=== PATIENT | male | born 1935 | race Caucasian/White ===

== ENCOUNTER 2017-10-25 17:46 | Inpatient (IN) | payer OTHER, MEDICARE ==
[~2017-10-25] VITALS: Ht 170.2 cm; Wt 74.5 kg
[~2017-10-25 17:46] MED LIST: ASPIRIN EC81 M1 PO; BREO ELLIPTA 21 EACH INH; CALCIUM500 M1 PO; FOLIC ACID0.8 M1 PO; GABAPENTIN100 M2 PO; ISONIAZID100 MG PO; LEVOTHYROXINE75 MCG PO; OMEPRAZOLE20 M2 PO; PREDNISONE20 M1 PO; PROPRANOLOL HCL80 M2 PO; SPIRIVA18 MCG INH; VITAMIN B-650 M2 PO; VITAMIN D2000 UNIT PO
--- NOTE | 2017-10-25 18:02 | ED DYSPNEA/ASTHMA COMPLAINT ---
See Addendum History of Present Illness General Chief Complaint: Dyspnea (COPD, CHF, Other) Stated Complaint: RES FAILURE LOW SATS Source: patient, family, old records Exam Limitations: clinical condition Vital Signs & Intake/Output Vital Signs & Intake/Output Vital Signs Date Time Temp Pulse Resp B/P B/P Pulse O2 O2 Flow FiO2 Mean Ox Delivery Rate 10/25 2036 98.8 74 26 129/83 95 BIPAP 10/25 1945 80 95 10/25 1839 38 100 Non ReBreather 10/25 1834 Non ReBreather 10/256 99 Non 100% ReBreather 10/25 175 98.0 67 42 110/72 70 Nasal 4.0L Cannula Allergies Coded Allergies: NO KNOWN ALLERGIES (12/07/11) Reconcile Medications Aspirin (Ecotrin*) 81 MG TABLET.DR 1 TAB PO DAILY HEART/BLOOD (Reported) Calcium Carbonate (Calcium) (Unknown Strength) TABLET (Unknown Dose) PO DAILY SUPPLEMENT (Reported) Cholecalciferol (Vitamin D3) (Vitamin D) (Unknown Strength) CAPSULE (Unknown Dose) PO DAILY SUPPLEMENT (Reported) Fluticasone/Vilanterol (Breo Ellipta 200-25 Mcg INH) 200 MCG-25 MCG/DOSE BLST.W.DEV 1 PUFF INH DAILY LUNG FIBROSIS (Reported) Folic Acid (Unknown Strength) CAPSULE (Unknown Dose) PO DAILY SUPPLEMENT ( Reported) Gabapentin 100 MG CAPSULE 1 CAP PO TID LUNG FIBROSIS (Reported) Isoniazid 100 MG TABLET 1 TAB PO TID LUNG FIBROSIS (Reported) Levothyroxine Sodium 75 MCG TABLET 1 TAB PO DAILY THYROID (Reported) Omeprazole 20 MG CAPSULE.DR 1 CAP PO DAILY GI (Reported) Prednisone 20 MG TABLET 1 TAB PO DAILY COPD Propranolol HCl (Propranolol HCl ER) 80 MG CAP.SA.24H 1 CAP PO DAILY MIGRAINES (Reported) Pyridoxine HCl (Vitamin B-6) (Unknown Strength) TABLET (Unknown Dose) PO DAILY SUPPLEMENT (Reported) Tiotropium [place] (Spiriva) 18 MCG CAP.W.DEV 1 CAP INH DAILY LUNG FIBROSIS ( Reported) Triage Note: SENT BY DR. MELO FOR ADMISSION, C/O R SIDED BACK PAIN AND SOB, COUGH X A FEW DAYS, 02 SAT 70% AT 5L NASAL CANULA. Triage Nurses Notes Reviewed? yes Onset: Abrupt Duration: day(s): (2), constant, continues in ED Timing: recent history Severity: moderate, severe HPI: 82-year-old male comes into the emergency room with complaints of shortness of breath has been going on for the past 2 days getting progressively worse. Denies any chest pain. Cough. No mucus production. Denies any fever or vomiting. History of pulmonary fibrosis. Patient was sent in by his primary care for admission. (Db Love) Past History Travel History Traveled to [place] past 21 day No Medical History Any Pertinent Medical History? 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 No (Db Love) Review of Systems Review of Systems Constitutional: Reports: no symptoms. EENTM: Reports: no symptoms. Respiratory: Reports: see HPI. Cardiovascular: Reports: no symptoms. GI: Reports: no symptoms. Genitourinary: Reports: no symptoms. Musculoskeletal: Reports: no symptoms. Skin: Reports: no symptoms. Neurological/Psychological: Reports: no symptoms. Hematologic/Endocrine: Reports: no symptoms. Immunologic/Allergic: Reports: no symptoms. All Other Systems: Reviewed and Negative (Db Love) Physical Exam Physical Exam General Appearance: moderate distress, thin Head: atraumatic Eyes: Bilateral: normal appearance. Ears, Nose, Throat: normal ENT inspection, hearing grossly normal Neck: normal inspection Respiratory: decreased breath sounds, plerual rub, respiratory distress ( MODERATE) Cardiovascular: regular rate/rhythm Extremities: normal inspection Neurologic/Psych: awake, alert, oriented x 3 Skin: intact, normal color Core Measures ACS in differential dx? Yes CVA/TIA Diagnosis No Sepsis Present: No Sepsis Focused Exam Completed? No (Db Love) Progress Differential Diagnosis: asthma, AMI, bronchitis, costochondritis, CHF, COPD, pericarditis, pulmonary embolism, pneumonia, pneumothorax, unstable angina Plan of Care: Orders Procedure Date/time Status PARTIAL THROMBOPLASTIN TIME 10/26 0250 Active Patient Data 10/25 2050 Active Admit to inpatient 10/25 2046 Active Add-on Test (ER Only) 10/25 1946 Active Add-on Test (ER Only) 10/25 1937 Active RAPID VIRAL INFLUENZA A 10/25 1935 Complete BLOOD CULTURE 10/25 1935 Active PARTIAL THROMBOPLASTIN TIME 10/25 1810 Complete PROTHROMBIN TIME 10/25 1810 Complete LACTIC ACID 10/25 1810 Complete ARTERIAL BLOOD GAS (GEN) 10/25 175 Complete Telemetry/Social Security Assessor 10/25 175 Active TROPONIN LEVEL 10/25 175 Complete COMPREHENSIVE METABOLIC PANEL 10/25 175 Complete CBC WITHOUT DIFFERENTIAL 10/25 1753 Complete B-TYPE NATRIURETIC PEP (BNP) 10/25 1753 Complete EKG 10/25 1753 Active Current Medications Sig/Marah Start time Last Medication Dose Stop Time Status Admin Heparin Sodium 25,000 UNIT Q24H 10/25 1944 UNVr 10/25 (Porcine) 2052 (Heparin) Sodium Chloride 500 ML Laboratory Tests 10/25/171953: Anion Gap 11, Estimated GFR > 60, BUN/Creatinine Ratio 34.4 H, Glucose 105 H, Lactic Acid 1.0, Calcium 9.6, Total Bilirubin 0.5, AST 21, ALT 34, Alkaline Phosphatase 69, Troponin I < 0.01, Vuz-U-Lsfcvsuikox Pept 1760 H, Total Protein 7.1, Albumin 3.7, Globulin 3.4, Albumin/Globulin Ratio 1.1 10/25/171914: pH 7.35, pCO2 61 *H, pO2 86, HCO3 33 H, ABG O2 Sat (Measured) 96.0, Carboxyhemoglobin 1.1 L, O2 Concentration % 100%, O2 Delivery Method NRB, Phlebotomy Draw Site RIGHT RADIAL 10/25/171810: PT 13.3 H, INR 1.27 H, APTT 27, CBC w Diff MAN DIFF ORDERED, RBC 4.60 L, MCV 92.4, MCH 29.8, MCHC 32.3 L, RDW 15.9 H, MPV 8.4, Gran % 84.5 H, Lymphocytes % 6.7 L, Monocytes % 2.9, Eosinophils % 5.6 H, Basophils % 0.3, Absolute Granulocytes 14.4 H, Segmented Neutrophils 72, Band Neutrophils 10 H, Absolute Lymphocytes 1.1 L, Lymphocytes 4 L, Monocytes 6, Absolute Monocytes 0.5, Eosinophils 5, Absolute Eosinophils 1.0, Basophils 3 H, Absolute Basophils 0, Platelet Estimate VERIFIED BY SMEAR, Anisocytosis 1+ Microbiology 10/25 1953 NASOPHARYN: Influenza Virus A & B Rapid Smear - COMP 10/25 1953 BLOOD: Blood Culture - RECD 10/25 1943 BLOOD: Blood Culture - RECD Diagnostic Imaging: Viewed by Me: Radiology Read. Discussed w/RAD: Radiology Read. Radiology Impression: PATIENT: KELY POWELL PRESENT AGE: 82 PATIENT ACCOUNT NO: [id number] : 33 LOCATION: [facility] ORDERING PHYSICIAN: Db MILLER SERVICE DATE: 10/25/17 EXAM TYPE : RAD - XRY-PORTABLE CHEST XRAY EXAMINATION: XR PORTABLE CHEST CLINICAL INFORMATION: Shortness of breath COMPARISON: Chest x-ray 08/26/2017. CT of chest 07/16/2017, 08/26/2017 TECHNIQUE: Portable frontal view of the chest was obtained. 6:45 PM FINDINGS: Better demonstrated on the CAT scan is underlying interstitial fibrosis with bulla formation. There is dense consolidation at the right lung base with pleural density extending along the right lateral chest wall. This density the right lung base has worsened since the exam of 2016. Left diaphragm is also silhouetted could be some left basilar opacification as well but this appears similar to the chest x-ray 08/26/2017. The central hilar pulmonary vessels remain prominent. Vascular wall calcification of aorta. IMPRESSION: Increasing dense consolidation at right lung base due to infiltrate/atelectasis and effusion. Persistent central hilar pulmonary vascular congestion. DICTATED BY: Sudarshan Harley MD DATE/TIME DICTATED: 10/25/171909 SUPERVISORY AIR INTERCEPT CONTROLLER:CARI DATE/TIME TRANSCRIBED:10/25/171909 CONFIDENTIAL, DO NOT COPY WITHOUT APPROPRIATE AUTHORIZATION. <Electronically signed in Other Vendor System> SIGNED BY: Sudarshan Harley MD 10/25/171919 Initial ED EKG: rate (71), AFIB (Bryan MILLER,Db) Departure Departure Disposition: STILL A PATIENT Condition: Stable Clinical Impression Primary Impression: Respiratory failure Secondary Impressions: New onset a-fib, Pneumonia Referrals: Candido FAGAN,Tino Beck (PCP/Family) Departure Forms: Customer Survey General Discharge Information (Db Love) Admission Note Spoke With: Jimenez Aparicio MD Documentation of Exam: Documentation of any treatments & extenuating circumstances including Concerns Regarding Discharge (functional status, medication knowledge or non-compliance, living conditions, etc.) that warrant an admission rather than observation: [ BiPAP, respiratory therapy, nebulizers, pulmonary consult, IV antibiotics, radiology consultation, IV heparin, ICU admission] PA/[employer]GRAM[employer] Co-Sign Statement Statement: ED Attending supervision documentation- [X] I saw and evaluated the patient. I have also reviewed all the pertinent lab results and diagnostic results. I agree with the findings and the plan of care as documented in the PA's/PROGRAMM[employer] INTERNSH[employer]'s documentation. [X] I have reviewed the ED Record and agree with the PA's/PROGRAM[employer]'s documentation. [] Additions or exceptions (if any) to the PAs/PROGRAMMING INTERNSH[employer]'s note and plan are summarized below: [Patient presents with increased shortness of breath. Patient is on prednisone. Patient has a white count of 17,000 with 10 bands. Chest x-ray consistent with right lower lobe pneumonia. Patient is currently requiring BiPAP. Patient feels slightly better with the BiPAP. Patient is ever been on BiPAP before. Patient also found be a new onset A. fib. Patient has stress test with Dr. Prsica Ashley last year and was told everything was okay. Patient does not see Dr. Prisca Ashley on regular basis. Patient given broad-spectrum antibiotics as well as steroids. We'll continue the BiPAP continue to closely follow.] (Ghazala FAGAN,Fabricio Jeffries) Critical Care Note Critical Care Note Critical Care Time: 30-74 min (60) (Db Love)
[2017-10-25 18:42] LABS: ABSOLUTE BASOPHIL COUNT 0 /CUMM (0.0-0.2); ABSOLUTE GRANULOCYTE CT 14.4 /CUMM (1.4-6.5); ABSOLUTE LYMPH COUNT 1.1 /CUMM (1.2-3.4); ABSOLUTE MONOCYTE COUNT 0.5 /CUMM (0.10-0.60); BASOPHIL % 0.3 % (0.0-2.0); EOSINOPHIL % 5.6 % (0-5); GRANULOCYTE % 84.5 % (42.2-75.2); HEMATOCRIT 42.5 % (42-52); MEAN CORPUSCULAR HGB 29.8 PG (27.0-31.0); MEAN CORPUSCULAR HGB CONC 32.3 G/DL (33.0-37.0); MEAN CORPUSCULAR VOLUME 92.4 FL (80.0-94.0); MEAN PLATELET VOLUME 8.4 FL (7.4-10.4); PLATELET COUNT 272 /CUMM (130-400); RBC DISTRIBUTION WIDTH 15.9 % (11.5-14.5); WHITE BLOOD CELL COUNT 17.1 /CUMM (4.8-10.8)
--- NOTE | 2017-10-25 19:20 | RADIOLOGY REPORT ---
EXAMINATION: XR PORTABLE CHEST CLINICAL INFORMATION: Shortness of breath COMPARISON: Chest x-ray 08/26/2017. CT of chest 07/16/2017, 08/26/2017 TECHNIQUE: Portable frontal view of the chest was obtained. 6:45 PM FINDINGS: Better demonstrated on the CAT scan is underlying interstitial fibrosis with bulla formation. There is dense consolidation at the right lung base with pleural density extending along the right lateral chest wall. This density the right lung base has worsened since the exam of 08/26/2017. Left diaphragm is also silhouetted could be some left basilar opacification as well but this appears similar to the chest x-ray 08/26/2017. The central hilar pulmonary vessels remain prominent. Vascular wall calcification of aorta. IMPRESSION: Increasing dense consolidation at right lung base due to infiltrate/atelectasis and effusion. Persistent central hilar pulmonary vascular congestion.
[2017-10-25 20:05] LABS: PT 13.3 SEC (9.4-12.5); PTT 27 SEC (25-37)
--- NOTE | 2017-10-25 21:03 | History & Physical ---
Edilia Carver 10/25/172101: General Information and HPI MD Statement: I have seen and personally examined KELY POWELL and documented this H&P. The patient is a 82 year old M who presented with a patient stated chief complaint of hypoxemia Source of Information: family, old records Exam Limitations: unable to give history, physical impairment History of Present Illness: Mr Powell is a 81 year old gentleman with a PMHx of restrictive (severe interstitial pulmonary fibrosis), and obstructive ( severe emphysema ), end stage lung disease w/ reduced DLCO, multiple lung nodules concerning for malignancy, latent TB on INH+vit B6, progressive respiratory failure w/ increasing supplemental oxygen requirement from 2L>4L in the last few months was brought in when he was found to be hypoxemia at his doctors office. He also has PMHx of ascending and descending aneurysm of aorta, bladder cancer s/p TURBT and mitomycin, hypthyroidism. Reported recent or ongoing Tx w/ prednisone 10mg daily tx. He was on BiPAP machine when he was examined, and most of the history was obtained from the pts daughter who is a primary caregiver for the pt. As per the daughter, Mr Powell was found to be more lethargic and had decreased po intake in the last few days. He did not have any fever, but reported cough that became more productive. He is always dyspneic at baseline, and did not have any worsening shortness of breath either on exertion or at rest. Reported orthopnea which is chronic. He did not have any changes in his mentation, seizures, dysuria or abdmonial pain. He did not have any palpitations, chest pain or pedal edema. No sick contacts. No sallie or diarrhea. Allergies/Medications Allergies: Coded Allergies: NO KNOWN ALLERGIES (12/07/11) Home Med list Aspirin (Ecotrin*) 81 MG TABLET.DR 1 TAB PO DAILY HEART/BLOOD (Reported) Benzonatate (Tessalon Perle) 100 MG CAPSULE 1 CAP PO TID COUGH (Reported) Calcium Carbonate (Calcium) 500 MG CALCIUM (1,250 MG) TABLET 750 MG PO DAILY SUPPLEMENT (Reported) Cholecalciferol (Vitamin D3) (Vitamin D) 2,000 UNIT CAPSULE 1 TAB PO DAILY SUPPLEMENT (Reported) Escitalopram Oxalate 10 MG TABLET 1 TAB PO DAILY MENTAL HEALTH (Reported) Fluticasone/Vilanterol (Breo Ellipta 200-25 Mcg INH) 200 MCG-25 MCG/DOSE BLST.W.DEV 1 PUFF INH DAILY LUNG FIBROSIS (Reported) Folic Acid 0.8 MG CAPSULE 1 TAB PO DAILY SUPPLEMENT (Reported) Gabapentin 100 MG CAPSULE 1 CAP PO TID LUNG FIBROSIS (Reported) Isoniazid 100 MG TABLET 1 TAB PO TID LUNG FIBROSIS (Reported) Levothyroxine Sodium 75 MCG TABLET 1 TAB PO DAILY THYROID (Reported) Lubiprostone (Amitiza) 24 MCG CAPSULE 1 CAP PO BID CONSTIPATION (Reported) Omeprazole 20 MG CAPSULE.DR 1 CAP PO DAILY GI (Reported) Prednisone 20 MG TABLET 1 TAB PO DAILY COPD Propranolol HCl (Propranolol HCl ER) 80 MG CAP.SA.24H 1 CAP PO DAILY MIGRAINES (Reported) Pyridoxine HCl (Vitamin B-6) 50 MG TABLET 1 TAB PO DAILY SUPPLEMENT (Reported ) Tiotropium [place] (Spiriva) 18 MCG CAP.W.DEV 1 CAP INH DAILY LUNG FIBROSIS ( Reported) Tramadol HCl (Ultram) 50 MG TABLET 1 TAB PO TIDPRN PAIN (Reported) Compliance With Home Meds: GOOD Past History Travel History Traveled to [place] past 21 day No Medical History Neurological: migraine EENT: NONE Cardiovascular: NONE Respiratory: COPD, LUNG FIBROSIS Gastrointestinal: STOMACH ULCERS Hepatic: NONE Renal: nephrolithiasis Musculoskeletal: NONE Psychiatric: NONE Endocrine: hypothyroidism Blood Disorders: BLOOD CLOT IN LLE Cancer(s): bladder cancer 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 Unknown: dressing, bathing. Ambulation: walker IADLs Unknown: shopping, housework, finances, food prep, telephone, transportation, medication admin. Review of Systems Review of Systems Constitutional: Reports: see HPI. Denies: fever. EENTM: Denies: blurred vision. Cardiovascular: Denies: chest pain, edema, orthopena, palpitations, peripheral edema, syncope. Respiratory: Reports: cough, orthopnea, short of breath, sputum production. GI: Reports: constipation. Denies: abdominal pain, melena. Genitourinary: Denies: dysuria, hematuria. Musculoskeletal: Denies: joint pain. Skin: Denies: change in skin color. Neurological/Psychological: Denies: anxiety, headache. Hematologic/Endocrine: Denies: bruising, polyuria. Exam & Diagnostic Data Last 24 Hrs of Vital Signs/I&O Vital Signs Date Time Temp Pulse Resp B/P B/P Pulse O2 O2 Flow FiO2 Mean Ox Delivery Rate 10/26 0121 62 95 10/26 0048 97.3 58 22 104/70 97 BIPAP 10/26 0013 56 97 10/26 0009 53 99 10/25 2329 97.2 60 24 108/66 98 BIPAP 10/25 2300 63 103/75 10/25 2244 60 92/56 10/25 2210 90/62 10/25 2210 97.0 56 23 / 96 BIPAP 10/25 2037 98.8 74 26 129/83 95 BIPAP 10/25 1945 80 95 10/25 1839 38 100 Non ReBreather 10/25 1835 Non ReBreather 10/25 1816 99 Non 100% ReBreather 10/25 1752 98.0 67 42 110/72 70 Nasal 4.0L Cannula Intake & Output 10/26 0800 10/26 0000 10/25 1600 Intake Total 550 2000 Output Total 400 Balance 150 2000 Intake, IV 550 2000 Output, Urine 400 Patient 171 lb Weight Weight Reported by Patient Measurement Method Physical Exam General Appearance Alert, Oriented X3, Cooperative, Mild Distress, on BiPAP, arousable to verbal stimuli and answers to questions appropriately, but hard to understand since he is on BiPAP Skin No Rashes, No Breakdown, No Significant Lesion Skin Temp/Moisture Exam: Warm/Dry Sepsis Skin Exam (color): Normal for Ethnicity HEENT Atraumatic, PERRLA, EOMI, Mucous Membr. moist/pink Neck Supple, No JVD, No thryomegaly, +2 Carotid Pulse wo Bruit Lymphatic Cervical nl Cardiovascular Regular Rate, Normal S1, Normal S2, No Murmurs Lungs crackles and wheezes bilaterally. Abdomen Normal Bowel Sounds, Soft, No Tenderness, No Hepatospenomegaly Neurological Normal Speech, Strength at 5/5 X4 Ext, Normal Tone, Cranial Nerves 3-12 NL, Reflexes 2+, sensation couldnt be tested Extremities No Clubbing, No Cyanosis, No Edema, Normal Pulses, No Tenderness/ Swelling Vascular Pulses Symmetrical Body Front and Back (Adult) 1) Kneee replacement scars bilateral Diagnostic Data EKG Results Afib w/ good rate control No STTWI LAFB CXR Results increasing dense consolidation at right lung base due toinfiltrate/atelectasis and effusion.Persistent central hilar pulmonary vascular congestion. Assessment/Plan Assessment: Mr Powell is a 81 year old gentleman with a PMHx of restrictive (severe interstitial pulmonary fibrosis), and obstructive ( severe emphysema ), end stage lung disease w/ reduced DLCO, multiple lung nodules concerning for malignancy, latent TB on INH+vit B6, progressive respiratory failure w/ increasing supplemental oxygen requirement from 2L>4L in the last few months was brought in when he was found to be hypoxemia at his doctors office likely secondary to pneumonia as evident on radiography. Vitals remained stable when he came in w/ temp 98.6, [place] 67, RR 42>26, BP 110/72 Other pertinent lab findings: white cell count: 17.1 w/ 86% PMNs + 10 bands, eosinophils 5.6%, Hb 13.7, platelets 272k K 4.9, HCO3 39 ( metabolic compensation of chronic hypercapnia) BUN 31, Cr 0.7 LA 1.0. Trop 0.01, proBNP 1760 AST 21, ALT 34. Chest x ray showed increasing dense consolidation at right lung base due toinfiltrate/atelectasis and effusion.Persistent central hilar pulmonary vascular congestion. PET scan 05/04/17: 1. Diffuse subpleural FDG uptake is seen in the lungs, corresponding to the fibrotic areas demonstrated on CT scan. Superimposed intense FDG uptake isseen in the right lower lobe pleural-based mass as discussed above. Given theinternal air bronchograms and the dependent location of this finding,etiologies such as a pneumonia +/- atelectasis would be favored. CT chest w/o contrast 08/26/17: 1. Significant chronic lung disease with peripheral honeycombing, extensivecystic and bullous changes and peripheral interstitial thickening/fibrosis.2. Superimposed on the chronic lung changes is interval development ofenlarging areas of airspace opacification most notably in the posterioraspect of the right lower lobe and the inferior and lateral aspects of theright middle lobe. These densities contain air bronchograms and areconcerning for consolidation. The findings likely represent intervaldevelopment of an infectious process superimposed on the chronic lungdisease. Clinical correlation is requested, with follow-up to resolutionrecommended. Etiology in his case is due to possible infectious cause which is respiratory in nature, pneumonia is most likely. He did have leucocytosis w/ clear left shift signifying an acute infection and not due to the effect of prednisone use. Looking at the radiological findings historically in the last few months, it does appear that he might have developed pneumonia secondary to obstruction from malignancy, which is consistent with the area of consolidation. He also has severe restrictive and obstructive lung disease which could have contributed to hypoxic hypercarbic respiratory failure for which he needs to be tx w/ BiPAP and steroids. In regards to his afib w/ rate controlled rhythm, etiology could be due to his sepsis or his severe pulmonary hypertension secondary to copd which could be txed for high [id number] score of 3. Plan: Respiratory: Considering pneumonia that may have caused his acute worsening of already worsening respiratory failure, should be treated aggressively w/ emperic abx pending culture results that could be used to guide therapy in the next few days. Sepsis w/ normal lactate- resuscitated w/ fluids and abx administered. Continue ceftriaxone and azithromycin pending [facility] culture results. In regards to his worsening emphysematous disease, and interstitial lung disease the tx w/ steroids is not very beneficial, but can be continued. Continue BiPAP as needed. Recheck ABG post BiPAP. Titrate oxygen as tolerated. Infectious: Likely pneumonia. Check CBC in the am, and tx w/ abx for now. Other sources such as urine is considered, but unlikely. Metabolic: Stable at this time. Alimentary: NPO for now, pending improvement on BiPAP. Circulatory: BP seems to be stable at this time. If it drops for any reason, he should be tx'ed aggressive fluids. For new onset afib w/ controlled rate, he has been started on iv heparin, which should be continued. No beta blokcers, until evaluated by the design technology teacher in the am. Echocardiogram. Serial Ekgs and troponins. Hematology: stable. Housekeepin. DVT Ppx- heparin iv 2. GI PPx- Protonix 3. IV lines- peripheral only. 4. Respiratory- BiPAP. 5. NPO for now. 6. DNI only. Pt daughter to be contacted, if code status needs revision. As Ranked By This Provider Problem List: 1. New onset a-fib 2. Pneumonia 3. Respiratory failure 4. COPD (chronic obstructive pulmonary disease) 5. ILD (interstitial lung disease) 6. Acute respiratory failure 7. Bronchiectasis Core Measures/Misc (06/13) Acute Coronary Syndrome ACS Diagnosis: No Congestive Heart Failure Congestive Heart Failure Diagnosis No Cerebrovascular Accident CVA/TIA Diagnosis: No VTE (View Protocol) VTE Risk Factors Acute Medical Illness No Mechanical VTE Prophylaxis d/t N/A MechProphylax Ordered No VTE Pharm Prophylaxis d/t NA PharmProphylax ordered Sepsis (View protocol) Sepsis Present: Yes Markus FAGAN, [facility] 10/25/17 3285: Attending MD Review Statement Attending Statement Attending MD Statement: examined this patient, discuss w/resident/PA/VENEER MEASURER, agreed w/resident/PA/VENEER MEASURER, discussed with family, reviewed images, amended to note Attending Assessment/Plan: 82 yo Taiwanese speaking M, with h/o mixed restrictive obstructive lung disease with very severe emphysematous lung disease with severe interstitial pulmonary fibrosis on 4L O2 and prednisone, lung nodules (not a candidate for biopsy), HTN , hypothyroidism, DVT, latent TB, AAA, bladder cancer in remission, is here for progressively worsening dyspnea on minimal exertion and chronic nonproductive cough. History obtained from daughter who reports that patient's resporatory status has gradually deteriorated. No fever/ chills. Daughter states that patient has been recently unsteady on his feet and uses a cane to ambulate. Patient follows with Dr. Jain who saw him 1 week back. Of note, patient is on daily prednisone for the past [address] Jain. Patient has no underlying cardiac problems but has had a stress test [address] Prisca Shah and everything was reported ok. Today patient went in for a regular follow up with PCP, who noted patient's sats were in 70's on 4L O2 and hence was referred to the ER. On ER arrival patient was placed on NRB and then eventually transitioned to Bipap. On our evaluation, patient seems comfortable on Bipap, reports his breathing is better. He denies chest pain, palpitations or lightheadedness. C/o constipation, last BM 4 days ago. Vitals: afebrile, HR 50-70's, BP 110/72 --> 90/62 --> 103/75 after fluid resuscitation, sats 70% on 4L, 96% on Bipap FiO2 30%. Exam: lethargic but arousable, attempts to respond to questions, PERRL, Neck supple, Chest bibasilar coarse crackles with reduced air entry. Heart S1S2 irregular, Abd soft, NT, LE no edema. Labs: WBC 17.1 (on steroids), bands 10, eosinophils 5.6%, INR 1.27, bicarb 39, BUN 31, creat 0.9, lactic acid 1.0, trop neg, proBNP 1760. UA neg. AB.35/61/86/33. CXR: Increasing dense consolidation at right lung base due to infiltrate/ atelectasis and effusion. Persistent central hilar pulmonary vascular congestion. PFT (Apr 2017): restrictive ventilatory defect with resting and exercise desaturation. EKG: Atrial fibrillation, HR 71, Qtc 435 (new onset). CT chest (Jul 2017): chronic lung disease, interval development of airspace opacification in right lower lobe and right muddle lobe concerning for consolidation. Assessment and plan: 1. Acute on chronic hypoxic and hypercarbic respiratory failure 2. Sepsis, Right lower lobe pneumonia, community acquired 3. Exacerbation of COPD 4. Severe COPD with ILD with mixed obstructive and restrictive lung disease 5. New onset atrial fibrillation, rate controlled 6. Hypotension transient, resolved with fluids 7. Latent TB on INH and B6 8. Elevated proBNP with CXR s/o pulmonary congestion, clinically patient does not appear to be in heart failure - Admit to ICU - Vitals Q1 hour - NPO for now - Continue Bipap and recheck ABG in 2 hours - Monitor for arrhythmias - [facility] nebs - Panculture, urine legionella and strep Ag - IV ceftriaxone and azithro - IV solumedrol 40 Q8 - CRCU consult (Dr. Jain) - Consider repeat CT chest in AM - Gentle hydration x1 bag - Serial EKG and troponin - Obtain Echo and Cardio consult (Dr. Flowers) - IV heparin initiated per PTT protocol - Guaiac all stools - Rate controlled, no need for cardizem drip - Check TSH, free T4 - Treat constipation - Resume all home meds from AM once patient is off Bipap - GI ppx IV PPI DVT ppx IV heparin. DNI. [Code status was discussed with patient in the presence of daughter and . Patient clearly did not want ventilator machines or tubes, but he was ok with CPR. We explained that both go hand in hand, he was not able to make a final decision. So daughter wanted to keep it as DNI and she will discuss this in further depth with patient. Please re-discuss code status in AM.] TTS > 55 mins
--- NOTE | 2017-10-25 22:18 | Admission Certification ---
Admission Certification Certification Statement - As attending physician, I certify that at the time of - admission, based on clinical presentation, severity of - symptoms, need for further diagnostic testing and - therapeutic interventions, and risk of adverse outcomes - without in-hospital treatment, in my clinical assessment, - this patient requires an acute hospital stay for a minimum - of two nights or longer. I have also considered psychsocial - factors such as support system, advanced age, financial - issues, cognitive issues, and failed out-patient treatments, - past re-admission history, safety of patient, and lack of - compliance as applicable. Specific rationale supporting this admission is: Acute on chronic hypoxemic respiratory failure, community acquired pneumonia. New onset atrial fibrillation. Needs ICU level of care.
[2017-10-25] MEDS ORDERED: PREDNISONE20 M1 PO (23:14)
[2017-10-25] MEDS ORDERED: ESCITALOPRAM OX10 MG PO (23:16)
[2017-10-25] MEDS ORDERED: TESSALON PERLE100 M1 PO (23:16)
[2017-10-25] MEDS ORDERED: ULTRAM50 M1 PO (23:16)
[2017-10-25] MEDS ORDERED: AMITIZA24 MC1 PO (23:17)
[2017-10-26 04:44] LABS: ABSOLUTE BASOPHIL COUNT 0 /CUMM (0.0-0.2); ABSOLUTE EOSINOPHIL COUNT 0 /CUMM (0.0-0.7); ABSOLUTE GRANULOCYTE CT 11.6 /CUMM (1.4-6.5); ABSOLUTE LYMPH COUNT 0.7 /CUMM (1.2-3.4); ABSOLUTE MONOCYTE COUNT 0 /CUMM (0.10-0.60); BASOPHIL % 0.1 % (0.0-2.0); EOSINOPHIL % 0.2 % (0-5); GRANULOCYTE % 93.5 % (42.2-75.2); MEAN CORPUSCULAR HGB 29.6 PG (27.0-31.0); MEAN CORPUSCULAR HGB CONC 32.3 G/DL (33.0-37.0); MEAN CORPUSCULAR VOLUME 91.7 FL (80.0-94.0); MEAN PLATELET VOLUME 7.9 FL (7.4-10.4); PLATELET COUNT 210 /CUMM (130-400); RBC DISTRIBUTION WIDTH 15.5 % (11.5-14.5); WHITE BLOOD CELL COUNT 12.4 /CUMM (4.8-10.8)
[2017-10-26 04:49] LABS: PTT 107 SEC (25-37)
[2017-10-26 04:53] LABS: HEMATOCRIT 35.8 % (42-52)
--- NOTE | 2017-10-26 07:35 | Cons- CRCU ---
General Information and HPI Allergies/Medications Allergies: Coded Allergies: NO KNOWN ALLERGIES (12/07/11) Home Med List: Aspirin (Ecotrin*) 81 MG TABLET.DR 1 TAB PO DAILY HEART/BLOOD (Reported) Benzonatate (Tessalon Perle) 100 MG CAPSULE 1 CAP PO TID COUGH (Reported) Calcium Carbonate (Calcium) 500 MG CALCIUM (1,250 MG) TABLET 750 MG PO DAILY SUPPLEMENT (Reported) Cholecalciferol (Vitamin D3) (Vitamin D) 2,000 UNIT CAPSULE 1 TAB PO DAILY SUPPLEMENT (Reported) Escitalopram Oxalate 10 MG TABLET 1 TAB PO DAILY MENTAL HEALTH (Reported) Fluticasone/Vilanterol (Breo Ellipta 200-25 Mcg INH) 200 MCG-25 MCG/DOSE BLST.W.DEV 1 PUFF INH DAILY LUNG FIBROSIS (Reported) Folic Acid 0.8 MG CAPSULE 1 TAB PO DAILY SUPPLEMENT (Reported) Gabapentin 100 MG CAPSULE 1 CAP PO TID LUNG FIBROSIS (Reported) Isoniazid 100 MG TABLET 1 TAB PO TID LUNG FIBROSIS (Reported) Levothyroxine Sodium 75 MCG TABLET 1 TAB PO DAILY THYROID (Reported) Lubiprostone (Amitiza) 24 MCG CAPSULE 1 CAP PO BID CONSTIPATION (Reported) Omeprazole 20 MG CAPSULE.DR 1 CAP PO DAILY GI (Reported) Prednisone 20 MG TABLET 1 TAB PO DAILY COPD Propranolol HCl (Propranolol HCl ER) 80 MG CAP.SA.24H 1 CAP PO DAILY MIGRAINES (Reported) Pyridoxine HCl (Vitamin B-6) 50 MG TABLET 1 TAB PO DAILY SUPPLEMENT (Reported ) Tiotropium [place] (Spiriva) 18 MCG CAP.W.DEV 1 CAP INH DAILY LUNG FIBROSIS ( Reported) Tramadol HCl (Ultram) 50 MG TABLET 1 TAB PO TIDPRN PAIN (Reported) Past History Travel History Traveled to [place] past 21 day No Medical History Neurological: migraine EENT: NONE Cardiovascular: NONE Respiratory: COPD, LUNG FIBROSIS Gastrointestinal: STOMACH ULCERS Hepatic: NONE Renal: nephrolithiasis Musculoskeletal: NONE Psychiatric: NONE Endocrine: hypothyroidism Blood Disorders: BLOOD CLOT IN LLE Cancer(s): bladder cancer 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 Unknown: dressing, bathing. Ambulation: walker IADLs Unknown: shopping, housework, finances, food prep, telephone, transportation, medication admin. Assessment/Plan Consult Acknowledgment - Thank you for your consult request.
[2017-10-26 08:00] VITALS: BP 92/7
--- NOTE | 2017-10-26 09:43 | PN- Resident CRCU ---
Subjective HPI/CRCU Issues: Acute on chronic hypoxic and hypercarbic resp failure likely due to worsening ILD and COPD Mixed restrictive and obstructive lung disease Atrial fibrilliation Leukocytosis 24 Hour Events: No acute events overnight. patient is currently on BiPAP with 30% FiO2. Subjectively feels better than last night. He still has leukocytosis but his white count has significantly decreased since last night. Objective Vital Signs & I&O Last 8 Hrs of Vitals and I&O: . Exam General Appearance: alert, awake, mild distress Head: atraumatic, normal appearance Respiratory: chest non-tender, crackles, wheezing Cardiovascular: bradycardia, irregularly irregular Gastrointestinal: soft, non-tender Extremities: no edema Cranial Nerves: normal hearing, normal speech Skin: intact Skin Temp/Moisture Exam: Warm/Dry Sepsis Skin Exam (color): Normal for Ethnicity Current Medications: Current Medications Sig/Marah Start time Last Medication Dose Route Stop Time Status Admin Acetaminophen 650 MG Q8P PRN 10/25 2330 AC PO Acetaminophen 1,000 MG BID PRN 10/25 2330 AC IV Albuterol Sulfate 3 ML ONCE ONE 10/25 1800 DC 10/25 INH 10/25 1801 1808 Aspirin Buffered 81 MG DAILY 10/26 1000 AC 10/26 PO 1037 Azithromycin 500 MG 2100 10/26 2100 DC Sodium Chloride 250 ML IV Azithromycin 500 MG 2100 10/26 2100 AC Sodium Chloride 250 ML IV Azithromycin 500 MG ONCE ONE 10/25 1930 DC 10/25 Dextrose/Water 250 ML IV 10/25 Ceftazidime 1,000 MG IQ8 10/26 1600 AC IV Ceftriaxone Sodium 1,000 MG 2100 10/26 2100 CAN IV Ceftriaxone Sodium 0 .STK-MED ONE 10/25 2010 DC .ROUTE Ceftriaxone Sodium 1,000 MG ONCE ONE 10/25 1930 DC 10/25 IV 10/25 1930 2019 Escitalopram Oxalate 10 MG DAILY 10/26 1000 AC 10/26 PO 1037 Furosemide 40 MG ONCE ONE 10/26 1015 DC 10/26 IV 10/26 1016 1037 Gabapentin 100 MG TID 10/26 1000 AC 10/26 PO 1037 Heparin Sodium 0 .STK-MED ONE 10/25 2011 DC (Porcine) .ROUTE Heparin Sodium 4,000 UNIT ONCE ONE 10/25 1945 DC 10/25 (Porcine) IV 10/25 Heparin Sodium 25,000 UNIT Q24H 10/25 1944 AC 10/25 (Porcine) IV 2052 Sodium Chloride 500 ML Ipratropium [place] 2.5 ML ONCE ONE 10/25 1800 DC 10/25 INH 10/25 1801 1808 Isoniazid 300 MG DAILY 10/26 1000 AC 10/26 PO 1037 Levothyroxine Sodium 0.075 MG DAILY AC 10/26 0700 AC 10/26 PO 0613 Methylprednisolone 60 MG DAILY 10/27 1000 AC IV Methylprednisolone 20 MG ONCE ONE 10/26 1045 DC 10/26 IV 10/26 1046 1038 Methylprednisolone 40 MG Q8 10/26 0600 DC 10/26 IV 0613 Methylprednisolone 0 .STK-MED ONE 10/25 1815 DC .ROUTE Methylprednisolone 125 MG ONCE ONE 10/25 1800 DC 10/25 IV 10/25 1801 1816 Morphine Sulfate 2 MG Q6P PRN 10/26 1015 AC IV Omeprazole 20 MG DAILY AC 10/26 0700 AC 10/26 PO 0613 Pyridoxine HCl 50 MG DAILY 10/26 1000 AC 10/26 PO 1037 Senna/Docusate Sodium 2 TAB AT BEDTIME 10/26 2200 AC PO Sodium Chloride 1,000 ML BOLUS ONE 10/25 2300 CAN IV 10/26 0059 Sodium Chloride 1,000 ML ONCE ONE 10/25 2230 DC 10/25 IV 10/25 2329 2230 Sodium Chloride 1,000 ML BOLUS ONE 10/25 2230 DC 10/25 IV 10/26 0029 2340 Tiotropium [place] 1 PUF DAILY 10/26 1000 AC 10/26 INH 1038 Tramadol HCl 50 MG TIDPRN PRN 10/25 2330 AC PO Vancomycin HCl 1,000 MG Q12 10/26 1005 AC 10/26 Dextrose/Water 250 ML IV 1145 Impression/Plan Impression/Problem List Impression: Mr Beverly is a 81 year old gentleman with a PMHx of restrictive (severe interstitial pulmonary fibrosis), and obstructive ( severe emphysema ), end stage lung disease w/ reduced DLCO, multiple lung nodules concerning for malignancy, latent TB on INH+vit B6, progressive respiratory failure w/ increasing supplemental oxygen requirement from 2L>4L in the last few months was brought in after he was found to be hypoxemic at his doctors office. Problem List: 1. Acute Hypoxic and Hypercarbic Respiratory Failure likely secondary to worsening COPD and ILD 2. ? Pneumonia 3. Atrial Fibrilliation with Bradycardia 4. Latent Tb on INH and B6 Plan: * Close monitoring in the ICU * Continue O2 supplementation to maintain oxygen saturations >92% * Continue BiPAP as needed * Continue Azithromycin daily. Will add Vanc and Ceftazidime for broader coverage for suspected pneumonia * Her CXR from yesterday shows some vascular congestion. Will administer one time IV lasix. * Reduce Solu-Medrol to IV 60mg daily * TFTs within normal limits. * Will keep her on IV heparin for AC. watermaster AC will need to be discussed with family. * No rate control agents needed for A.fib. If needed, can use diltiazem per cardiology. * Cardiology recs appreciated. * DVT Prophylaxis with IV heparin * DNR/DNI Problem List: 1. Acute respiratory failure Pain Ratin Tomorrow's Labs & Rationales: CBC, ICU bundle Plan DVT/Prophylaxis: mechanical
--- NOTE | 2017-10-26 09:55 | Cons- CRCU ---
General Information and HPI Consulting Request Date of Consult: 10/26/17 Requested By: MED History of Present Illness: Mr Beverly is a 81 year old gentleman with a PMHx of restrictive (severe interstitial pulmonary fibrosis), and obstructive ( severe emphysema ), end stage lung disease w/ reduced DLCO, multiple lung nodules concerning for malignancy, latent TB on INH+vit B6, progressive respiratory failure w/ increasing supplemental oxygen requirement from 2L>4L in the last few months was brought in when he was found to be hypoxemia at his doctors office. He also has PMHx of ascending and descending aneurysm of aorta, bladder cancer s/p TURBT and mitomycin, hypthyroidism. Reported recent or ongoing Tx w/ prednisone 10mg daily tx. Reported orthopnea which is chronic. He did not have any changes in his mentation, seizures, dysuria or abdmonial pain. He did not have any palpitations , chest pain or pedal edema. No sick contacts. No sallie or diarrhea. This am he is sleeping and on bipap Appears comfortable Stable Allergies/Medications Allergies: Coded Allergies: NO KNOWN ALLERGIES (12/07/11) Home Med List: Aspirin (Ecotrin*) 81 MG TABLET.DR 1 TAB PO DAILY HEART/BLOOD (Reported) Benzonatate (Tessalon Perle) 100 MG CAPSULE 1 CAP PO TID COUGH (Reported) Calcium Carbonate (Calcium) 500 MG CALCIUM (1,250 MG) TABLET 750 MG PO DAILY SUPPLEMENT (Reported) Cholecalciferol (Vitamin D3) (Vitamin D) 2,000 UNIT CAPSULE 1 TAB PO DAILY SUPPLEMENT (Reported) Escitalopram Oxalate 10 MG TABLET 1 TAB PO DAILY MENTAL HEALTH (Reported) Fluticasone/Vilanterol (Breo Ellipta 200-25 Mcg INH) 200 MCG-25 MCG/DOSE BLST.W.DEV 1 PUFF INH DAILY LUNG FIBROSIS (Reported) Folic Acid 0.8 MG CAPSULE 1 TAB PO DAILY SUPPLEMENT (Reported) Gabapentin 100 MG CAPSULE 1 CAP PO TID LUNG FIBROSIS (Reported) Isoniazid 100 MG TABLET 1 TAB PO TID LUNG FIBROSIS (Reported) Levothyroxine Sodium 75 MCG TABLET 1 TAB PO DAILY THYROID (Reported) Lubiprostone (Amitiza) 24 MCG CAPSULE 1 CAP PO BID CONSTIPATION (Reported) Omeprazole 20 MG CAPSULE.DR 1 CAP PO DAILY GI (Reported) Prednisone 20 MG TABLET 1 TAB PO DAILY COPD Propranolol HCl (Propranolol HCl ER) 80 MG CAP.SA.24H 1 CAP PO DAILY MIGRAINES (Reported) Pyridoxine HCl (Vitamin B-6) 50 MG TABLET 1 TAB PO DAILY SUPPLEMENT (Reported ) Tiotropium [place] (Spiriva) 18 MCG CAP.W.DEV 1 CAP INH DAILY LUNG FIBROSIS ( Reported) Tramadol HCl (Ultram) 50 MG TABLET 1 TAB PO TIDPRN PAIN (Reported) Review of Systems Review of Systems Constitutional: Reports: see HPI. Comments Review of Systems Constitutional: Reports: see HPI. Denies: fever. EENTM: Denies: blurred vision. Cardiovascular: Denies: chest pain, edema, orthopena, palpitations, peripheral edema, syncope. Respiratory: Reports: cough, orthopnea, short of breath, sputum production. GI: Reports: constipation. Denies: abdominal pain, melena. Genitourinary: Denies: dysuria, hematuria. Musculoskeletal: Denies: joint pain. Skin: Denies: change in skin color. Neurological/Psychological: Denies: anxiety, headache. Hematologic/Endocrine: Denies: bruising, polyuria. Past History Travel History Traveled to [place] past 21 day No Medical History Neurological: migraine EENT: NONE Cardiovascular: NONE Respiratory: COPD, LUNG FIBROSIS Gastrointestinal: STOMACH ULCERS Hepatic: NONE Renal: nephrolithiasis Musculoskeletal: NONE Psychiatric: NONE Endocrine: hypothyroidism Blood Disorders: BLOOD CLOT IN LLE Cancer(s): bladder cancer BUSINESS ECONOMIST/Reproductive: 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 Unknown: dressing, bathing. Ambulation: walker IADLs Unknown: shopping, housework, finances, food prep, telephone, transportation, medication admin. Exam & Diagnostic Data Last 24 Hrs of Vital Signs/I&O Vital Signs Date Time Temp Pulse Resp B/P B/P Pulse O2 O2 Flow FiO2 Mean Ox Delivery Rate 10/26 799 96.8 62 24 92/7 95 BIPAP 30% 10/26 0800 94 BIPAP 30% 10/26 0655 56 96 10/26 0414 57 97 10/26 0400 95 BIPAP 30% 10/26 0155 95 BIPAP 30% 10/26 0121 62 95 10/26 0048 97.3 58 22 104/70 97 BIPAP 10/26 0013 56 97 10/26 0009 53 99 10/25 2329 97.2 60 24 108/66 98 BIPAP 10/25 2300 63 103/75 10/25 2244 60 92/56 10/25 2210 90/62 10/25 2210 97.0 56 23 90/62 96 BIPAP 10/25 2037 98.8 74 26 129/83 95 BIPAP 10/25 1945 80 95 10/25 1839 38 100 Non ReBreather 10/25 1835 Non ReBreather 10/25 1816 99 Non 100% ReBreather 10/25 1752 98.0 67 42 110/72 70 Nasal 4.0L Cannula Intake & Output 10/26 1600 10/26 0800 10/26 0000 Intake Total 864 2000 Output Total 700 Balance 164 2000 Intake, IV 764 2000 Intake, Oral 100 Output, Urine 700 Patient 177 lb 171 lb Weight Weight Bed scale Reported by Patient Measurement Method Last 48 Hrs of Labs/Aakash: Laboratory Tests 10/26/17 0600: CBC w Diff Cancelled, WBC Cancelled, RBC Cancelled, Hgb Cancelled, Hct Cancelled , MCV Cancelled, MCH Cancelled, MCHC Cancelled, RDW Cancelled, Plt Count Cancelled, MPV Cancelled 10/26/17 0500: Sodium Cancelled, Potassium Cancelled, Chloride Cancelled, Carbon Dioxide Cancelled, Anion Gap Cancelled, BUN Cancelled, Creatinine Cancelled, Glucose Cancelled, Calcium Cancelled, Phosphorus Cancelled, Magnesium Cancelled, Total Bilirubin Cancelled, AST Cancelled, ALT Cancelled, Albumin Cancelled 10/26/17 0350: Anion Gap 12, Estimated GFR > 60, Glucose 127 H, Calcium 8.5, Phosphorus 3.1, Magnesium 1.9, Total Bilirubin 0.3, AST 18, ALT 31, Troponin I < 0.01, Albumin 2.9 L, APTT 107 *H, CBC w Diff MAN DIFF ORDERED, RBC 3.90 L, MCV 91.7, MCH 29.6, MCHC 32.3 L, RDW 15.5 H, MPV 7.9, Gran % 93.5 H, Lymphocytes % 5.9 L, Monocytes % 0.3 L, Eosinophils % 0.2, Basophils % 0.1, Absolute Granulocytes 11.6 H, Segmented Neutrophils 84 H, Band Neutrophils 9 H, Absolute Lymphocytes 0.7 L, Lymphocytes 7 L, Absolute Monocytes 0 L, Absolute Eosinophils 0, Absolute Basophils 0, Platelet Estimate ADEQUATE, Polychromasia 1 +, Hypochromic-Microcytic 1+, Poikilocytosis 2+, Ovalocytes 1+, Stomatocytes 1+, Fld Total RBCs Counted 100 10/26/17 0250: APTT Cancelled 10/26/17 0200: Troponin I Cancelled 10/26/17 0026: APTT Cancelled 10/25/17 2357: Urinalysis LIGHT H, Urine Color YEL, Urine Clarity CLEAR, Urine pH 6.0, Ur Specific [place] >= 1.030, Urine Protein TRACE H, Urine Ketones NEG, Urine Nitrite NEG, Urine Bilirubin NEG, Urine Urobilinogen 1.0, Ur Leukocyte Esterase NEG, Ur Microscopic SEDIMENT EXAMINED, Urine RBC 3-5, Urine WBC 3-5 H, Ur Epithelial Cells FEW, Urine Bacteria RARE H, Urine Mucus MOD H, Urine Hemoglobin TRACE-INTACT H, Urine Glucose NEG 10/25/17 2150: pH 7.44, pCO2 47 H, pO2 78 L, HCO3 32 H, ABG O2 Sat (Measured) 95.0 L, Carboxyhemoglobin 1.3 L, O2 Concentration % 30%, Respiration Rate 24, O2 Delivery Method BIPAP, Vent Mode S/T, Expiratory Pressure 6, Inspiratory Pressure 22, Phlebotomy Draw Site RIGHT RADIAL 10/25/174: Anion Gap 11, Estimated GFR > 60, BUN/Creatinine Ratio 34.4 H, Glucose 105 H, Lactic Acid 1.0, Calcium 9.6, Total Bilirubin 0.5, AST 21, ALT 34, Alkaline Phosphatase 69, Troponin I < 0.01, Coj-W-Lsejuzfoafy Pept 1760 H, Total Protein 7.1, Albumin 3.7, Globulin 3.4, Albumin/Globulin Ratio 1.1 10/25/17 191: pH 7.35, pCO2 61 *H, pO2 86, HCO3 33 H, ABG O2 Sat (Measured) 96.0, Carboxyhemoglobin 1.1 L, O2 Concentration % 100%, O2 Delivery Method NRB, Phlebotomy Draw Site RIGHT RADIAL 10/25/17 1811: PT 13.3 H, INR 1.27 H, APTT 27, CBC w Diff MAN DIFF ORDERED, RBC 4.60 L, MCV 92.4, MCH 29.8, MCHC 32.3 L, RDW 15.9 H, MPV 8.4, Gran % 84.5 H, Lymphocytes % 6.7 L, Monocytes % 2.9, Eosinophils % 5.6 H, Basophils % 0.3, Absolute Granulocytes 14.4 H, Segmented Neutrophils 72, Band Neutrophils 10 H, Absolute Lymphocytes 1.1 L, Lymphocytes 4 L, Monocytes 6, Absolute Monocytes 0.5, Eosinophils 5, Absolute Eosinophils 1.0, Basophils 3 H, Absolute Basophils 0, Platelet Estimate VERIFIED BY SMEAR, Anisocytosis 1+ Microbiology 10/25 2356 URINE ROUT: Legionella Antigen - COMP 10/25 2356 URINE ROUT: Streptococcus pneumoniae Antigen (M - COMP 10/25 1953 NASOPHARYN: Influenza Virus A & B Rapid Smear - COMP Assessment/Plan Impression/Plan: General Appearance Alert, Oriented X3, Cooperative, Mild Distress, on BiPAP, arousable to verbal stimuli and answers to questions appropriately, but hard to understand since he is on BiPAP Skin No Rashes, No Breakdown, No Significant Lesion Skin Temp/Moisture Exam: Warm/Dry Sepsis Skin Exam (color): Normal for Ethnicity HEENT Atraumatic, PERRLA, EOMI, Mucous Membr. moist/pink Neck Supple, No JVD, No thryomegaly, +2 Carotid Pulse wo Bruit Lymphatic Cervical nl Cardiovascular Regular Rate, Normal S1, Normal S2, No Murmurs Lungs crackles and wheezes bilaterally. Abdomen Normal Bowel Sounds, Soft, No Tenderness, No Hepatospenomegaly Neurological Normal Speech, Strength at 5/5 X4 Ext, Normal Tone, Cranial Nerves 3-12 NL, Reflexes 2+, sensation couldnt be tested Extremities No Clubbing, No Cyanosis, No Edema, Normal Pulses, No Tenderness/ Swelling Vascular Pulses Symmetrical CXR IMPRESSION: Increasing dense consolidation at right lung base due to infiltrate/atelectasis and effusion. Persistent central hilar pulmonary vascular congestion. DICTATED BY: Sudarshan Harley MD DATE/TIME DICTATED:10/25/171909 This is a gentleman with mixed restrictive obstructive lung disease with very severe emphysematous lung disease with severe interstitial pulmonary fibrosis with traction bronchiectasis with worsening progressive respiratory failure. He has had bullous COPD for many years from previous history of [id number] smoking quit in 1989. His overall lung function has been progressively getting worse. In the recent past he was also noted to have bilateral lung masses concerning for malignancy by PET scan and he is not a great candidate for invasive workup due to end-stage lung disease and we will be doing a CAT scan in July for evaluation of this. 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 Patient has been on INH since April 28. He also does have ascending aortic aneurysm, abdominal aortic aneurysm before, and very severe end-stage lung disease with reduced DLCO. issues * Acute on chronic hypoxic and hypercarbic resp failure due to worsening ild, codp and prob malignancy in the rt lower lobe area compounded by mild fluid overload * Prob acute AIP aswell with prob superimposed pneumonia with bandemia * Slowly progressive rt lower lobe lesion since 2013 pt not a candidate for biopsy and he had wished conservative care (prob malignancy including lung vs mesothelioma vs boop * Severe copd with ild with mixed obstructive and restrictive lung disease with poor group home prognosis * 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 * Pafib with rapid ventricular response with normal LVEF * Previous bladder ca with no recurrence so far PLAN Cont BIPAP on and off during the day and at hs Keep sat at 92 Cont steroids and reduce to 60 daily IV lasix one dose cont out pt inh and b6, Check tsh and free t4 Cont azithro and change abx to vanco and ceftaz for now and will rapidly deescalate Swab the nares for mrsa cont other meds Will follow prog poor DNR and DNI Discussed with daughter Consult Acknowledgment - Thank you for your consult request.
--- NOTE | 2017-10-26 10:30 | Cons- Cardiology ---
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 Patient is presently on BiPAP and unable to provide any information therefore the history is obtained from the daughter who is the bedside. She states that he normally has shortness of breath but this is progressive over the past 3 days. He has a chronic cough but she did not note any change. There was no evidence of fever or chills. Due to his worsening symptoms she brought him to the emergency room for evaluation where he was admitted to ICU and placed on BiPAP. He was noted to be in atrial fibrillation which is new onset. He reportedly had a negative cardiac workup over a year ago as an outpatient. Allergies/Medications Allergies: Coded Allergies: NO KNOWN ALLERGIES (12/07/11) Home Med List: Aspirin (Ecotrin*) 81 MG TABLET.DR 1 TAB PO DAILY HEART/BLOOD (Reported) Benzonatate (Tessalon Perle) 100 MG CAPSULE 1 CAP PO TID COUGH (Reported) Calcium Carbonate (Calcium) 500 MG CALCIUM (1,250 MG) TABLET 750 MG PO DAILY SUPPLEMENT (Reported) Cholecalciferol (Vitamin D3) (Vitamin D) 2,000 UNIT CAPSULE 1 TAB PO DAILY SUPPLEMENT (Reported) Escitalopram Oxalate 10 MG TABLET 1 TAB PO DAILY MENTAL HEALTH (Reported) Fluticasone/Vilanterol (Breo Ellipta 200-25 Mcg INH) 200 MCG-25 MCG/DOSE BLST.W.DEV 1 PUFF INH DAILY LUNG FIBROSIS (Reported) Folic Acid 0.8 MG CAPSULE 1 TAB PO DAILY SUPPLEMENT (Reported) Gabapentin 100 MG CAPSULE 1 CAP PO TID LUNG FIBROSIS (Reported) Isoniazid 100 MG TABLET 1 TAB PO TID LUNG FIBROSIS (Reported) Levothyroxine Sodium 75 MCG TABLET 1 TAB PO DAILY THYROID (Reported) Lubiprostone (Amitiza) 24 MCG CAPSULE 1 CAP PO BID CONSTIPATION (Reported) Omeprazole 20 MG CAPSULE.DR 1 CAP PO DAILY GI (Reported) Prednisone 20 MG TABLET 1 TAB PO DAILY COPD Propranolol HCl (Propranolol HCl ER) 80 MG CAP.SA.24H 1 CAP PO DAILY MIGRAINES (Reported) Pyridoxine HCl (Vitamin B-6) 50 MG TABLET 1 TAB PO DAILY SUPPLEMENT (Reported ) Tiotropium [place] (Spiriva) 18 MCG CAP.W.DEV 1 CAP INH DAILY LUNG FIBROSIS ( Reported) Tramadol HCl (Ultram) 50 MG TABLET 1 TAB PO TIDPRN PAIN (Reported) Current Medications: Current Medications Sig/Marah Start time Last Medication Dose Route Stop Time Status Admin Acetaminophen 650 MG Q8P PRN 10/25 2330 AC PO Acetaminophen 1,000 MG BID PRN 10/25 2330 AC IV Albuterol Sulfate 3 ML ONCE ONE 10/25 1800 DC 10/25 INH 10/25 1801 1808 Aspirin Buffered 81 MG DAILY 10/26 1000 AC PO Azithromycin 500 MG 2100 10/26 2099 DC Sodium Chloride 250 ML IV Azithromycin 500 MG 2100 10/26 2100 UNVr Sodium Chloride 250 ML IV Azithromycin 500 MG ONCE ONE 10/25 1930 DC 10/25 Dextrose/Water 250 ML IV 10/25 Ceftazidime 1,000 MG IQ8 10/26 1600 UNVr IV Ceftriaxone Sodium 1,000 MG 2100 10/26 2100 CAN IV Ceftriaxone Sodium 0 .STK-MED ONE 10/25 2010 DC .ROUTE Ceftriaxone Sodium 1,000 MG ONCE ONE 10/25 1929 DC 10/25 IV 10/25 Escitalopram Oxalate 10 MG DAILY 10/26 1000 AC PO Furosemide 40 MG ONCE ONE 10/26 1015 UNVr IV 10/26 1016 Gabapentin 100 MG TID 10/26 1000 AC PO Heparin Sodium 0 .STK-MED ONE 10/25 2011 DC (Porcine) .ROUTE Heparin Sodium 4,000 UNIT ONCE ONE 10/25 1944 DC 10/25 (Porcine) IV 10/25 Heparin Sodium 25,000 UNIT Q24H 10/25 1944 AC 10/25 (Porcine) IV 2052 Sodium Chloride 500 ML Ipratropium [place] 2.5 ML ONCE ONE 10/25 1800 DC 10/25 INH 10/25 1801 1808 Isoniazid 300 MG DAILY 10/26 1000 AC PO Levothyroxine Sodium 0.075 MG DAILY AC 10/26 0700 AC 10/26 PO 0613 Methylprednisolone 60 MG DAILY 10/27 1000 UNVr IV Methylprednisolone 40 MG Q8 10/26 0600 DC 10/26 IV 0613 Methylprednisolone 0 .STK-MED ONE 10/25 1815 DC .ROUTE Methylprednisolone 125 MG ONCE ONE 10/25 1800 DC 10/25 IV 10/25 1801 1816 Morphine Sulfate 2 MG Q6P PRN 10/26 1015 UNVr IV Omeprazole 20 MG DAILY AC 10/26 0700 AC 10/26 PO 0613 Pyridoxine HCl 50 MG DAILY 10/26 1000 AC PO Senna/Docusate Sodium 2 TAB AT BEDTIME 10/26 2200 AC PO Sodium Chloride 1,000 ML BOLUS ONE 10/25 2300 CAN IV 10/26 0059 Sodium Chloride 1,000 ML ONCE ONE 10/25 2230 DC 10/25 IV 10/25 2329 2230 Sodium Chloride 1,000 ML BOLUS ONE 10/25 2230 DC 10/25 IV 10/26 0029 2340 Tiotropium [place] 1 PUF DAILY 10/26 1000 AC INH Tramadol HCl 50 MG TIDPRN PRN 10/25 2330 AC PO Vancomycin HCl 1,000 MG Q12 10/26 1005 UNir Dextrose/Water 250 ML IV Review of Systems Review of Systems: Unobtainable patient on BiPAP Past History Travel History Traveled to [place] past 21 day No Medical History Neurological: migraine EENT: NONE Cardiovascular: NONE Respiratory: COPD, LUNG FIBROSIS Gastrointestinal: STOMACH ULCERS Hepatic: NONE Renal: nephrolithiasis Musculoskeletal: NONE Psychiatric: NONE Endocrine: hypothyroidism Blood Disorders: BLOOD CLOT IN LLE Cancer(s): bladder cancer JOB SUPERINTENDENT/Reproductive: 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 Unknown: dressing, bathing. Ambulation: walker IADLs Unknown: shopping, housework, finances, food prep, telephone, transportation, medication admin. Exam & Diagnostic Data Vital Signs and I&O Vital Signs Date Time Temp Pulse Resp B/P B/P Pulse O2 O2 Flow FiO2 Mean Ox Delivery Rate 10/26 0951 62 95 10/26 0800 96.8 62 24 92/7 95 BIPAP 30% 10/26 0800 94 BIPAP 30% 10/26 0655 56 96 10/26 0414 57 97 10/26 0400 95 BIPAP 30% 10/26 0155 95 BIPAP 30% 10/26 0121 62 95 10/26 0048 97.3 58 22 104/70 97 BIPAP 10/26 0013 56 97 10/26 0009 53 99 10/25 2329 97.2 60 24 108/66 98 BIPAP 10/25 2300 63 103/75 10/25 2244 60 92/56 10/25 2210 90/62 10/25 2210 97.0 56 23 90/62 96 BIPAP 10/25 2037 98.8 74 26 129/83 95 BIPAP 10/25 1945 80 95 10/25 1839 38 100 Non ReBreather 10/25 1835 Non ReBreather 10/25 1816 99 Non 100% ReBreather 10/25 1752 98.0 67 42 110/72 70 Nasal 4.0L Cannula Intake & Output 10/26 1600 10/26 0800 10/26 0000 10/25 1600 10/25 0800 10/25 0000 Intake Total 864 2000 Output Total 700 Balance 164 2000 Intake, IV 764 2000 Intake, Oral 100 Output, Urine 700 Patient 177 lb 171 lb Weight Weight Bed scale Reported by Patient Measurement Method Physical Exam: Patient is a well-developed well-nourished male appearing in moderate respiratory distress on BiPAP HEENT is unremarkable Neck is supple there is no JVD Lungs decreased air entry with scattered rhonchi Heart irregular rhythm S1 and S2 are normal no murmurs gallops or rubs Abdomen bowel sounds positive Extremities without edema Labs/Aakash Results: Laboratory Tests 10/26 10/26 0600 0500 Chemistry Sodium Cancelled Potassium Cancelled Chloride Cancelled Carbon Dioxide Cancelled Anion Gap Cancelled BUN Cancelled Creatinine Cancelled Glucose Cancelled Calcium Cancelled Phosphorus Cancelled Magnesium Cancelled Total Bilirubin Cancelled AST Cancelled ALT Cancelled Albumin Cancelled Hematology CBC w Diff Cancelled WBC Cancelled RBC Cancelled Hgb Cancelled Hct Cancelled MCV Cancelled MCH Cancelled MCHC Cancelled RDW Cancelled Plt Count Cancelled MPV Cancelled 10/26 10/26 0350 0250 Chemistry Sodium (137 - 145 mmol/L) 144 Potassium (3.5 - 5.1 mmol/L) 4.7 Chloride (98 - 107 mmol/L) 100 Carbon Dioxide (22 - 30 mmol/L) 32 H Anion Gap (5 - 16) 12 BUN (9 - 20 mg/dL) 31 H Creatinine (0.7 - 1.2 mg/dL) 0.8 Estimated GFR (>60 ml/min) > 60 Glucose (65 - 99 mg/dL) 127 H Calcium (8.4 - 10.2 mg/dL) 8.5 Phosphorus (2.5 - 4.5 mg/dL) 3.1 Magnesium (1.6 - 2.3 mg/dL) 1.9 Total Bilirubin (0.2 - 1.3 mg/dL) 0.3 AST (17 - 59 U/L) 18 ALT (21 - 72 U/L) 31 Troponin I (<0.11 ng/ml) < 0.01 Albumin (3.5 - 5.0 g/dL) 2.9 L TSH (0.270 - 4.200 uIU/mL) Pending Free T4 (0.85 - 1.93 ng/dL) Pending Coagulation APTT (25 - 37 SEC) 107 *H Cancelled Hematology CBC w Diff MAN DIFF ORDERED WBC (4.8 - 10.8 /CUMM) 12.4 H RBC (4.70 - 6.10 /CUMM) 3.90 L Hgb (14.0 - 18.0 G/DL) 11.6 L Hct (42 - 52 %) 35.8 L MCV (80.0 - 94.0 FL) 91.7 MCH (27.0 - 31.0 PG) 29.6 MCHC (33.0 - 37.0 G/DL) 32.3 L RDW (11.5 - 14.5 %) 15.5 H Plt Count (130 - 400 /CUMM) 210 MPV (7.4 - 10.4 FL) 7.9 Gran % (42.2 - 75.2 %) 93.5 H Lymphocytes % (20.5 - 51.1 %) 5.9 L Monocytes % (1.7 - 9.3 %) 0.3 L Eosinophils % (0 - 5 %) 0.2 Basophils % (0.0 - 2.0 %) 0.1 Absolute Granulocytes (1.4 - 6.5 /CUMM) 11.6 H Segmented Neutrophils (42.2 - 75.2 %) 84 H Band Neutrophils (0.0 - 5.0 %) 9 H Absolute Lymphocytes (1.2 - 3.4 /CUMM) 0.7 L Lymphocytes (20.5 - 51.1 %) 7 L Absolute Monocytes (0.10 - 0.60 /CUMM) 0 L Absolute Eosinophils (0.0 - 0.7 /CUMM) 0 Absolute Basophils (0.0 - 0.2 /CUMM) 0 Platelet Estimate (ADEQUATE) ADEQUATE Polychromasia 1+ Hypochromic-Microcytic 1+ Poikilocytosis 2+ Ovalocytes 1+ Stomatocytes 1+ Other Body Source Fld Total RBCs Counted (%) 100 10/26 10/26 0200 0026 Chemistry Troponin I Cancelled Coagulation APTT Cancelled 10/25 10/25 2357 2150 Blood Gas pH (7.35 - 7.45 PH) 7.44 pCO2 (35 - 45 TORR) 47 H pO2 (80 - 100 TORR) 78 L HCO3 (21 - 28 MEQ/L) 32 H ABG O2 Sat (Measured) (>96.0 %) 95.0 L Carboxyhemoglobin (1.5 - 5.0 %) 1.3 L O2 Concentration % 30% Respiration Rate (BPM) 24 O2 Delivery Method BIPAP Vent Mode S/T Expiratory Pressure (CM H2O P) 6 Inspiratory Pressure (CM H2O P) 22 Miscellaneous Phlebotomy Draw Site RIGHT RADIAL Urines Urinalysis LIGHT H Urine Color (YEL,AMB,STR) YEL Urine Clarity (CLEAR) CLEAR Urine pH (5.0 - 8.0) 6.0 Ur Specific [place] (1.001 - 1.035) >= 1.030 Urine Protein (NEG,<30 MG/DL) TRACE H Urine Ketones (NEG) NEG Urine Nitrite (NEG) NEG Urine Bilirubin (NEG) NEG Urine Urobilinogen (0.1 - 1.0 EU/dl) 1.0 Ur Leukocyte Esterase (NEG) NEG Ur Microscopic SEDIMENT EXAMINED Urine RBC (0 - 5 /HPF) 3-5 Urine WBC (0 - 2 /HPF) 3-5 H Ur Epithelial Cells (NONE,FEW) FEW Urine Bacteria (NEG/NONE) RARE H Urine Mucus (FEW,NONE) MOD H Urine Hemoglobin (NEG) TRACE-INTACT H Urine Glucose (N MG/DL) NEG 10/25 Blood Gas pH (7.35 - 7.45 PH) 7.35 pCO2 (35 - 45 TORR) 61 *H pO2 (80 - 100 TORR) 86 HCO3 (21 - 28 MEQ/L) 33 H ABG O2 Sat (Measured) (>96.0 %) 96.0 Carboxyhemoglobin (1.5 - 5.0 %) 1.1 L O2 Concentration % 100% O2 Delivery Method NRB Chemistry Sodium (137 - 145 mmol/L) 144 Potassium (3.5 - 5.1 mmol/L) 4.9 Chloride (98 - 107 mmol/L) 94 L Carbon Dioxide (22 - 30 mmol/L) 39 H Anion Gap (5 - 16) 11 BUN (9 - 20 mg/dL) 31 H Creatinine (0.7 - 1.2 mg/dL) 0.9 Estimated GFR (>60 ml/min) > 60 BUN/Creatinine Ratio (7 - 25 %) 34.4 H Glucose (65 - 99 mg/dL) 105 H Lactic Acid (0.7 - 2.1 mmol/L) 1.0 Calcium (8.4 - 10.2 mg/dL) 9.6 Total Bilirubin (0.2 - 1.3 mg/dL) 0.5 AST (17 - 59 U/L) 21 ALT (21 - 72 U/L) 34 Alkaline Phosphatase (< 127 U/L) 69 Troponin I (<0.11 ng/ml) < 0.01 Tyl-V-Cubimanpuvy Pept (<125 pg/mL) 1760 H Total Protein (6.3 - 8.2 g/dL) 7.1 Albumin (3.5 - 5.0 g/dL) 3.7 Globulin (1.9 - 4.2 gm/dL) 3.4 Albumin/Globulin Ratio (1.1 - 2.2 %) 1.1 Miscellaneous Phlebotomy Draw Site RIGHT RADIAL 10/25 1811 Coagulation PT (9.4 - 12.5 SEC) 13.3 H INR (0.90 - 1.17) 1.27 H APTT (25 - 37 SEC) 27 Hematology CBC w Diff MAN DIFF ORDERED WBC (4.8 - 10.8 /CUMM) 17.1 H RBC (4.70 - 6.10 /CUMM) 4.60 L Hgb (14.0 - 18.0 G/DL) 13.7 L Hct (42 - 52 %) 42.5 MCV (80.0 - 94.0 FL) 92.4 MCH (27.0 - 31.0 PG) 29.8 MCHC (33.0 - 37.0 G/DL) 32.3 L RDW (11.5 - 14.5 %) 15.9 H Plt Count (130 - 400 /CUMM) 272 MPV (7.4 - 10.4 FL) 8.4 Gran % (42.2 - 75.2 %) 84.5 H Lymphocytes % (20.5 - 51.1 %) 6.7 L Monocytes % (1.7 - 9.3 %) 2.9 Eosinophils % (0 - 5 %) 5.6 H Basophils % (0.0 - 2.0 %) 0.3 Absolute Granulocytes (1.4 - 6.5 /CUMM) 14.4 H Segmented Neutrophils (42.2 - 75.2 %) 72 Band Neutrophils (0.0 - 5.0 %) 10 H Absolute Lymphocytes (1.2 - 3.4 /CUMM) 1.1 L Lymphocytes (20.5 - 51.1 %) 4 L Monocytes (1.7 - 9.3 %) 6 Absolute Monocytes (0.10 - 0.60 /CUMM) 0.5 Eosinophils (0 - 5.0 %) 5 Absolute Eosinophils (0.0 - 0.7 /CUMM) 1.0 Basophils (0.0 - 2.0 %) 3 H Absolute Basophils (0.0 - 0.2 /CUMM) 0 Platelet Estimate (ADEQUATE) VERIFIED BY SMEAR Anisocytosis 1+ Diagnostic Data EKG Results Atrial fibrillation nonspecific ST-T changes CXR Results IMPRESSION: Increasing dense consolidation at right lung base due to infiltrate/atelectasis and effusion. Persistent central hilar pulmonary vascular congestion. Assessment/Plan Assessment/Plan 1. New onset atrial fibrillation most likely secondary to respiratory insufficiency due to a combination of pulmonary fibrosis, COPD, and pneumonia. There is also evidence for mild fluid overload with an elevated BNP of 1760. 2. 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 Severe pulmonary fibrosis 4. COPD on home O2 5. Pulmonary nodules most likely secondary to carcinoma along 6. History of ascending and descending aortic aneurysms Echo mentation is 1. Continue to monitor on telemetry 2. Agree with Lasix for diuresis 3. Echocardiogram is pending 4. His overall rate is well-controlled with periods of bradycardia and therefore would not add any AV heavenly blocking agents. If he does develop tachycardia would avoid beta maryann given his COPD and consider diltiazem. 5. Continue heparin. Further discussion will be made regarding long-term anticoagulation dependent upon the patient's course. Thank you for allowing [facility] to participate in the care of your patient. Consult Acknowledgment - Thank you for your consult request.
[2017-10-26 12:15] LABS: PTT 78 SEC (25-37)
--- NOTE | 2017-10-26 15:06 | ECHOCARDIOGRAM REPORT ---
KELY POWELL Age: 82 : 1935 Gender: M Exam Date: 10/26/2017 08:54 Exam Location: [facility] Ht (in): 67 Wt (lb): 177 BSA: 1.97 BP: 104 / 70 Ordering Physician: Edilia Carver MD Referring Physician: Jung Flowers MD Technologist: Shanti Sexton Room Number: 108-01 Indications: AFIB/FLUTTER Rhythm: Atrial fibrillation Technical Quality: fair FINDINGS Left Ventricle Normal global left ventricular size, wall thickness, systolic function with no obvious regional wall motion abnormalities. Normal left ventricular ejection fraction estimated at 65-70%. Right Ventricle Normal right ventricular size and function. Right Atrium Normal right atrial size. Left Atrium Mild left atrial dilatation. Mitral Valve Moderate mitral annular calcification. Trace to mild mitral regurgitation. Aortic Valve Diffuse thickening (sclerosis) of the aortic valve cusps without reduced excursion. [id number] aortic regurgitation. Tricuspid Valve Tricuspid valve is normal in structure and function. Mild tricuspid regurgitation. Right ventricular systolic pressure estimated to be elevated at 44 mmHg. Pulmonic Valve Pulmonic valve not well visualized, grossly normal. Pericardium Minimal pericardial effusion (normal variant). Great Vessels Mild aortic dilatation at the level of the sinuses of valsalva (root). Mildly dilated proximal ascending aorta (tube). CONCLUSIONS Normal left and right ventricular systolic function. Dilated Aortic Root and ascending Aorta. Mild to moderate Aortic Regurgitation. Mild to moderate Pulmonary hypertension. Jung Flowers M.D. (Electronically Signed) Final Date: 26 October 2017 15:06 MEASUREMENTS (Male / Female) Normal Values 2D ECHO LV Diastolic Diameter PLAX 4.5 cm 4.2 - 5.9 / 3.9 - 5.3 cm LV Systolic Diameter PLAX 3.0 cm 2.1 - 4.0 cm LV Fractional Shortening PLAX 33.3 % 25 - 46 % LV Ejection Fraction 2D Teich 62.1 % IVS Diastolic Thickness 0.8 cm LVPW Diastolic Thickness 1.2 cm LV Relative Wall Thickness 0.4 RV Internal Dim ED PLAX 3.8 cm 1.9 - 3.8 cm LVOT Diameter 2.3 cm Aortic Root Diameter 4.5 cm LA Systolic Diameter LX 3.8 cm 3.0 - 4.0 / 2.7 - 3.8 cm LA Volume 67.0 cm 18 - 58 / 22 - 52 cm Ascending Aorta Diameter 4.2 cm DOPPLER AV Peak Velocity 165.0 cm/s AV Peak Gradient 10.9 mmHg AV Mean Velocity 101.0 cm/s AV Mean Gradient 5.0 mmHg AV Velocity Time Integral 32.4 cm AI Deceleration [place] 140.0 cm/s AI Peak Velocity 331.0 cm/s AI Pressure Half Time 690.0 ms AI Peak Gradient 43.8 mmHg LVOT Peak Velocity 100.0 cm/s LVOT Peak Gradient 4.0 mmHg LVOT Mean Velocity 61.6 cm/s LVOT Mean Gradient 2.0 mmHg LVOT Velocity Time Integral 19.5 cm LVOT Stroke Volume 81.0 cm AV Area Cont Eq vti 2.5 cm AV Area Cont Eq pk 2.5 cm TR Peak Velocity 292.0 cm/s TR Peak Gradient 34.1 mmHg Right Atrial Pressure 10.0 mmHg Pulmonary Artery Systolic Pressu 44.1 mmHg Right Ventricular Systolic Press 44.1 mmHg PV Peak Velocity 87.5 cm/s PV Peak Gradient 3.1 mmHg PV Mean Velocity 59.7 cm/s PV Mean Gradient 2.0 mmHg PV Velocity Time Integral 19.2 cm LV E' Lateral Velocity 10.1 cm/s LV E' Septal Velocity 10.5 cm/s
[2017-10-26 16:00] VITALS: BP 94/60
[2017-10-27] VITALS: BP 96/60
[2017-10-27 01:00] LABS: PTT 81 SEC (25-37)
[2017-10-27 05:20] LABS: ABSOLUTE BASOPHIL COUNT 0 /CUMM (0.0-0.2); ABSOLUTE EOSINOPHIL COUNT 0.5 /CUMM (0.0-0.7); ABSOLUTE GRANULOCYTE CT 13.9 /CUMM (1.4-6.5); ABSOLUTE LYMPH COUNT 1.4 /CUMM (1.2-3.4); ABSOLUTE MONOCYTE COUNT 0.7 /CUMM (0.10-0.60); BASOPHIL % 0.2 % (0.0-2.0); EOSINOPHIL % 2.8 % (0-5); GRANULOCYTE % 84.5 % (42.2-75.2); HEMATOCRIT 34.6 % (42-52); MEAN CORPUSCULAR HGB 29.6 PG (27.0-31.0); MEAN CORPUSCULAR HGB CONC 32.6 G/DL (33.0-37.0); MEAN CORPUSCULAR VOLUME 90.8 FL (80.0-94.0); MEAN PLATELET VOLUME 7.7 FL (7.4-10.4); PLATELET COUNT 213 /CUMM (130-400); RBC DISTRIBUTION WIDTH 15.5 % (11.5-14.5); RED BLOOD CELL CT 3.81 /CUMM (4.70-6.10); WHITE BLOOD CELL COUNT 16.5 /CUMM (4.8-10.8)
--- NOTE | 2017-10-27 07:01 | PN- Resident CRCU ---
Subjective HPI/CRCU Issues: Acute on chronic hypoxic and hypercarbic resp failure likely due to worsening ILD and COPD Mixed restrictive and obstructive lung disease Atrial fibrilliation Leukocytosis 24 Hour Events: No acute events overnight. He has had a stable course overnight. Continues to be on BiPAP. Objective Vital Signs & I&O Last 8 Hrs of Vitals and I&O: Intake & Output 10/27 1600 Intake Total Output Total Balance Patient 167 lb Weight Weight Bed scale Measurement Method Exam General Appearance: alert, awake, mild distress Head: atraumatic, normal appearance Respiratory: crackles, wheezing Cardiovascular: irregularly irregular Gastrointestinal: soft, non-tender Extremities: no edema Cranial Nerves: normal hearing, normal speech Skin: intact Skin Temp/Moisture Exam: Warm/Dry Sepsis Skin Exam (color): Normal for Ethnicity Current Medications: Current Medications Sig/Marah Start time Last Medication Dose Route Stop Time Status Admin Acetaminophen 650 MG Q8P PRN 10/25 2330 AC PO Acetaminophen 1,000 MG BID PRN 10/25 2330 AC IV Albuterol Sulfate 3 ML EVERY 4 HRS/AWAKE 10/26 1600 AC 10/27 INH 0901 Aspirin Buffered 81 MG DAILY 10/26 1000 AC 10/27 PO 0920 Azithromycin 500 MG 2100 10/26 2100 DC Sodium Chloride 250 ML IV Azithromycin 500 MG 2100 10/26 2100 AC 10/26 Sodium Chloride 250 ML IV 2200 Bisacodyl 5 MG DAILY PRN 10/27 0915 AC PO Ceftazidime 1,000 MG IQ8 10/26 1600 AC 10/27 IV 0739 Escitalopram Oxalate 20 MG DAILY 10/27 1000 AC PO Escitalopram Oxalate 10 MG DAILY 10/26 1000 DC 10/27 PO 0920 Furosemide 40 MG ONCE ONE 10/27 0945 DC IV 10/27 0946 Gabapentin 100 MG TID 10/26 1000 AC 10/27 PO 0920 Heparin Sodium 25,000 UNIT Q24H 10/25 1945 AC 10/26 (Porcine) IV 2215 Sodium Chloride 500 ML Hydromorphone HCl 2 MG Q6P PRN 10/27 0945 AC PO Ipratropium [place] 2.5 ML EVERY 4 HRS/AWAKE 10/26 1600 AC 10/27 INH 0901 Isoniazid 300 MG DAILY 10/26 1000 AC 10/27 PO 0920 Levothyroxine Sodium 0.05 MG DAILY AC 10/28 0700 AC PO Levothyroxine Sodium 0.075 MG DAILY AC 10/26 0700 DC 10/27 PO 0649 Lorazepam 2 MG ONE ONE 10/26 1245 DC 10/26 IV 10/26 1246 1241 Methylprednisolone 60 MG DAILY 10/27 1000 DC 10/27 IV 0920 Methylprednisolone 40 MG DAILY 10/27 1000 AC IV Methylprednisolone 20 MG ONCE ONE 10/26 1045 DC 10/26 IV 10/26 1046 1038 Morphine Sulfate 2 MG Q6P PRN 10/26 1015 AC 10/26 IV 1227 Omeprazole 20 MG DAILY AC 10/26 0700 AC 10/27 PO 0649 Polyethylene Glycol 17 GM DAILY 10/27 1000 AC PO Pyridoxine HCl 50 MG DAILY 10/26 1000 AC 10/27 PO 0920 Senna/Docusate Sodium 2 TAB AT BEDTIME 10/26 2200 AC 10/26 PO 2217 Tiotropium [place] 1 PUF DAILY 10/26 1000 AC 10/27 INH 0921 Tramadol HCl 50 MG TIDPRN PRN 10/25 2330 AC PO Vancomycin HCl 1,000 MG Q12 10/26 1005 AC 10/26 Dextrose/Water 250 ML IV 2219 Impression/Plan Impression/Problem List Impression: Mr Beverly is a 81 year old gentleman with a PMHx of restrictive (severe interstitial pulmonary fibrosis), and obstructive ( severe emphysema ), end stage lung disease w/ reduced DLCO, multiple lung nodules concerning for malignancy, latent TB on INH+vit B6, progressive respiratory failure w/ increasing supplemental oxygen requirement from 2L>4L in the last few months was brought in after he was found to be hypoxemic at his doctors office. Problem List: 1. Acute Hypoxic and Hypercarbic Respiratory Failure likely secondary to worsening COPD and ILD 2. ? Pneumonia 3. Atrial Fibrilliation with Bradycardia 4. Latent Tb on INH and B6 Plan: * Close monitoring in the ICU * Continue O2 supplementation to maintain oxygen saturations >92% * Continue BiPAP as needed * Continue Azithromycin, Vanc and Ceftazidime for broader coverage for suspected pneumonia * Will administer another one time IV lasix. * Echo 10/26: Normal left and right ventricular systolic function. Dilated Aortic Root and ascending Aorta. Mild to moderate Aortic Regurgitation. Mild to moderate Pulmonary hypertension. * Reduce Solu-Medrol to IV 40mg daily * TFTs within normal limits. * Currently on IV heparin. Will have to discuss about starting Elliquis with Cardiology. * No rate control agents needed for A.fib. If needed, can use diltiazem per cardiology. * Cardiology recs appreciated. * DVT Prophylaxis with IV heparin * DNR/DNI Problem List: 1. COPD (chronic obstructive pulmonary disease) Pain Ratin Tomorrow's Labs & Rationales: CBC, ICU bundle Plan DVT/Prophylaxis: mechanical
[2017-10-27 08:00] VITALS: BP 102/70
--- NOTE | 2017-10-27 09:36 | PN- CRCU ---
Subjective HPI/Critical Care Issues: DOing well, stable Anxiety, fatigue Objective Current Medications: Current Medications Sig/Marah Start time Last Medication Dose Route Stop Time Status Admin Acetaminophen 650 MG Q8P PRN 10/25 2330 AC PO Acetaminophen 1,000 MG BID PRN 10/25 2330 AC IV Albuterol Sulfate 3 ML EVERY 4 HRS/AWAKE 10/26 1600 AC 10/27 INH 0901 Aspirin Buffered 81 MG DAILY 10/26 1000 AC 10/27 PO 0920 Azithromycin 500 MG 2100 10/26 2100 DC Sodium Chloride 250 ML IV Azithromycin 500 MG 2100 10/26 2100 AC 10/26 Sodium Chloride 250 ML IV 2200 Bisacodyl 5 MG DAILY PRN 10/27 0915 AC PO Ceftazidime 1,000 MG IQ8 10/26 1600 AC 10/27 IV 0739 Ceftriaxone Sodium 1,000 MG 2100 10/26 2100 CAN IV Escitalopram Oxalate 10 MG DAILY 10/26 1000 AC 10/27 PO 0920 Furosemide 40 MG ONCE ONE 10/26 1015 DC 10/26 IV 10/26 1016 1037 Gabapentin 100 MG TID 10/26 1000 AC 10/27 PO 0920 Heparin Sodium 25,000 UNIT Q24H 10/25 1945 AC 10/26 (Porcine) IV 2215 Sodium Chloride 500 ML Ipratropium [place] 2.5 ML EVERY 4 HRS/AWAKE 10/26 1600 AC 10/27 INH 0901 Isoniazid 300 MG DAILY 10/26 1000 AC 10/27 PO 0920 Levothyroxine Sodium 0.075 MG DAILY AC 10/26 0700 AC 10/27 PO 0649 Lorazepam 2 MG ONE ONE 10/26 1245 DC 10/26 IV 10/26 1246 1241 Methylprednisolone 60 MG DAILY 10/27 1000 AC 10/27 IV 0920 Methylprednisolone 20 MG ONCE ONE 10/26 1045 DC 10/26 IV 10/26 1046 1038 Methylprednisolone 40 MG Q8 10/26 0600 DC 10/26 IV 0613 Morphine Sulfate 2 MG Q6P PRN 10/26 1015 AC 10/26 IV 1227 Omeprazole 20 MG DAILY AC 10/26 0700 AC 10/27 PO 0649 Polyethylene Glycol 17 GM DAILY 10/27 1000 AC PO Pyridoxine HCl 50 MG DAILY 10/26 1000 AC 10/27 PO 0920 Senna/Docusate Sodium 2 TAB AT BEDTIME 10/26 2200 AC 10/26 PO 2217 Tiotropium [place] 1 PUF DAILY 10/26 1000 AC 10/27 INH 0921 Tramadol HCl 50 MG TIDPRN PRN 10/25 2330 AC PO Vancomycin HCl 1,000 MG Q12 10/26 1005 AC 10/26 Dextrose/Water 250 ML IV 2219 Vital Signs & I&O Last 24 Hrs of Vitals and I&O: Vital Signs Date Time Temp Pulse Resp B/P B/P Pulse O2 O2 Flow FiO2 Mean Ox Delivery Rate 10/27 0921 97 Nasal 3.0L Cannula 10/27 0920 69 97 10/27 0800 97.8 58 22 102/70 97 BIPAP 30% 10/27 0800 97 BIPAP 30% 10/27 0628 61 97 10/27 0400 100 BIPAP 30% 10/27 0324 60 98 10/27 0130 63 96 10/27 0000 97 BIPAP 30% 10/27 0000 97.8 62 24 96/60 97 BIPAP 30% 10/26 2222 60 95 10/26 2000 96 BIPAP 30% 10/26 1926 69 95 10/26 1712 95 BIPAP 30% 10/26 1710 73 95 10/26 1600 97.9 84 26 94/60 94 BIPAP 30% 10/26 1600 95 BIPAP 30% 10/26 1506 90 95 10/26 1255 64 98 10/26 1239 BIPAP 30% 10/26 1200 95 BIPAP 30% 10/26 0951 62 95 Intake & Output 10/27 1600 10/27 0800 10/27 0000 Intake Total 490 552 Output Total 250 300 Balance 240 252 Intake, IV 440 432 Intake, Oral 50 120 Number 0 0 Bowel Movements Output, Urine 250 300 Patient 167 lb Weight Weight Bed scale Measurement Method Impression/Plan Impression/Plan Impression/Plan: General Appearance Alert, Oriented X3, Cooperative, Mild Distress, on BiPAP, arousable to verbal stimuli and answers to questions appropriately, but hard to understand since he is on BiPAP Skin No Rashes, No Breakdown, No Significant Lesion Skin Temp/Moisture Exam: Warm/Dry Sepsis Skin Exam (color): Normal for Ethnicity HEENT Atraumatic, PERRLA, EOMI, Mucous Membr. moist/pink Neck Supple, No JVD, No thryomegaly, +2 Carotid Pulse wo Bruit Lymphatic Cervical nl Cardiovascular Regular Rate, Normal S1, Normal S2, No Murmurs Lungs crackles and wheezes bilaterally. Abdomen Normal Bowel Sounds, Soft, No Tenderness, No Hepatospenomegaly Neurological Normal Speech, Strength at 5/5 X4 Ext, Normal Tone, Cranial Nerves 3-12 NL, Reflexes 2+, sensation couldnt be tested Extremities No Clubbing, No Cyanosis, No Edema, Normal Pulses, No Tenderness/ Swelling Vascular Pulses Symmetrical CXR IMPRESSION: Increasing dense consolidation at right lung base due to infiltrate/atelectasis and effusion. Persistent central hilar pulmonary vascular congestion. 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 He has had bullous COPD for many years from previous history of [id number] smoking quit in 1989. His overall lung function has been progressively getting worse. In the recent past he was also noted to have bilateral lung masses concerning for malignancy by PET scan and he is not a great candidate for invasive workup due to end-stage lung disease and we will be doing a CAT scan in July for evaluation of this. 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 Patient has been on INH since April 28. He also does have ascending aortic aneurysm, abdominal aortic aneurysm before, and very severe end-stage lung disease with reduced DLCO. issues * REsolving Acute on chronic hypoxic and hypercarbic resp failure due to worsening ild, codp and prob malignancy in the rt lower lobe area compounded by mild fluid overload. 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
--- NOTE | 2017-10-27 11:37 | PN- Cardiology ---
Subjective Subjective: Resting comfortably on BiPAP. Objective Vital Signs and I&Os Vital Signs Date Time Temp Pulse Resp B/P B/P Pulse O2 O2 Flow FiO2 Mean Ox Delivery Rate 10/27 1013 78 95 10/27 0921 97 Nasal 3.0L Cannula 10/27 0920 69 97 10/27 0800 97.8 58 22 102/70 97 BIPAP 30% 10/27 0800 97 BIPAP 30% 10/27 0628 61 97 10/27 0400 100 BIPAP 30% 10/27 0324 60 98 10/27 0130 63 96 10/27 0000 97 BIPAP 30% 10/27 0000 97.8 62 24 96/60 97 BIPAP 30% 10/26 2222 60 95 10/26 2000 96 BIPAP 30% 10/26 1926 69 95 10/26 1712 95 BIPAP 30% 10/26 1710 73 95 10/26 1600 97.9 84 26 94/60 94 BIPAP 30% 10/26 1600 95 BIPAP 30% 10/26 1506 90 95 10/26 1255 64 98 10/26 1239 BIPAP 30% 10/26 1200 95 BIPAP 30% Intake & Output 10/27 1600 10/27 0800 10/27 0000 10/26 1600 10/26 0800 10/26 0000 Intake Total 490 552 061 321 9674 Output Total 941 174 2285 700 Balance 240 252 -194 556 0788 Intake, IV 440 432 871 644 5154 Intake, Oral 50 120 60 100 Number 0 0 0 Bowel Movements Output, Urine 129 655 8198 700 Patient 167 lb 177 lb 171 lb Weight Weight Bed scale Bed scale Reported by Patient Measurement Method Physical Exam: General: no apparent distress. Alert. On BiPAP. Eyes: No obvious scleral icterus. HEENT: No jugular venous distention or abnormal jugular venous pulsations. Cardiovascular: Normal intensity S1/S2. Irregular Respiratory: Decreased air entry bilaterally Abdomen: Soft, nontender with no guarding or rebound tenderness. Musculoskeletal: No clubbing or cyanosis noted; no edema Skin: Warm Neurologic: No gross focal deficits noted. Current Medications: Current Medications Sig/Marah Start time Last Medication Dose Route Stop Time Status Admin Acetaminophen 650 MG Q8P PRN 10/250 AC PO Acetaminophen 1,000 MG BID PRN 10/25 2329 AC IV Albuterol Sulfate 3 ML EVERY 4 HRS/AWAKE 10/26 1600 AC 10/27 INH 0901 Apixaban 5 MG BID 10/27 1037 AC PO Aspirin Buffered 81 MG DAILY 10/26 1000 AC 10/27 PO 0920 Azithromycin 500 MG 2100 10/26 2100 DC Sodium Chloride 250 ML IV Azithromycin 500 MG 2100 10/26 2100 AC 10/26 Sodium Chloride 250 ML IV 2200 Bisacodyl 5 MG DAILY PRN 10/27 0915 AC 10/27 PO 1122 Ceftazidime 1,000 MG IQ8 10/26 1600 AC 10/27 IV 0739 Escitalopram Oxalate 20 MG DAILY 10/28 1000 AC PO Escitalopram Oxalate 10 MG ONCE ONE 10/27 1045 DC 10/27 PO 10/27 1046 1122 Escitalopram Oxalate 20 MG DAILY 10/27 1000 DC PO Escitalopram Oxalate 10 MG DAILY 10/26 1000 DC 10/27 PO 0920 Furosemide 40 MG ONCE ONE 10/27 0945 DC 10/27 IV 10/27 0946 1022 Gabapentin 100 MG TID 10/26 1000 AC 10/27 PO 0920 Heparin Sodium 25,000 UNIT Q24H 10/25 1945 DC 10/26 (Porcine) IV 2215 Sodium Chloride 500 ML Hydromorphone HCl 2 MG Q6P PRN 10/27 0945 AC PO Ipratropium [place] 2.5 ML EVERY 4 HRS/AWAKE 10/26 1600 AC 10/27 INH 0901 Isoniazid 300 MG DAILY 10/26 1000 AC 10/27 PO 0920 Levothyroxine Sodium 0.05 MG DAILY AC 10/28 0700 AC PO Levothyroxine Sodium 0.075 MG DAILY AC 10/26 0700 DC 10/27 PO 0649 Lorazepam 2 MG ONE ONE 10/26 1245 DC 10/26 IV 10/26 1246 1241 Methylprednisolone 60 MG DAILY 10/27 1000 DC 10/27 IV 0920 Methylprednisolone 40 MG DAILY 10/27 1000 AC IV Morphine Sulfate 2 MG Q6P PRN 10/26 1015 AC 10/27 IV 1022 Omeprazole 20 MG DAILY AC 10/26 0700 AC 10/27 PO 0649 Polyethylene Glycol 17 GM DAILY 10/27 1000 AC 10/27 PO 1122 Pyridoxine HCl 50 MG DAILY 10/26 1000 AC 10/27 PO 0920 Senna/Docusate Sodium 2 TAB AT BEDTIME 10/26 2200 AC 10/26 PO 2217 Tiotropium [place] 1 PUF DAILY 10/26 1000 AC 10/27 INH 0921 Tramadol HCl 50 MG TIDPRN PRN 10/25 2330 AC PO Vancomycin HCl 1,000 MG Q12 10/26 1005 AC 10/27 Dextrose/Water 250 ML IV 1022 Results Last 48 Hrs of Labs/Mics: Laboratory Tests 10/27/17 0455: pH 7.54 H, pCO2 35, pO2 106 H, HCO3 30 H, ABG O2 Sat (Measured) 98.0, P-50 ( Temp Corrected) Y, Carboxyhemoglobin 0.3 L, O2 Concentration % 30%, Temperature 97.7, Respiration Rate 24, O2 Delivery Method V-60/FFM, Vent Mode ST, Expiratory Pressure 6, Inspiratory Pressure 22, Phlebotomy Draw Site RIGHT RADIAL 10/27/17 0445: Anion Gap 10, Estimated GFR > 60, Glucose 95, Calcium 8.7, Phosphorus 3.8, Magnesium 2.1, Total Bilirubin 0.2, AST 15 L, ALT 31, Albumin 2.8 L, CBC w Diff MAN DIFF ORDERED, RBC 3.81 L, MCV 90.8, MCH 29.6, MCHC 32.6 L, RDW 15.5 H, MPV 7.7, Gran % 84.5 H, Lymphocytes % 8.5 L, Monocytes % 4.0, Eosinophils % 2.8, Basophils % 0.2, Absolute Granulocytes 13.9 H, Segmented Neutrophils 73, Band Neutrophils 9 H, Absolute Lymphocytes 1.4, Lymphocytes 9 L, Monocytes 2, Absolute Monocytes 0.7 H, Eosinophils 6 H, Absolute Eosinophils 0.5, Basophils 1, Absolute Basophils 0, Platelet Estimate ADEQUATE, Polychromasia 1+, Hypochromic-Microcytic 1+, Poikilocytosis 1+, Ovalocytes 1+, Fld Total RBCs Counted 100 10/27/17 0015: APTT 81 H 10/26/17 1143: APTT 78 H 10/26/17 1041: Troponin I < 0.01 10/26/17 0600: CBC w Diff Cancelled, WBC Cancelled, RBC Cancelled, Hgb Cancelled, Hct Cancelled , MCV Cancelled, MCH Cancelled, MCHC Cancelled, RDW Cancelled, Plt Count Cancelled, MPV Cancelled 10/26/17 0500: Sodium Cancelled, Potassium Cancelled, Chloride Cancelled, Carbon Dioxide Cancelled, Anion Gap Cancelled, BUN Cancelled, Creatinine Cancelled, Glucose Cancelled, Calcium Cancelled, Phosphorus Cancelled, Magnesium Cancelled, Total Bilirubin Cancelled, AST Cancelled, ALT Cancelled, Albumin Cancelled 10/26/17 0350: Anion Gap 12, Estimated GFR > 60, Glucose 127 H, Calcium 8.5, Phosphorus 3.1, Magnesium 1.9, Total Bilirubin 0.3, AST 18, ALT 31, Troponin I < 0.01, Albumin 2.9 L, TSH 0.618, Free T4 1.47, APTT 107 *H, CBC w Diff MAN DIFF ORDERED, RBC 3.90 L, MCV 91.7, MCH 29.6, MCHC 32.3 L, RDW 15.5 H, MPV 7.9, Gran % 93.5 H, Lymphocytes % 5.9 L, Monocytes % 0.3 L, Eosinophils % 0.2, Basophils % 0.1, Absolute Granulocytes 11.6 H, Segmented Neutrophils 84 H, Band Neutrophils 9 H, Absolute Lymphocytes 0.7 L, Lymphocytes 7 L, Absolute Monocytes 0 L, Absolute Eosinophils 0, Absolute Basophils 0, Platelet Estimate ADEQUATE, Polychromasia 1+, Hypochromic-Microcytic 1+, Poikilocytosis 2+, Ovalocytes 1+, Stomatocytes 1+, Fld Total RBCs Counted 100 10/26/17 0250: APTT Cancelled 10/26/17 0200: Troponin I Cancelled 10/26/17 0026: APTT Cancelled 10/25/17 2357: Urinalysis LIGHT H, Urine Color YEL, Urine Clarity CLEAR, Urine pH 6.0, Ur Specific [place] >= 1.030, Urine Protein TRACE H, Urine Ketones NEG, Urine Nitrite NEG, Urine Bilirubin NEG, Urine Urobilinogen 1.0, Ur Leukocyte Esterase NEG, Ur Microscopic SEDIMENT EXAMINED, Urine RBC 3-5, Urine WBC 3-5 H, Ur Epithelial Cells FEW, Urine Bacteria RARE H, Urine Mucus MOD H, Urine Hemoglobin TRACE-INTACT H, Urine Glucose NEG 10/25/17 2150: pH 7.44, pCO2 47 H, pO2 78 L, HCO3 32 H, ABG O2 Sat (Measured) 95.0 L, Carboxyhemoglobin 1.3 L, O2 Concentration % 30%, Respiration Rate 24, O2 Delivery Method BIPAP, Vent Mode S/T, Expiratory Pressure 6, Inspiratory Pressure 22, Phlebotomy Draw Site RIGHT RADIAL 10/25/171953: Anion Gap 11, Estimated GFR > 60, BUN/Creatinine Ratio 34.4 H, Glucose 105 H, Lactic Acid 1.0, Calcium 9.6, Total Bilirubin 0.5, AST 21, ALT 34, Alkaline Phosphatase 69, Troponin I < 0.01, Fet-L-Pfamonajykb Pept 1760 H, Total Protein 7.1, Albumin 3.7, Globulin 3.4, Albumin/Globulin Ratio 1.1 10/25/171914: pH 7.35, pCO2 61 *H, pO2 86, HCO3 33 H, ABG O2 Sat (Measured) 96.0, Carboxyhemoglobin 1.1 L, O2 Concentration % 100%, O2 Delivery Method NRB, Phlebotomy Draw Site RIGHT RADIAL 10/25/171810: PT 13.3 H, INR 1.27 H, APTT 27, CBC w Diff MAN DIFF ORDERED, RBC 4.60 L, MCV 92.4, MCH 29.8, MCHC 32.3 L, RDW 15.9 H, MPV 8.4, Gran % 84.5 H, Lymphocytes % 6.7 L, Monocytes % 2.9, Eosinophils % 5.6 H, Basophils % 0.3, Absolute Granulocytes 14.4 H, Segmented Neutrophils 72, Band Neutrophils 10 H, Absolute Lymphocytes 1.1 L, Lymphocytes 4 L, Monocytes 6, Absolute Monocytes 0.5, Eosinophils 5, Absolute Eosinophils 1.0, Basophils 3 H, Absolute Basophils 0, Platelet Estimate VERIFIED BY SMEAR, Anisocytosis 1+ Microbiology 10/26 114 UPPER RESP: Surveillance Culture - COMP 10/26 114 GI: Surveillance Culture - COMP 10/25 2356 URINE ROUT: Legionella Antigen - COMP 10/25 2356 URINE ROUT: Streptococcus pneumoniae Antigen (M - COMP 10/25 2356 URINE ROUT: Urine Culture - COMP 10/25 1953 NASOPHARYN: Influenza Virus A & B Rapid Smear - COMP Recent Imaging Studies: Telemetry tracings were personally reviewed and shows atrial fibrillation with low normal ventricular response rate and no prolonged pauses Echo: Normal left and right ventricular systolic function. Dilated Aortic Root and ascending Aorta. Mild to moderate Aortic Regurgitation. Mild to moderate Pulmonary hypertension. Jung Flowers M.D. (Electronically Signed) Final Date: 26 October 2017 15:06 Assessment/Plan Assessment/Plan 1. New onset atrial fibrillation most likely secondary to respiratory insufficiency due to a combination of pulmonary fibrosis, COPD, and pneumonia. There is also evidence for mild fluid overload with an elevated BNP of 1760. 2. 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 Severe pulmonary fibrosis 4. COPD on home O2 5. Pulmonary nodules most likely secondary to carcinoma along 6. History of ascending and descending aortic aneurysms 7. Likely some AV heavenly disease The patient is currently on BiPAP. No bleeding on heparin drip so he is being transitioned to Eliquis. Currently appears euvolemic and creatinine is trending up; would hold further diuretics for now. Heart rate is well-controlled without AV heavenly blockers which suggests some underlying conduction disease but no indication for permanent pacemaker at this time. Echocardiogram showed normal biventricular function. Ben Fuller MD [facility] Continue telemetry? Yes
[2017-10-27 16:00] VITALS: BP 90/60
[2017-10-27 23:00] VITALS: BP 100/65
[2017-10-28 05:13] LABS: ABSOLUTE BASOPHIL COUNT 0 /CUMM (0.0-0.2); ABSOLUTE EOSINOPHIL COUNT 0.5 /CUMM (0.0-0.7); ABSOLUTE GRANULOCYTE CT 13.2 /CUMM (1.4-6.5); ABSOLUTE LYMPH COUNT 1.3 /CUMM (1.2-3.4); ABSOLUTE MONOCYTE COUNT 0.6 /CUMM (0.10-0.60); BASOPHIL % 0.2 % (0.0-2.0); EOSINOPHIL % 2.9 % (0-5); GRANULOCYTE % 84.8 % (42.2-75.2); HEMATOCRIT 33.8 % (42-52); MEAN CORPUSCULAR HGB 29.6 PG (27.0-31.0); MEAN CORPUSCULAR HGB CONC 32.6 G/DL (33.0-37.0); MEAN CORPUSCULAR VOLUME 90.8 FL (80.0-94.0); MEAN PLATELET VOLUME 7.9 FL (7.4-10.4); PLATELET COUNT 199 /CUMM (130-400); RBC DISTRIBUTION WIDTH 15.7 % (11.5-14.5); RED BLOOD CELL CT 3.72 /CUMM (4.70-6.10); WHITE BLOOD CELL COUNT 15.5 /CUMM (4.8-10.8)
[2017-10-28 06:25] VITALS: BP 99/66
--- NOTE | 2017-10-28 07:11 | PN- Resident CRCU ---
Subjective HPI/CRCU Issues: Acute on chronic hypoxic and hypercarbic resp failure likely due to worsening ILD and COPD Mixed restrictive and obstructive lung disease Atrial fibrilliation Leukocytosis 24 Hour Events: No acute events overnight. patient was seen and examined this morning. Was on high flow oxygen. States feeling short of breath while on it. He prefers the BiPAP Objective Vital Signs & I&O Last 8 Hrs of Vitals and I&O: . Exam General Appearance: alert, awake, mild distress, on high flow oxygen Head: atraumatic, normal appearance Respiratory: chest non-tender, crackles, wheezing Cardiovascular: irregularly irregular Gastrointestinal: soft, non-tender Extremities: no edema Cranial Nerves: normal hearing, normal speech Skin: intact Skin Temp/Moisture Exam: Warm/Dry Sepsis Skin Exam (color): Normal for Ethnicity Current Medications: Current Medications Sig/Marah Start time Last Medication Dose Route Stop Time Status Admin Acetaminophen 650 MG Q8P PRN 10/25 2330 AC PO Acetaminophen 1,000 MG BID PRN 10/25 2330 AC IV Albuterol Sulfate 3 ML EVERY 4 HRS/AWAKE 10/26 1600 AC 10/28 INH 0843 Apixaban 5 MG BID 10/27 1037 AC 10/28 PO 0951 Aspirin Buffered 81 MG DAILY 10/26 1000 AC 10/28 PO 0951 Azithromycin 500 MG 2100 10/26 2100 AC 10/27 Sodium Chloride 250 ML IV 2041 Bisacodyl 5 MG DAILY PRN 10/27 0915 AC 10/27 PO 1122 Ceftazidime 1,000 MG IQ8 10/26 1600 AC 10/28 IV 0855 Escitalopram Oxalate 20 MG DAILY 10/28 1000 AC 10/28 PO 0951 Escitalopram Oxalate 10 MG ONCE ONE 10/27 1045 DC 10/27 PO 10/27 1046 1122 Escitalopram Oxalate 20 MG DAILY 10/27 1000 DC PO Furosemide 40 MG ONCE ONE 10/28 1030 DC IV 10/28 1031 Gabapentin 100 MG TID 10/26 1000 AC 10/28 PO 0952 Hydromorphone HCl 2 MG Q6P PRN 10/27 0945 AC PO Ipratropium [place] 2.5 ML EVERY 4 HRS/AWAKE 10/26 1600 AC 10/28 INH 0843 Isoniazid 300 MG DAILY 10/26 1000 AC 10/28 PO 0958 Levothyroxine Sodium 0.05 MG DAILY AC 10/28 0700 AC 10/28 PO 0607 Methylprednisolone 40 MG DAILY 10/27 1000 AC 10/28 IV 0956 Morphine Sulfate 2 MG Q6P PRN 10/26 1015 AC 10/27 IV 2231 Omeprazole 20 MG DAILY AC 10/26 0700 AC 10/28 PO 0607 Polyethylene Glycol 17 GM DAILY 10/27 1000 AC 10/28 PO 0954 Pyridoxine HCl 50 MG DAILY 10/26 1000 AC 10/28 PO 0952 Senna/Docusate Sodium 2 TAB AT BEDTIME 10/26 2200 AC 10/27 PO 2121 Tiotropium [place] 1 PUF DAILY 10/26 1000 AC 10/28 INH 0958 Tramadol HCl 50 MG TIDPRN PRN 10/25 2330 AC PO Vancomycin HCl 1,000 MG Q12 10/26 1005 AC 10/28 Dextrose/Water 250 ML IV 0958 Impression/Plan Impression/Problem List Impression: Mr Beverly is a 81 year old gentleman with a PMHx of restrictive (severe interstitial pulmonary fibrosis), and obstructive ( severe emphysema ), end stage lung disease w/ reduced DLCO, multiple lung nodules concerning for malignancy, latent TB on INH+vit B6, progressive respiratory failure w/ increasing supplemental oxygen requirement from 2L>4L in the last few months was brought in after he was found to be hypoxemic at his doctors office. Problem List: 1. Acute Hypoxic and Hypercarbic Respiratory Failure likely secondary to worsening COPD and ILD 2. ? Pneumonia 3. Atrial Fibrilliation with Bradycardia 4. 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 * Will administer another one time IV lasix. * Echo 10/26: Normal left and right ventricular systolic function. Dilated Aortic Root and ascending Aorta. Mild to moderate Aortic Regurgitation. Mild to moderate Pulmonary hypertension. * Solu-Medrol IV 40mg daily. Will start Prednisone 40mg daily. * TFTs within normal limits. * Apixaban 5mg BID for AC. * No rate control agents needed for A.fib. If needed, can use diltiazem per cardiology. * Cardiology recs appreciated. * DVT Prophylaxis with Eliquis. * DNR/DNI Problem List: 1. Acute respiratory failure Pain Ratin Tomorrow's Labs & Rationales: CBC, ICU bundle Plan DVT/Prophylaxis: mechanical DVT/Prophylaxis: mechanical
[2017-10-28 08:00] VITALS: BP 100/62
--- NOTE | 2017-10-28 10:31 | PN- Cardiology ---
Assessment/Plan Assessment/Plan In summary this 83-year-old gentleman has the following problems 1. New onset atrial fibrillation most likely secondary to respiratory insufficiency due to a combination of pulmonary fibrosis, COPD, and pneumonia. There is also evidence for mild fluid overload with an elevated BNP of 1760. 2. 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 Severe pulmonary fibrosis 4. COPD on home O2 5. Pulmonary nodules most likely secondary to carcinoma along 6. History of ascending and descending aortic aneurysms 7. Likely some AV heavenly disease
--- NOTE | 2017-10-28 10:49 | PN- Cardiology ---
Subjective Subjective: Telemetry reviewed. Atrial fibrillation with controlled ventricular response. Objective Vital Signs and I&Os Vital Signs Date Time Temp Pulse Resp B/P B/P Pulse O2 O2 Flow FiO2 Mean Ox Delivery Rate 10/28 0845 96 Nasal 35% Cannula 10/28 08 97.9 62 26 100/62 96 Nasal 35% Cannula 10/28 0800 96 Nasal 35% Cannula 10/28 0625 97.0 56 24 99/66 96 Nasal 35% Cannula 10/28 0607 57 96 10/28 0400 96 BIPAP 10/28 0113 47 96 10/28 0000 95 BIPAP 10/27 2300 55 22 100/65 95 BIPAP 10/27 2210 64 95 10/27 2056 95 Nasal 35% Cannula 10/27 1999 97.9 10/27 2000 95 Nasal 35% Cannula 10/27 1705 96 Nasal 35% Cannula 10/27 1600 98.1 80 26 90/60 96 Nasal 35% Cannula 10/27 1600 95 Nasal 35% Cannula 10/27 1449 96 Nasal 35% Cannula 10/27 1315 66 96 10/27 1200 99 BIPAP 30% Intake & Output 10/28 1600 10/28 0800 10/28 0000 10/27 1600 10/27 0800 10/27 0000 Intake Total 40 530 860 490 552 Output Total 604 402 9132 250 300 Balance -235 -145 -640 240 252 Intake, IV 10 500 380 440 432 Intake, Oral 30 30 480 50 120 Number 0 0 0 Bowel Movements Output, Urine 771 635 2743 250 300 Patient 174 lb 167 lb Weight Weight Bed scale Bed scale Measurement Method Physical Exam: Patient is out of bed in a chair. Head normocephalic atraumatic Eyes sclera anicteric conjunctiva showed no pallor extraocular muscles were normal Neck no jugular venous distention no thyroid masses no palpable nodes Chest lungs were clear bilaterally Heart irregular rhythm with a ventricle rate around 80 Abdomen soft no organomegaly bowel sounds normal Extremities no clubbing cyanosis or edema Neurological no gross motor or sensory deficits Current Medications: Current Medications Sig/Marah Start time Last Medication Dose Route Stop Time Status Admin Acetaminophen 650 MG Q8P PRN 10/25 2330 AC PO Acetaminophen 1,000 MG BID PRN 10/25 2330 AC IV Albuterol Sulfate 3 ML EVERY 4 HRS/AWAKE 10/26 1600 AC 10/28 INH 0843 Apixaban 5 MG BID 10/27 1037 AC 10/28 PO 0951 Aspirin Buffered 81 MG DAILY 10/26 1000 AC 10/28 PO 0951 Azithromycin 500 MG 2100 10/26 2100 AC 10/27 Sodium Chloride 250 ML IV 2041 Bisacodyl 5 MG DAILY PRN 10/27 0915 AC 10/27 PO 1122 Ceftazidime 1,000 MG IQ8 10/26 1600 AC 10/28 IV 0855 Escitalopram Oxalate 20 MG DAILY 10/28 1000 AC 10/28 PO 0951 Furosemide 40 MG ONCE ONE 10/28 1030 DC IV 10/28 1031 Gabapentin 100 MG TID 10/26 1000 AC 10/28 PO 0952 Hydromorphone HCl 2 MG Q6P PRN 10/27 0945 AC PO Ipratropium [place] 2.5 ML EVERY 4 HRS/AWAKE 10/26 1600 AC 10/28 INH 0843 Isoniazid 300 MG DAILY 10/26 1000 AC 10/28 PO 0958 Levothyroxine Sodium 0.05 MG DAILY AC 10/28 0700 AC 10/28 PO 0607 Methylprednisolone 40 MG DAILY 10/27 1000 AC 10/28 IV 0956 Morphine Sulfate 2 MG Q6P PRN 10/26 1015 AC 10/27 IV 2231 Omeprazole 20 MG DAILY AC 10/26 0700 AC 10/28 PO 0607 Polyethylene Glycol 17 GM DAILY 10/27 1000 AC 10/28 PO 0954 Pyridoxine HCl 50 MG DAILY 10/26 1000 AC 10/28 PO 0952 Senna/Docusate Sodium 2 TAB AT BEDTIME 10/26 2200 AC 10/27 PO 2121 Tiotropium [place] 1 PUF DAILY 10/26 1000 AC 10/28 INH 0958 Tramadol HCl 50 MG TIDPRN PRN 10/25 2330 AC PO Vancomycin HCl 1,000 MG Q12 10/26 1005 AC 10/28 Dextrose/Water 250 ML IV 0958 Results Last 48 Hrs of Labs/Mics: Laboratory Tests 10/28/17 0441: Anion Gap 9, Estimated GFR > 60, Glucose 83, Calcium 8.4, Phosphorus 3.7, Magnesium 2.1, Total Bilirubin 0.2, AST 17, ALT 30, Albumin 2.9 L, CBC w Diff MAN DIFF ORDERED, RBC 3.72 L, MCV 90.8, MCH 29.6, MCHC 32.6 L, RDW 15.7 H, MPV 7.9, Gran % 84.8 H, Lymphocytes % 8.4 L, Monocytes % 3.7, Eosinophils % 2.9, Basophils % 0.2, Absolute Granulocytes 13.2 H, Segmented Neutrophils 72, Band Neutrophils 8 H, Absolute Lymphocytes 1.3, Lymphocytes 10 L, Monocytes 3, Absolute Monocytes 0.6, Eosinophils 6 H, Absolute Eosinophils 0.5, Basophils 1, Absolute Basophils 0, Platelet Estimate ADEQUATE, Polychromasia 1+, Hypochromic- Microcytic 1+, Poikilocytosis 1+, Basophilic Stippling RARE, Ovalocytes FEW, Fld Total RBCs Counted 100 10/27/17 1300: APTT Cancelled 10/27/17 0455: pH 7.54 H, pCO2 35, pO2 106 H, HCO3 30 H, ABG O2 Sat (Measured) 98.0, P-50 ( Temp Corrected) Y, Carboxyhemoglobin 0.3 L, O2 Concentration % 30%, Temperature 97.7, Respiration Rate 24, O2 Delivery Method V-60/FFM, Vent Mode ST, Expiratory Pressure 6, Inspiratory Pressure 22, Phlebotomy Draw Site RIGHT RADIAL 10/27/17 2725: Anion Gap 10, Estimated GFR > 60, Glucose 95, Calcium 8.7, Phosphorus 3.8, Magnesium 2.1, Total Bilirubin 0.2, AST 15 L, ALT 31, Albumin 2.8 L, CBC w Diff MAN DIFF ORDERED, RBC 3.81 L, MCV 90.8, MCH 29.6, MCHC 32.6 L, RDW 15.5 H, MPV 7.7, Gran % 84.5 H, Lymphocytes % 8.5 L, Monocytes % 4.0, Eosinophils % 2.8, Basophils % 0.2, Absolute Granulocytes 13.9 H, Segmented Neutrophils 73, Band Neutrophils 9 H, Absolute Lymphocytes 1.4, Lymphocytes 9 L, Monocytes 2, Absolute Monocytes 0.7 H, Eosinophils 6 H, Absolute Eosinophils 0.5, Basophils 1, Absolute Basophils 0, Platelet Estimate ADEQUATE, Polychromasia 1+, Hypochromic-Microcytic 1+, Poikilocytosis 1+, Ovalocytes 1+, Fld Total RBCs Counted 100 10/27/17 0015: APTT 81 H 10/26/17 1143: APTT 78 H Assessment/Plan Assessment/Plan In summary this 83-year-old gentleman has the following problems 1. New onset atrial fibrillation most likely secondary to respiratory insufficiency due to a combination of pulmonary fibrosis, COPD, and pneumonia. There is also evidence for mild fluid overload with an elevated BNP of 1760. 2. 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 Severe pulmonary fibrosis 4. COPD on home O2 5. Pulmonary nodules most likely secondary to carcinoma along 6. History of ascending and descending aortic aneurysms 7. 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 He is out of bed in a chair. Primary status improving. He remains in atrial fibrillation with a controlled ventricular response due to AV heavenly disease. He is covered with anticoagulation. Continue present treatment Continue telemetry? Yes
--- NOTE | 2017-10-28 10:54 | Transfer of Care Summary ---
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 Interval Events: Mr Beverly was admitted for Acute Hypoxic and Hypercarbic respiratory failure. He has been on the BiPAP for most of his duration in the ICU on which his respiratory status has improved. He has been transitioned to high flow oxygen at 30%. He occasionally feels short of breath on high flow which is improved with nebulizer treatments. He feels better on the BiPAP. He was started on empiric antibiotics as his CXR was suspicious for findings of pneumonia. He is currently on a IV steroid taper with SoluMedrol for possible COPD exacerbation. He will be started on Prednisone 40mg from 10/29/17. He was diagnosed with new onset of atrial fibrilliation with a controlled ventricular response likely due to AV heavenly disease. He is currently not on any AV heavenly maryann agents. Though he has been started on Apixaban for anticoagulation. Mechanical ventilation: None NIPPV: Yes. Transitioned to high flow oxygen at 30% Antibiotics: Vancomycin, Ceftazidime, Azithromycin Catheters/Lines: None Nutrition: Full Liquid Diet DVT prophylaxis: Eliquis 5mg BID.. Code status: DNR/DNI Assessment/Plan: Assessment: 1. Acute Hypoxic and Hypercarbic Respiratory Failure likely secondary to worsening COPD and ILD 2. ? Pneumonia 3. Atrial Fibrilliation with Bradycardia 4. Latent Tb on INH and B6 Plan: * Continue O2 supplementation to maintain oxygen saturations >92% * Continue BiPAP as needed. He is currently on high flow, but subjectively feels better on the BiPAP. * Continue Azithromycin. * He's been given daily IV lasix 40mg. Confirm with Pulm if he needs further doses. * Solu-Medrol IV 40mg daily. Prednisone 40mg daily from 10/29/17 * TFTs within normal limits. * Apixaban 5mg BID for AC. * No rate control agents needed for A.fib. If needed, can use diltiazem per cardiology. * DVT Prophylaxis with Eliquis. * DNR/DNI
--- NOTE | 2017-10-28 13:45 | PN- CRCU ---
Subjective HPI/Critical Care Issues: DOing well on high flow In good spirits Afib with controlled rate Objective Current Medications: Current Medications Sig/Marah Start time Last Medication Dose Route Stop Time Status Admin Acetaminophen 650 MG Q8P PRN 10/25 2330 AC PO Acetaminophen 1,000 MG BID PRN 10/25 2330 AC IV Albuterol Sulfate 3 ML EVERY 4 HRS/AWAKE 10/26 1600 AC 10/28 INH 1216 Apixaban 5 MG BID 10/27 1037 AC 10/28 PO 0951 Aspirin Buffered 81 MG DAILY 10/26 1000 AC 10/28 PO 0951 Azithromycin 500 MG 2100 10/26 2100 AC 10/27 Sodium Chloride 250 ML IV 2041 Bisacodyl 5 MG DAILY PRN 10/27 0915 AC 10/27 PO 1122 Ceftazidime 1,000 MG IQ8 10/26 1600 AC 10/28 IV 0855 Escitalopram Oxalate 20 MG DAILY 10/28 1000 AC 10/28 PO 0951 Furosemide 40 MG ONCE ONE 10/28 1030 DC 10/28 IV 10/28 1031 1108 Gabapentin 100 MG TID 10/26 1000 AC 10/28 PO 0952 Hydromorphone HCl 2 MG Q6P PRN 10/27 0945 AC PO Ipratropium [place] 2.5 ML EVERY 4 HRS/AWAKE 10/26 1600 AC 10/28 INH 1216 Isoniazid 300 MG DAILY 10/26 1000 AC 10/28 PO 0958 Levothyroxine Sodium 0.05 MG DAILY AC 10/28 0700 AC 10/28 PO 0607 Methylprednisolone 40 MG DAILY 10/27 1000 AC 10/28 IV 0956 Morphine Sulfate 2 MG Q6P PRN 10/26 1015 AC 10/27 IV 2231 Omeprazole 20 MG DAILY AC 10/26 0700 AC 10/28 PO 0607 Polyethylene Glycol 17 GM DAILY 10/27 1000 AC 10/28 PO 0954 Pyridoxine HCl 50 MG DAILY 10/26 1000 AC 10/28 PO 0952 Senna/Docusate Sodium 2 TAB AT BEDTIME 10/26 2200 AC 10/27 PO 2121 Tiotropium [place] 1 PUF DAILY 10/26 1000 AC 10/28 INH 0958 Tramadol HCl 50 MG TIDPRN PRN 10/25 2330 AC PO Vancomycin HCl 1,000 MG Q12 10/26 1005 AC 10/28 Dextrose/Water 250 ML IV 0958 Vital Signs & I&O Last 24 Hrs of Vitals and I&O: Vital Signs Date Time Temp Pulse Resp B/P B/P Pulse O2 O2 Flow FiO2 Mean Ox Delivery Rate 10/28 0845 96 Nasal 35% Cannula 10/28 08 97.9 62 26 100/62 96 Nasal 35% Cannula 10/28 0800 96 Nasal 35% Cannula 10/28 0625 97.0 56 24 99/66 96 Nasal 35% Cannula 10/28 0607 57 96 10/28 0400 96 BIPAP 10/28 0113 47 96 10/28 0000 95 BIPAP 10/27 2300 55 22 100/65 95 BIPAP 10/27 2210 64 95 10/27 2056 95 Nasal 35% Cannula 10/27 2000 97.9 10/27 2000 95 Nasal 35% Cannula 10/27 1705 96 Nasal 35% Cannula 10/27 1600 98.1 80 26 90/60 96 Nasal 35% Cannula 10/27 1600 95 Nasal 35% Cannula 10/27 1449 96 Nasal 35% Cannula Intake & Output 10/28 1600 10/28 0810/28 0000 Intake Total 40 530 Output Total 275 675 Balance -235 -145 Intake, IV 10 500 Intake, Oral 30 30 Output, Urine 275 675 Patient 174 lb Weight Weight Bed scale Measurement Method Impression/Plan Impression/Plan Impression/Plan: General Appearance Alert, Oriented X3, Cooperative, Mild Distress, on BiPAP, arousable to verbal stimuli and answers to questions appropriately, but hard to understand since he is on BiPAP Skin No Rashes, No Breakdown, No Significant Lesion Skin Temp/Moisture Exam: Warm/Dry Sepsis Skin Exam (color): Normal for Ethnicity HEENT Atraumatic, PERRLA, EOMI, Mucous Membr. moist/pink Neck Supple, No JVD, No thryomegaly, +2 Carotid Pulse wo Bruit Lymphatic Cervical nl Cardiovascular Regular Rate, Normal S1, Normal S2, No Murmurs Lungs crackles and wheezes bilaterally. Abdomen Normal Bowel Sounds, Soft, No Tenderness, No Hepatospenomegaly Neurological Normal Speech, Strength at 5/5 X4 Ext, Normal Tone, Cranial Nerves 3-12 NL, Reflexes 2+, sensation couldnt be tested Extremities No Clubbing, No Cyanosis, No Edema, Normal Pulses, No Tenderness/ Swelling Vascular Pulses Symmetrical CXR IMPRESSION: Increasing dense consolidation at right lung base due to infiltrate/atelectasis and effusion. Persistent central hilar pulmonary vascular congestion. 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 He has had bullous COPD for many years from previous history of [id number] smoking quit in 1989. His overall lung function has been progressively getting worse. In the recent past he was also noted to have bilateral lung masses concerning for malignancy by PET scan and he is not a great candidate for invasive workup due to end-stage lung disease and we will be doing a CAT scan in July for evaluation of this. 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 Patient has been on INH since April 28. He also does have ascending aortic aneurysm, abdominal aortic aneurysm before, and very severe end-stage lung disease with reduced DLCO. issues * REsolving Acute on chronic hypoxic and hypercarbic resp failure due to worsening ild, codp and prob malignancy in the rt lower lobe area compounded by mild fluid overload. 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
[2017-10-28 16:00] VITALS: BP 94/56
[2017-10-28 22:00] VITALS: BP 122/78
[2017-10-29 06:53] VITALS: BP 138/96
[2017-10-29 07:38] LABS: ABSOLUTE BASOPHIL COUNT 0.1 /CUMM (0.0-0.2); ABSOLUTE EOSINOPHIL COUNT 1.2 /CUMM (0.0-0.7); ABSOLUTE GRANULOCYTE CT 15.4 /CUMM (1.4-6.5); ABSOLUTE LYMPH COUNT 1.5 /CUMM (1.2-3.4); ABSOLUTE MONOCYTE COUNT 0.9 /CUMM (0.10-0.60); BASOPHIL % 0.4 % (0.0-2.0); EOSINOPHIL % 6.4 % (0-5); GRANULOCYTE % 80.7 % (42.2-75.2); MEAN CORPUSCULAR HGB 29.6 PG (27.0-31.0); MEAN CORPUSCULAR HGB CONC 32.5 G/DL (33.0-37.0); MEAN CORPUSCULAR VOLUME 90.9 FL (80.0-94.0); MEAN PLATELET VOLUME 8.2 FL (7.4-10.4); PLATELET COUNT 231 /CUMM (130-400); RBC DISTRIBUTION WIDTH 15.4 % (11.5-14.5); RED BLOOD CELL CT 4.48 /CUMM (4.70-6.10)
--- NOTE | 2017-10-29 07:42 | PN- Housestaff ---
See Addendum Subjective Follow-up For: Acute Hypoxic and Hypercarbic respiratory failure New-onset atrial fibrillation AV heavenly disease Tele-Events Since Last Visit: Atrial fibrillation: Heart rate of 68-84 Subjective: Patient was seen and examined today. Patient states that he is feeling slightly better. He notes that his breathing has improved however feels that the BiPAP was helping his breathing than the high flow. Patient endorses a nonproductive cough and chronic back pain. Patient denies chest pain, palpitations, nausea/ vomiting, diarrhea/constipation, hematuria/dysuria. No acute events overnight. Review of Systems Constitutional: Reports: no symptoms. Cardiovascular: Reports: no symptoms. Respiratory: Reports: see HPI, cough, short of breath. Gastrointestinal: Reports: no symptoms. Genitourinary: Reports: no symptoms. Musculoskeletal: Reports: no symptoms. Neurological/Psychological: Reports: anxiety. Objective Last 24 Hrs of Vital Signs/I&O Vital Signs Date Time Temp Pulse Resp B/P B/P Pulse O2 O2 Flow FiO2 Mean Ox Delivery Rate 10/29 1550 95 Nasal 35% Cannula 10/29 1508 98.1 95 22 110/66 93 Nasal 30% Cannula 10/29 1244 Nasal 35% Cannula 10/29 0849 94 Nasal 35% Cannula 10/29 0800 93 Nasal 35% Cannula 10/29 0653 98.4 71 16 138/96 93 Nasal Cannula 10/29 0102 95 Nasal 35% Cannula 10/28 2211 93 Nasal 35% Cannula 10/28 2201 Nasal 30% Cannula 10/28 2200 97.8 86 16 122/78 95 Nasal 30% Cannula 10/28 1750 Nasal 35% Cannula 10/28 1703 96 Nasal 35% Cannula Intake & Output 10/29 1600 10/29 0800 10/29 0000 Intake Total 200 120 Output Total 600 1150 1000 Balance -600 -950 -880 Intake, IV 150 Intake, Oral 50 120 Output, Urine 600 1150 1000 Patient 166 lb Weight Weight Bed scale Measurement Method Physical Exam General Appearance: Alert, Cooperative, No Acute Distress HEENT: Atraumatic, Mucous Membr. moist/pink Cardiovascular: Normal S1, Normal S2, irregular rate Lungs: scattered crackles throughout lung candelario and mild wheezing Abdomen: Normal Bowel Sounds, Soft, No Tenderness Extremities: No Clubbing, No Cyanosis, No Edema, Normal Pulses, No Tenderness/ Swelling Current Medications: Current Medications Sig/Marah Start time Last Medication Dose Route Stop Time Status Admin Acetaminophen 650 MG Q8P PRN 10/25 2330 AC PO Acetaminophen 1,000 MG BID PRN 10/25 2330 DC IV Albuterol Sulfate 3 ML EVERY 4 HRS/AWAKE 10/26 1600 AC 10/29 INH 1550 Apixaban 5 MG BID 10/27 1037 AC 10/29 PO 1026 Aspirin Buffered 81 MG DAILY 10/26 1000 AC 10/29 PO 1026 Azithromycin 500 MG 2100 10/28 2100 AC 10/28 Dextrose/Water 250 ML IV 2328 Bisacodyl 5 MG DAILY PRN 10/27 0915 AC 10/27 PO 1122 Escitalopram Oxalate 20 MG DAILY 10/28 1000 AC 10/29 PO 1026 Gabapentin 100 MG TID 10/26 1000 AC 10/29 PO 1026 Hydromorphone HCl 2 MG Q6P PRN 10/27 0945 AC PO Ipratropium [place] 2.5 ML EVERY 4 HRS/AWAKE 10/26 1600 AC 10/29 INH 1550 Isoniazid 300 MG DAILY 10/26 1000 AC 10/29 PO 1026 Levothyroxine Sodium 0.05 MG DAILY AC 10/28 0700 AC 10/29 PO 0539 Melatonin 3 MG AT BEDTIME 10/29 2200 AC PO Morphine Sulfate 2 MG Q6P PRN 10/26 1015 AC 10/27 IV 2231 Omeprazole 20 MG DAILY AC 10/26 0700 AC 10/29 PO 0539 Polyethylene Glycol 17 GM DAILY 10/27 1000 AC 10/29 PO 1026 Prednisone 40 MG DAILY 10/29 1000 AC 10/29 PO 1027 Pyridoxine HCl 50 MG DAILY 10/26 1000 AC 10/29 PO 1027 Senna/Docusate Sodium 2 TAB AT BEDTIME 10/26 2200 AC 10/28 PO 2144 Tiotropium [place] 1 PUF DAILY 10/26 1000 AC 10/29 INH 1027 Tramadol HCl 50 MG TIDPRN PRN 10/25 2330 DC PO Last 24 Hrs of Lab/Aakash Results Last 24 Hrs of Labs/Mics: Laboratory Tests 10/29/17 0651: Anion Gap 12, Estimated GFR > 60, Glucose 79, Calcium 9.2, Phosphorus 3.2, Magnesium 2.3, Total Bilirubin 0.4, AST 21, ALT 42, Albumin 3.4 L, CBC w Diff NO MAN DIFF REQ, RBC 4.48 L, MCV 90.9, MCH 29.6, MCHC 32.5 L, RDW 15.4 H, MPV 8.2, Gran % 80.7 H, Lymphocytes % 8.0 L, Monocytes % 4.5, Eosinophils % 6.4 H , Basophils % 0.4, Absolute Granulocytes 15.4 H, Absolute Lymphocytes 1.5, Absolute Monocytes 0.9 H, Absolute Eosinophils 1.2, Absolute Basophils 0.1 Assessment/Plan Assessment: Patient is 81-year-old male with past medical history of restrictive severe interstitial pulmonary fibrosis and severe emphysema with end-stage lung disease and multiple lung nodules, history of latent TB currently on isoniazid and vitamin B6, progressive respiratory failure with increasing O2 requirements over the past few months sent in by his primary care physician after he was found to be hypoxemic. Patient was initially admitted to the ICU for acute hypoxemic and hypercarbic respiratory failure requiring BiPAP. Patient was weaned off BiPAP and is currently on high flow oxygen at 35% saturating at 95-96%. Patient's initial chest x-ray was suspicious for findings of a pneumonia and he was initially started on vancomycin, ceftazidime, azithromycin. Vancomycin and Ceptaz stain were discontinued. Patient initially received IV Solu-Medrol and was tapered to prednisone 40 mg on 10/29. Azithromycin was continued for COPD exacerbation. During this admission patient was diagnosed with new onset atrial fibrillation with AV heavenly disease. ACS was ruled out. Patient is currently euthyroid on levothyroxine 50 g daily. Patient was started on Eliquis for anticoagulation. Patient was evaluated by cardiology and does not require any beta maryann or calcium channel blockers at this time. 1. Acute hypoxemic and hypercarbic respiratory failure secondary to COPD exacerbation in the setting of severe interstitial lung disease and emphysema. * Pulmonology is on board * We'll continue high flow oxygen and adjust for O2 saturation above 90% * If patient requires BiPAP he will require a nasal pillow to prevent any further nasal breakdown * We'll continue prednisone 40 mg daily * TRJahaira Rodas treatments * Patient's BUN is currently trending up, Lasix held today. If patient's BUN tomorrow improves he should receive IV Lasix 40 mg 1 tomorrow a.m. * Continue isoniazid and B6 for latent TB * Continue azithromycin for COPD exacerbation * Will give morphine 2 mg IV when necessary for dyspnea 2. New onset atrial fibrillation with controlled ventricular rate * Cardiology is on board * Patient taken off telemetry today * We'll continue Eliquis for anticoagulation * Patient does not need AV heavenly blockers at this time per cardiology 3. Chronic conditions: * Continue omeprazole, aspirin, gabapentin, levothyroxine, Lexapro Code: DNR/DNI Diet: Heart healthy DVT prophylaxis: On Eliquis Problem List: 1. Acute respiratory failure 2. ILD (interstitial lung disease) 3. COPD (chronic obstructive pulmonary disease) 4. New onset a-fib Pain Ratin Pain Location: Back Pain Goal: Pain 4 or less Pain Plan: Tramadol Tylenol Tomorrow's Labs & Rationales: CBC BEP
[2017-10-29 08:35] LABS: HEMATOCRIT 40.7 % (42-52)
[2017-10-29 08:36] LABS: WHITE BLOOD CELL COUNT 19.1 /CUMM (4.8-10.8)
--- NOTE | 2017-10-29 10:08 | PN- Pulmonary ---
Subjective HPI/Critical Care Issues: Feels dyspneic fatigue Nose is breaking down Objective Current Medications: Current Medications Sig/Marah Start time Last Medication Dose Route Stop Time Status Admin Acetaminophen 650 MG Q8P PRN 10/25 2330 AC PO Acetaminophen 1,000 MG BID PRN 10/25 2330 DC IV Albuterol Sulfate 3 ML EVERY 4 HRS/AWAKE 10/26 1600 AC 10/29 INH 0849 Apixaban 5 MG BID 10/27 1037 AC 10/28 PO 2145 Aspirin Buffered 81 MG DAILY 10/26 1000 AC 10/28 PO 0951 Azithromycin 500 MG 2100 10/28 2100 AC 10/28 Dextrose/Water 250 ML IV 2328 Azithromycin 500 MG 2100 10/26 2100 DC 10/27 Sodium Chloride 250 ML IV 2041 Bisacodyl 5 MG DAILY PRN 10/27 0915 AC 10/27 PO 1122 Ceftazidime 1,000 MG IQ8 10/26 1600 DC 10/28 IV 0855 Escitalopram Oxalate 20 MG DAILY 10/28 1000 AC 10/28 PO 0951 Furosemide 40 MG ONCE ONE 10/28 1415 CAN IV 10/28 1416 Furosemide 40 MG ONCE ONE 10/28 1030 DC 10/28 IV 10/28 1031 1108 Gabapentin 100 MG TID 10/26 1000 AC 10/28 PO 2145 Hydromorphone HCl 2 MG Q6P PRN 10/27 0945 AC PO Ipratropium [place] 2.5 ML EVERY 4 HRS/AWAKE 10/26 1600 AC 10/29 INH 0849 Isoniazid 300 MG DAILY 10/26 1000 AC 10/28 PO 0958 Levothyroxine Sodium 0.05 MG DAILY AC 10/28 0700 AC 10/29 PO 0539 Methylprednisolone 40 MG DAILY 10/27 1000 DC 10/28 IV 0956 Morphine Sulfate 2 MG Q6P PRN 10/26 1015 AC 10/27 IV 2231 Omeprazole 20 MG DAILY AC 10/26 0700 AC 10/29 PO 0539 Polyethylene Glycol 17 GM DAILY 10/27 1000 AC 10/28 PO 0954 Prednisone 40 MG DAILY 10/29 1000 AC PO Pyridoxine HCl 50 MG DAILY 10/26 1000 AC 10/28 PO 0952 Senna/Docusate Sodium 2 TAB AT BEDTIME 10/26 2200 AC 10/28 PO 2144 Tiotropium [place] 1 PUF DAILY 10/26 1000 AC 10/28 INH 0958 Tramadol HCl 50 MG TIDPRN PRN 10/25 2330 DC PO Vancomycin HCl 1,000 MG Q12 10/26 1005 DC 10/28 Dextrose/Water 250 ML IV 0958 Vital Signs & I&O Last 24 Hrs of Vitals and I&O: Vital Signs Date Time Temp Pulse Resp B/P B/P Pulse O2 O2 Flow FiO2 Mean Ox Delivery Rate 10/29 0849 94 Nasal 35% Cannula 10/29 0653 98.4 71 16 138/96 93 Nasal Cannula 10/29 0102 95 Nasal 35% Cannula 10/28 2211 93 Nasal 35% Cannula 10/28 2201 Nasal 30% Cannula 10/28 2200 97.8 86 16 122/78 95 Nasal 30% Cannula 10/28 1750 Nasal 35% Cannula 10/28 1703 96 Nasal 35% Cannula 10/28 1600 96 Nasal 35% Cannula 10/28 1600 97.8 73 20 94/56 96 Nasal 35% Cannula Intake & Output 10/29 1600 10/29 0800 10/29 0000 Intake Total 200 120 Output Total 1150 1000 Balance -950 -880 Intake, IV 150 Intake, Oral 50 120 Output, Urine 1150 1000 Patient 166 lb Weight Weight Bed scale Measurement Method Impression/Plan Impression/Plan Impression/Plan: General Appearance Alert, Oriented X3, Cooperative, Mild Distress, on BiPAP, arousable to verbal stimuli and answers to questions appropriately, but hard to understand since he is on BiPAP Skin No Rashes, No Breakdown, No Significant Lesion Skin Temp/Moisture Exam: Warm/Dry Sepsis Skin Exam (color): Normal for Ethnicity HEENT Atraumatic, PERRLA, EOMI, Mucous Membr. moist/pink Neck Supple, No JVD, No thryomegaly, +2 Carotid Pulse wo Bruit Lymphatic Cervical nl Cardiovascular Regular Rate, Normal S1, Normal S2, No Murmurs Lungs crackles and wheezes bilaterally. Abdomen Normal Bowel Sounds, Soft, No Tenderness, No Hepatospenomegaly Neurological Normal Speech, Strength at 5/5 X4 Ext, Normal Tone, Cranial Nerves 3-12 NL, Reflexes 2+, sensation couldnt be tested Extremities No Clubbing, No Cyanosis, No Edema, Normal Pulses, No Tenderness/ Swelling Vascular Pulses Symmetrical CXR IMPRESSION: Increasing dense consolidation at right lung base due to infiltrate/atelectasis and effusion. Persistent central hilar pulmonary vascular congestion. 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 He has had bullous COPD for many years from previous history of [id number] smoking quit in 1989. His overall lung function has been progressively getting worse. In the recent past he was also noted to have bilateral lung masses concerning for malignancy by PET scan and he is not a great candidate for invasive workup due to end-stage lung disease and we will be doing a CAT scan in July for evaluation of this. 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 Patient has been on INH since April 28. He also does have ascending aortic aneurysm, abdominal aortic aneurysm before, and very severe end-stage lung disease with reduced DLCO. issues * REsolving Acute on chronic hypoxic and hypercarbic resp failure due to worsening ild, codp and prob malignancy in the rt lower lobe area compounded by mild fluid overload. 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
--- NOTE | 2017-10-29 11:39 | PN- Cardiology ---
Subjective Subjective: Currently on high flow oxygen. Still has shortness of breath and some reproducible pain with coughing. Objective Vital Signs and I&Os Vital Signs Date Time Temp Pulse Resp B/P B/P Pulse O2 O2 Flow FiO2 Mean Ox Delivery Rate 10/29 0849 94 Nasal 35% Cannula 10/29 0653 98.4 71 16 138/96 93 Nasal Cannula 10/29 0102 95 Nasal 35% Cannula 10/28 2211 93 Nasal 35% Cannula 10/28 220 Nasal 30% Cannula 10/28 220 97.8 86 16 122/78 95 Nasal 30% Cannula 10/28 1750 Nasal 35% Cannula 10/28 1703 96 Nasal 35% Cannula 10/28 1600 96 Nasal 35% Cannula 10/28 1600 97.8 73 20 94/56 96 Nasal 35% Cannula Intake & Output 10/29 1600 10/29 0800 10/29 0000 10/28 1600 10/28 0800 10/28 0000 Intake Total 200 120 850 40 530 Output Total 1150 1000 1825 275 675 Balance -950 -880 -975 -235 -145 Intake, IV 150 200 10 500 Intake, Oral 50 120 650 30 30 Output, Urine 1150 1000 1825 275 675 Patient 166 lb 174 lb Weight Weight Bed scale Bed scale Measurement Method Physical Exam: General: no apparent distress. Alert. On high flow oxygen Eyes: No obvious scleral icterus. HEENT: No jugular venous distention or abnormal jugular venous pulsations. Cardiovascular: Normal intensity S1/S2. Irregular Respiratory: Decreased air entry bilaterally Abdomen: Soft, nontender with no guarding or rebound tenderness. Musculoskeletal: No clubbing or cyanosis noted; no edema Skin: Warm Neurologic: No gross focal deficits noted. Current Medications: Current Medications Sig/Marah Start time Last Medication Dose Route Stop Time Status Admin Acetaminophen 650 MG Q8P PRN 10/25 2330 AC PO Acetaminophen 1,000 MG BID PRN 10/25 2330 DC IV Albuterol Sulfate 3 ML EVERY 4 HRS/AWAKE 10/26 1600 AC 10/29 INH 0849 Apixaban 5 MG BID 10/27 1037 AC 10/29 PO 1026 Aspirin Buffered 81 MG DAILY 10/26 1000 AC 10/29 PO 1026 Azithromycin 500 MG 2100 10/28 2100 AC 10/28 Dextrose/Water 250 ML IV 2328 Azithromycin 500 MG 10/26 2100 DC 10/27 Sodium Chloride 250 ML IV 2041 Bisacodyl 5 MG DAILY PRN 10/27 0915 AC 10/27 PO 1122 Ceftazidime 1,000 MG IQ8 10/26 1600 DC 10/28 IV 0855 Escitalopram Oxalate 20 MG DAILY 10/28 1000 AC 10/29 PO 1026 Furosemide 40 MG ONCE ONE 10/28 1415 CAN IV 10/28 1416 Gabapentin 100 MG TID 10/26 1000 AC 10/29 PO 1026 Hydromorphone HCl 2 MG Q6P PRN 10/27 0945 AC PO Ipratropium [place] 2.5 ML EVERY 4 HRS/AWAKE 10/26 1600 AC 10/29 INH 0849 Isoniazid 300 MG DAILY 10/26 1000 AC 10/29 PO 1026 Levothyroxine Sodium 0.05 MG DAILY AC 10/28 0700 AC 10/29 PO 0539 Methylprednisolone 40 MG DAILY 10/27 1000 DC 10/28 IV 0956 Morphine Sulfate 2 MG Q6P PRN 10/26 1015 AC 10/27 IV 2231 Omeprazole 20 MG DAILY AC 10/26 0700 AC 10/29 PO 0539 Polyethylene Glycol 17 GM DAILY 10/27 1000 AC 10/29 PO 1026 Prednisone 40 MG DAILY 10/29 1000 AC 10/29 PO 1027 Pyridoxine HCl 50 MG DAILY 10/26 1000 AC 10/29 PO 1027 Senna/Docusate Sodium 2 TAB AT BEDTIME 10/26 2200 AC 10/28 PO 2144 Tiotropium [place] 1 PUF DAILY 10/26 1000 AC 10/29 INH 1027 Tramadol HCl 50 MG TIDPRN PRN 10/25 2330 DC PO Vancomycin HCl 1,000 MG Q12 10/26 1005 DC 10/28 Dextrose/Water 250 ML IV 0958 Results Last 48 Hrs of Labs/Mics: Laboratory Tests 10/29/17 0651: Anion Gap 12, Estimated GFR > 60, Glucose 79, Calcium 9.2, Phosphorus 3.2, Magnesium 2.3, Total Bilirubin 0.4, AST 21, ALT 42, Albumin 3.4 L, CBC w Diff NO MAN DIFF REQ, RBC 4.48 L, MCV 90.9, MCH 29.6, MCHC 32.5 L, RDW 15.4 H, MPV 8.2, Gran % 80.7 H, Lymphocytes % 8.0 L, Monocytes % 4.5, Eosinophils % 6.4 H , Basophils % 0.4, Absolute Granulocytes 15.4 H, Absolute Lymphocytes 1.5, Absolute Monocytes 0.9 H, Absolute Eosinophils 1.2, Absolute Basophils 0.1 10/28/17 0441: Anion Gap 9, Estimated GFR > 60, Glucose 83, Calcium 8.4, Phosphorus 3.7, Magnesium 2.1, Total Bilirubin 0.2, AST 17, ALT 30, Albumin 2.9 L, CBC w Diff MAN DIFF ORDERED, RBC 3.72 L, MCV 90.8, MCH 29.6, MCHC 32.6 L, RDW 15.7 H, MPV 7.9, Gran % 84.8 H, Lymphocytes % 8.4 L, Monocytes % 3.7, Eosinophils % 2.9, Basophils % 0.2, Absolute Granulocytes 13.2 H, Segmented Neutrophils 72, Band Neutrophils 8 H, Absolute Lymphocytes 1.3, Lymphocytes 10 L, Monocytes 3, Absolute Monocytes 0.6, Eosinophils 6 H, Absolute Eosinophils 0.5, Basophils 1, Absolute Basophils 0, Platelet Estimate ADEQUATE, Polychromasia 1+, Hypochromic- Microcytic 1+, Poikilocytosis 1+, Basophilic Stippling RARE, Ovalocytes FEW, Fld Total RBCs Counted 100 10/27/17 1300: APTT Cancelled Recent Imaging Studies: Telemetry tracings were personally reviewed and show atrial fibrillation with controlled ventricular response rate Assessment/Plan Assessment/Plan 1. New onset atrial fibrillation most likely secondary to respiratory insufficiency due to a combination of pulmonary fibrosis, COPD, and pneumonia. There is also evidence for mild fluid overload with an elevated BNP of 1760. 2. 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 Severe pulmonary fibrosis 4. COPD on home O2 5. Pulmonary nodules most likely secondary to carcinoma along 6. History of ascending and descending aortic aneurysms 7. 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 Currently does not appear volume overloaded by physical exam. Heart rate is well-controlled without AV heavenly blockers. Hemoglobin is stable on Eliquis. He is DNR/DNI and prognosis is guarded. Ben Fuller MD [facility] Continue telemetry? No
[2017-10-29 15:08] VITALS: BP 110/66
[2017-10-29 22:49] VITALS: BP 130/80
[2017-10-30 07:26] VITALS: BP 148/84
[2017-10-30 08:44] LABS: ABSOLUTE BASOPHIL COUNT 0.1 /CUMM (0.0-0.2); ABSOLUTE EOSINOPHIL COUNT 1.8 /CUMM (0.0-0.7); ABSOLUTE GRANULOCYTE CT 15.8 /CUMM (1.4-6.5); ABSOLUTE LYMPH COUNT 1.6 /CUMM (1.2-3.4); ABSOLUTE MONOCYTE COUNT 0.8 /CUMM (0.10-0.60); BASOPHIL % 0.3 % (0.0-2.0); EOSINOPHIL % 8.9 % (0-5); GRANULOCYTE % 78.7 % (42.2-75.2); MEAN CORPUSCULAR HGB 29.6 PG (27.0-31.0); MEAN CORPUSCULAR HGB CONC 32.4 G/DL (33.0-37.0); MEAN CORPUSCULAR VOLUME 91.2 FL (80.0-94.0); MEAN PLATELET VOLUME 8.1 FL (7.4-10.4); PLATELET COUNT 238 /CUMM (130-400); RBC DISTRIBUTION WIDTH 15.8 % (11.5-14.5); RED BLOOD CELL CT 4.38 /CUMM (4.70-6.10)
--- NOTE | 2017-10-30 09:07 | PN- Housestaff ---
Rupa FAGAN,Yousif 10/30/17 0906: Subjective Follow-up For: Acute Hypoxic and Hypercarbic respiratory failure New-onset atrial fibrillation AV heavenly disease Complaints: no complaints Tele-Events Since Last Visit: AF, rate controlled, less than 100. Subjective: I followed up and examined the patient today. This morning he was complaining of respiratory distress, and the nursing staff noted increased work of breathing , called respiratory therapist, and put him back on BiPAP machine. We had to give him IV Solu-Medrol before he was due for any oral steroids today. Review of Systems Constitutional: Reports: see HPI. Respiratory: Reports: see HPI, short of breath. Objective Last 24 Hrs of Vital Signs/I&O Vital Signs Date Time Temp Pulse Resp B/P B/P Pulse O2 O2 Flow FiO2 Mean Ox Delivery Rate 10/30 2011 Nasal 30% Cannula 10/30 1759 30 96 BIPAP 10/30 1415 98.1 78 24 104/72 94 Nasal Cannula 10/30 1400 75 96 10/30 1152 93 93 10/30 0900 98 94 10/30 0800 BIPAP 10/30 0800 93 Nasal 35% Cannula 10/30 0726 98.3 80 30 148/84 93 Nasal Cannula 10/30 0121 94 Nasal 35% Cannula 10/29 2306 94 Nasal 35% Cannula 10/29 2249 94.0 87 34 130/80 94 Intake & Output 10/30 1600 10/30 0800 10/30 0000 Intake Total 460 500 Output Total 350 475 Balance 110 25 Intake, IV 100 Intake, Oral 360 500 Output, Urine 350 475 Patient 74.531 kg Weight Weight Bed scale Measurement Method Physical Exam General Appearance: Alert, Oriented X3, Cooperative, Moderate Distress Other Physical Findings: HEENT: Atraumatic, Mucous Membr. moist/pink Cardiovascular: Normal S1, Normal S2, irregular rate Lungs: Poor air entry bilaterally, minimal wheezing, scattered crackles b/l. Abdomen: Normal Bowel Sounds, Soft, No Tenderness Extremities: No Clubbing, No Cyanosis, No Edema, Normal Pulses, No Tenderness/ Swelling Current Medications: Current Medications Sig/Marah Start time Last Medication Dose Route Stop Time Status Admin Acetaminophen 1,000 MG Q8 10/30 1400 AC 10/30 IV 1330 Acetaminophen 650 MG Q8P PRN 10/25 2330 DC PO Albuterol Sulfate 3 ML EVERY 4 HRS/AWAKE 10/26 1600 AC 10/30 INH 2007 Apixaban 5 MG BID 10/27 1037 AC 10/30 PO 1205 Aspirin Buffered 81 MG DAILY 10/26 1000 AC 10/29 PO 1026 Azithromycin 500 MG 2100 10/28 2100 AC 10/29 Dextrose/Water 250 ML IV 2100 Bisacodyl 5 MG DAILY PRN 10/27 0915 AC 10/27 PO 1122 Escitalopram Oxalate 20 MG DAILY 10/28 1000 AC 10/30 PO 1205 Gabapentin 100 MG TID 10/26 1000 AC 10/30 PO 1521 Hydromorphone HCl 2 MG Q6P PRN 10/27 0945 AC PO Ipratropium [place] 2.5 ML EVERY 4 HRS/AWAKE 10/26 1600 AC 10/30 INH 2006 Isoniazid 300 MG DAILY 10/26 1000 AC 10/30 PO 1205 Levothyroxine Sodium 0.05 MG DAILY AC 10/28 0700 AC 10/30 PO 0730 Melatonin 3 MG AT BEDTIME 10/29 2200 AC 10/29 PO 2100 Methylprednisolone 40 MG Q8 10/30 1400 AC 10/30 IV 1008 Morphine Sulfate 2 MG Q6P PRN 10/26 1015 AC 10/30 IV 1740 Omeprazole 20 MG DAILY AC 10/26 0700 AC 10/30 PO 0730 Polyethylene Glycol 17 GM DAILY 10/27 1000 AC 10/30 PO 1206 Prednisone 40 MG DAILY 10/29 1000 DC 10/29 PO 1027 Pyridoxine HCl 50 MG DAILY 10/26 1000 AC 10/29 PO 1027 Senna/Docusate Sodium 2 TAB AT BEDTIME 10/26 2200 AC 10/29 PO 2059 Tiotropium [place] 1 PUF DAILY 10/26 1000 AC 10/29 INH 1027 Tramadol HCl 50 MG TIDPRN PRN 10/29 1730 AC 10/29 PO 1929 Last 24 Hrs of Lab/Aakash Results Last 24 Hrs of Labs/Mics: Laboratory Tests 10/30/17 0629: Anion Gap 10, Estimated GFR > 60, BUN/Creatinine Ratio 35.5 H, CBC w Diff NO MAN DIFF REQ, RBC 4.38 L, MCV 91.2, MCH 29.6, MCHC 32.4 L, RDW 15.8 H, MPV 8.1, Gran % 78.7 H, Lymphocytes % 8.1 L, Monocytes % 4.0, Eosinophils % 8.9 H , Basophils % 0.3, Absolute Granulocytes 15.8 H, Absolute Lymphocytes 1.6, Absolute Monocytes 0.8 H, Absolute Eosinophils 1.8, Absolute Basophils 0.1 Assessment/Plan Assessment: Patient is 81-year-old male with past medical history of restrictive severe interstitial pulmonary fibrosis and severe emphysema with end-stage lung disease and multiple lung nodules, history of latent TB currently on isoniazid and vitamin B6, progressive respiratory failure with increasing O2 requirements over the past few months sent in by his primary care physician after he was found to be hypoxemic. Patient was initially admitted to the ICU for acute hypoxemic and hypercarbic respiratory failure requiring BiPAP. Patient was weaned off BiPAP and is currently on high flow oxygen at 35% saturating at 95-96%. Patient's initial chest x-ray was suspicious for findings of a pneumonia and he was initially started on vancomycin, ceftazidime, azithromycin. Vancomycin and Ceptaz stain were discontinued. Patient initially received IV Solu-Medrol and was tapered to prednisone 40 mg on 10/29. Azithromycin was continued for COPD exacerbation. During this admission patient was diagnosed with new onset atrial fibrillation with AV heavenly disease. ACS was ruled out. Patient is currently euthyroid on levothyroxine 50 g daily. Patient was started on Eliquis for anticoagulation. Patient was evaluated by cardiology and does not require any beta maryann or calcium channel blockers at this time. 1. Acute hypoxemic and hypercarbic respiratory failure secondary to COPD exacerbation in the setting of severe interstitial lung disease and emphysema. * Patient had increased work of breathing/respiratory distress today, had to be placed back on BiPAP, and IV steroids were reinstituted, prednisone discontinued. * Pulmonology is on board, will follow recs. * We'll continue high flow oxygen and adjust for O2 saturation above 90% * Continue TRC, DuoNeb treatments * Patient's BUN was still high today, and he did not appear fluid overloaded, so Lasix held today. Will reassess tomorrow. * Continue isoniazid and Vit B6 for latent TB * Continue azithromycin for COPD exacerbation * Will give morphine 2 mg IV when necessary for dyspnea, was given once today 2. New onset atrial fibrillation with controlled ventricular rate * Cardiology is on board * Patient watched off telemetry * We'll continue Eliquis for anticoagulation * Patient does not need AV heavenly blockers at this time per cardiology 3. Chronic conditions: * Continue omeprazole, aspirin, gabapentin, levothyroxine, Lexapro Code: DNR/DNI Diet: Heart healthy DVT prophylaxis: On Eliquis Problem List: 1. Respiratory failure Pain Ratin Pain Location: - Pain Goal: Pain 4 or less Pain Plan: prn Tomorrow's Labs & Rationales: BEP, ELENI May MD,Debbie 10/30/17 1132: Attending MD Review Statement Attending Statement Attending MD Statement: examined this patient, discuss w/resident/PA/FOUNDRY TECHNICIAN, agreed w/resident/PA/FOUNDRY TECHNICIAN, reviewed EMR data (avail), discussed with nursing, discussed with case mgmt, amended to note Attending Assessment/Plan: Patient seen and examined. Apparently decompensated overnight and was placed on BiPAP therapy. Is currently on BiPAP. Does not appear to be in acute distress although he does admit to shortness of breath when questioned. Denies chest pain or palpitations. He is afebrile and hemodynamically stable. Examination he has very poor air entry bilaterally with no added sounds. He has no peripheral edema. Recommendations: -He is currently unable to tolerate oral intake due to his shortness of breath and being on BiPAP therapy. His oral medications have been transitioned to intravenous route including his steroid therapy. -His leukocytosis likely secondary to his steroid therapy. Continue azithromycin for anti-inflammatory purposes. -Follow-up recommendations of the pulmonology service.
--- NOTE | 2017-10-30 13:22 | PN- Pulmonary ---
Subjective HPI/Critical Care Issues: Patient seen and examined this morning. He had significant shortness of breath requiring putting the BiPAP back on. His steroids were switched to IV. Objective Current Medications: Current Medications Sig/Marah Start time Last Medication Dose Route Stop Time Status Admin Acetaminophen 650 MG Q8P PRN 10/25 2330 AC PO Albuterol Sulfate 3 ML EVERY 4 HRS/AWAKE 10/26 1600 AC 10/30 INH 1151 Apixaban 5 MG BID 10/27 1037 AC 10/30 PO 1205 Aspirin Buffered 81 MG DAILY 10/26 1000 AC 10/29 PO 1026 Azithromycin 500 MG 2100 10/28 2100 AC 10/29 Dextrose/Water 250 ML IV 2100 Bisacodyl 5 MG DAILY PRN 10/27 0915 AC 10/27 PO 1122 Escitalopram Oxalate 20 MG DAILY 10/28 1000 AC 10/30 PO 1205 Gabapentin 100 MG TID 10/26 1000 AC 10/29 PO 2059 Hydromorphone HCl 2 MG Q6P PRN 10/27 0945 AC PO Ipratropium [place] 2.5 ML EVERY 4 HRS/AWAKE 10/26 1600 AC 10/30 INH 0802 Isoniazid 300 MG DAILY 10/26 1000 AC 10/30 PO 1205 Levothyroxine Sodium 0.05 MG DAILY AC 10/28 0700 AC 10/30 PO 0730 Melatonin 3 MG AT BEDTIME 10/29 2200 AC 10/29 PO 2100 Methylprednisolone 40 MG Q8 10/30 1400 AC 10/30 IV 1008 Morphine Sulfate 2 MG Q6P PRN 10/26 1015 AC 10/30 IV 1025 Omeprazole 20 MG DAILY AC 10/26 0700 AC 10/30 PO 0730 Polyethylene Glycol 17 GM DAILY 10/27 1000 AC 10/30 PO 1206 Prednisone 40 MG DAILY 10/29 1000 DC 10/29 PO 1027 Pyridoxine HCl 50 MG DAILY 10/26 1000 AC 10/29 PO 1027 Senna/Docusate Sodium 2 TAB AT BEDTIME 10/26 2200 AC 10/29 PO 2059 Tiotropium [place] 1 PUF DAILY 10/26 1000 AC 10/29 INH 1027 Tramadol HCl 50 MG TIDPRN PRN 10/29 1730 AC 10/29 PO 1929 Vital Signs & I&O Last 24 Hrs of Vitals and I&O: Vital Signs Date Time Temp Pulse Resp B/P B/P Pulse O2 O2 Flow FiO2 Mean Ox Delivery Rate 10/30 1152 93 93 10/30 0900 98 94 10/30 0800 BIPAP 10/30 0800 93 Nasal 35% Cannula 10/30 0726 98.3 80 30 148/84 93 Nasal Cannula 10/30 0121 94 Nasal 35% Cannula 10/29 2306 94 Nasal 35% Cannula 10/29 2249 94.0 87 34 130/80 94 10/29 1912 94 Nasal 35% Cannula 10/29 1600 93 Nasal 35% Cannula 10/29 1550 95 Nasal 35% Cannula 10/29 1508 98.1 95 22 110/66 93 Nasal 30% Cannula Intake & Output 10/30 1600 10/30 0800 10/30 0000 Intake Total 500 Output Total 475 Balance 25 Intake, Oral 500 Output, Urine 475 Patient 164 lb Weight Weight Bed scale Measurement Method Exam Other Physical Findings: Generally - Awake, alertt distress Head and neck -BiPAP Cardiovascular - S1, S2 Lungs -rhonchi with transmitted bronchial sounds Abdomen - Bowel sounds positive, soft, non-tender Extremities - without edema Results Last 24 Hrs of Lab Results: Laboratory Tests 10/30/17 0629: Anion Gap 10, Estimated GFR > 60, BUN/Creatinine Ratio 35.5 H, CBC w Diff NO MAN DIFF REQ, RBC 4.38 L, MCV 91.2, MCH 29.6, MCHC 32.4 L, RDW 15.8 H, MPV 8.1, Gran % 78.7 H, Lymphocytes % 8.1 L, Monocytes % 4.0, Eosinophils % 8.9 H , Basophils % 0.3, Absolute Granulocytes 15.8 H, Absolute Lymphocytes 1.6, Absolute Monocytes 0.8 H, Absolute Eosinophils 1.8, Absolute Basophils 0.1 Impression/Plan Impression/Plan Impression/Plan: Impression 82-year-old man * Acute hypoxemic and hypercarbic respiratory failure secondary to COPD exacerbation and interstitial lung disease * Latent TB history * A. fib Plan -Continue Cymetra 40 mg IV every 8 hours -Continue BiPAP with possible breaks -Continue Zithromax -Continue INH/B6 -Morphine ordered when necessary -TRC/nebs continue inhalers DVT prophylaxis at all times - on Eliquis
[2017-10-30 14:15] VITALS: BP 104/72
[2017-10-30 23:13] VITALS: BP 98/60
[2017-10-31 06:34] VITALS: BP 112/66
[2017-10-31 07:54] LABS: ABSOLUTE BASOPHIL COUNT 0 /CUMM (0.0-0.2); ABSOLUTE EOSINOPHIL COUNT 0.1 /CUMM (0.0-0.7); ABSOLUTE GRANULOCYTE CT 17.1 /CUMM (1.4-6.5); ABSOLUTE MONOCYTE COUNT 0.2 /CUMM (0.10-0.60); BASOPHIL % 0 % (0.0-2.0); EOSINOPHIL % 0.5 % (0-5); HEMATOCRIT 37.7 % (42-52); MEAN CORPUSCULAR HGB 29.5 PG (27.0-31.0); MEAN CORPUSCULAR HGB CONC 32.3 G/DL (33.0-37.0); MEAN CORPUSCULAR VOLUME 91.3 FL (80.0-94.0); MEAN PLATELET VOLUME 8.3 FL (7.4-10.4); PLATELET COUNT 229 /CUMM (130-400); RBC DISTRIBUTION WIDTH 15.8 % (11.5-14.5); RED BLOOD CELL CT 4.13 /CUMM (4.70-6.10); WHITE BLOOD CELL COUNT 18.4 /CUMM (4.8-10.8)
--- NOTE | 2017-10-31 08:48 | PN- Housestaff ---
Tomas FAGAN,Markell 10/31/17 0847: Subjective Follow-up For: Acute Hypoxic and Hypercarbic respiratory failure New-onset atrial fibrillation AV heavenly disease Tele-Events Since Last Visit: Atrial fibrillation: Heart rate Subjective: Patient was seen and examined today. Patient's daughter was at bedside. Reports patient has been on BIPAP most of yesterday and overnight and has not had much to eat or drink. Patient reports his breathing has improved and feels okay but not great. Patient denies chest pain, cough, palpitations, fever, chills, n/v. Has not had a bowel movement recently and has some lower abdominal discomfort. Denies pain. Review of Systems Constitutional: Reports: weakness. Cardiovascular: Reports: no symptoms. Respiratory: Reports: see HPI, short of breath. Gastrointestinal: Reports: see HPI. Genitourinary: Reports: no symptoms. Musculoskeletal: Reports: no symptoms. Objective Last 24 Hrs of Vital Signs/I&O Vital Signs Date Time Temp Pulse Resp B/P B/P Pulse O2 O2 Flow FiO2 Mean Ox Delivery Rate 10/31 0856 70 98 10/31 0800 BIPAP 10/31 0634 97.2 59 22 112/66 96 BIPAP 10/31 0233 59 97 10/31 0000 BIPAP 10/30 2313 97.0 58 22 98/60 97 BIPAP 10/30 2011 Nasal 30% Cannula 10/30 1759 30 96 BIPAP 10/30 1415 98.1 78 24 104/72 94 Nasal Cannula 10/30 1400 75 96 10/30 1152 93 93 Intake & Output 10/31 1600 10/31 0800 10/31 0000 Intake Total 220 370 Output Total Balance 220 370 Intake, IV 100 250 Intake, Oral 120 120 Physical Exam General Appearance: Alert, Cooperative, No Acute Distress Skin Temp/Moisture Exam: Warm/Dry HEENT: wearing BIPAP mask Cardiovascular: Normal S1, Normal S2, irregular rate Abdomen: Normal Bowel Sounds, Soft, No Tenderness Extremities: No Clubbing, No Cyanosis, No Edema, Normal Pulses, No Tenderness/ Swelling Current Medications: Current Medications Sig/Marah Start time Last Medication Dose Route Stop Time Status Admin Acetaminophen 1,000 MG Q8 10/30 1400 AC 10/31 IV 0600 Acetaminophen 650 MG Q8P PRN 10/25 2330 DC PO Albuterol Sulfate 3 ML EVERY 4 HRS/AWAKE 10/26 1600 AC 10/31 INH 0854 Apixaban 5 MG BID 10/27 1037 AC 10/30 PO 2157 Aspirin Buffered 81 MG DAILY 10/26 1000 AC 10/29 PO 1026 Azithromycin 500 MG 2100 10/28 2100 AC 10/30 Dextrose/Water 250 ML IV 2158 Bisacodyl 5 MG DAILY PRN 10/27 0915 AC 10/27 PO 1122 Escitalopram Oxalate 20 MG DAILY 10/28 1000 AC 10/30 PO 1205 Gabapentin 100 MG TID 10/26 1000 AC 10/30 PO 2157 Hydromorphone HCl 2 MG Q6P PRN 10/27 0945 AC PO Ipratropium [place] 2.5 ML EVERY 4 HRS/AWAKE 10/26 1600 AC 10/31 INH 0854 Isoniazid 300 MG DAILY 10/26 1000 AC 10/30 PO 1205 Levothyroxine Sodium 0.05 MG DAILY AC 10/28 0700 AC 10/31 PO 0709 Melatonin 3 MG AT BEDTIME 10/29 2200 AC 10/30 PO 2157 Methylprednisolone 40 MG Q8 10/30 1400 AC 10/31 IV 0556 Morphine Sulfate 2 MG Q6P PRN 10/26 1015 AC 10/30 IV 1740 Omeprazole 20 MG DAILY AC 10/26 0700 AC 10/31 PO 0709 Polyethylene Glycol 17 GM DAILY 10/27 1000 AC 10/30 PO 1206 Prednisone 40 MG DAILY 10/29 1000 DC 10/29 PO 1027 Pyridoxine HCl 50 MG DAILY 10/26 1000 AC 10/29 PO 1027 Senna/Docusate Sodium 2 TAB AT BEDTIME 10/26 2200 AC 10/30 PO 2157 Tiotropium [place] 1 PUF DAILY 10/26 1000 AC 10/29 INH 1027 Tramadol HCl 50 MG TIDPRN PRN 10/29 1730 AC 10/29 PO 1929 Last 24 Hrs of Lab/Aakash Results Last 24 Hrs of Labs/Mics: Laboratory Tests 10/31/17 0620: Anion Gap 12, Estimated GFR > 60, BUN/Creatinine Ratio 47.8 H, CBC w Diff NO MAN DIFF REQ, RBC 4.13 L, MCV 91.3, MCH 29.5, MCHC 32.3 L, RDW 15.8 H, MPV 8.3, Gran % 93.0 H, Lymphocytes % 5.2 L, Monocytes % 1.3 L, Eosinophils % 0.5 , Basophils % 0, Absolute Granulocytes 17.1 H, Absolute Lymphocytes 1.0 L, Absolute Monocytes 0.2, Absolute Eosinophils 0.1, Absolute Basophils 0 Assessment/Plan Assessment: Patient is 81-year-old male with past medical history of restrictive severe interstitial pulmonary fibrosis and severe emphysema with end-stage lung disease and multiple lung nodules, history of latent TB currently on isoniazid and vitamin B6, progressive respiratory failure with increasing O2 requirements over the past few months sent in by his primary care physician after he was found to be hypoxemic. Patient was initially admitted to the ICU for acute hypoxemic and hypercarbic respiratory failure requiring BiPAP. Patient was weaned off BiPAP and is currently on high flow oxygen at 35% saturating at 95-96%. Patient's initial chest x-ray was suspicious for findings of a pneumonia and he was initially started on vancomycin, ceftazidime, azithromycin. Vancomycin and Ceftazidine were discontinued. Patient initially received IV Solu-Medrol and was tapered to prednisone 40 mg on 10/29. Patient's IV solu-medrol was restarted on 10/30. Azithromycin was continued for COPD exacerbation. During this admission patient was diagnosed with new onset atrial fibrillation with AV heavenly disease. ACS was ruled out. Patient is currently euthyroid on levothyroxine 50 g daily. Patient was started on Eliquis for anticoagulation. Patient was evaluated by cardiology and does not require any beta maryann or calcium channel blockers at this time. 1. Acute hypoxemic and hypercarbic respiratory failure secondary to COPD exacerbation in the setting of severe interstitial lung disease and emphysema. * Patient was trialed off BIPAP, on highflow and nasal cannula today. Patient desatted and was placed on BIPAP today. IV steroids were continued. * Pulmonology is on board, will follow recs. * We'll continue high flow oxygen and adjust for O2 saturation above 90% * Continue TRC, DuoNeb treatments * Patient's BUN was still high today, and he did not appear fluid overloaded, so Lasix held today. Will reassess tomorrow. * Continue isoniazid and Vit B6 for latent TB * Continue azithromycin for COPD exacerbation * Will give morphine 2 mg IV when necessary for dyspnea 2. New onset atrial fibrillation with controlled ventricular rate * Cardiology is on board * Patient watched off telemetry * We'll continue Eliquis for anticoagulation * Patient does not need AV heavenly blockers at this time per cardiology 3. Chronic conditions: * Continue omeprazole, aspirin, gabapentin, levothyroxine, Lexapro Code: DNR/DNI Diet: Heart healthy DVT prophylaxis: On Eliquis Problem List: 1. Acute respiratory failure 2. ILD (interstitial lung disease) 3. COPD (chronic obstructive pulmonary disease) Pain Ratin Pain Location: back Pain Goal: Pain 4 or less Pain Plan: tramadol PRN tylenol PRN Tomorrow's Labs & Rationales: BEP - lasix CBC Lalo FAGAN,Debbie 10/31/17 1522: Attending MD Review Statement Attending Statement Attending MD Statement: examined this patient, discuss w/resident/PA/FIELD MARKETING SPECIALIST, agreed w/resident/PA/FIELD MARKETING SPECIALIST, discussed with family, reviewed EMR data (avail), discussed with nursing, amended to note Attending Assessment/Plan: Patient seen and examined. He was on BiPAP therapy intermittently yesterday. This morning he was taken off BiPAP therapy to enable him to eat. Although he was maintaining saturation in the upper 90s on nasal cannula he was obviously struggling to breathe. Bladder was present at bedside. On examination he has adequate entry bilaterally with no significant added sounds. He does not appear clinically volume overloaded. Continue BiPAP therapy with breaks as needed. Continue bronchodilator therapy and systemic steroid therapy as recommended by the pulmonology service.
--- NOTE | 2017-10-31 13:18 | PN- Pulmonary ---
Subjective HPI/Critical Care Issues: Patient seen and examined. Trialing off BiPAP. Objective Current Medications: Current Medications Sig/Marah Start time Last Medication Dose Route Stop Time Status Admin Acetaminophen 1,000 MG Q8 10/30 1400 AC 10/31 IV 0600 Acetaminophen 650 MG Q8P PRN 10/25 2330 DC PO Albuterol Sulfate 3 ML EVERY 4 HRS/AWAKE 10/26 1600 AC 10/31 INH 1223 Apixaban 5 MG BID 10/27 1037 AC 10/31 PO 0917 Aspirin Buffered 81 MG DAILY 10/26 1000 AC 10/31 PO 1031 Azithromycin 500 MG 2100 10/28 2100 AC 10/30 Dextrose/Water 250 ML IV 2158 Bisacodyl 5 MG DAILY PRN 10/27 0915 AC 10/27 PO 1122 Escitalopram Oxalate 20 MG DAILY 10/28 1000 AC 10/31 PO 0917 Gabapentin 100 MG TID 10/26 1000 AC 10/31 PO 1031 Hydromorphone HCl 2 MG Q6P PRN 10/27 0945 AC PO Ipratropium [place] 2.5 ML EVERY 4 HRS/AWAKE 10/26 1600 AC 10/31 INH 1223 Isoniazid 300 MG DAILY 10/26 1000 AC 10/31 PO 0917 Levothyroxine Sodium 0.05 MG DAILY AC 10/28 0700 AC 10/31 PO 0709 Melatonin 3 MG AT BEDTIME 10/29 2200 AC 10/30 PO 2157 Methylprednisolone 40 MG Q8 10/30 1400 AC 10/31 IV 1306 Morphine Sulfate 2 MG Q6P PRN 10/26 1015 AC 10/31 IV 1306 Omeprazole 20 MG DAILY AC 10/26 0700 AC 10/31 PO 0709 Polyethylene Glycol 17 GM DAILY 10/27 1000 AC 10/31 PO 0913 Pyridoxine HCl 50 MG DAILY 10/26 1000 AC 10/29 PO 1027 Senna/Docusate Sodium 2 TAB AT BEDTIME 10/26 2200 AC 10/30 PO 2157 Tiotropium [place] 1 PUF DAILY 10/26 1000 AC 10/29 INH 1027 Tramadol HCl 50 MG TIDPRN PRN 10/29 1730 AC 10/31 PO 0922 Vital Signs & I&O Last 24 Hrs of Vitals and I&O: Vital Signs Date Time Temp Pulse Resp B/P B/P Pulse O2 O2 Flow FiO2 Mean Ox Delivery Rate 10/31 1254 86 95 10/31 1226 96 Nasal 35% Cannula 10/31 0856 70 98 10/31 08 BIPAP 10/31 0634 97.2 59 22 112/66 96 BIPAP 10/31 0233 59 97 10/31 0000 BIPAP 10/30 2313 97.0 58 22 98/60 97 BIPAP 10/30 2011 Nasal 30% Cannula 10/30 1759 30 96 BIPAP 10/30 1415 98.1 78 24 104/72 94 Nasal Cannula 10/30 1400 75 96 Intake & Output 10/31 1600 10/31 0800 10/31 0000 Intake Total 220 370 Output Total Balance 220 370 Intake, IV 100 250 Intake, Oral 120 120 Exam Other Physical Findings: Generally - Awake, alertt distress Head and neck - now off BiPAP, bruise on bridge of nose Cardiovascular - S1, S2 Lungs -rhonchi with transmitted bronchial sounds Abdomen - Bowel sounds positive, soft, non-tender Extremities - without edema Results Last 24 Hrs of Lab Results: Laboratory Tests 10/31/17 0620: Anion Gap 12, Estimated GFR > 60, BUN/Creatinine Ratio 47.8 H, CBC w Diff NO MAN DIFF REQ, RBC 4.13 L, MCV 91.3, MCH 29.5, MCHC 32.3 L, RDW 15.8 H, MPV 8.3, Gran % 93.0 H, Lymphocytes % 5.2 L, Monocytes % 1.3 L, Eosinophils % 0.5 , Basophils % 0, Absolute Granulocytes 17.1 H, Absolute Lymphocytes 1.0 L, Absolute Monocytes 0.2, Absolute Eosinophils 0.1, Absolute Basophils 0 Impression/Plan Impression/Plan Impression/Plan: Impression 82-year-old man * Acute hypoxemic and hypercarbic respiratory failure secondary to COPD exacerbation and interstitial lung disease * Latent TB history * A. fib Plan -Continue Solumedrol 40 mg IV every 8 hours -Continue BiPAP with possible breaks -Continue Zithromax -Continue INH/B6 -Morphine ordered when necessary -TRC/nebs continue inhalers DVT prophylaxis at all times - on Eliquis
[2017-10-31 14:50] VITALS: BP 108/72
--- NOTE | 2017-10-31 17:44 | Transfer of Care Summary ---
Hospital Course Course Hospital Course: Patient is 81-year-old male with past medical history of restrictive severe interstitial pulmonary fibrosis and severe emphysema with end-stage lung disease and multiple lung nodules, history of latent TB currently on isoniazid and vitamin B6, progressive respiratory failure with increasing O2 requirements over the past few months sent in by his primary care physician after he was found to be hypoxemic. Problems: 1. Acute hypoxemic and hypercarbic respiratory failure 2/2 to COPD Exacerbation in setting of severe interstitial lung disease and emphysema 2. New onset atrial fibrillation with controlled ventricular rate Patient was initially admitted to the ICU for acute hypoxemic and hypercarbic respiratory failure requiring BiPAP. Patient was initially weaned off BiPAP and tranistioned to high flow oxygen at 35% initially saturating at 95-96%. Patient however required escalation and was placed back on BIPAP due to increased work of breathing and desatting. Patient's initial chest x-ray was suspicious for findings of a pneumonia and he was initially started on vancomycin, ceftazidime, azithromycin. Vancomycin and Ceftazidine were discontinued. Patient initially received IV Solu-Medrol and was tapered to prednisone 40 mg on 10/29. Patient's IV solu-medrol was restarted on 10/30. Azithromycin was continued for COPD exacerbation. During this admission patient was diagnosed with new onset atrial fibrillation with AV heavenly disease. ACS was ruled out. Patient is currently euthyroid on levothyroxine 50 g daily. Patient was started on Eliquis for anticoagulation. Patient was evaluated by cardiology and does not require any beta maryann or calcium channel blockers at this time. Assessment/Plan: See above
[2017-10-31 17:50] VITALS: BP 110/80
[2017-10-31 22:23] VITALS: BP 98/76
[2017-11-01] VITALS (8 sets, daily range): BP systolic 90–124; BP diastolic 56–86
--- NOTE | 2017-11-01 07:58 | PN- Housestaff ---
Kanika Chi 11/01/17 0757: Subjective Follow-up For: Acute Hypoxic and Hypercarbic respiratory failure New-onset atrial fibrillation AV heavenly disease Subjective: Patient seen and examined today, still on high flow oxygen, reports shortness of breath even at rest. Denies any chest discomfort palpitations. He remained afebrile overnight. Patient didn't have a bowel movement for a week will add milk of magnesia in addition to MiraLAX and senna S. Review of Systems Constitutional: Denies: chills, diaphoresis, fever. EENTM: Denies: blurred vision, double vision, visual changes. Cardiovascular: Denies: chest pain, edema, palpitations. Respiratory: Reports: cough, short of breath. Gastrointestinal: Denies: abdominal pain, bloating, constipation, diarrhea. Genitourinary: Denies: discharge, dysuria, frequency. Musculoskeletal: Denies: back pain, gout, joint pain. Objective Last 24 Hrs of Vital Signs/I&O Vital Signs Date Time Temp Pulse Resp B/P B/P Pulse O2 O2 Flow FiO2 Mean Ox Delivery Rate 11/01 1348 97.8 92 20 118/60 93 Room Air 11/01 1312 Nasal 35% Cannula 11/01 1155 94 11/01 1049 94 11/01 1001 Nasal 35% Cannula 11/01 0845 94 Nasal 35% Cannula 11/01 0840 82 95 11/01 0800 94 BIPAP 30% 11/01 0555 96.6 69 20 124/78 97 BIPAP 30% 11/01 0109 77 97 02/05 0000 BIPAP 30% 10/31 2231 96 10/31 2223 98.0 78 20 98/76 95 Nasal Cannula 10/31 2045 96 Nasal 4.0L Cannula 10/31 1758 96 10/31 1750 97.9 78 35 110/80 96 BIPAP 30% 10/31 1640 Nasal 35% Cannula 10/31 1640 96 Nasal 4.0L Cannula Intake & Output 11/01 1600 11/01 0800 / 0000 Intake Total 720 240 990 Output Total 400 200 Balance 320 240 790 Intake, IV 120 390 Intake, Oral 600 240 600 Number 0 Bowel Movements Output, Urine 400 200 Physical Exam General Appearance: Alert, Oriented X3 Skin: No Rashes, No Breakdown Skin Temp/Moisture Exam: Warm/Dry Sepsis Skin Exam (color): Normal for Ethnicity HEENT: Atraumatic, PERRLA, EOMI Neck: Supple, No JVD Cardiovascular: Regular Rate, Normal S1, Normal S2 Lungs: bilateral basal crackles on exam Abdomen: Normal Bowel Sounds, Soft, No Tenderness Neurological: Normal Gait, Normal Speech Current Medications: Current Medications Sig/Marah Start time Last Medication Dose Route Stop Time Status Admin Acetaminophen 1,000 MG Q8 10/30 1400 AC 11/01 IV 1333 Albuterol Sulfate 3 ML EVERY 4 HRS/AWAKE 10/26 1600 AC 11/01 INH 1149 Apixaban 5 MG BID 10/27 1037 AC 11/01 PO 0928 Aspirin Buffered 81 MG DAILY 10/26 1000 AC 11/01 PO 0928 Azithromycin 500 MG 2100 10/28 2100 AC 10/31 Dextrose/Water 250 ML IV 2249 Bisacodyl 5 MG DAILY PRN 10/27 0915 AC 10/27 PO 1122 Escitalopram Oxalate 20 MG DAILY 10/28 1000 AC 11/01 PO 0928 Gabapentin 100 MG TID 10/26 1000 AC 11/01 PO 0928 Hydromorphone HCl 2 MG Q6P PRN 10/27 0945 AC PO Ipratropium [place] 2.5 ML EVERY 4 HRS/AWAKE 10/26 1600 AC 11/01 INH 1149 Isoniazid 300 MG DAILY 10/26 1000 AC 11/01 PO 0944 Levothyroxine Sodium 0.05 MG DAILY AC 10/28 0700 AC 11/01 PO 0541 Magnesium Hydroxide 30 ML ONE PRN 11/01 1000 AC 11/01 PO 11/01 1800 1334 Melatonin 3 MG AT BEDTIME 10/29 2200 AC 10/31 PO 2155 Methylprednisolone 40 MG Q8 10/30 1400 AC 11/01 IV 1333 Morphine Sulfate 2 MG Q6P PRN 10/26 1015 AC 10/31 IV 1306 Omeprazole 20 MG DAILY AC 10/26 0700 AC 11/01 PO 0541 Polyethylene Glycol 17 GM DAILY 10/27 1000 AC 11/01 PO 0928 Pyridoxine HCl 50 MG DAILY 10/26 1000 AC 11/01 PO 0928 Ramelteon 8 MG ONCE ONE 11/01 0015 DC 11/01 PO 11/01 0016 0022 Senna/Docusate Sodium 2 TAB AT BEDTIME 10/26 2200 AC 10/31 PO 2155 Tiotropium [place] 1 PUF DAILY 01/30 1000 AC 11/01 INH 0929 Tramadol HCl 50 MG TIDPRN PRN 10/29 1730 AC 11/01 PO 1008 Last 24 Hrs of Lab/Aakash Results Last 24 Hrs of Labs/Mics: Laboratory Tests 11/01/17 0755: Anion Gap 12, Estimated GFR > 60, BUN/Creatinine Ratio 45.0 H, CBC w Diff MAN DIFF ORDERED, RBC 4.06 L, MCV 91.7, MCH 29.6, MCHC 32.3 L, RDW 15.2 H, MPV 8.6, Gran % 95.1 H, Lymphocytes % 3.5 L, Monocytes % 1.0 L, Eosinophils % 0.2 , Basophils % 0.2, Absolute Granulocytes 18.2 H, Segmented Neutrophils 70, Band Neutrophils 25 H, Absolute Lymphocytes 0.7 L, Lymphocytes 4 L, Monocytes 1 L , Absolute Monocytes 0.2, Absolute Eosinophils 0, Absolute Basophils 0, Platelet Estimate ADEQUATE, Normocytic RBCs VERIFIED, Normochromic RBCs VERIFIED, Polychromasia , Basophilic Stippling SLIGHT 10/31/17 2241: Urine Color YEL, Urine Clarity CLEAR, Urine pH 6.0, Ur Specific [place] 1.025, Urine Protein NEG, Urine Ketones NEG, Urine Nitrite NEG, Urine Bilirubin NEG, Urine Urobilinogen 0.2, Ur Leukocyte Esterase NEG, Ur Microscopic SEDIMENT EXAMINED, Urine RBC 10-15 H, Urine WBC RARE, Ur Epithelial Cells RARE, Urine Mucus RARE, Urine Hemoglobin SMALL H, Urine Glucose NEG Microbiology 10/31 2240 URINE ROUT: Urine Culture - RES Assessment/Plan Assessment: Patient is 81-year-old male with past medical history of restrictive severe interstitial pulmonary fibrosis and severe emphysema with end-stage lung disease and multiple lung nodules, history of latent TB currently on isoniazid and vitamin B6, progressive respiratory failure with increasing O2 requirements over the past few months sent in by his primary care physician after he was found to be hypoxemic. Patient was initially admitted to the ICU for acute hypoxemic and hypercarbic respiratory failure requiring BiPAP. Patient was weaned off BiPAP and is currently on high flow oxygen at 35% saturating at 95-96%. Patient's initial chest x-ray was suspicious for findings of a pneumonia and he was initially started on vancomycin, ceftazidime, azithromycin. Vancomycin and Ceftazidine were discontinued. Patient initially received IV Solu-Medrol and was tapered to prednisone 40 mg on 10/29. Patient's IV solu-medrol was restarted on 10/30. Azithromycin was continued for COPD exacerbation. During this admission patient was diagnosed with new onset atrial fibrillation with AV heavenly disease. ACS was ruled out. Patient is currently euthyroid on levothyroxine 50 g daily. Patient was started on Eliquis for anticoagulation. Patient was evaluated by cardiology and does not require any beta maryann or calcium channel blockers at this time. 1. Acute hypoxemic and hypercarbic respiratory failure secondary to COPD exacerbation in the setting of severe interstitial lung disease and emphysema. * Continue with high flow oxygen for now we'll try to taper off the oxygen. * Continue with IV Solu-Medrol 40 mg every 8 today decreased to 40 mg twice a day tomorrow * Pulmonology is on board, will follow recs. * We'll continue high flow oxygen and adjust for O2 saturation above 90% * Continue TRC, DuoNeb treatments * Patient's BUN was still high today, and he did not appear fluid overloaded, so Lasix held today. Will reassess tomorrow. * Continue isoniazid and Vit B6 for latent TB * Continue azithromycin for COPD exacerbation. * The patient deteriorate spikes fever consider starting the patient on ceftaz, as per pulmonology. * Will give morphine 2 mg IV when necessary for dyspnea 2. New onset atrial fibrillation with controlled ventricular rate * Cardiology is on board * Patient watched off telemetry * We'll continue Eliquis for anticoagulation * Patient does not need AV heavenly blockers at this time per cardiology 3. Chronic conditions: * Continue omeprazole, aspirin, gabapentin, levothyroxine, Lexapro Code: DNR/DNI Diet: Heart healthy DVT prophylaxis: On Eliquis Problem List: 1. New onset a-fib 2. Pneumonia 3. COPD (chronic obstructive pulmonary disease) Pain Ratin Pain Location: No pain at this time Pain Goal: Remain pain free Pain Plan: When necessary Tylenol Tomorrow's Labs & Rationales: CBC for persistent leukocytosis Kae Young MD 11/01/17 1324: Attending MD Review Statement Attending Statement Attending Statement: examined this patient, discuss w/resident/PA/BARREL PAINTER, agreed w/resident/PA/BARREL PAINTER, reviewed EMR data (avail), discussed with nursing, discussed with case mgmt, reviewed images, amended to note Attending Assessment/Plan: Patient seen and examined, still requiring high flow oxygen and getting BiPAP. He claims that he's not feeling well. He still feeling short of breath. Patient's daughter is sitting at bedside. (Vital Signs Date Time Temp Pulse Resp B/P B/P Pulse O2 O2 Flow FiO2 Mean Ox Delivery Rate 11/01 1155 94 11/01 1049 94 11/01 1001 Nasal 35% Cannula 11/01 0845 94 Nasal 35% Cannula 11/01 0840 82 95 11/01 0800 94 BIPAP 30% 11/01 0555 96.6 69 20 124/78 97 BIPAP 30% 11/01 0109 77 97 11/01 0000 BIPAP 30% 10/31 2231 96 10/31 2223 98.0 78 20 98/76 95 Nasal Cannula 10/31 2045 96 Nasal 4.0L Cannula 10/31 1758 96 10/31 1750 97.9 78 35 110/80 96 BIPAP 30% 10/31 1640 Nasal 35% Cannula 10/31 1640 96 Nasal 4.0L Cannula 10/31 1450 97.8 84 24 108/72 96 BIPAP on exam; awake, nad. cv; s1,s2, rrr resp; + coarse crackles b/l abd; soft, nt, bs+ ext; no edema. Laboratory Tests 11/01 10/31 0755 2241 Chemistry Sodium (137 - 145 mmol/L) 137 Potassium (3.5 - 5.1 mmol/L) 5.0 Chloride (98 - 107 mmol/L) 96 L Carbon Dioxide (22 - 30 mmol/L) 29 Anion Gap (5 - 16) 12 BUN (9 - 20 mg/dL) 45 H Creatinine (0.7 - 1.2 mg/dL) 1.0 Estimated GFR (>60 ml/min) > 60 BUN/Creatinine Ratio (7 - 25 %) 45.0 H Hematology CBC w Diff MAN DIFF ORDERED WBC (4.8 - 10.8 /CUMM) 19.1 H RBC (4.70 - 6.10 /CUMM) 4.06 L Hgb (14.0 - 18.0 G/DL) 12.0 L Hct (42 - 52 %) 37.2 L MCV (80.0 - 94.0 FL) 91.7 MCH (27.0 - 31.0 PG) 29.6 MCHC (33.0 - 37.0 G/DL) 32.3 L RDW (11.5 - 14.5 %) 15.2 H Plt Count (130 - 400 /CUMM) 204 MPV (7.4 - 10.4 FL) 8.6 Gran % (42.2 - 75.2 %) 95.1 H Lymphocytes % (20.5 - 51.1 %) 3.5 L Monocytes % (1.7 - 9.3 %) 1.0 L Eosinophils % (0 - 5 %) 0.2 Basophils % (0.0 - 2.0 %) 0.2 Absolute Granulocytes (1.4 - 6.5 /CUMM) 18.2 H Segmented Neutrophils (42.2 - 75.2 %) 70 Band Neutrophils (0.0 - 5.0 %) 25 H Absolute Lymphocytes (1.2 - 3.4 /CUMM) 0.7 L Lymphocytes (20.5 - 51.1 %) 4 L Monocytes (1.7 - 9.3 %) 1 L Absolute Monocytes (0.10 - 0.60 /CUMM) 0.2 Absolute Eosinophils (0.0 - 0.7 /CUMM) 0 Absolute Basophils (0.0 - 0.2 /CUMM) 0 Platelet Estimate (ADEQUATE) ADEQUATE Normocytic RBCs VERIFIED Normochromic RBCs VERIFIED Polychromasia Basophilic Stippling SLIGHT Urines Urine Color (YEL,AMB,STR) YEL Urine Clarity (CLEAR) CLEAR Urine pH (5.0 - 8.0) 6.0 Ur Specific [place] (1.001 - 1.035) 1.025 Urine Protein (NEG,<30 MG/DL) NEG Urine Ketones (NEG) NEG Urine Nitrite (NEG) NEG Urine Bilirubin (NEG) NEG Urine Urobilinogen (0.1 - 1.0 EU/dl) 0.2 Ur Leukocyte Esterase (NEG) NEG Ur Microscopic SEDIMENT EXAMINED Urine RBC (0 - 5 /HPF) 10-15 H Urine WBC (0 - 2 /HPF) RARE Ur Epithelial Cells (NONE,FEW) RARE Urine Mucus (FEW,NONE) RARE Urine Hemoglobin (NEG) SMALL H Urine Glucose (N MG/DL) NEG A/P; 82 y/o M with pmh sig for restrictive severe interstitial pulmonary fibrosis and severe emphysema with end-stage lung disease and multiple lung nodules, history of latent TB currently on isoniazid and vitamin B6, progressive respiratory failure with increasing O2 requirements over the past few months Acute hypoxemic and hypercarbic respiratory failure 2/2 to COPD Exacerbation in setting of severe interstitial lung disease and emphysema, New onset atrial fibrillation with controlled ventricular rate. On IV steroids. He remains on IV azithromycin. Vanco and ceftaz were discontinued. Patient was anticoagulated with Eliquis. Continue TRC nebs. Continue the rest of the medications and treatment for tuberculosis. Continues to require high flow oxygen. We'll discuss with Dr. Jain. DVt px; Eliquis.
[2017-11-01 10:20] LABS: ABSOLUTE BASOPHIL COUNT 0 /CUMM (0.0-0.2); ABSOLUTE EOSINOPHIL COUNT 0 /CUMM (0.0-0.7); ABSOLUTE GRANULOCYTE CT 18.2 /CUMM (1.4-6.5); ABSOLUTE LYMPH COUNT 0.7 /CUMM (1.2-3.4); ABSOLUTE MONOCYTE COUNT 0.2 /CUMM (0.10-0.60); BASOPHIL % 0.2 % (0.0-2.0); EOSINOPHIL % 0.2 % (0-5); GRANULOCYTE % 95.1 % (42.2-75.2); HEMATOCRIT 37.2 % (42-52); MEAN CORPUSCULAR HGB 29.6 PG (27.0-31.0); MEAN CORPUSCULAR HGB CONC 32.3 G/DL (33.0-37.0); MEAN CORPUSCULAR VOLUME 91.7 FL (80.0-94.0); MEAN PLATELET VOLUME 8.6 FL (7.4-10.4); PLATELET COUNT 204 /CUMM (130-400); RBC DISTRIBUTION WIDTH 15.2 % (11.5-14.5); RED BLOOD CELL CT 4.06 /CUMM (4.70-6.10); WHITE BLOOD CELL COUNT 19.1 /CUMM (4.8-10.8)
--- NOTE | 2017-11-01 13:31 | PN- Pulmonary ---
Subjective HPI/Critical Care Issues: Progressing poorly still has sig dyspnea Objective Current Medications: Current Medications Sig/Marah Start time Last Medication Dose Route Stop Time Status Admin Acetaminophen 1,000 MG Q8 10/30 1400 AC 11/01 IV 0541 Albuterol Sulfate 3 ML EVERY 4 HRS/AWAKE 10/26 1600 AC 11/01 INH 1149 Apixaban 5 MG BID 10/27 1037 AC 11/01 PO 0928 Aspirin Buffered 81 MG DAILY 10/26 1000 AC 11/01 PO 0928 Azithromycin 500 MG 2100 10/28 2100 AC 10/31 Dextrose/Water 250 ML IV 2249 Bisacodyl 5 MG DAILY PRN 10/27 0915 AC 10/27 PO 1122 Escitalopram Oxalate 20 MG DAILY 10/28 1000 AC 11/01 PO 0928 Gabapentin 100 MG TID 10/26 1000 AC 11/01 PO 0928 Hydromorphone HCl 2 MG Q6P PRN 10/27 0945 AC PO Ipratropium [place] 2.5 ML EVERY 4 HRS/AWAKE 10/26 1600 AC 11/01 INH 1149 Isoniazid 300 MG DAILY 10/26 1000 AC 11/01 PO 0944 Levothyroxine Sodium 0.05 MG DAILY AC 10/28 0700 AC 11/01 PO 0541 Magnesium Hydroxide 30 ML ONE PRN 11/01 1000 AC PO 11/01 1800 Melatonin 3 MG AT BEDTIME 10/29 2200 AC 10/31 PO 2155 Methylprednisolone 40 MG Q8 10/30 1400 AC 11/01 IV 0541 Morphine Sulfate 2 MG Q6P PRN 10/26 1015 AC 10/31 IV 1306 Omeprazole 20 MG DAILY AC 10/26 0700 AC 11/01 PO 0541 Polyethylene Glycol 17 GM DAILY 10/27 1000 AC 11/01 PO 0928 Pyridoxine HCl 50 MG DAILY 10/26 1000 AC 11/01 PO 0928 Ramelteon 8 MG ONCE ONE 11/01 0015 DC 11/01 PO 11/01 0016 0022 Senna/Docusate Sodium 2 TAB AT BEDTIME 10/26 2200 AC 10/31 PO 2155 Tiotropium [place] 1 PUF DAILY 10/26 1000 AC 11/01 INH 0929 Tramadol HCl 50 MG TIDPRN PRN 10/29 1730 AC 11/01 PO 1008 Vital Signs & I&O Last 24 Hrs of Vitals and I&O: Vital Signs Date Time Temp Pulse Resp B/P B/P Pulse O2 O2 Flow FiO2 Mean Ox Delivery Rate 11/01 1155 94 11/01 1049 94 11/01 1001 Nasal 35% Cannula 11/01 0845 94 Nasal 35% Cannula 11/01 0840 82 95 11/01 0800 94 BIPAP 30% 11/01 0555 96.6 69 20 124/78 97 BIPAP 30% 11/01 0109 77 97 11/01 0000 BIPAP 30% 10/31 2231 96 10/31 2223 98.0 78 20 98/76 95 Nasal Cannula 10/31 2045 96 Nasal 4.0L Cannula 10/31 1758 96 10/31 1750 97.9 78 35 110/80 96 BIPAP 30% 10/31 1640 Nasal 35% Cannula 10/31 1640 96 Nasal 4.0L Cannula 10/31 1450 97.8 84 24 108/72 96 BIPAP Intake & Output 11/01 1600 11/01 0800 02 0000 Intake Total 240 990 Output Total 200 Balance 240 790 Intake, IV 390 Intake, Oral 240 600 Number 0 Bowel Movements Output, Urine 200 Impression/Plan Impression/Plan Impression/Plan: General Appearance Alert, Oriented X3, Cooperative, Mild Distress, on BiPAP, arousable to verbal stimuli and answers to questions appropriately, but hard to understand since he is on BiPAP Skin No Rashes, No Breakdown, No Significant Lesion Skin Temp/Moisture Exam: Warm/Dry Sepsis Skin Exam (color): Normal for Ethnicity HEENT Atraumatic, PERRLA, EOMI, Mucous Membr. moist/pink Neck Supple, No JVD, No thryomegaly, +2 Carotid Pulse wo Bruit Lymphatic Cervical nl Cardiovascular Regular Rate, Normal S1, Normal S2, No Murmurs Lungs crackles and wheezes bilaterally. Abdomen Normal Bowel Sounds, Soft, No Tenderness, No Hepatospenomegaly Neurological Normal Speech, Strength at 5/5 X4 Ext, Normal Tone, Cranial Nerves 3-12 NL, Reflexes 2+, sensation couldnt be tested Extremities No Clubbing, No Cyanosis, No Edema, Normal Pulses, No Tenderness/ Swelling Vascular Pulses Symmetrical CXR IMPRESSION: Increasing dense consolidation at right lung base due to infiltrate/atelectasis and effusion. Persistent central hilar pulmonary vascular congestion. 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 He has had bullous COPD for many years from previous history of 35-nawi-basc smoking quit in 1989. His overall lung function has been progressively getting worse. In the recent past he was also noted to have bilateral lung masses concerning for malignancy by PET scan and he is not a great candidate for invasive workup due to end-stage lung disease and we will be doing a CAT scan in July for evaluation of this. 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 Patient has been on INH since April 28. He also does have ascending aortic aneurysm, abdominal aortic aneurysm before, and very severe end-stage lung disease with reduced DLCO. issues * Acute on chronic hypoxic and hypercarbic resp failure due to worsening ild, codp and prob malignancy in the rt lower lobe area compounded by mild fluid overload. 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 * Pafib with rapid ventricular response with normal LVEF * Previous bladder ca with no recurrence so far PLAN Cont high flow, and if nasal pillow is available use bipap with nasal pillow or other masks which will not cause nasal bridge damage Pt needs to get out of bed (can use jin lift if needed) Try to reduce oxygen to nasal cannula if tristan and sat of 88 and above is tolerable Reduce Prednisone to 30mg daily cont out pt inh and b6, Levoxyl 50 mcg Cont azithro and Restart ceftaz if he gets worse Lexapro 20 mg Cont tramadol for pain PRN morphine 2 mg iv or po dilautid 2 mg prn for dyspnea Will follow prog poor DNR and DNI
--- NOTE | 2017-11-01 15:01 | Discharge Summary ---
Visit Information Visit Dates Admission Date: 10/25/17 Discharge Date: 11/05/17 Hospital Course Course Attending Physician: Kae Young MD Primary Care Physician: Tino Rey MD Hospital Course: Patient is 81-year-old male with past medical history of restrictive severe interstitial pulmonary fibrosis and severe emphysema with end-stage lung disease and multiple lung nodules, history of latent TB currently on isoniazid and vitamin B6, progressive respiratory failure with increasing O2 requirements over the past few months sent in by his primary care physician after he was found to be hypoxemic. Problems: 1. Acute hypoxemic and hypercarbic respiratory failure 2/2 to COPD Exacerbation in setting of severe interstitial lung disease and emphysema: Patient was initially admitted to the ICU for acute hypoxemic and hypercarbic respiratory failure requiring BiPAP. Patient was initially weaned off BiPAP and tranistioned to high flow oxygen at 35% saturating at 95-96%.Patient's initial chest x-ray was suspicious for findings of a pneumonia and he was initially started on vancomycin, ceftazidime, azithromycin. Vancomycin and Ceftazidine were discontinued, and azithromycin was continued. Patient remained on high flow oxygen , later on oxygen was tapered down to baseline(2-3 L of oxygen). Patient was evaluated by Dr. Jain , recommended no aggressive treatment/ escalation of care-as it's not going to change the management in the setting of severe interstitial lung disease with an questionable lung carcinoma. Due to his acute on chronic worsening respiratory and physical therapy recommendations , pt was discharged to rehabilitation with slow taper prednisone with Bactrim for PCP prophylaxis. Advised to follow-up with Dr. Jain as an outpatient. 2. New onset atrial fibrillation with controlled ventricular rate: During this admission patient was diagnosed with new onset atrial fibrillation with AV heavenly disease. ACS was ruled out.thyroid function was normal .Patient was started on Eliquis for anticoagulation. Patient was evaluated by cardiology and did not require any beta maryann or calcium channel blockers at that time. 3. Chronic medical conditions: Home medications omeprazole, aspirin, gabapentin, levothyroxine, Lexapro werec continued on discharge Code: DNR/DNI Diet: Heart healthy DVT prophylaxis: On Eliquis Allergies: Coded Allergies: NO KNOWN ALLERGIES (12/07/11) Significant Procedures: XAM TYPE: CAT - CTA CHEST-PULMONARY EMBOLISM EXAMINATION: CT ANGIOGRAM CHEST WITH AND WITHOUT CONTRAST (CT PULMONARY ANGIOGRAM FOR PE) CLINICAL INFORMATION: Rule out PE, new onset a-fib, started on Eliquis. COMPARISON: Multiple prior chest examinations including most recent chest x-ray performed same day and most recent CT chest 08/26/2017. TECHNIQUE: Prior to contrast administration, noncontrast localization images were obtained. Subsequently, multidetector volumetric imaging was performed from the thoracic inlet to below the diaphragms following the administration of 95 mL Optiray 320 intravenous contrast. No contrast reaction reported. Sagittal, coronal, and MIP oblique sagittal reformatted images were obtained on the CT workstation, uploaded to PACS, and reviewed. Total exam dose-length product 505.18 mGy-cm. FINDINGS: QUALITY OF STUDY/CONTRAST BOLUS: Satisfactory PULMONARY ARTERIES: No central or segmental pulmonary emboli. THORACIC AORTA: Moderate arterial calcification, unchanged. LUNG AND PLEURA: Severe emphysema with chronic interstitial lung changes redemonstrated with fibrosis and bullous disease most prominent in the right upper lobe anteriorly. The pleural-based consolidation in the right lung has increased compared to prior surrounding most of the right middle lobe and right lower lobe and extending along the major and minor fissure. MEDIASTINUM: Trace pericardial effusion or pericardial thickening, unchanged. No evidence of septal bowing or right heart strain. Scattered small mediastinal lymph nodes, unchanged. Possible increased size of the right hilar lymph nodes versus adjacent parenchymal consolidation extending along the fissure. CHEST WALL/AXILLA: No axillary or internal mammary lymphadenopathy. OSSEOUS STRUCTURES: Spondylosis of the dorsal spine, unchanged. UPPER ABDOMEN: Calcification of the liver likely reflects prior granulomatous disease. This is unchanged. No reflux of contrast into the hepatic veins to suggest elevated right heart pressures. IMPRESSION: 1. No evidence of pulmonary embolism. 2. Prominent emphysema and chronic interstitial lung disease, unchanged. 3. Progressing pleural-based consolidation surrounding much of the right lower lobe and right middle lobe as well as extending up into the right upper lobe most consistent with progressing infectious inflammatory process. Neoplasm cannot be excluded. DICTATED BY: Aram Sullivan MD DATE/TIME DICTATED:11/01/172249 RESEARCH PSYCHOLOGIST:CARI DATE/TIME TRANSCRIBED:11/01/172249 CONFIDENTIAL, DO NOT COPY WITHOUT APPROPRIATE AUTHORIZATION. <Electronically signed in Other Vendor System> SIGNED BY: Aram Sullivan MD 11/01 9131 Pertinent Lab Results: KELY POWELL Age: 82 : 1935 Gender: M Exam Date: 10/26/2017 08:54 Exam Location: [facility] Ht (in): 67 Wt (lb): 177 BSA: 1.97 BP: 104 / 70 Ordering Physician: Edilia Carver MD Referring Physician: Jung Sawyer MD Technologist: Shanti Sexton Room Number: 108-01 Indications: AFIB/FLUTTER Rhythm: Atrial fibrillation Technical Quality: fair FINDINGS Left Ventricle Normal global left ventricular size, wall thickness, systolic function with no obvious regional wall motion abnormalities. Normal left ventricular ejection fraction estimated at 65-70%. Right Ventricle Normal right ventricular size and function. Right Atrium Normal right atrial size. Left Atrium Mild left atrial dilatation. Mitral Valve Moderate mitral annular calcification. Trace to mild mitral regurgitation. Aortic Valve Diffuse thickening (sclerosis) of the aortic valve cusps without reduced excursion. Vfeb-ep-xvyqitlz aortic regurgitation. Tricuspid Valve Tricuspid valve is normal in structure and function. Mild tricuspid regurgitation. Right ventricular systolic pressure estimated to be elevated at 44 mmHg. Pulmonic Valve Pulmonic valve not well visualized, grossly normal. Pericardium Minimal pericardial effusion (normal variant). Great Vessels Mild aortic dilatation at the level of the sinuses of valsalva (root). Mildly dilated proximal ascending aorta (tube). CONCLUSIONS Normal left and right ventricular systolic function. Dilated Aortic Root and ascending Aorta. Mild to moderate Aortic Regurgitation. Mild to moderate Pulmonary hypertension. Jung Sawyer M.D. (Electronically Signed) Final Date: 26 October 2017 15:06 MEASUREMENTS (Male / Female) Normal Values 2D ECHO LV Diastolic Diameter PLAX 4.5 cm 4.2 - 5.9 / 3.9 - 5.3 cm LV Systolic Diameter PLAX 3.0 cm 2.1 - 4.0 cm LV Fractional Shortening PLAX 33.3 % 25 - 46 % LV Ejection Fraction 2D Teich 62.1 % IVS Diastolic Thickness 0.8 cm LVPW Diastolic Thickness 1.2 cm LV Relative Wall Thickness 0.4 RV Internal Dim ED PLAX 3.8 cm 1.9 - 3.8 cm LVOT Diameter 2.3 cm Aortic Root Diameter 4.5 cm LA Systolic Diameter LX 3.8 cm 3.0 - 4.0 / 2.7 - 3.8 cm LA Volume 67.0 cm 18 - 58 / 22 - 52 cm Ascending Aorta Diameter 4.2 cm DOPPLER AV Peak Velocity 165.0 cm/s AV Peak Gradient 10.9 mmHg AV Mean Velocity 101.0 cm/s AV Mean Gradient 5.0 mmHg AV Velocity Time Integral 32.4 cm AI Deceleration [place] 140.0 cm/s AI Peak Velocity 331.0 cm/s AI Pressure Half Time 690.0 ms AI Peak Gradient 43.8 mmHg LVOT Peak Velocity 100.0 cm/s LVOT Peak Gradient 4.0 mmHg LVOT Mean Velocity 61.6 cm/s LVOT Mean Gradient 2.0 mmHg LVOT Velocity Time Integral 19.5 cm LVOT Stroke Volume 81.0 cm AV Area Cont Eq vti 2.5 cm AV Area Cont Eq pk 2.5 cm TR Peak Velocity 292.0 cm/s TR Peak Gradient 34.1 mmHg Right Atrial Pressure 10.0 mmHg Pulmonary Artery Systolic Pressu 44.1 mmHg Right Ventricular Systolic Press 44.1 mmHg PV Peak Velocity 87.5 cm/s PV Peak Gradient 3.1 mmHg PV Mean Velocity 59.7 cm/s PV Mean Gradient 2.0 mmHg PV Velocity Time Integral 19.2 cm LV E' Lateral Velocity 10.1 cm/s LV E' Septal Velocity 10.5 cm/s DICTATED BY: Jung Sawyer MD DATE/TIME DICTATED:10/26/171505 RESEARCH PSYCHOLOGIST:CARI DATE/TIME TRANSCRIBED:10/26/171505 CONFIDENTIAL, DO NOT COPY WITHOUT APPROPRIATE AUTHORIZATION. <Electronically signed in Other Vendor System> SIGNED BY: Jung Sawyer MD 10/26/171505 Disposition Summary Disposition Principal Diagnosis: Acute hypoxemic and hypercarbic respiratory failure 2/2 to COPD Exacerbation in setting of severe interstitial lung disease and emphysema Additional Diagnosis: New onset atrial fibrillation with controlled ventricular rate Discharge Disposition: home health services Discharge Instructions General Discharge Information Code Status: Do Not Resucitate/Intubat Patient's Diet: \Heart healthy Patient's Activity: As tolerated Follow-Up Instructions/Appts: 1. Please follow-up with your primary care physician within 1-2 weeks after discharge. 2. Please follow-up with Dr. Jain within 1-2 weeks after discharge. 3. Please take the antibiotics as directed. 4. Return to the ER if the symptoms get worse after discharge Medications at Discharge Discharge Medications: Stop taking the following medications: Levothyroxine Sodium (Levothyroxine Sodium) 75 MCG TABLET ORAL DAILY Qty = 90 Continue taking these medications: Fluticasone/Vilanterol (Breo Ellipta 200-25 Mcg INH) 200 MCG-25 MCG/DOSE BLST.W.DEV 1 PUFF Inhale through mouth DAILY Qty = 60 Comments: NOT GIVEN IN HOSPITAL Propranolol HCl (Propranolol HCl ER) 80 MG CAP.SA.24H 1 Capsule ORAL DAILY Qty = 90 Comments: NOT GIVEN IN HOSPITAL Gabapentin (Gabapentin) 100 MG CAPSULE 1 Capsule ORAL THREE TIMES DAILY Qty = 270 Comments: Last Taken: 11/05/17 Time: 0945 AM Omeprazole (Omeprazole) 20 MG CAPSULE.DR 1 Capsule ORAL DAILY Qty = 90 Comments: Last Taken:11/05/17 Time:0500 AM Isoniazid (Isoniazid) 100 MG TABLET 1 Tablet ORAL THREE TIMES DAILY Qty = 90 Comments: Last Taken: 11/05/17 Time: 0945 AM 300 MG GIVEN DAILY IN HOSPITAL (HOME DOSE 100MG 3 TIMES DAILY) Tiotropium [place] (Spiriva) 18 MCG CAP.W.DEV 1 Capsule Inhale through mouth DAILY Qty = 30 Comments: Last Taken: 11/05/17 Time: 0945 AM Aspirin (Ecotrin*) 81 MG TABLET.DR 1 Tablet ORAL DAILY Comments: Last Taken: 11/05/17 Time: 0945 AM Folic Acid (Folic Acid) 0.8 MG CAPSULE 1 Tablet ORAL DAILY Comments: NOT GIVEN IN HOSPITAL Calcium Carbonate (Calcium) 500 MG CALCIUM (1,250 MG) TABLET 750 Milligram ORAL DAILY Comments: NOT GIVEN IN HOSPITAL Cholecalciferol (Vitamin D3) (Vitamin D) 2,000 UNIT CAPSULE 1 Tablet ORAL DAILY Comments: NOT GIVEN IN HOSPITAL Pyridoxine HCl (Vitamin B-6) 50 MG TABLET 1 Tablet ORAL DAILY Comments: Last Taken:11/05/17 Time:0945 AM Benzonatate (Tessalon [place]) 100 MG CAPSULE 1 Capsule ORAL THREE TIMES DAILY Comments: NOT GIVEN IN HOSPITAL Tramadol HCl (Ultram) 50 MG TABLET 1 Tablet ORAL THREE TIMES A DAY NEEDED Comments: Last Taken:11/04/17 Time:9:00 PM Escitalopram Oxalate (Escitalopram Oxalate) 10 MG TABLET 1 Tablet ORAL DAILY Qty = 30 Comments: Last Taken:11/05/17 Time:0945 AM Lubiprostone (Amitiza) 24 MCG CAPSULE 1 Capsule ORAL TWICE DAILY Comments: NOT GIVEN IN HOSPITAL Start taking the following new medications: Levothyroxine Sodium (Synthroid) 50 MCG TABLET 1 Tablet ORAL DAILY BEFORE BREAKFAST Qty = 60 No Refills Comments: Last Taken:11/05/17 Time:0500 AM 50 MCG-NEW DOSE Prednisone (Prednisone) 10 MG TABLET 1 Tablet ORAL SEE INSTRUCTIONS Qty = 60 No Refills Instructions: please take 3 tabs (30 mg ) of prednisone for 2 weeks then 2 tabs( 20 mg) for 2 weeks then continue to take 1 tab(10 mg )..... Comments: Last Taken:11/05/17 Time:0945 AM 30 MG GIVEN (3-10 MG TABS) Sulfamethoxazole/Trimethoprim (Bactrim Ds Tablet) 800 MG-160 MG TABLET 1 Tablet ORAL TWICE DAILY Qty = 60 No Refills Instructions: take the medication on /WED/FRIDAYS Comments: Last Taken:11/04/17 Time:1100 AM Apixaban (Eliquis) 5 MG TABLET 1 Tablet ORAL TWICE DAILY Qty = 60 No Refills Comments: Last Taken:11/05/17 Time:0945 AM Polyethylene Glycol 3350 (Miralax) 17 GRAM POWD.PACK 1 Packet ORAL DAILY Qty = 30 No Refills Instructions: dissolve in water Comments: Last Taken:11/05/17 Time:0945 AM Sennosides/Docusate Sodium (Senokot-S Tablet) 8.6 MG-50 MG TABLET 1 Tablet ORAL TWICE DAILY as needed for CONSTIPATION Qty = 30 No Refills Comments: Last Taken:11/04/17 Time:9:00 PM Lidocaine (Lidoderm) 5 % ADH..PATCH 1 Patch On the skin DAILY Qty = 14 No Refills Instructions: may wear up to 12 hours Comments: Last Taken:11/05/17 Time:0945 AM Copies To: Candido FAGAN,Tino Beck
--- NOTE | 2017-11-01 18:00 | RADIOLOGY REPORT ---
XR PORTABLE CHEST CLINICAL INFORMATION: Lung mass/fluid. COMPARISON: Chest x-ray 10/25/2017. TECHNIQUE: Portable frontal view of the chest was obtained. FINDINGS: Improving aeration within the upper to mid right lung. Persistent right pleural effusion with adjacent right midlung and right basilar predominant airspace opacity. Left pleural effusion with adjacent airspace opacity is similar to the prior exam. Central vascular congestion persists. There are low lung volumes. Cardiac silhouette and osseous structures are stable. Gas distended bowel loops within the upper abdomen. IMPRESSION: Improved aeration within the right upper to midlung with persistent bilateral pleural effusions with adjacent nonspecific airspace opacities. Central vascular congestion persists.
--- NOTE | 2017-11-01 18:29 | Event Note ---
Event Note Event Note: Situation Pleuritic chest pain Background Patient is a 82 YO M with mixed restrictive obstructive lung disease with very severe emphysematous lung disease with severe interstitial pulmonary fibrosis with traction bronchiectasis with worsening progressive respiratory failure. Patient was admitted with acute hypoxic hypercarbic respiratory failure - on and OFF on BIPAP. Hospital course significant for new onset A.fib started on apixaban. Today patient was on high flow since morning, he started developing new onset left sided chest pain worse with breathing. It dosent get better with SL nitroglycerine. Assessment This is a patient with significant comorbid conditions notable for worse ILD, COPD, probable malignancy, latent TB now experiencing worsening pleuritic pain. He was recently started on apixaban for new onset A.fib. I am thinking of either worsening of his underlying pulmonary condition or apixaban failure. Plan EKG and trop - negative for acute changes Stat CXR - improved aeration on right side with opacities evident on lungs Place on BiPAP and resume ceftaz (as per pulm recommendations) ABG - respiratory alkalosis -- ? PE CT angio to rule out PE while on apixaban.
--- NOTE | 2017-11-01 23:25 | CT SCAN REPORT ---
EXAMINATION: CT ANGIOGRAM CHEST WITH AND WITHOUT CONTRAST (CT PULMONARY ANGIOGRAM FOR PE) CLINICAL INFORMATION: Rule out PE, new onset a-fib, started on Eliquis. COMPARISON: Multiple prior chest examinations including most recent chest x-ray performed same day and most recent CT chest 08/26/2017. TECHNIQUE: Prior to contrast administration, noncontrast localization images were obtained. Subsequently, multidetector volumetric imaging was performed from the thoracic inlet to below the diaphragms following the administration of 95 mL Optiray 320 intravenous contrast. No contrast reaction reported. Sagittal, coronal, and MIP oblique sagittal reformatted images were obtained on the CT workstation, uploaded to PACS, and reviewed. Total exam dose-length product 505.18 mGy-cm. FINDINGS: QUALITY OF STUDY/CONTRAST BOLUS: Satisfactory PULMONARY ARTERIES: No central or segmental pulmonary emboli. THORACIC AORTA: Moderate arterial calcification, unchanged. LUNG AND PLEURA: Severe emphysema with chronic interstitial lung changes redemonstrated with fibrosis and bullous disease most prominent in the right upper lobe anteriorly. The pleural-based consolidation in the right lung has increased compared to prior surrounding most of the right middle lobe and right lower lobe and extending along the major and minor fissure. MEDIASTINUM: Trace pericardial effusion or pericardial thickening, unchanged. No evidence of septal bowing or right heart strain. Scattered small mediastinal lymph nodes, unchanged. Possible increased size of the right hilar lymph nodes versus adjacent parenchymal consolidation extending along the fissure. CHEST WALL/AXILLA: No axillary or internal mammary lymphadenopathy. OSSEOUS STRUCTURES: Spondylosis of the dorsal spine, unchanged. UPPER ABDOMEN: Calcification of the liver likely reflects prior granulomatous disease. This is unchanged. No reflux of contrast into the hepatic veins to suggest elevated right heart pressures. IMPRESSION: 1. No evidence of pulmonary embolism. 2. Prominent emphysema and chronic interstitial lung disease, unchanged. 3. Progressing pleural-based consolidation surrounding much of the right lower lobe and right middle lobe as well as extending up into the right upper lobe most consistent with progressing infectious inflammatory process. Neoplasm cannot be excluded.
[2017-11-02 06:43] VITALS: BP 124/56
--- NOTE | 2017-11-02 08:09 | PN- Housestaff ---
Kanika Chi 11/02/17 0809: Subjective Follow-up For: Acute Hypoxic and Hypercarbic respiratory failure New-onset atrial fibrillation AV heavenly disease Subjective: Patient seen and examined today, still on high flow oxygen, reports shortness of breath on ambulation and on rest. Denies any chest discomfort palpitations. He remained afebrile overnight. Patient didn't have a bowel movement for a week , will add Dulcolax suppository to the current bowel regimen and senna S. Patient was in acute respiratory distress yesterday EKG and troponin were insignificant CT of the chest to rule out any underlying pulmonary embolism however showed Progressing pleural-based consolidation surrounding much of the rightlower lobe and right middle lobe as well as extending up into the right upper lobe most consistent with progressing infectious inflammatory process. Neoplasm cannot be excluded. Review of Systems Constitutional: Denies: diaphoresis, fever, malaise. Cardiovascular: Denies: edema, orthopena. Respiratory: Reports: short of breath. Denies: hemoptysis, orthopnea, sputum production, stridor. Gastrointestinal: Denies: constipation, diarrhea, distention. Genitourinary: Denies: frequency, hematuria, hesitation. Musculoskeletal: Denies: joint pain, joint swelling. Skin: Denies: change in skin color, change in hair/nails. Objective Last 24 Hrs of Vital Signs/I&O Vital Signs Date Time Temp Pulse Resp B/P B/P Pulse O2 O2 Flow FiO2 Mean Ox Delivery Rate 11/02 1206 98 Nasal 4.0L Cannula 11/02 1016 95 Nasal 4.0L Cannula 11/02 0823 94 Nasal 35% Cannula 11/02 0816 80 94 11/02 0643 97.3 70 24 124/56 98 BIPAP 11/02 0030 79 96 11/02 0000 BIPAP 11/01 2249 83 95 / 2155 98.1 90 22 124/86 97 BIPAP / 2122 98.1 90 22 124/86 97 Nasal Cannula 11/01 1936 95 Nasal 35% Cannula 11/01 1816 70 20 108/64 02/05 1641 85 92 / 1640 90 20 90/56 BIPAP 30% 02/05 1630 95 20 118/58 BIPAP 30% 11/01 1610 89 20 122/62 94 Nasal 35% Cannula 11/01 1610 96 Nasal 35% Cannula 11/01 1348 97.8 92 20 118/60 93 Room Air 11/01 1312 Nasal 35% Cannula Intake & Output 11/02 1600 11/02 0800 02 0000 Intake Total 820 Output Total 350 500 Balance 470 -500 Intake, IV 340 Intake, Oral 480 Number 0 Bowel Movements Output, Urine 350 500 Physical Exam General Appearance: Alert, Oriented X3, No Acute Distress Skin: No Rashes Skin Temp/Moisture Exam: Warm/Dry HEENT: Atraumatic, PERRLA Neck: Supple, No JVD Cardiovascular: Regular Rate, Normal S1, Normal S2 Lungs: bilateral fine crakles on exam Abdomen: Normal Bowel Sounds, Soft, No Tenderness Assessment/Plan Assessment: Patient is 81-year-old male with past medical history of restrictive severe interstitial pulmonary fibrosis and severe emphysema with end-stage lung disease and multiple lung nodules, history of latent TB currently on isoniazid and vitamin B6, progressive respiratory failure with increasing O2 requirements over the past few months sent in by his primary care physician after he was found to be hypoxemic. Patient was initially admitted to the ICU for acute hypoxemic and hypercarbic respiratory failure requiring BiPAP. Patient was weaned off BiPAP and is currently on high flow oxygen at 35% saturating at 95-96%. Patient's initial chest x-ray was suspicious for findings of a pneumonia and he was initially started on vancomycin, ceftazidime, azithromycin. Vancomycin and Ceftazidine were discontinued. Patient initially received IV Solu-Medrol and was tapered to prednisone 40 mg on 10/29. Patient's IV solu-medrol was restarted on 10/30. Azithromycin was continued for COPD exacerbation. During this admission patient was diagnosed with new onset atrial fibrillation with AV heavenly disease. ACS was ruled out. Patient is currently euthyroid on levothyroxine 50 g daily. Patient was started on Eliquis for anticoagulation. Patient was evaluated by cardiology and does not require any beta maryann or calcium channel blockers at this time. 1. Acute hypoxemic and hypercarbic respiratory failure secondary to COPD exacerbation in the setting of severe interstitial lung disease and emphysema. * Continue with high flow oxygen for now we'll try to taper off the oxygen. * Patient was in acute respiratory distress yesterday EKG and troponin were insignificant CT of the chest to rule out any underlying pulmonary embolism however showed Progressing pleural-based consolidation surrounding much of the rightlower lobe and right middle lobe as well as extending up into the right upper lobe most consistent with progressing infectious inflammatory process. * Patient has been evaluated by Dr. Jain , recommended no aggressive treatment/ escalation of care-as it's not going to change the management in the setting of severe interstitial lung disease with an questionable lung carcinoma. * Will decrease IV Solu-Medrol to 40 mg twice a day today and start prednisone 30 mg tomorrow. * Will discuss with case reviewer in a patient admitted discharged to [facility] once stable * Pulmonology is on board, will follow recs. * We'll continue high flow oxygen and adjust for O2 saturation above 90% * Continue TRC, DuoNeb treatments * Patient's BUN was still high today, and he did not appear fluid overloaded, so Lasix held today. Will reassess tomorrow. * Continue isoniazid and Vit B6 for latent TB * Continue azithromycin for COPD exacerbation. * The patient deteriorate spikes fever consider starting the patient on ceftaz, as per pulmonology. * Will give morphine 2 mg IV when necessary for dyspnea 2. New onset atrial fibrillation with controlled ventricular rate * Cardiology is on board * Patient watched off telemetry * We'll continue Eliquis for anticoagulation * Patient does not need AV heavenly blockers at this time per cardiology 3. Chronic conditions: * Continue omeprazole, aspirin, gabapentin, levothyroxine, Lexapro Code: DNR/DNI Diet: Heart healthy DVT prophylaxis: On Eliquis Problem List: 1. Pneumonia 2. Respiratory failure 3. New onset a-fib Pain Ratin Pain Location: No pain at this time Pain Goal: Remain pain free Pain Plan: PRN DILAUDID Tomorrow's Labs & Rationales: ELENI Young MD,Kae 11/02/17 1215: Attending MD Review Statement Attending Statement Attending MD Statement: examined this patient, discuss w/resident/PA/GARNETTER, agreed w/resident/PA/GARNETTER, discussed with family, reviewed EMR data (avail), discussed with nursing, discussed with case mgmt, reviewed images, amended to note Attending Assessment/Plan: Patient seen and examined, doing slightly better today. This morning he was switched to 4 L of oxygen and said a BiPAP. Events noted from last evening. Vital Signs Date Time Temp Pulse Resp B/P B/P Pulse O2 O2 Flow FiO2 Mean Ox Delivery Rate 11/02 1206 98 Nasal 4.0L Cannula 11/02 1016 95 Nasal 4.0L Cannula 11/02 0823 94 Nasal 35% Cannula 11/02 0816 80 94 11/02 0643 97.3 70 24 124/56 98 BIPAP 11/02 0030 79 96 11/02 0000 BIPAP 11/01 2249 83 95 11/01 2155 98.1 90 22 124/86 97 BIPAP 11/01 2122 98.1 90 22 124/86 97 Nasal Cannula 11/01 1936 95 Nasal 35% Cannula 11/01 1816 70 20 108/64 11/01 1641 85 92 / 1640 90 20 90/56 BIPAP 30% 11/01 1630 95 20 118/58 BIPAP 30% 11/01 1610 89 20 122/62 94 Nasal 35% Cannula 11/01 1610 96 Nasal 35% Cannula 11/01 1348 97.8 92 20 118/60 93 Room Air 11/01 1312 Nasal 35% Cannula on exam; aox3, mild distress 2/2 to sob. cv; s1,s2, rrr resp; + coarse crackles abd; soft, nt, bs+ ext; no edema Laboratory Tests 11/02 11/01 0759 2115 Hematology CBC w Diff MAN DIFF ORDERED WBC (4.8 - 10.8 /CUMM) 20.5 H RBC (4.70 - 6.10 /CUMM) 4.11 L Hgb (14.0 - 18.0 G/DL) 12.2 L Hct (42 - 52 %) 37.6 L MCV (80.0 - 94.0 FL) 91.4 MCH (27.0 - 31.0 PG) 29.7 MCHC (33.0 - 37.0 G/DL) 32.5 L RDW (11.5 - 14.5 %) 15.8 H Plt Count (130 - 400 /CUMM) 211 MPV (7.4 - 10.4 FL) 8.5 Gran % (42.2 - 75.2 %) 92.9 H Lymphocytes % (20.5 - 51.1 %) 3.7 L Monocytes % (1.7 - 9.3 %) 2.7 Eosinophils % (0 - 5 %) 0.5 Basophils % (0.0 - 2.0 %) 0.2 Absolute Granulocytes (1.4 - 6.5 /CUMM) 19.1 H Segmented Neutrophils (42.2 - 75.2 %) 78 H Band Neutrophils (0.0 - 5.0 %) 12 H Absolute Lymphocytes (1.2 - 3.4 /CUMM) 0.8 L Lymphocytes (20.5 - 51.1 %) 5 L Monocytes (1.7 - 9.3 %) 5 Absolute Monocytes (0.10 - 0.60 /CUMM) 0.6 Absolute Eosinophils (0.0 - 0.7 /CUMM) 0.1 Absolute Basophils (0.0 - 0.2 /CUMM) 0 Platelet Estimate (ADEQUATE) ADEQUATE Hypochromic-Microcytic 1+ Anisocytosis 1+ Urines Urine Color (YEL,AMB,STR) YEL Urine Clarity (CLEAR) CLEAR Urine pH (5.0 - 8.0) 6.0 Ur Specific [place] (1.001 - 1.035) 1.020 Urine Protein (NEG,<30 MG/DL) NEG Urine Ketones (NEG) NEG Urine Nitrite (NEG) NEG Urine Bilirubin (NEG) NEG Urine Urobilinogen (0.1 - 1.0 EU/dl) 0.2 Ur Leukocyte Esterase (NEG) NEG Ur Microscopic SEDIMENT EXAMINED Urine RBC (0 - 5 /HPF) 10-15 H Urine WBC (0 - 2 /HPF) 1-3 H Ur Epithelial Cells (NONE,FEW) RARE Urine Bacteria (NEG/NONE) RARE H Urine Mucus (FEW,NONE) RARE Urine Hemoglobin (NEG) SMALL H Urine Glucose (N MG/DL) NEG 11/01 02 1800 1630 Blood Gas pH (7.35 - 7.45 PH) 7.54 H pCO2 (35 - 45 TORR) 34 L pO2 (80 - 100 TORR) 91 HCO3 (21 - 28 MEQ/L) 28 ABG O2 Sat (Measured) (>96.0 %) 97.0 Carboxyhemoglobin (1.5 - 5.0 %) 1.1 L O2 Concentration % 30% Respiration Rate (BPM) 18 O2 Delivery Method BIPAP Vent Mode S/T Expiratory Pressure (CM H2O P) 6 Inspiratory Pressure (CM H2O P) 22 Chemistry Troponin I (<0.11 ng/ml) 0.01 [id number] Pept (<125 pg/mL) 966 H Miscellaneous Phlebotomy Draw Site LEFT RADIAL A/P; 82 y/o M with pmh sig for restrictive severe interstitial pulmonary fibrosis and severe emphysema with end-stage lung disease and multiple lung nodules, history of latent TB currently on isoniazid and vitamin B6, progressive respiratory failure with increasing O2 requirements over the past few months Acute hypoxemic and hypercarbic respiratory failure 2/2 to COPD Exacerbation in setting of severe interstitial lung disease and emphysema, New onset atrial fibrillation with controlled ventricular rate and on Eliquis. As discussed with Dr. Jain, patient now will be on 4 L of oxygen. His steroids can be given. Please decrease Solu-Medrol to every 12 hours and starting tomorrow will start him on by mouth prednisone. We will discontinue the ceftaz and keep him on azithromycin. Continue TRC nebs. I discussed possibility of pulmonary rehabilitation with Dr. Jain, patient and family. Broderick would evaluate the patient. DVT px; ELiquis.
[2017-11-02 09:50] LABS: ABSOLUTE BASOPHIL COUNT 0 /CUMM (0.0-0.2); ABSOLUTE EOSINOPHIL COUNT 0.1 /CUMM (0.0-0.7); ABSOLUTE GRANULOCYTE CT 19.1 /CUMM (1.4-6.5); ABSOLUTE LYMPH COUNT 0.8 /CUMM (1.2-3.4); ABSOLUTE MONOCYTE COUNT 0.6 /CUMM (0.10-0.60); BASOPHIL % 0.2 % (0.0-2.0); EOSINOPHIL % 0.5 % (0-5); GRANULOCYTE % 92.9 % (42.2-75.2); HEMATOCRIT 37.6 % (42-52); MEAN CORPUSCULAR HGB 29.7 PG (27.0-31.0); MEAN CORPUSCULAR HGB CONC 32.5 G/DL (33.0-37.0); MEAN CORPUSCULAR VOLUME 91.4 FL (80.0-94.0); MEAN PLATELET VOLUME 8.5 FL (7.4-10.4); PLATELET COUNT 211 /CUMM (130-400); RBC DISTRIBUTION WIDTH 15.8 % (11.5-14.5); RED BLOOD CELL CT 4.11 /CUMM (4.70-6.10); WHITE BLOOD CELL COUNT 20.5 /CUMM (4.8-10.8)
--- NOTE | 2017-11-02 10:35 | PN- Pulmonary ---
Subjective HPI/Critical Care Issues: Doing a little better Chest pain last night which is chronic on and off pleuritic pain due to bilateral pleural based masses Objective Current Medications: Current Medications Sig/Marah Start time Last Medication Dose Route Stop Time Status Admin Acetaminophen 1,000 MG Q8 10/30 1400 AC 11/02 IV 0612 Albuterol Sulfate 3 ML EVERY 4 HRS/AWAKE 10/26 1600 AC 11/02 INH 0807 Apixaban 5 MG BID 10/27 1037 AC 11/01 PO 2050 Aspirin Buffered 81 MG DAILY 10/26 1000 AC 11/01 PO 0928 Azithromycin 500 MG 2100 10/28 2100 DC 11/01 Dextrose/Water 250 ML IV 2049 Bisacodyl 5 MG DAILY PRN 10/27 0915 AC 10/27 PO 1122 Ceftazidime 1,000 MG Q8H 11/01 1800 AC 11/02 IV 0236 Escitalopram Oxalate 20 MG DAILY 10/28 1000 AC 11/01 PO 0928 Gabapentin 100 MG TID 10/26 1000 AC 11/01 PO 2049 Hydromorphone HCl 2 MG Q6P PRN 10/27 0945 AC PO Ipratropium [place] 2.5 ML EVERY 4 HRS/AWAKE 10/26 1600 AC 11/02 INH 0807 Isoniazid 300 MG DAILY 10/26 1000 AC 11/01 PO 0944 Levothyroxine Sodium 0.05 MG DAILY AC 10/28 0700 AC 11/02 PO 0612 Magnesium Hydroxide 30 ML ONE PRN 11/01 1000 DC 11/01 PO 11/01 1800 1334 Melatonin 3 MG AT BEDTIME 10/290 AC 11/01 PO 2049 Methylprednisolone 40 MG Q8 10/30 1400 AC 11/02 IV 0612 Morphine Sulfate 2 MG Q6P PRN 10/26 1015 DC 10/31 IV 1306 Nitroglycerin 0.4 MG Q 5 MINUTES X 3 DO.. 11/01 1630 AC 11/01 SL 1634 Omeprazole 20 MG DAILY AC 10/26 0700 AC 11/02 PO 0612 Polyethylene Glycol 17 GM DAILY 10/27 1000 AC 11/01 PO 0928 Pyridoxine HCl 50 MG DAILY 10/26 1000 AC 11/01 PO 0928 Senna/Docusate Sodium 2 TAB AT BEDTIME 10/26 2200 AC 11/01 PO 204 Tiotropium [place] 1 PUF DAILY 10/26 1000 AC 11/01 INH 0929 Tramadol HCl 50 MG TIDPRN PRN 10/29 1730 AC 11/01 PO 1008 Vital Signs & I&O Last 24 Hrs of Vitals and I&O: Vital Signs Date Time Temp Pulse Resp B/P B/P Pulse O2 O2 Flow FiO2 Mean Ox Delivery Rate 11/02 1016 95 Nasal 4.0L Cannula 11/02 0823 94 Nasal 35% Cannula 11/02 0816 80 94 11/02 0643 97.3 70 24 124/56 98 BIPAP 11/02 0030 79 96 11/02 0000 BIPAP 11/01 2249 83 95 11/01 2155 98.1 90 22 124/86 97 BIPAP 11/01 2122 98.1 90 22 124/86 97 Nasal Cannula 11/01 1936 95 Nasal 35% Cannula 11/01 1816 70 20 108/64 11/01 1641 85 92 /05 1640 90 20 90/56 BIPAP 30% 11/01 1630 95 20 118/58 BIPAP 30% 11/01 1610 89 20 122/62 94 Nasal 35% Cannula 11/01 1610 96 Nasal 35% Cannula 11/01 1348 97.8 92 20 118/60 93 Room Air 11/01 1312 Nasal 35% Cannula 11/01 1155 94 11/01 1049 94 Intake & Output 11/02 1600 11/02 0800 11/02 0000 Intake Total 820 Output Total 350 500 Balance 470 -500 Intake, IV 340 Intake, Oral 480 Number 0 Bowel Movements Output, Urine 350 500 Impression/Plan Impression/Plan Impression/Plan: General Appearance Alert, Oriented X3, Cooperative, Mild Distress, on BiPAP, arousable to verbal stimuli and answers to questions appropriately, but hard to understand since he is on BiPAP Skin No Rashes, No Breakdown, No Significant Lesion Skin Temp/Moisture Exam: Warm/Dry Sepsis Skin Exam (color): Normal for Ethnicity HEENT Atraumatic, PERRLA, EOMI, Mucous Membr. moist/pink Neck Supple, No JVD, No thryomegaly, +2 Carotid Pulse wo Bruit Lymphatic Cervical nl Cardiovascular Regular Rate, Normal S1, Normal S2, No Murmurs Lungs crackles and wheezes bilaterally. Abdomen Normal Bowel Sounds, Soft, No Tenderness, No Hepatospenomegaly Neurological Normal Speech, Strength at 5/5 X4 Ext, Normal Tone, Cranial Nerves 3-12 NL, Reflexes 2+, sensation couldnt be tested Extremities No Clubbing, No Cyanosis, No Edema, Normal Pulses, No Tenderness/ Swelling Vascular Pulses Symmetrical CXR IMPRESSION: Increasing dense consolidation at right lung base due to infiltrate/atelectasis and effusion. Persistent central hilar pulmonary vascular congestion. 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 He has had bullous COPD for many years from previous history of [id number] smoking quit in 1989. His overall lung function has been progressively getting worse. In the recent past he was also noted to have bilateral lung masses concerning for malignancy by PET scan and he is not a great candidate for invasive workup due to end-stage lung disease and we will be doing a CAT scan in July for evaluation of this. 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 Patient has been on INH since April 28. He also does have ascending aortic aneurysm, abdominal aortic aneurysm before, and very severe end-stage lung disease with reduced DLCO. issues * Slowly Acute on chronic hypoxic and hypercarbic resp failure due to worsening ild, codp and prob malignancy in the rt lower lobe area compounded by mild fluid overload. * Bilateral pleural based masses with pleuritic pain * Prob acute AIP aswell with prob superimposed pneumonia with bandemia * Slowly progressive rt lower lobe lesion since 2013 pt not a candidate for biopsy and he had wished conservative care (prob malignancy including lung vs mesothelioma vs boop * Severe copd with ild with mixed obstructive and restrictive lung disease with poor snf prognosis * 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 * Pafib with rapid ventricular response with normal LVEF * Previous bladder ca with no recurrence so far PLAN DC bipap No icu transfer Pt needs to get out of bed ON nasal cannula Dc cefaz Prednisone to 30mg daily cont out pt inh and b6, Levoxyl 50 mcg Cont azithro and Restart ceftaz if he gets worse Lexapro 20 mg Cont tramadol for pain PRN morphine 2 mg iv or po dilautid 2 mg prn for dyspnea Will follow prog poor DNR and DNI Discussed with the daughter
[2017-11-02 14:51] VITALS: BP 102/60
[2017-11-02 14:55] VITALS: BP 102/60
[2017-11-02 22:21] VITALS: BP 110/68
[2017-11-03 05:58] VITALS: BP 112/62
--- NOTE | 2017-11-03 08:21 | PN- Housestaff ---
Kanika Chi 11/03/17 0821: Subjective Follow-up For: Acute Hypoxic and Hypercarbic respiratory failure New-onset atrial fibrillation AV heavenly disease Subjective: Patient seen and examined today, her breathing is better today , at his baseline oxygen(O2 liters oxygen per nasal cannula). Denies any chest discomfort. Patient didn't have a bowel movement for more than 7 days now, Dulcolax suppository has been added to the bowel regimen. Currently patient and the family is refusing discharge to [facility]. Review of Systems Constitutional: Denies: chills, diaphoresis, fever. EENTM: Denies: blurred vision, double vision, visual changes. Cardiovascular: Denies: chest pain. Respiratory: Denies: cough, hemoptysis, orthopnea. Gastrointestinal: Denies: abdominal pain, bloating, constipation, diarrhea. Genitourinary: Denies: discharge, dysuria, frequency. Musculoskeletal: Denies: gout. Skin: Denies: cysts, change in skin color, change in hair/nails. Objective Last 24 Hrs of Vital Signs/I&O Vital Signs Date Time Temp Pulse Resp B/P B/P Pulse O2 O2 Flow FiO2 Mean Ox Delivery Rate 11/03 1207 97 Nasal 4.0L Cannula 11/03 0835 97 Nasal 4.0L Cannula 11/03 0558 97.6 64 20 112/62 97 11/03 0532 97 Nasal 4.0L Cannula 11/03 0000 96 Nasal 4.0L Cannula 11/02 2221 97.9 94 20 110/68 98 Nasal 2.0L Cannula 11/02 2000 97 Nasal 4.0L Cannula 11/02 1600 96 Nasal 4.0L Cannula 11/02 1455 97.7 82 20 102/60 97 Nasal Cannula 11/02 1451 97.7 82 20 102/60 97 Nasal Cannula Intake & Output 11/03 1600 11/03 0800 11/03 0000 Intake Total 240 340 Output Total 550 Balance 240 -210 Intake, IV 100 Intake, Oral 240 240 Number 0 Bowel Movements Output, Urine 550 Physical Exam General Appearance: Alert, Oriented X3 Skin: No Rashes, No Breakdown Skin Temp/Moisture Exam: Warm/Dry HEENT: Atraumatic, PERRLA, EOMI Neck: Supple, No JVD Lymphatic: Axillary nl, Cervical nl Cardiovascular: Regular Rate, Normal S1, Normal S2 Lungs: Clear to Auscultation, Normal Air Movement Current Medications: Current Medications Sig/Marah Start time Last Medication Dose Route Stop Time Status Admin Acetaminophen 1,000 MG Q8 10/30 1400 AC 11/03 IV 0518 Albuterol Sulfate 3 ML EVERY 4 HRS/AWAKE 10/26 1600 AC 11/03 INH 1203 Apixaban 5 MG BID 10/27 1037 AC 11/03 PO 1017 Aspirin Buffered 81 MG DAILY 10/26 1000 AC 11/03 PO 1023 Bisacodyl 10 MG ONCE PRN 11/02 1300 DC NM 11/02 1800 Bisacodyl 5 MG DAILY PRN 10/27 0915 AC 10/27 PO 1122 Calcium/Vitamin D 1,000 MG DAILY 11/03 1442 UNVr PO Escitalopram Oxalate 20 MG DAILY 10/28 1000 AC 11/03 PO 1017 Gabapentin 100 MG TID 10/26 1000 AC 11/03 PO 1017 Hydromorphone HCl 2 MG Q6P PRN 10/27 0945 DC PO Ipratropium [place] 2.5 ML EVERY 4 HRS/AWAKE 10/26 1600 AC 11/03 INH 1203 Isoniazid 300 MG DAILY 10/26 1000 AC 11/03 PO 1023 Levothyroxine Sodium 0.05 MG DAILY AC 10/28 0700 AC 11/03 PO 0519 Melatonin 3 MG AT BEDTIME 10/29 2200 AC 11/02 PO 2145 Methylprednisolone 40 MG BID 11/02 2200 DC 11/02 IV 11/02 2300 2146 Nitroglycerin 0.4 MG Q 5 MINUTES X 3 DO.. 11/01 1630 AC 11/01 SL 1634 Omeprazole 20 MG DAILY AC 10/26 0700 AC 11/03 PO 0519 Polyethylene Glycol 17 GM DAILY 10/27 1000 AC 11/03 PO 1023 Prednisone 30 MG DAILY 11/03 1000 AC 11/03 PO 1016 Pyridoxine HCl 50 MG DAILY 10/26 1000 AC 11/03 PO 1017 Senna/Docusate Sodium 2 TAB AT BEDTIME 10/26 2200 AC 11/02 PO 2146 Tiotropium [place] 1 PUF DAILY 10/26 1000 AC 11/03 INH 1017 Tramadol HCl 50 MG TIDPRN PRN 10/29 1730 AC 11/03 PO 1022 Trimethoprim/ 1 TAB DAILY 11/03 1440 UNVr Sulfamethoxazole PO 11/04 1439 Last 24 Hrs of Lab/Aakash Results Last 24 Hrs of Labs/Mics: Laboratory Tests 11/03/17 0710: CBC w Diff MAN DIFF ORDERED, RBC 4.28 L, MCV 91.6, MCH 29.4, MCHC 32.1 L, RDW 15.1 H, MPV 8.3, Gran % 94.3 H, Lymphocytes % 3.0 L, Monocytes % 1.6 L, Eosinophils % 1.0, Basophils % 0.1, Absolute Granulocytes 19.0 H, Segmented Neutrophils 83 H, Band Neutrophils 8 H, Absolute Lymphocytes 0.6 L, Lymphocytes 4 L, Monocytes 3, Absolute Monocytes 0.3, Eosinophils 2, Absolute Eosinophils 0.2, Absolute Basophils 0, Platelet Estimate ADEQUATE, Hypochromic- Microcytic 1+, Anisocytosis 1+ Assessment/Plan Assessment: Patient is 81-year-old male with past medical history of restrictive severe interstitial pulmonary fibrosis and severe emphysema with end-stage lung disease and multiple lung nodules, history of latent TB currently on isoniazid and vitamin B6, progressive respiratory failure with increasing O2 requirements over the past few months sent in by his primary care physician after he was found to be hypoxemic. Patient was initially admitted to the ICU for acute hypoxemic and hypercarbic respiratory failure requiring BiPAP. Patient was weaned off BiPAP and is currently on high flow oxygen at 35% saturating at 95-96%. Patient's initial chest x-ray was suspicious for findings of a pneumonia and he was initially started on vancomycin, ceftazidime, azithromycin. Vancomycin and Ceftazidine were discontinued. Patient initially received IV Solu-Medrol and was tapered to prednisone 40 mg on 10/29. Patient's IV solu-medrol was restarted on 10/30. Azithromycin was continued for COPD exacerbation. During this admission patient was diagnosed with new onset atrial fibrillation with AV heavenly disease. ACS was ruled out. Patient is currently euthyroid on levothyroxine 50 g daily. Patient was started on Eliquis for anticoagulation. Patient was evaluated by cardiology and does not require any beta maryann or calcium channel blockers at this time. 1. Acute hypoxemic and hypercarbic respiratory failure secondary to COPD exacerbation in the setting of severe interstitial lung disease and emphysema. * Continue with high flow oxygen for now we'll try to taper off the oxygen. * Patient has been evaluated by Dr. Jain , recommended no aggressive treatment/ escalation of care-as it's not going to change the management in the setting of severe interstitial lung disease with an questionable lung carcinoma. * Patient has been started on tapered prednisone.Will add Bactrim as per pulmonology recommendations for PCP prophylaxis. * Currently patient and the family is refusing discharge to [place]. * We'll continue high flow oxygen and adjust for O2 saturation above 90% * Continue TRC, DuoNeb treatments * Patient's BUN was still high today, and he did not appear fluid overloaded, so Lasix held today. Will reassess tomorrow. * Continue isoniazid and Vit B6 for latent TB * Continue azithromycin for COPD exacerbation. * The patient deteriorate spikes fever consider starting the patient on ceftaz, as per pulmonology. * when necessary for dyspnea 2. New onset atrial fibrillation with controlled ventricular rate * Cardiology is on board * Patient watched off telemetry * We'll continue Eliquis for anticoagulation * Patient does not need AV heavenly blockers at this time per cardiology 3. Chronic conditions: * Continue omeprazole, aspirin, gabapentin, levothyroxine, Lexapro Code: DNR/DNI Diet: Heart healthy DVT prophylaxis: On Eliquis Problem List: 1. New onset a-fib 2. Pneumonia Pain Ratin Pain Location: LLQ pain Pain Goal: Remain pain free Pain Plan: prn tylenol Tomorrow's Labs & Rationales: cbc and bep Hector FAGAN,Kae 11/03/17 1159: Attending MD Review Statement Attending Statement Attending MD Statement: examined this patient, discuss w/resident/PA/SMUTTER, agreed w/resident/PA/SMUTTER, reviewed EMR data (avail), discussed with nursing, discussed with case mgmt, reviewed images, amended to note Attending Assessment/Plan: Patient seen and examined, came back from the bathroom with physical therapy. Requiring 5-6 L of oxygen with ambulation. Seen by Dr. Jain. Discussed with Dr. Jain at length. Patient and family would like to go home. Dr. Jain had made recommendations in terms of his medications that he should be going home on. He will require anywhere between 4-5 L of oxygen. With his extensive lung disease, patient and family would like to go home and not to rehabilitation. Continue oral steroids. Continue the rest of his medications. He will be a possible discharge home with services tomorrow.
[2017-11-03 09:06] LABS: ABSOLUTE BASOPHIL COUNT 0 /CUMM (0.0-0.2); ABSOLUTE EOSINOPHIL COUNT 0.2 /CUMM (0.0-0.7); ABSOLUTE LYMPH COUNT 0.6 /CUMM (1.2-3.4); ABSOLUTE MONOCYTE COUNT 0.3 /CUMM (0.10-0.60); BASOPHIL % 0.1 % (0.0-2.0); GRANULOCYTE % 94.3 % (42.2-75.2); HEMATOCRIT 39.2 % (42-52); MEAN CORPUSCULAR HGB 29.4 PG (27.0-31.0); MEAN CORPUSCULAR HGB CONC 32.1 G/DL (33.0-37.0); MEAN CORPUSCULAR VOLUME 91.6 FL (80.0-94.0); MEAN PLATELET VOLUME 8.3 FL (7.4-10.4); PLATELET COUNT 222 /CUMM (130-400); RBC DISTRIBUTION WIDTH 15.1 % (11.5-14.5); RED BLOOD CELL CT 4.28 /CUMM (4.70-6.10); WHITE BLOOD CELL COUNT 20.2 /CUMM (4.8-10.8)
--- NOTE | 2017-11-03 10:29 | PN- Pulmonary ---
Subjective HPI/Critical Care Issues: Doing about the same and a little better NOw on 3 litres at rest Objective Current Medications: Current Medications Sig/Marah Start time Last Medication Dose Route Stop Time Status Admin Acetaminophen 1,000 MG Q8 10/30 1400 AC 11/03 IV 0518 Albuterol Sulfate 3 ML EVERY 4 HRS/AWAKE 10/26 1600 AC 11/03 INH 0825 Apixaban 5 MG BID 10/27 1037 AC 11/02 PO 2145 Aspirin Buffered 81 MG DAILY 10/26 1000 AC 11/02 PO 1123 Bisacodyl 10 MG ONCE PRN 11/02 1300 DC MI 11/02 1800 Bisacodyl 5 MG DAILY PRN 10/27 0915 AC 10/27 PO 1122 Ceftazidime 1,000 MG Q8H 11/01 1800 DC 11/02 IV 1135 Escitalopram Oxalate 20 MG DAILY 10/28 1000 AC 11/02 PO 1123 Gabapentin 100 MG TID 10/26 1000 AC 11/02 PO 2146 Hydromorphone HCl 2 MG Q6P PRN 10/27 0945 DC PO Ipratropium [place] 2.5 ML EVERY 4 HRS/AWAKE 10/26 1600 AC 11/03 INH 0825 Isoniazid 300 MG DAILY 10/26 1000 AC 11/02 PO 1123 Levothyroxine Sodium 0.05 MG DAILY AC 10/28 0700 AC 11/03 PO 0519 Melatonin 3 MG AT BEDTIME 10/29 2200 AC 11/02 PO 2145 Methylprednisolone 40 MG BID 11/02 2200 DC 11/02 IV 11/02 2300 2146 Methylprednisolone 40 MG Q8 10/30 1400 DC 11/02 IV 0612 Nitroglycerin 0.4 MG Q 5 MINUTES X 3 DO.. 11/01 1630 AC 11/01 SL 1634 Omeprazole 20 MG DAILY AC 10/26 0700 AC 11/03 PO 0519 Patient Medication 1 ED ONE ONE 11/02 1245 DC 11/02 Teaching ED 11/02 1246 2147 Polyethylene Glycol 17 GM DAILY 10/27 1000 AC 11/02 PO 1122 Prednisone 30 MG DAILY 11/03 1000 AC PO Pyridoxine HCl 50 MG DAILY 10/26 1000 AC 11/02 PO 1123 Senna/Docusate Sodium 2 TAB AT BEDTIME 10/26 2200 AC 11/02 PO 2146 Tiotropium [place] 1 PUF DAILY 10/26 1000 AC 11/02 INH 1135 Tramadol HCl 50 MG TIDPRN PRN 10/29 1730 AC 11/01 PO 1008 Vital Signs & I&O Last 24 Hrs of Vitals and I&O: Vital Signs Date Time Temp Pulse Resp B/P B/P Pulse O2 O2 Flow FiO2 Mean Ox Delivery Rate 11/03 0835 97 Nasal 4.0L Cannula 11/03 0558 97.6 64 20 112/62 97 11/03 0532 97 Nasal 4.0L Cannula 11/03 0000 96 Nasal 4.0L Cannula 11/02 2221 97.9 94 20 110/68 98 Nasal 2.0L Cannula 11/02 2000 97 Nasal 4.0L Cannula 11/02 1600 96 Nasal 4.0L Cannula 11/02 1455 97.7 82 20 102/60 97 Nasal Cannula 11/02 1451 97.7 82 20 102/60 97 Nasal Cannula 11/02 1206 98 Nasal 4.0L Cannula Intake & Output 11/03 1600 11/03 0800 11/03 0000 Intake Total 240 340 Output Total 550 Balance 240 -210 Intake, IV 100 Intake, Oral 240 240 Number 0 Bowel Movements Output, Urine 550 Impression/Plan Impression/Plan Impression/Plan: General Appearance Alert, Oriented X3, Cooperative, Mild Distress, on BiPAP, arousable to verbal stimuli and answers to questions appropriately, but hard to understand since he is on BiPAP Skin No Rashes, No Breakdown, No Significant Lesion Skin Temp/Moisture Exam: Warm/Dry Sepsis Skin Exam (color): Normal for Ethnicity HEENT Atraumatic, PERRLA, EOMI, Mucous Membr. moist/pink Neck Supple, No JVD, No thryomegaly, +2 Carotid Pulse wo Bruit Lymphatic Cervical nl Cardiovascular Regular Rate, Normal S1, Normal S2, No Murmurs Lungs crackles and wheezes bilaterally. Abdomen Normal Bowel Sounds, Soft, No Tenderness, No Hepatospenomegaly Neurological Normal Speech, Strength at 5/5 X4 Ext, Normal Tone, Cranial Nerves 3-12 NL, Reflexes 2+, sensation couldnt be tested Extremities No Clubbing, No Cyanosis, No Edema, Normal Pulses, No Tenderness/ Swelling Vascular Pulses Symmetrical CXR IMPRESSION: Increasing dense consolidation at right lung base due to infiltrate/atelectasis and effusion. Persistent central hilar pulmonary vascular congestion. 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 He has had bullous COPD for many years from previous history of [id number] smoking quit in 1989. His overall lung function has been progressively getting worse. In the recent past he was also noted to have bilateral lung masses concerning for malignancy by PET scan and he is not a great candidate for invasive workup due to end-stage lung disease and we will be doing a CAT scan in July for evaluation of this. 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 Patient has been on INH since April 28. He also does have ascending aortic aneurysm, abdominal aortic aneurysm before, and very severe end-stage lung disease with reduced DLCO. issues * Slowly improving Acute on chronic hypoxic and hypercarbic resp failure due to worsening ild, codp and prob malignancy in the rt lower lobe area compounded by mild fluid overload. * Bilateral pleural based masses with pleuritic pain * Prob acute AIP aswell with prob superimposed pneumonia with bandemia * Slowly progressive rt lower lobe lesion since 2013 pt not a candidate for biopsy and he had wished conservative care (prob malignancy including lung vs mesothelioma vs boop * Severe copd with ild with mixed obstructive and restrictive lung disease with poor assisted prognosis * 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 * Pafib with rapid ventricular response with normal LVEF * Previous bladder ca with no recurrence so far PLAN Ambulate and increase activity CONt prednisone 30 mg for two weeks and reduce to 20 mg for two weeks and then 10 mg Start bactrim ds one tab wed/wed/wednesday for pcp prophylaxis VIt d 1000 and calcium one pill daily cont out pt inh and b6, Levoxyl 50 mcg Cont azithro and Restart ceftaz if he gets worse Lexapro 20 mg Cont tramadol for pain Stool softners daily with amadeo and colace DISPO: pt wishes to return to his home if he can ambulate (use 4 -5 litres of oxygen on excertion), if not will consider ion cont spiriva and use prn albuterol inhaler and nebs prn Will follow prog poor DNR and DNI Discussed with the daughter
[2017-11-03 15:42] VITALS: BP 118/70
--- NOTE | 2017-11-03 16:03 | Patient Discharge Instructions ---
Discharge Instructions General Discharge Information You were seen/treated for: Acute hypoxemic and hypercarbic respiratory failure 2/2 to COPD Exacerbation in setting of severe interstitial lung disease and emphysema. New onset atrial fibrillation with controlled ventricular rate Special Instructions: 1. Please follow-up with your primary care physician within 1-2 weeks after discharge. 2. Please follow-up with Dr. Jain within 1-2 weeks after discharge. 3. Please take the antibiotics as directed. 4. Return to the ER if the symptoms get worse after discharge Diet Recommended Diet: Heart Healthy Activity Activity Self Limited: Yes Acute Coronary Syndrome Inclusion Criteria At DC or during hospital stay patient has or had the following: ACS DIAGNOSIS No Discharge Core Measures Meds if any: Prescribed or Continued at Discharge Meds if any: NOT Prescribed or Continued at Discharge Congestive Heart Failure Inclusion Criteria At DC or during hospital stay patient has or had the following: CHF DIAGNOSIS No Discharge Core Measures Meds if any: Prescribed or Continued at Discharge Meds if any: NOT Prescribed or Continued at Discharge Cerebrovascular accident Inclusion Criteria At DC or during hospital stay patient has or had the following: CVA/TIA Diagnosis No Discharge Core Measures Meds if any: Prescribed or Continued at Discharge Meds if any: NOT Prescribed or Continued at Discharge Venous thromboembolism Inclusion Criteria VTE Diagnosis No VTE Type NONE VTE Confirmed by (Test) NONE Discharge Core Measures - Per Current guidelines, there needs to be overlap - treatment for the first 5 days of Warfarin therapy. - If discharged on Warfarin prior to 5 days of - overlap therapy, the patient will need to be - assessed for post discharge needs including - *Post discharge parental anticoagulation - *Warfarin and/or parental anticoagulation education - *Follow up date to check INR post discharge At least 5 days overlap therapy as Inpatient No Meds if any: Prescribed or Continued at Discharge Note: Overlap Therapy is Warfarin and Anticoagulant Meds if any: NOT Prescribed or Continued at Discharge
[2017-11-03] MEDS ORDERED: PREDNISONE10 M2 PO (16:06)
[2017-11-03] MEDS ORDERED: BACTRIM DS TAB1 EACH PO (16:09)
[2017-11-03] MEDS ORDERED: MIRALAX17 G1 PO (16:09)
[2017-11-03] MEDS ORDERED: SYNTHROID50 MCG PO (16:09)
[2017-11-03] MEDS ORDERED: SENOKOT-S TABL1 EACH PO (16:09)
[2017-11-03] MEDS ORDERED: ELIQUIS5 M1 PO (16:11)
[2017-11-03 22:33] VITALS: BP 108/64
[2017-11-04 06:59] VITALS: BP 116/73
[2017-11-04 08:22] LABS: ABSOLUTE BASOPHIL COUNT 0 /CUMM (0.0-0.2); ABSOLUTE EOSINOPHIL COUNT 2.2 /CUMM (0.0-0.7); ABSOLUTE GRANULOCYTE CT 18.7 /CUMM (1.4-6.5); ABSOLUTE LYMPH COUNT 1.6 /CUMM (1.2-3.4); ABSOLUTE MONOCYTE COUNT 0.4 /CUMM (0.10-0.60); BASOPHIL % 0.2 % (0.0-2.0); EOSINOPHIL % 9.5 % (0-5); GRANULOCYTE % 81.4 % (42.2-75.2); HEMATOCRIT 40.5 % (42-52); MEAN CORPUSCULAR HGB 29.8 PG (27.0-31.0); MEAN CORPUSCULAR HGB CONC 32.5 G/DL (33.0-37.0); MEAN CORPUSCULAR VOLUME 91.6 FL (80.0-94.0); MEAN PLATELET VOLUME 8.2 FL (7.4-10.4); PLATELET COUNT 217 /CUMM (130-400); RED BLOOD CELL CT 4.42 /CUMM (4.70-6.10)
[2017-11-04] MEDS ORDERED: LIDODERM1 EACH TOP (09:56)
[2017-11-04] MEDS ORDERED: ELIQUIS5 M1 PO (10:00)
[2017-11-04] MEDS ORDERED: MIRALAX17 G1 PO (10:00)
[2017-11-04] MEDS ORDERED: BACTRIM DS TAB1 EACH PO (10:00)
[2017-11-04] MEDS ORDERED: PREDNISONE10 M2 PO (10:00)
[2017-11-04] MEDS ORDERED: SYNTHROID50 MCG PO (10:00)
[2017-11-04] MEDS ORDERED: SENOKOT-S TABL1 EACH PO (10:00)
--- NOTE | 2017-11-04 10:41 | PN- Housestaff ---
Kanika Chi 11/04/17 1041: Subjective Follow-up For: Acute Hypoxic and Hypercarbic respiratory failure New-onset atrial fibrillation AV heavenly disease Subjective: Patient seen and examined today, her breathing is better today , at his baseline oxygen(O2 liters oxygen per nasal cannula). Denies any chest discomfort/ palpitations no nausea vomiting abdominal discomfort Patient had bowel movement after the getting the suppository. If patient remains stable will be discharged home tomorrow. Review of Systems Constitutional: Denies: chills, diaphoresis, fever. EENTM: Denies: double vision, visual changes, eye pain. Cardiovascular: Denies: chest pain, edema, orthopena. Respiratory: Denies: cough, orthopnea, short of breath. Gastrointestinal: Denies: abdominal pain, constipation, diarrhea. Genitourinary: Denies: discharge, dysuria, frequency. Musculoskeletal: Denies: back pain, gout. Skin: Denies: change in skin color, change in hair/nails, erythema. Objective Last 24 Hrs of Vital Signs/I&O Vital Signs Date Time Temp Pulse Resp B/P B/P Pulse O2 O2 Flow FiO2 Mean Ox Delivery Rate 11/04 0849 93 Nasal 3.0L Cannula 11/04 0659 98.2 88 20 116/73 95 Nasal 4.0L Cannula 11/04 0000 Nasal 4.0L Cannula 11/03 2233 97.4 68 20 108/64 97 Nasal 4.0L Cannula 11/03 1616 97 Nasal 3.0L Cannula 11/03 1542 98.3 102 21 118/70 94 Nasal Cannula 11/03 1207 97 Nasal 4.0L Cannula Intake & Output 11/04 1600 11/04 0800 11/04 0000 Intake Total 240 240 Output Total 450 300 Balance -210 -60 Intake, Oral 240 240 Output, Urine 450 300 Physical Exam General Appearance: Alert, Oriented X3 Skin: No Rashes, No Breakdown HEENT: Atraumatic, PERRLA, EOMI Cardiovascular: Regular Rate, Normal S1, Normal S2 Lungs: BILARTERAL CRACKLES ON BASES OF LUNGS Abdomen: Normal Bowel Sounds, Soft, No Tenderness Neurological: Normal Gait, Normal Speech Extremities: No Clubbing, No Cyanosis, No Edema Current Medications: Current Medications Sig/Marah Start time Last Medication Dose Route Stop Time Status Admin Acetaminophen 1,000 MG Q8 PRN 02/07 2023 AC IV Acetaminophen 1,000 MG Q8 10/30 1400 DC 11/03 IV 1543 Albuterol Sulfate 3 ML EVERY 4 HRS/AWAKE 10/26 1600 AC 11/04 INH 1202 Apixaban 5 MG BID 10/27 1037 AC 11/04 PO 1101 Aspirin Buffered 81 MG DAILY 10/26 1000 AC 11/04 PO 1102 Bisacodyl 5 MG DAILY PRN 10/27 0915 AC 10/27 PO 1122 Calcium/Vitamin D 1,000 MG DAILY 11/03 1442 AC 11/04 PO 1101 Escitalopram Oxalate 20 MG DAILY 10/28 1000 AC 11/04 PO 1101 Gabapentin 100 MG TID 10/26 1000 AC 11/04 PO 1100 Hydromorphone HCl 2 MG Q6P PRN 11/03 1500 AC 11/04 PO 1102 Ipratropium [place] 2.5 ML EVERY 4 HRS/AWAKE 10/26 1600 AC 11/04 INH 0849 Isoniazid 300 MG DAILY 10/26 1000 AC 11/04 PO 1102 Levothyroxine Sodium 0.05 MG DAILY AC 10/28 0700 AC 11/04 PO 0513 Lidocaine 1 PAT DAILY 11/04 0830 AC 11/04 EXT 1100 Melatonin 3 MG AT BEDTIME 10/29 2200 AC 11/03 PO 2130 Nitroglycerin 0.4 MG Q 5 MINUTES X 3 DO.. 11/01 1630 AC 11/01 SL 1634 Omeprazole 20 MG DAILY AC 10/26 0700 AC 11/04 PO 0513 Polyethylene Glycol 17 GM DAILY 10/27 1000 AC 11/04 PO 1100 Prednisone 30 MG DAILY 11/03 1000 AC 11/04 PO 1100 Pyridoxine HCl 50 MG DAILY 10/26 1000 AC 11/04 PO 1102 Senna/Docusate Sodium 2 TAB AT BEDTIME 10/26 2200 AC 11/03 PO 2131 Tiotropium [place] 1 PUF DAILY 10/26 1000 AC 11/04 INH 1104 Tramadol HCl 50 MG TIDPRN PRN 10/29 1730 AC 11/03 PO 2131 Trimethoprim/ 1 TAB DAILY 11/03 1440 AC 11/04 Sulfamethoxazole PO 11/04 1439 1101 Last 24 Hrs of Lab/Aakash Results Last 24 Hrs of Labs/Mics: Laboratory Tests 11/04/17 0715: Anion Gap 11, Estimated GFR > 60, BUN/Creatinine Ratio 42.0 H, CBC w Diff NO MAN DIFF REQ, RBC 4.42 L, MCV 91.6, MCH 29.8, MCHC 32.5 L, RDW 16.0 H, MPV 8.2, Gran % 81.4 H, Lymphocytes % 7.0 L, Monocytes % 1.9, Eosinophils % 9.5 H , Basophils % 0.2, Absolute Granulocytes 18.7 H, Absolute Lymphocytes 1.6, Absolute Monocytes 0.4, Absolute Eosinophils 2.2, Absolute Basophils 0 Assessment/Plan Assessment: Patient is 81-year-old male with past medical history of restrictive severe interstitial pulmonary fibrosis and severe emphysema with end-stage lung disease and multiple lung nodules, history of latent TB currently on isoniazid and vitamin B6, progressive respiratory failure with increasing O2 requirements over the past few months sent in by his primary care physician after he was found to be hypoxemic. Patient was initially admitted to the ICU for acute hypoxemic and hypercarbic respiratory failure requiring BiPAP. Patient was weaned off BiPAP and is currently on high flow oxygen at 35% saturating at 95-96%. Patient's initial chest x-ray was suspicious for findings of a pneumonia and he was initially started on vancomycin, ceftazidime, azithromycin. Vancomycin and Ceftazidine were discontinued. Patient initially received IV Solu-Medrol and was tapered to prednisone 40 mg on 10/29. Patient's IV solu-medrol was restarted on 10/30. Azithromycin was continued for COPD exacerbation. During this admission patient was diagnosed with new onset atrial fibrillation with AV heavenly disease. ACS was ruled out. Patient is currently euthyroid on levothyroxine 50 g daily. Patient was started on Eliquis for anticoagulation. Patient was evaluated by cardiology and does not require any beta maryann or calcium channel blockers at this time. 1. Acute hypoxemic and hypercarbic respiratory failure secondary to COPD exacerbation in the setting of severe interstitial lung disease and emphysema. * Continue with high flow oxygen for now we'll try to taper off the oxygen. * Patient has been evaluated by Dr. Jain , recommended no aggressive treatment/ escalation of care-as it's not going to change the management in the setting of severe interstitial lung disease with an questionable lung carcinoma. * Patient has been started on tapered prednisone.Will add Bactrim as per pulmonology recommendations for PCP prophylaxis. * Currently patient and the family is refusing discharge to [facility]. * We'll continue high flow oxygen and adjust for O2 saturation above 90% * Continue TRC, DuoNeb treatments. * Continue isoniazid and Vit B6 for latent TB. * Continue azithromycin for COPD exacerbation. If patient remains stable will be discharged home tomorrow. * The patient deteriorate spikes fever consider starting the patient on ceftaz, as per pulmonology. * when necessary for dyspnea 2. New onset atrial fibrillation with controlled ventricular rate * Cardiology is on board * Patient watched off telemetry * We'll continue Eliquis for anticoagulation * Patient does not need AV heavenly blockers at this time per cardiology 3. Chronic conditions: * Continue omeprazole, aspirin, gabapentin, levothyroxine, Lexapro Code: DNR/DNI Diet: Heart healthy DVT prophylaxis: On Eliquis Problem List: 1. Pneumonia 2. Respiratory failure 3. New onset a-fib Pain Ratin Pain Location: LLQ PAIN Pain Goal: Remain pain free Pain Plan: PRN Ultram and tramadol Tomorrow's Labs & Rationales: CBC tomorrow Kae Young MD 11/04/17 1206: Attending MD Review Statement Attending Statement Attending MD Statement: examined this patient, discuss w/resident/PA/ONLINE JOURNALIST, agreed w/resident/PA/ONLINE JOURNALIST, discussed with family, reviewed EMR data (avail), discussed with nursing, discussed with case mgmt, reviewed images, amended to note Attending Assessment/Plan: Patient seen and examined, he continues to feel short of breath. Unfortunately for this extensive chronic lung disease, he will continue to require significant amount of oxygen. Family and patient had discussed with Dr. Jain about going home versus rehabilitation. As per the discussion, decision was made that patient go to go home. He apparently was not interested in going to rehabilitation. Patient's family also would like to go home per his wishes. At this point we have switched to oral prednisone per Dr. Jain's recommendations. The rest of his medications also be according to Dr. Jain's recommendations. Patient remained on TRC nebs. His antibiotics have been finished. No further antibiotic course would be started at this time. This is most likely his chronic lung issues. We'll continue him on treatment for his latent tuberculosis. Patient is here with acute on chronic respiratory failure. Daughter claims that today there is no one home except for patient's already has dementia. Unfortunately we do not have a safe discharge plan for today but daughter will take a day off tomorrow for patient be safely discharged home with home services. Continue current medications. There is slight increase in white blood cell count today but this could be related to steroids.
--- NOTE | 2017-11-04 13:50 | PN- Pulmonary ---
Subjective HPI/Critical Care Issues: Sleeping comfortably fatigue Objective Current Medications: Current Medications Sig/Marah Start time Last Medication Dose Route Stop Time Status Admin Acetaminophen 1,000 MG Q8 PRN 11/03 2022 AC IV Acetaminophen 1,000 MG Q8 10/30 1400 DC 11/03 IV 1543 Albuterol Sulfate 3 ML EVERY 4 HRS/AWAKE 10/26 1600 AC 11/04 INH 1202 Apixaban 5 MG BID 10/27 1037 AC 11/04 PO 1101 Aspirin Buffered 81 MG DAILY 10/26 1000 AC 11/04 PO 1102 Bisacodyl 5 MG DAILY PRN 10/27 0915 AC 10/27 PO 1122 Calcium/Vitamin D 1,000 MG DAILY 11/03 1442 AC 11/04 PO 1101 Escitalopram Oxalate 20 MG DAILY 10/28 1000 AC 11/04 PO 1101 Gabapentin 100 MG TID 10/26 1000 AC 11/04 PO 1100 Hydromorphone HCl 2 MG Q6P PRN 11/03 1500 AC 11/04 PO 1102 Ipratropium [place] 2.5 ML EVERY 4 HRS/AWAKE 10/26 1600 AC 11/04 INH 0849 Isoniazid 300 MG DAILY 10/26 1000 AC 11/04 PO 1102 Levothyroxine Sodium 0.05 MG DAILY AC 10/28 0700 AC 11/04 PO 0513 Lidocaine 1 PAT DAILY 11/04 0830 AC 11/04 EXT 1100 Melatonin 3 MG AT BEDTIME 10/29 2200 AC 11/03 PO 2130 Nitroglycerin 0.4 MG Q 5 MINUTES X 3 DO.. 11/01 1630 AC 11/01 SL 1634 Omeprazole 20 MG DAILY AC 10/26 0700 AC 11/04 PO 0513 Polyethylene Glycol 17 GM DAILY 10/27 1000 AC 11/04 PO 1100 Prednisone 30 MG DAILY 11/03 1000 AC 11/04 PO 1100 Pyridoxine HCl 50 MG DAILY 10/26 1000 AC 11/04 PO 1102 Senna/Docusate Sodium 2 TAB AT BEDTIME 10/26 2200 AC 11/03 PO 2131 Tiotropium [place] 1 PUF DAILY 10/26 1000 AC 11/04 INH 1104 Tramadol HCl 50 MG TIDPRN PRN 10/29 1730 AC 11/03 PO 2131 Trimethoprim/ 1 TAB DAILY 11/03 1440 AC 11/04 Sulfamethoxazole PO 11/04 1439 1101 Vital Signs & I&O Last 24 Hrs of Vitals and I&O: Vital Signs Date Time Temp Pulse Resp B/P B/P Pulse O2 O2 Flow FiO2 Mean Ox Delivery Rate 11/04 0849 93 Nasal 3.0L Cannula 11/04 0659 98.2 88 20 116/73 95 Nasal 4.0L Cannula 11/04 0000 Nasal 4.0L Cannula 11/03 2233 97.4 68 20 108/64 97 Nasal 4.0L Cannula 11/03 1616 97 Nasal 3.0L Cannula 11/03 1542 98.3 102 21 118/70 94 Nasal Cannula Intake & Output 11/04 1600 11/04 0800 11/04 0000 Intake Total 240 240 Output Total 450 300 Balance -210 -60 Intake, Oral 240 240 Output, Urine 450 300 Impression/Plan Impression/Plan Impression/Plan: General Appearance Alert, Oriented X3, Cooperative, Mild Distress, on BiPAP, arousable to verbal stimuli and answers to questions appropriately, but hard to understand since he is on BiPAP Skin No Rashes, No Breakdown, No Significant Lesion Skin Temp/Moisture Exam: Warm/Dry Sepsis Skin Exam (color): Normal for Ethnicity HEENT Atraumatic, PERRLA, EOMI, Mucous Membr. moist/pink Neck Supple, No JVD, No thryomegaly, +2 Carotid Pulse wo Bruit Lymphatic Cervical nl Cardiovascular Regular Rate, Normal S1, Normal S2, No Murmurs Lungs crackles and wheezes bilaterally. Abdomen Normal Bowel Sounds, Soft, No Tenderness, No Hepatospenomegaly Neurological Normal Speech, Strength at 5/5 X4 Ext, Normal Tone, Cranial Nerves 3-12 NL, Reflexes 2+, sensation couldnt be tested Extremities No Clubbing, No Cyanosis, No Edema, Normal Pulses, No Tenderness/ Swelling Vascular Pulses Symmetrical CXR IMPRESSION: Increasing dense consolidation at right lung base due to infiltrate/atelectasis and effusion. Persistent central hilar pulmonary vascular congestion. 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 He has had bullous COPD for many years from previous history of [id number] smoking quit in 1989. His overall lung function has been progressively getting worse. In the recent past he was also noted to have bilateral lung masses concerning for malignancy by PET scan and he is not a great candidate for invasive workup due to end-stage lung disease and we will be doing a CAT scan in July for evaluation of this. 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 Patient has been on INH since April 28. He also does have ascending aortic aneurysm, abdominal aortic aneurysm before, and very severe end-stage lung disease with reduced DLCO. issues * Slowly improving Acute on chronic hypoxic and hypercarbic resp failure due to worsening ild, codp and prob malignancy in the rt lower lobe area compounded by mild fluid overload. * Bilateral pleural based masses with pleuritic pain * Prob acute AIP aswell with prob superimposed pneumonia with bandemia * Slowly progressive rt lower lobe lesion since 2013 pt not a candidate for biopsy and he had wished conservative care (prob malignancy including lung vs mesothelioma vs boop * Severe copd with ild with mixed obstructive and restrictive lung disease with poor terminal operations manager prognosis * 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 * Pafib with rapid ventricular response with normal LVEF * Previous bladder ca with no recurrence so far PLAN Ambulate and increase activity CONt prednisone 30 mg for two weeks and reduce to 20 mg for two weeks and then 10 mg Start bactrim ds one tab wed/wed/wednesday for pcp prophylaxis VIt d 1000 and calcium one pill daily cont out pt inh and b6, Levoxyl 50 mcg Cont azithro and Restart ceftaz if he gets worse Lexapro 20 mg Cont tramadol for pain Stool softners daily with amadeo and colace DISPO: pt wishes to return to his home if he can ambulate (use 4 -5 litres of oxygen on excertion), if not will consider ion cont spiriva and use prn albuterol inhaler and nebs prn Will follow prog poor DNR and DNI Discussed with the daughter before
[2017-11-04 14:35] VITALS: BP 120/78
[2017-11-04 22:06] VITALS: BP 114/80
[2017-11-05 06:30] VITALS: BP 142/73
--- NOTE | 2017-11-05 07:31 | PN- Housestaff ---
Kanika Chi 11/05/17 0731: Subjective Follow-up For: Acute Hypoxic and Hypercarbic respiratory failure New-onset atrial fibrillation AV heavenly disease Subjective: Patient seen and examined today, her breathing is better today , at his baseline oxygen(O2 liters oxygen per nasal cannula). Denies any chest discomfort/ palpitations no nausea vomiting abdominal discomfort. Patient had bowel movement after the getting the suppository. Patient was anxious in the morning regarding discharge to home didn't do well with the physical therapy, If patient remains stable will be discharged to rehabilitation today. Review of Systems Constitutional: Denies: diaphoresis, fever, malaise. EENTM: Denies: blurred vision, double vision, visual changes, eye pain. Cardiovascular: Denies: chest pain, edema, orthopena. Respiratory: Denies: cough, hemoptysis, short of breath. Gastrointestinal: Denies: bloating, constipation. Genitourinary: Denies: dysuria, frequency, hematuria. Musculoskeletal: Denies: gout, joint pain, joint swelling. Skin: Denies: change in skin color, change in hair/nails, dryness. Neurological/Psychological: Denies: anxiety, confusion. Objective Last 24 Hrs of Vital Signs/I&O Vital Signs Date Time Temp Pulse Resp B/P B/P Pulse O2 O2 Flow FiO2 Mean Ox Delivery Rate 11/05 1016 Nasal 4.0L Cannula 11/05 0815 95 Nasal 4.0L Cannula 11/05 0530 98.1 95 20 142/73 95 Room Air 11/05 0000 Nasal 4.0L Cannula 11/04 2206 98.0 71 20 114/80 95 Nasal 2.0L Cannula 11/04 2039 91 Nasal 3.0L Cannula 11/04 1606 92 Nasal 3.0L Cannula 11/04 1435 98.4 97 21 120/78 93 Nasal Cannula Intake & Output 11/05 1600 11/05 0800 11/05 0000 Intake Total 240 480 Output Total 850 400 Balance -610 80 Intake, Oral 240 480 Output, Urine 850 400 Physical Exam General Appearance: Alert, Oriented X3 Cardiovascular: Regular Rate, Normal S1 Lungs: Clear to Auscultation, Normal Air Movement Abdomen: Normal Bowel Sounds, Soft Neurological: Normal Gait, Normal Speech Last 24 Hrs of Lab/Aakash Results Last 24 Hrs of Labs/Mics: Laboratory Tests 11/05/17 0930: CBC w Diff NO MAN DIFF REQ, RBC 4.54 L, MCV 91.8, MCH 29.7, MCHC 32.3 L, RDW 16.1 H, MPV 8.0, Gran % 65.1, Lymphocytes % 6.7 L, Monocytes % 18.2 H, Eosinophils % 9.7 H, Basophils % 0.3, Absolute Granulocytes 14.7 H, Absolute Lymphocytes 1.5, Absolute Monocytes 4.1 H, Absolute Eosinophils 2.2, Absolute Basophils 0.1 Assessment/Plan Assessment: Patient is 81-year-old male with past medical history of restrictive severe interstitial pulmonary fibrosis and severe emphysema with end-stage lung disease and multiple lung nodules, history of latent TB currently on isoniazid and vitamin B6, progressive respiratory failure with increasing O2 requirements over the past few months sent in by his primary care physician after he was found to be hypoxemic. Patient was initially admitted to the ICU for acute hypoxemic and hypercarbic respiratory failure requiring BiPAP. Patient was weaned off BiPAP and is currently on high flow oxygen at 35% saturating at 95-96%. Patient's initial chest x-ray was suspicious for findings of a pneumonia and he was initially started on vancomycin, ceftazidime, azithromycin. Vancomycin and Ceftazidine were discontinued. Patient initially received IV Solu-Medrol and was tapered to prednisone 40 mg on 10/29. Patient's IV solu-medrol was restarted on 10/30. Azithromycin was continued for COPD exacerbation. During this admission patient was diagnosed with new onset atrial fibrillation with AV heavenly disease. ACS was ruled out. Patient is currently euthyroid on levothyroxine 50 g daily. Patient was started on Eliquis for anticoagulation. Patient was evaluated by cardiology and does not require any beta mayrann or calcium channel blockers at this time. 1. Acute hypoxemic and hypercarbic respiratory failure secondary to COPD exacerbation in the setting of severe interstitial lung disease and emphysema. * Continue with high flow oxygen for now we'll try to taper off the oxygen. * Patient has been evaluated by Dr. Jain , recommended no aggressive treatment/ escalation of care-as it's not going to change the management in the setting of severe interstitial lung disease with an questionable lung carcinoma. * Patient has been started on tapered prednisone along with Bactrim as per pulmonology recommendations for PCP prophylaxis. * We'll continue high flow oxygen and adjust for O2 saturation above 90% * Continue TRC, DuoNeb treatments. * Continue isoniazid and Vit B6 for latent TB. * Patient was anxious in the morning regarding discharge to home didn't do well with the physical therapy, If patient remains stable will be discharged to rehabilitation today. * Advised to follow-up with his plastic and reconstructive surgeon as an outpatient after discharge 2. New onset atrial fibrillation with controlled ventricular rate * Cardiology is on board * Patient watched off telemetry * We'll continue Eliquis for anticoagulation * Patient does not need AV heavenly blockers at this time per cardiology 3. Chronic conditions: * Continue omeprazole, aspirin, gabapentin, levothyroxine, Lexapro Code: DNR/DNI Diet: Heart healthy DVT prophylaxis: On Eliquis Problem List: 1. New onset a-fib 2. Pneumonia 3. Respiratory failure Pain Ratin Pain Location: Back pain Pain Goal: Remain pain free Pain Plan: When necessary tramadol and Lidoderm patch Tomorrow's Labs & Rationales: no labs tomorrow [facility]123: Attending MD Review Statement Attending Statement Attending MD Statement: examined this patient, discuss w/resident/PA/PRECIPITATE WASHER, agreed w/resident/PA/PRECIPITATE WASHER, discussed with family, reviewed EMR data (avail), discussed with nursing, discussed with case mgmt, amended to note Attending Assessment/Plan: Patient seen and examined, overall doing better but when heard about going home, patient got anxious and performed poorly with physical therapy. He could not go by himself to the toilet. Patient's daughter, patient spoke with the case management and they finally agreed to rehabilitation. Patient has been requiring 4 L of oxygen. Will continue the rest of his medications as per pulmonology recommendations including his steroids and other meds. Patient did have a bowel movement. Bladder temp at helped him with the pain. He will be kept on tramadol and Tylenol. Once is a bed available at rehabilitation he can be discharged to rehabilitation. He is on Eliquis for DVT prophylaxis.
[2017-11-05 09:51] LABS: ABSOLUTE BASOPHIL COUNT 0.1 /CUMM (0.0-0.2); ABSOLUTE EOSINOPHIL COUNT 2.2 /CUMM (0.0-0.7); ABSOLUTE GRANULOCYTE CT 14.7 /CUMM (1.4-6.5); ABSOLUTE LYMPH COUNT 1.5 /CUMM (1.2-3.4); ABSOLUTE MONOCYTE COUNT 4.1 /CUMM (0.10-0.60); BASOPHIL % 0.3 % (0.0-2.0); EOSINOPHIL % 9.7 % (0-5); GRANULOCYTE % 65.1 % (42.2-75.2); HEMATOCRIT 41.7 % (42-52); MEAN CORPUSCULAR HGB 29.7 PG (27.0-31.0); MEAN CORPUSCULAR HGB CONC 32.3 G/DL (33.0-37.0); MEAN CORPUSCULAR VOLUME 91.8 FL (80.0-94.0); PLATELET COUNT 234 /CUMM (130-400); RBC DISTRIBUTION WIDTH 16.1 % (11.5-14.5); RED BLOOD CELL CT 4.54 /CUMM (4.70-6.10); WHITE BLOOD CELL COUNT 22.5 /CUMM (4.8-10.8)
--- NOTE | 2017-11-05 10:18 | PN- Pulmonary ---
Subjective HPI/Critical Care Issues: Doing ok wishes to go to snf Objective Current Medications: Current Medications Sig/Marah Start time Last Medication Dose Route Stop Time Status Admin Acetaminophen 1,000 MG Q8 PRN 11/03 2022 AC IV Albuterol Sulfate 3 ML EVERY 4 HRS/AWAKE 10/26 1600 AC 11/05 INH 0915 Apixaban 5 MG BID 10/27 1037 AC 11/05 PO 0945 Aspirin Buffered 81 MG DAILY 10/26 1000 AC 11/05 PO 0945 Bisacodyl 5 MG DAILY PRN 10/27 0915 AC 10/27 PO 1122 Calcium/Vitamin D 1,000 MG DAILY 11/03 1442 AC 11/05 PO 0945 Escitalopram Oxalate 20 MG DAILY 10/28 1000 AC 11/05 PO 0945 Gabapentin 100 MG TID 10/26 1000 AC 11/05 PO 0945 Hydromorphone HCl 2 MG Q6P PRN 11/03 1500 AC 11/05 PO 0509 Ipratropium [place] 2.5 ML EVERY 4 HRS/AWAKE 10/26 1600 AC 11/05 INH 0915 Isoniazid 300 MG DAILY 10/26 1000 AC 11/05 PO 0946 Levothyroxine Sodium 0.05 MG DAILY AC 10/28 0700 AC 11/05 PO 0509 Lidocaine 1 PAT DAILY 11/04 0830 AC 11/05 EXT 0945 Melatonin 3 MG AT BEDTIME 10/29 2200 AC 11/04 PO 2104 Nitroglycerin 0.4 MG Q 5 MINUTES X 3 DO.. 11/01 1630 AC 11/01 SL 1634 Omeprazole 20 MG DAILY AC 10/26 0700 AC 11/05 PO 0509 Polyethylene Glycol 17 GM DAILY 10/27 1000 AC 11/05 PO 0945 Prednisone 30 MG DAILY 11/03 1000 AC 11/05 PO 0945 Pyridoxine HCl 50 MG DAILY 10/26 1000 AC 11/05 PO 0945 Senna/Docusate Sodium 2 TAB AT BEDTIME 10/26 2200 AC 11/04 PO 2103 Tiotropium [place] 1 PUF DAILY 10/26 1000 AC 11/05 INH 0945 Tramadol HCl 50 MG TIDPRN PRN 10/29 1730 AC 11/04 PO 2104 Trimethoprim/ 1 TAB DAILY 11/03 1440 DC 11/04 Sulfamethoxazole PO 11/04 1439 1101 Vital Signs & I&O Last 24 Hrs of Vitals and I&O: Vital Signs Date Time Temp Pulse Resp B/P B/P Pulse O2 O2 Flow FiO2 Mean Ox Delivery Rate 11/05 0630 98.1 95 20 142/73 95 Room Air 11/05 0000 Nasal 4.0L Cannula 11/04 2206 98.0 71 20 114/80 95 Nasal 2.0L Cannula 11/04 2039 91 Nasal 3.0L Cannula 11/04 1606 92 Nasal 3.0L Cannula 11/04 1435 98.4 97 21 120/78 93 Nasal Cannula Intake & Output 11/05 1600 11/05 0800 11/05 0000 Intake Total 240 480 Output Total 850 400 Balance -610 80 Intake, Oral 240 480 Output, Urine 850 400 Impression/Plan Impression/Plan Impression/Plan: General Appearance Alert, Oriented X3, Cooperative, Mild Distress, on BiPAP, arousable to verbal stimuli and answers to questions appropriately, but hard to understand since he is on BiPAP Skin No Rashes, No Breakdown, No Significant Lesion Skin Temp/Moisture Exam: Warm/Dry Sepsis Skin Exam (color): Normal for Ethnicity HEENT Atraumatic, PERRLA, EOMI, Mucous Membr. moist/pink Neck Supple, No JVD, No thryomegaly, +2 Carotid Pulse wo Bruit Lymphatic Cervical nl Cardiovascular Regular Rate, Normal S1, Normal S2, No Murmurs Lungs crackles and wheezes bilaterally. Abdomen Normal Bowel Sounds, Soft, No Tenderness, No Hepatospenomegaly Neurological Normal Speech, Strength at 5/5 X4 Ext, Normal Tone, Cranial Nerves 3-12 NL, Reflexes 2+, sensation couldnt be tested Extremities No Clubbing, No Cyanosis, No Edema, Normal Pulses, No Tenderness/ Swelling Vascular Pulses Symmetrical CXR IMPRESSION: Increasing dense consolidation at right lung base due to infiltrate/atelectasis and effusion. Persistent central hilar pulmonary vascular congestion. 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 He has had bullous COPD for many years from previous history of [id number] smoking quit in 1989. His overall lung function has been progressively getting worse. In the recent past he was also noted to have bilateral lung masses concerning for malignancy by PET scan and he is not a great candidate for invasive workup due to end-stage lung disease and we will be doing a CAT scan in July for evaluation of this. 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 Patient has been on INH since April 28. He also does have ascending aortic aneurysm, abdominal aortic aneurysm before, and very severe end-stage lung disease with reduced DLCO. issues * Slowly improving Acute on chronic hypoxic and hypercarbic resp failure due to worsening ild, codp and prob malignancy in the rt lower lobe area compounded by mild fluid overload. 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
[2017-11-05 14:26] VITALS: BP 120/60
[2017-11-05 17:59] VITALS: BP 120/60
== END 2017-11-05 20:00 | DRG 196 ==
LOC: ERH 17:46 → 2NB 20:47 → ERHI 20:47 → CRI 20:47 → ENRESERV 23:54 → CRI 10-26 01:06 → 1NO 10-28 21:30 → ENTRNSPT 10-31 15:32 → EDTRNSPT 10-31 16:03 → EDTRNSPTSTS 10-31 16:03 → EDTRNSPT 10-31 16:24 → 2NB 10-31 16:35 → CMPTRNSPT 10-31 16:37 → 2NB 11-01 09:33 → ENPENDDIS 11-05 10:16 → 2NB 11-05 20:00
PROVIDERS: Internal Medicine; Internal Medicine Pulmonary Disease; Physician Assistant Medical; Student in an Organized Health Care Education/Training Program
PROC: 5A09457 Assistance with Respiratory Ventilation, 24-96 Consecutive Hours, Continuous Positive Airway Pressure (ICD-10-PCS; principal; 2017-10-26)
DX: J84.10 Pulmonary fibrosis, unspecified (principal); J96.21 Acute and chronic respiratory failure with hypoxia; J18.9 Pneumonia, unspecified organism; I95.9 Hypotension, unspecified; I48.91 Unspecified atrial fibrillation; E87.70 Fluid overload, unspecified; J44.0 Chronic obstructive pulmonary disease with (acute) lower respiratory infection; Z99.81 Dependence on supplemental oxygen; J96.22 Acute and chronic respiratory failure with hypercapnia; J44.1 Chronic obstructive pulmonary disease with (acute) exacerbation; R76.11 Nonspecific reaction to tuberculin skin test without active tuberculosis; R91.8 Other nonspecific abnormal finding of lung field; E03.9 Hypothyroidism, unspecified; Z86.718 Personal history of other venous thrombosis and embolism; Z85.51 Personal history of malignant neoplasm of bladder; I10 Essential (primary) hypertension; Z66 Do not resuscitate
CPT/HCPCS: 1NP; 2NSBP; CCU; ERO; 36415; 71045; 81001; 82436; 87040; 87070; 87086; 87449; 87450; 87804; 87804-59; 93005; 93010; 93306; 96374; 96375; 97110-GO; 97116-GO; 97161-GP; 97166-GO; 97530-GO; 99291; J0131; J0456; J0696; J0713; J1644; J1940; J2060; J2920; J2930; J3370; J3490; J7040; J7060; J7512

== ENCOUNTER 2017-11-06 02:31 | Observation (INO) | payer OTHER, MEDICARE ==
[~2017-11-06] VITALS: Ht 162.6 cm; Wt 78.7 kg
[~2017-11-06 02:31] MED LIST changes: +AMITIZA24 MC1 PO; +BACTRIM DS TAB1 EACH PO; +ELIQUIS5 M1 PO; +ESCITALOPRAM OX10 MG PO; +LIDODERM1 EACH TOP; +MIRALAX17 G1 PO; +PREDNISONE10 M2 PO; +SENOKOT-S TABL1 EACH PO; +SYNTHROID50 MCG PO; +TESSALON PERLE100 M1 PO; +ULTRAM50 M1 PO
--- NOTE | 2017-11-06 02:52 | ED DYSPNEA/ASTHMA COMPLAINT ---
See Addendum History of Present Illness General Chief Complaint: General Adult Stated Complaint: "ABD PAIN" Source: patient, family, EMS, [facility]10 Exam Limitations: clinical condition Vital Signs & Intake/Output Vital Signs & Intake/Output ED Intake and Output 11/09 0000 11/08 1200 Intake Total 200 250 Output Total 350 Balance -150 250 Intake, IV 10 Intake, Oral 200 240 Output, Urine 350 Allergies Coded Allergies: NO KNOWN ALLERGIES (12/07/11) Reconcile Medications Apixaban (Eliquis) 5 MG TABLET 1 TAB PO BID BLOOD THINNER Aspirin (Ecotrin*) 81 MG TABLET.DR 1 TAB PO DAILY HEART/BLOOD (Reported) Benzonatate (Tessalon Perle) 100 MG CAPSULE 1 CAP PO TID COUGH (Reported) Calcium Carbonate (Calcium) 500 MG CALCIUM (1,250 MG) TABLET 750 MG PO DAILY SUPPLEMENT (Reported) Cholecalciferol (Vitamin D3) (Vitamin D) 2,000 UNIT CAPSULE 1 TAB PO DAILY SUPPLEMENT (Reported) Escitalopram Oxalate 10 MG TABLET 1 TAB PO DAILY MENTAL HEALTH (Reported) Fluticasone/Vilanterol (Breo Ellipta 200-25 Mcg INH) 200 MCG-25 MCG/DOSE BLST.W.DEV 1 PUFF INH DAILY LUNG FIBROSIS (Reported) Folic Acid 0.8 MG CAPSULE 1 TAB PO DAILY SUPPLEMENT (Reported) Gabapentin 100 MG CAPSULE 1 CAP PO TID LUNG FIBROSIS (Reported) Isoniazid 100 MG TABLET 1 TAB PO TID LUNG FIBROSIS (Reported) Levothyroxine Sodium (Synthroid) 50 MCG TABLET 1 TAB PO DAILY AC HYPOTHYROIDISM Lidocaine (Lidoderm) 5 % ADH..PATCH 1 PAT TOP DAILY pain may wear up to 12 hours Lubiprostone (Amitiza) 24 MCG CAPSULE 1 CAP PO BID CONSTIPATION (Reported) Omeprazole 20 MG CAPSULE.DR 1 CAP PO DAILY GI (Reported) Polyethylene Glycol 3350 (Miralax) 17 GRAM POWD.PACK 1 PAC PO DAILY CONSTIPATION dissolve in water Prednisone 10 MG TABLET 1 TAB PO SEE ADMIN CRITERIA COPD please take 3 tabs (30 mg ) of prednisone for 2 weeks then 2 tabs( 20 mg) for 2 weeks then continue to take 1 tab(10 mg )..... Propranolol HCl (Propranolol HCl ER) 80 MG CAP.SA.24H 1 CAP PO DAILY MIGRAINES (Reported) Pyridoxine HCl (Vitamin B-6) 50 MG TABLET 1 TAB PO DAILY SUPPLEMENT (Reported ) Sennosides/Docusate Sodium (Senokot-S Tablet) 8.6 MG-50 MG TABLET 1 TAB PO BID PRN CONSTIPATION Sulfamethoxazole/Trimethoprim (Bactrim Ds Tablet) 800 MG-160 MG TABLET 1 TAB PO BID PCP prophylaxis take the medication on /WED/FRIDAYS Tiotropium [place] (Spiriva) 18 MCG CAP.W.DEV 1 CAP INH DAILY LUNG FIBROSIS ( Reported) Tramadol HCl (Ultram) 50 MG TABLET 1 TAB PO TIDPRN PAIN (Reported) Triage Note: PT BIBA FROM [facility]. PER EMS REPORT PT HAS A RECENT DIAGNOSIS OF PNA. STAFF AT [facility] INCREASED RESPIRATORY RATE. PT C/O R SIDED RIB PAIN. PER EMS PT WEARS 5 L NC AT BASELINE. Triage Nurses Notes Reviewed? yes Onset: Gradual Duration: hour(s): Timing: recent history Severity: mild Activities at Onset: none Prior Episodes/Possible Cause: frequent episodes Modifying Factors: Improves With: pain medication, rest. Associated Symptoms: right rib cage pain HPI: 82 yo gentleman h/o interstitial pulmonary fibrosis, discharged 8:30pm yesterday to [facility] presents with concern regarding his breathing. Per the medics, "When he arrived at the [facility], they were worried about his breathing." Per the patient, "I feel fine.... This is how I always breathe." Per his daughter, "He is breathing the way he always breathes." He notes that he is on 4-5liters at baseline. He has no wheezing, sputum, fever. He notes chronic right lower rib cage pain that he has had for many days , unchanged. He feels better when taking tramadol. He is otherwise well and is compliant with his medictations. (Gurwinder FAGAN,Sp Izquierdo) Past History Travel History Traveled to [place] past 21 day No Medical History Any Pertinent Medical History? see below for history Neurological: migraine EENT: NONE Cardiovascular: NONE Respiratory: COPD, LUNG FIBROSIS Gastrointestinal: STOMACH ULCERS Hepatic: NONE Renal: nephrolithiasis Musculoskeletal: NONE Psychiatric: NONE Endocrine: hypothyroidism Blood Disorders: BLOOD CLOT IN LLE Cancer(s): bladder cancer AGENCY SERVICE COORDINATOR/Reproductive: NONE History of MRSA: No History of VRE: No History of CDIFF: No Influenza Vaccine: 07/05/17 Surgical History Surgical History: ARZ KNEE REPL BLADDER CANCER - TUMOR TAKEN OUT INGUINAL HERNIA REPAIR DEVIATED SEPTUM KIDNEY STONES BLASTED Psychosocial History Who do you live with Spouse Services at Home None What is your primary language Yoruba Tobacco Use: Quit >30 days ago Daily Tobacco Use Amount/Type: =< 4 Cigarettes daily Family History Family History, If Any: Relation not specified for: *No pertinent family history Hx Contributory? No (Gurwinder FAGAN,Sp Izquierdo) Review of Systems Review of Systems Constitutional: Reports: no symptoms. EENTM: Reports: no symptoms. Respiratory: Reports: no symptoms. Cardiovascular: Reports: no symptoms. GI: Reports: no symptoms. Genitourinary: Reports: no symptoms. Musculoskeletal: Reports: no symptoms. Skin: Reports: no symptoms. Neurological/Psychological: Reports: no symptoms. Hematologic/Endocrine: Reports: no symptoms. Immunologic/Allergic: Reports: no symptoms. All Other Systems: Reviewed and Negative (Gurwinder FAGAN,Sp Izquierdo) Physical Exam Physical Exam General Appearance: well developed/nourished, no apparent distress, alert, awake , comfortable Head: atraumatic, normal appearance Eyes: Bilateral: normal appearance. Ears, Nose, Throat: normal pharynx, normal ENT inspection Neck: normal inspection, supple, full range of motion Respiratory: normal breath sounds, chest non-tender, no respiratory distress, quiet respiration, lungs clear, tachypneic Cardiovascular: regular rate/rhythm Gastrointestinal: normal bowel sounds, soft, non-tender Extremities: normal inspection Neurologic/Psych: no motor/sensory deficits, awake, alert, oriented x 3 Skin: intact, normal color, warm/dry Core Measures ACS in differential dx? No CVA/TIA Diagnosis No Sepsis Present: No Sepsis Focused Exam Completed? No (Gurwinder FAGAN,Sp Izquierdo) Progress Differential Diagnosis: asthma, AMI Plan of Care: Orders Procedure Date/time Status AEROSOL CHG 11/08 UNK Complete OXYGEN 11/08 UNK Complete OXYGEN DAILY CHARGE 11/08 UNK Complete EKG 11/06 0540 Active 11/06/2017 7:17:08 AM Signed out to me by Dr. Purdy. Pending case management evaluation for placement back to residential. 9 AM D/W STAR FROM CASE MANAGEMENT, WILL CALL [facility]. (Yoly FAGAN,Maddie) Diagnostic Imaging: Viewed by Me: Radiology Read. Discussed w/RAD: Radiology Read. CXR Impression: PATIENT: KELY POWELL PRESENT AGE: 82 PATIENT ACCOUNT NO: [id number] : 33 LOCATION: [facility] ORDERING PHYSICIAN: Sp Purdy MD SERVICE DATE: 11/06/17 EXAM TYPE: RAD - XRY-PORTABLE CHEST XRAY EXAMINATION: XR PORTABLE CHEST CLINICAL INFORMATION: Dyspnea. COMPARISON: Chest x-ray November 01, [address] of chest November 01, 2017. TECHNIQUE: Portable frontal view of the chest was obtained. 4: 17 AM FINDINGS: Low lung volume. Extensive pleural density along the right lateral chest wall and silhouetting the right diaphragm at the lung base unchanged since prior study. Is also pleural density along left lateral chest wall and at the left lung base. These densities are similar to prior CT chest November 01, 2017. There is central pulmonary vascular prominence accentuated by low inspiratory effort. Emphysematous changes of lung better demonstrated on the CT exam. IMPRESSION: Low lung volume. No new emphysematous changes of lung. Extensive bilateral basilar and pleural density greater on right than left similar to prior CT study. No new changes of lungs. DICTATED BY: Sudarshan Harley MD DATE/TIME DICTATED:11/06/17432 COMPUTER FIELD TECHNICIAN:CARI DATE/TIME TRANSCRIBED:11/06/17432 CONFIDENTIAL, DO NOT COPY WITHOUT APPROPRIATE AUTHORIZATION. <Electronically signed in Other Vendor System> SIGNED BY: Sudarshan Harley MD 11/06/17438 Initial ED EKG: afib, no acute changes. Hand-Off Endorsed To: Maddie Frederick MD Endorsed Time: 07 Pending: consult, other (dispo) (Gurwinder FAGAN,Sp Izquierdo) Hand-Off Endorsed To: Pablo Starks MD Endorsed Time: 1911 Pending: other (DISPO) (Maddie Frederick MD) Departure Departure Disposition: STILL A PATIENT Condition: Stable Referrals: Candido FAGAN,Tino Beck (PCP/Family) Departure Forms: Customer Survey General Discharge Information Comments 11/06/17, 5:26AM... discussed at length with family and patient... he does not want to return to his present ECF... he would like to discuss with case management other options. He cites that he pushed his call button for 1 hour and no one came. Will check trop/ekg #2 presently... case management to evaluate in the AM. (Gurwinder FAGAN,Sp Izquierdo) Departure Clinical Impression Primary Impression: Interstitial pulmonary fibrosis Secondary Impressions: Chest wall pain, Medical facility not available, Multifactorial gait disorder Observation Note Spoke With: Chela Aparicio MDtanya Physician Advisor Notified: DEB MOYER DO Place Patient In: Non-ED OBS Care Area Rationale for Observation: My rational for observation is as follows continuing care discharge planning physical therapy medication adjustment insure safety. (Tereza FAGAN,Pablo) Critical Care Note Critical Care Note Critical Care Time: non-applicable (Gurwinder FAGAN,Sp Izquierdo) (Lexapro) 1121 Fluticasone 2 PUF BID 11/06 1000 AC 11/06 Propionate 1121 (Flovent) Folic Acid 1 MG DAILY 11/06 1000 AC 11/06 (Folic Acid) 1011 Omeprazole 20 MG DAILY 11/06 1000 AC 11/06 (Prilosec) 1011 Prednisone 30 MG DAILY 11/06 1000 AC 11/06 1011 Propranolol HCl 80 MG DAILY 11/06 1000 AC 11/06 (Inderal [place] Cap) 1121 Tiotropium [place] 1 PUF DAILY 11/06 1000 AC 11/06 (Spiriva) 1121 Levothyroxine Sodium 0.05 MG DAILY AC 11/06 0700 AC 11/06 (Synthroid) 0648 Gabapentin 100 MG Q8 11/06 0600 AC 11/06 (Neurontin) 1513 Ipratropium [place] 2.5 ML Q6 11/06 0600 AC 11/06 (Atrovent) 1820 Tramadol HCl 100 MG Q8 11/06 0600 AC (Ultram) Acetaminophen 975 MG Q6P PRN 11/06 0530 AC 11/06 (Tylenol) 1012 Albuterol Sulfate 3 ML Q6 PRN 11/06 0530 AC 11/06 (Proventil) 1032 Laboratory Tests 11/06/17 0535: Troponin I 0.05 11/06/17 0257: Anion Gap 8, Estimated GFR 58 L, BUN/Creatinine Ratio 38.3 H, Glucose 82, Calcium 9.3, Total Bilirubin 0.4, Direct Bilirubin 0.2, AST 17, ALT 40, Alkaline Phosphatase 58, Troponin I 0.05, Total Protein 5.9 L, Albumin 3.2 L, Amylase 35, Lipase 26, CBC w Diff MAN DIFF ORDERED, RBC 4.50 L, MCV 91.7, MCH 28.9, MCHC 31.5 L, RDW 15.7 H, MPV 8.1, Gran % 85.3 H, Lymphocytes % 5.4 L, Monocytes % 5.6, Eosinophils % 3.3, Basophils % 0.4, Absolute Granulocytes 19.4 H, Segmented Neutrophils 80 H, Band Neutrophils 8 H, Absolute Lymphocytes 1.2, Lymphocytes 7 L, Monocytes 2, Absolute Monocytes 1.3 H, Eosinophils 3, Absolute Eosinophils 0.8, Absolute Basophils 0.1, Platelet Estimate ADEQUATE, Anisocytosis 1+ 11/06/2017 7:17:08 AM Signed out to me by Dr. Purdy. Pending case management evaluation for placement back to residential. 9 AM D/W STAR FROM CASE MANAGEMENT, WILL CALL [facility]. (Yoly FAGAN,Maddie) Diagnostic Imaging: Viewed by Me: Radiology Read. Discussed w/RAD: Radiology Read. CXR Impression: PATIENT: KELY POWELL PRESENT AGE: 82 PATIENT ACCOUNT NO: [id number] : 33 LOCATION: [facility] ORDERING PHYSICIAN: Sp Purdy MD SERVICE DATE: 11/06/17 EXAM TYPE: RAD - XRY-PORTABLE CHEST XRAY EXAMINATION: XR PORTABLE CHEST CLINICAL INFORMATION: Dyspnea. COMPARISON: Chest x-ray November 01, [address] of chest November 01, 2017. TECHNIQUE: Portable frontal view of the chest was obtained. 4: 17 AM FINDINGS: Low lung volume. Extensive pleural density along the right lateral chest wall and silhouetting the right diaphragm at the lung base unchanged since prior study. Is also pleural density along left lateral chest wall and at the left lung base. These densities are similar to prior CT chest November 01, 2017. There is central pulmonary vascular prominence accentuated by low inspiratory effort. Emphysematous changes of lung better demonstrated on the CT exam. IMPRESSION: Low lung volume. No new emphysematous changes of lung. Extensive bilateral basilar and pleural density greater on right than left similar to prior CT study. No new changes of lungs. DICTATED BY: Sudarshan Harley MD DATE/TIME DICTATED:11/06/17 0433 COMPUTER FIELD TECHNICIAN:CARI DATE/TIME TRANSCRIBED:11/06/17432 CONFIDENTIAL, DO NOT COPY WITHOUT APPROPRIATE AUTHORIZATION. <Electronically signed in Other Vendor System> SIGNED BY: Sudarshan Harley MD 11/06/17438 Initial ED EKG: afib, no acute changes. Hand-Off Endorsed To: Maddie Frdeerick MD Endorsed Time: 07 Pending: consult, other (dispo) (Sp Purdy MD) Hand-Off Endorsed To: Pablo Starks MD Endorsed Time: 1911 Pending: other (DISPO) (Maddie Frederick MD) Departure Departure Disposition: STILL A PATIENT Condition: Stable Referrals: Cadnido FAGAN,Tino Beck (PCP/Family) Departure Forms: Customer Survey General Discharge Information Comments 11/06/17, 5:26AM... discussed at length with family and patient... he does not want to return to his present ECF... he would like to discuss with case management other options. He cites that he pushed his call button for 1 hour and no one came. Will check trop/ekg #2 presently... case management to evaluate in the AM. (Sp Purdy MD) Departure Clinical Impression Primary Impression: Interstitial pulmonary fibrosis Secondary Impressions: Chest wall pain, Medical facility not available, Multifactorial gait disorder Observation Note Spoke With: Chela Aparicio [facility] Physician Advisor Notified: DEB MOYER DO Place Patient In: Non-ED OBS Care Area Rationale for Observation: My rational for observation is as follows continuing care discharge planning physical therapy medication adjustment insure safety. (Pablo Starks MD) Critical Care Note Critical Care Note Critical Care Time: non-applicable (Sp Purdy MD)
[2017-11-06 03:13] LABS: ABSOLUTE BASOPHIL COUNT 0.1 /CUMM (0.0-0.2); ABSOLUTE EOSINOPHIL COUNT 0.8 /CUMM (0.0-0.7); ABSOLUTE GRANULOCYTE CT 19.4 /CUMM (1.4-6.5); ABSOLUTE LYMPH COUNT 1.2 /CUMM (1.2-3.4); ABSOLUTE MONOCYTE COUNT 1.3 /CUMM (0.10-0.60); BASOPHIL % 0.4 % (0.0-2.0); EOSINOPHIL % 3.3 % (0-5); GRANULOCYTE % 85.3 % (42.2-75.2); HEMATOCRIT 41.2 % (42-52); MEAN CORPUSCULAR HGB 28.9 PG (27.0-31.0); MEAN CORPUSCULAR HGB CONC 31.5 G/DL (33.0-37.0); MEAN CORPUSCULAR VOLUME 91.7 FL (80.0-94.0); MEAN PLATELET VOLUME 8.1 FL (7.4-10.4); PLATELET COUNT 232 /CUMM (130-400); RBC DISTRIBUTION WIDTH 15.7 % (11.5-14.5); WHITE BLOOD CELL COUNT 22.7 /CUMM (4.8-10.8)
--- NOTE | 2017-11-06 04:39 | RADIOLOGY REPORT ---
EXAMINATION: XR PORTABLE CHEST CLINICAL INFORMATION: Dyspnea. COMPARISON: Chest x-ray November 01, [address] of chest November 01, 2017. TECHNIQUE: Portable frontal view of the chest was obtained. 4:17 AM FINDINGS: Low lung volume. Extensive pleural density along the right lateral chest wall and silhouetting the right diaphragm at the lung base unchanged since prior study. Is also pleural density along left lateral chest wall and at the left lung base. These densities are similar to prior CT chest November 01, 2017. There is central pulmonary vascular prominence accentuated by low inspiratory effort. Emphysematous changes of lung better demonstrated on the CT exam. IMPRESSION: Low lung volume. No new emphysematous changes of lung. Extensive bilateral basilar and pleural density greater on right than left similar to prior CT study. No new changes of lungs.
--- NOTE | 2017-11-06 20:33 | History & Physical ---
Jimmie FAGAN,[facility] 11/06/172031: General Information and HPI MD Statement: I have seen and personally examined KELY POWELL and documented this H&P. The patient is a 82 year old M who presented with a patient stated chief complaint of [BIBA for concerns of SOB and pain by ECF]. Source of Information: patient, family History of Present Illness: Patient is 81-year-old male with past medical history of restrictive severe interstitial pulmonary fibrosis and severe emphysema with end-stage lung disease and multiple lung nodules, history of latent TB currently on isoniazid and vitamin B6, recently discharged due to acute hypoxemic and hypercarbic respiratory failure 2/2 to COPD Exacerbation in setting of severe interstitial lung disease and emphysema and new onset afib BIBA by ECF due to concerns of patient's pain and SOB. The history was given by the patient's family member. The patient was recently discharged yesterday from [facility] and went to the ECF around 8pm yesterday. Per the family member, the patient did not received any of his meds there. The patient asked for his pain medications and it was not given. 1 hr later the patient started screaming for his pain meds. Given his respiratory condition and need for pain medication, the ECF was concerned and sent the patient via ambulance to [facility]. The family member states that the patient is currently at his baseline resp status at this time. Allergies/Medications Allergies: Coded Allergies: NO KNOWN ALLERGIES (12/07/11) Home Med list Apixaban (Eliquis) 5 MG TABLET 1 TAB PO BID BLOOD THINNER Aspirin (Ecotrin*) 81 MG TABLET.DR 1 TAB PO DAILY HEART/BLOOD (Reported) Benzonatate (Tessalon Per[place]) 100 MG CAPSULE 1 CAP PO TID COUGH (Reported) Calcium Carbonate (Calcium) 500 MG CALCIUM (1,250 MG) TABLET 750 MG PO DAILY SUPPLEMENT (Reported) Cholecalciferol (Vitamin D3) (Vitamin D) 2,000 UNIT CAPSULE 1 TAB PO DAILY SUPPLEMENT (Reported) Escitalopram Oxalate 10 MG TABLET 1 TAB PO DAILY MENTAL HEALTH (Reported) Fluticasone/Vilanterol (Breo Ellipta 200-25 Mcg INH) 200 MCG-25 MCG/DOSE BLST.W.DEV 1 PUFF INH DAILY LUNG FIBROSIS (Reported) Folic Acid 0.8 MG CAPSULE 1 TAB PO DAILY SUPPLEMENT (Reported) Gabapentin 100 MG CAPSULE 1 CAP PO TID LUNG FIBROSIS (Reported) Isoniazid 100 MG TABLET 1 TAB PO TID LUNG FIBROSIS (Reported) Levothyroxine Sodium (Synthroid) 50 MCG TABLET 1 TAB PO DAILY AC HYPOTHYROIDISM Lidocaine (Lidoderm) 5 % ADH..PATCH 1 PAT TOP DAILY pain may wear up to 12 hours Lubiprostone (Amitiza) 24 MCG CAPSULE 1 CAP PO BID CONSTIPATION (Reported) Omeprazole 20 MG CAPSULE.DR 1 CAP PO DAILY GI (Reported) Polyethylene Glycol 3350 (Miralax) 17 GRAM POWD.PACK 1 PAC PO DAILY CONSTIPATION dissolve in water Prednisone 10 MG TABLET 1 TAB PO SEE ADMIN CRITERIA COPD please take 3 tabs (30 mg ) of prednisone for 2 weeks then 2 tabs( 20 mg) for 2 weeks then continue to take 1 tab(10 mg )..... Propranolol HCl (Propranolol HCl ER) 80 MG CAP.SA.24H 1 CAP PO DAILY MIGRAINES (Reported) Pyridoxine HCl (Vitamin B-6) 50 MG TABLET 1 TAB PO DAILY SUPPLEMENT (Reported ) Sennosides/Docusate Sodium (Senokot-S Tablet) 8.6 MG-50 MG TABLET 1 TAB PO BID PRN CONSTIPATION Sulfamethoxazole/Trimethoprim (Bactrim Ds Tablet) 800 MG-160 MG TABLET 1 TAB PO BID PCP prophylaxis take the medication on /WED/FRIDAYS Tiotropium [place] (Spiriva) 18 MCG CAP.W.DEV 1 CAP INH DAILY LUNG FIBROSIS ( Reported) Tramadol HCl (Ultram) 50 MG TABLET 1 TAB PO TIDPRN PAIN (Reported) Past History Travel History Traveled to [place] past 21 day No Medical History Neurological: migraine EENT: NONE Cardiovascular: NONE Respiratory: COPD, LUNG FIBROSIS Gastrointestinal: STOMACH ULCERS Hepatic: NONE Renal: nephrolithiasis Musculoskeletal: NONE Psychiatric: NONE Endocrine: hypothyroidism Blood Disorders: BLOOD CLOT IN LLE Cancer(s): bladder cancer [employer]/Reproductive: NONE History of MRSA: No History of VRE: No History of CDIFF: No Surgical History Surgical History: RAZ KNEE REPL BLADDER CANCER - TUMOR TAKEN OUT INGUINAL HERNIA REPAIR DEVIATED SEPTUM KIDNEY STONES BLASTED Past Family/Social History Family History Relations & Conditions if any Relation not specified for: *No pertinent family history Psychosocial History Services at Home: None Functional Ability ADLs Independent: eating, toileting. Unknown: dressing, bathing. Ambulation: walker IADLs Unknown: shopping, housework, finances, food prep, telephone, transportation, medication admin. Review of Systems Review of Systems Constitutional: Reports: no symptoms. Cardiovascular: Reports: no symptoms. Respiratory: Reports: see HPI. GI: Reports: no symptoms. Genitourinary: Reports: no symptoms. Musculoskeletal: Reports: see HPI (R rib pain). Exam & Diagnostic Data Last 24 Hrs of Vital Signs/I&O Vital Signs Date Time Temp Pulse Resp B/P B/P Pulse O2 O2 Flow FiO2 Mean Ox Delivery Rate 11/06 2356 98.5 68 24 118/74 92 Nasal 4.0L Cannula 11/06 2300 66 18 128/68 94 Nasal 4.0L Cannula 11/06 2127 75 22 126/68 94 Nasal 4.0L Cannula 11/06 1823 Nasal 4.0L Cannula 11/06 1623 96.5 77 28 136/81 97 Nasal Cannula 11/06 1121 107 138/78 11/06 1032 Nasal 4.0L Cannula 11/06 1014 97.4 107 20 138/78 94 Nasal 4.0L Cannula 11/06 0634 97 Nasal 4.0L Cannula 11/06 0613 98.1 97 18 121/72 96 Room Air 11/06 0434 98.3 76 18 113/80 97 Nasal 5.0L Cannula 11/06 0237 Nasal 5.0L Cannula 11/06 0236 97.9 93 20 121/80 96 Nasal 4.0L Cannula Intake & Output 11/07 0800 11/07 0000 11/06 1600 Intake Total Output Total Balance Patient 173 lb Weight Physical Exam General Appearance Alert, No Acute Distress Cardiovascular irregular irregular Lungs decrease air movement diffusely, b/l diffuse inspiratory crackles Abdomen Normal Bowel Sounds, Soft, No Tenderness Extremities no LE swelling Last 24 Hrs of Labs/Aakash: Laboratory Tests 11/06/17 0535: Troponin I 0.05 11/06/17 0257: Anion Gap 8, Estimated GFR 58 L, BUN/Creatinine Ratio 38.3 H, Glucose 82, Calcium 9.3, Total Bilirubin 0.4, Direct Bilirubin 0.2, AST 17, ALT 40, Alkaline Phosphatase 58, Troponin I 0.05, Total Protein 5.9 L, Albumin 3.2 L, Amylase 35, Lipase 26, CBC w Diff MAN DIFF ORDERED, RBC 4.50 L, MCV 91.7, MCH 28.9, MCHC 31.5 L, RDW 15.7 H, MPV 8.1, Gran % 85.3 H, Lymphocytes % 5.4 L, Monocytes % 5.6, Eosinophils % 3.3, Basophils % 0.4, Absolute Granulocytes 19.4 H, Segmented Neutrophils 80 H, Band Neutrophils 8 H, Absolute Lymphocytes 1.2, Lymphocytes 7 L, Monocytes 2, Absolute Monocytes 1.3 H, Eosinophils 3, Absolute Eosinophils 0.8, Absolute Basophils 0.1, Platelet Estimate ADEQUATE, Anisocytosis 1+ Assessment/Plan Assessment: Patient is 81-year-old male with past medical history of restrictive severe interstitial pulmonary fibrosis and severe emphysema with end-stage lung disease and multiple lung nodules, history of latent TB currently on isoniazid and vitamin B6, recently discharged due to acute hypoxemic and hypercarbic respiratory failure 2/2 to COPD Exacerbation in setting of severe interstitial lung disease and emphysema and new onset afib sent in by ambulance by ECF due to concerns of patient's pain and SOB. #COPD placement issues Low lung volume. No new emphysematous changes of lung. Extensive bilateral basilar and pleural density greater on right than left similar to prior CT study.No new changes of lungs. Patient recently discharged for cute hypoxemic and hypercarbic respiratory failure 2/2 to COPD Exacerbation in setting of severe interstitial lung disease and emphysema and new onset afib -currently awaiting placement #leukocytosis wbc 22.7 with 8 bands -most likely due to steroids, pt afebrile -cont to monitor #hyponatermia Na 136 -cont to monitor #copd -cont spiriva, flovent, ipratropium, prednisone, tessalon paerls #afib -cont aspirin, eliquis, prpanolol #latent tb -cont isoniazid #gerd -cont omeprazole, #chornic pain -cont gabapentin #hypothyrodism -cont levothyroxine, #multivitamins -cont folic acid #mental health -cont escitalopram #FULL CODE #dvt prophylaxis - cont eliquis As Ranked By This Provider Problem List: 1. Medical facility not available 2. COPD (chronic obstructive pulmonary disease) Core Measures/Misc (06/13) Acute Coronary Syndrome ACS Diagnosis: No Congestive Heart Failure Congestive Heart Failure Diagnosis No Cerebrovascular Accident CVA/TIA Diagnosis: No VTE (View Protocol) VTE Risk Factors Acute Medical Illness No Mechanical VTE Prophylaxis d/t Other No VTE Pharm Prophylaxis d/t Other (eliquis) Sepsis (View protocol) Sepsis Present: Yes Markus FAGAN, [facility] 11/07/17 0506: Attending MD Review Statement Attending Statement Attending MD Statement: examined this patient, discuss w/resident/PA/BENEFITS COORDINATOR, agreed w/resident/PA/BENEFITS COORDINATOR, discussed with family, reviewed images, amended to note Attending Assessment/Plan: 82 yo Gabonese speaking M, with h/o interstitial pulmonary fibrosis, mixed restrictive obstructive lung disease with very severe emphysematous lung disease on 4L O2 and prednisone, lung nodules, HTN, hypothyroidism, DVT, latent TB on INH, AAA, bladder cancer in remission, was admitted to [place] (10/25 11/05) for new onset afib, COPD exacerbation and pneumonia, and discharged to [facility] for further care. However a few hours later, he was brought to the ER for c/o increased RR and right sided lower chest/rib pain. Patient states that he did not get his pain medication (tramadol) on time. He hit the call button but no nurse responded for over an hour. He states, 'this is how I always breathe'. Patient was evaluated in the ER, and case management was consulted for placement. Daughter refused to send patient back to [place]. Case management is working on finding him a bed at either [facility] or [facility]. Patient currently feels comfortable, denies any chest pain, palpitations or dyspnea. Vitals stable. Exam: AAO, PERRL, Neck supple, Chest bibasilar coarse crackles with reduced air entry, no wheeze or rhonchi. Heart S1S2 irregular, Abd soft, NT , LE no edema. Labs: WBC 22.7 (on steroids), bands 8, Na 136, bicarb 35, BUN 46, trop neg. CXR: low lung volumes, no new changes in the lung. EKG: Afib @ 90, Qtc 411. Echo (2018): EF 65-70%, mild to moderate AR, mild to mod pulm hypertension. Assessment and plan: 1. Weakness, tachypnea, deconditioning 2. Right sided chest/ rib pain 3. Severe pulmonary fibrosis, COPD 4. Chronic hypoxic respiratory failure 5. Atrial fibrillation on eliquis 6. History of latent TB on INH - 23 hour observation on General medicine - TRC nebs, incentive spirometry - Continue pain mangement with tramadol and tylenol - PT therapy, case management consult - Rehab placement when bed available - Serial EKG and troponin done negative - Continue prednisone taper as prescribed with Bactrim for PCP prophylaxis - Resume all home meds DVT ppx Eliquis. DNR/I. Observation Initial Note - I have personally examined KELY POWELL on 11/07/17 at 0507. The disposition of KELY POWELL is uncertain at this time and before a determination can be made, he requires a period of observation for the following reasons [Physical deconditioning, dyspnea, COPD] Jerri FAGAN,[facility] 11/07/17 0629: Resident Review Statement Resident Statement: examined this patient, discussed with production intern, agreed with production intern, discussed with family Other Findings: Mr. Powell is 81-year-old male with past medical history of restrictive severe interstitial pulmonary fibrosis and severe emphysema with end-stage lung disease and multiple lung nodules, history of latent TB currently on isoniazid and vitamin B6 started April 28 2017, progressive respiratory failure with increasing O2 requirements, ascending aortic aneurysm who was discharged yesterday after he was treated for COPD exacerbation, new onset A. fib was started on Eliquis for anticoagulation. Patient was discharged to [facility] yesterday. History obtained from the daughter at bedside, claimed that patient didn't take any of his medications especially tramadol for pain for the couple of hours he spent, his daughter to be very frustrated because of pain and STIR decided to discharge him to ED for evaluation and placement. Problem list End-stage lung disease Latent TB on isoniazid side and prophylaxis for PCP given long-term steroid use New onset atrial fibrillation with normal LVEF Bilateral pleural based masses with pleuritic pain Plan -Observe patient in general medical floor -Case management consultation for placement -Vitals every shift -TRC -Continue oxygen supplementation -Ambulate and increase activity pending placement -Continue home medication including elequis, isoniazid, vitamin B6, Bactrim as a PCP prophylaxis, steroid taper--Prednisone (30 mg ) for 2 weeks, ( 20 mg) for 2 weeks, then continue (10 mg ). -Pain medication -Diet heart healthy -Code DNR/DNI
[2017-11-06 23:56] VITALS: BP 118/74
[2017-11-07 06:20] VITALS: BP 122/68
--- NOTE | 2017-11-07 08:40 | PN-Observation ---
Malena FAGAN,[facility] 11/07/17 0839: Observation Note Observation Note _ I have personally examined KELY POWELL. him disposition is uncertain at this time. Before a determination can be made, he requires continued observation for the following reasons [STR placement for COPD]. Assessment/Plan Assessment: Patient is 81-year-old male with past medical history of restrictive severe interstitial pulmonary fibrosis and severe emphysema with end-stage lung disease and multiple lung nodules, history of latent TB currently on isoniazid and vitamin B6, recently discharged due to acute hypoxemic and hypercarbic respiratory failure 2/2 to COPD Exacerbation in setting of severe interstitial lung disease and emphysema and new onset afib sent in by ambulance by ECF due to concerns of patient's pain and SOB. Patient recently discharged for cute hypoxemic and hypercarbic respiratory failure 2/2 to COPD Exacerbation in setting of severe interstitial lung disease and emphysema and new onset afib Assessment and plan #COPD placement issues Low lung volume. No new emphysematous changes of lung. Extensive bilateral basilar and pleural density greater on right than left similar to prior CT study.No new changes of lungs. -cont spiriva, flovent, ipratropium, prednisone, tessalon paerls -currently awaiting placement #leukocytosis wbc 24.5 with 7 bands neutrophils. -most likely due to steroids, pt afebrile. Patient is on prolonged tapering dose of steroid as per Dr. Jain. -cont to monitor #hyponatermia Na 138. -cont to monitor #afib -cont aspirin, eliquis, prpanolol #latent tb -cont isoniazid #gerd -cont omeprazole, #chornic pain -cont gabapentin #hypothyrodism -cont levothyroxine, #mental health -cont escitalopram #FULL CODE #dvt prophylaxis - cont eliquis Problem List: 1. COPD (chronic obstructive pulmonary disease) DVT/Prophylaxis: mechanical, pharmacological Subjective Follow-up For: COPD, atrial fibrillation, awaiting placement Complaints: no complaints Subjective: Patient was seen and examined at bedside. No complaints. No overnight events. He denies chest pain, chest pressure, nausea, vomiting, shortness of breath. Review of Systems Constitutional: Reports: no symptoms. Cardiovascular: Reports: no symptoms. Respiratory: Reports: no symptoms. Gastrointestinal: Reports: no symptoms. Genitourinary: Reports: no symptoms. Musculoskeletal: Reports: no symptoms. Objective Last 24 Hrs of Vital Signs/I&O Vital Signs Date Time Temp Pulse Resp B/P B/P Pulse O2 O2 Flow FiO2 Mean Ox Delivery Rate 11/07 0800 98 Nasal 4.0L Cannula 11/07 0620 98.1 78 24 122/68 99 Nasal 4.0L Cannula 11/07 0000 Nasal 4.0L Cannula 11/06 2356 98.5 68 24 118/74 92 Nasal 4.0L Cannula 11/06 2300 66 18 128/68 94 Nasal 4.0L Cannula 11/06 2127 75 22 126/68 94 Nasal 4.0L Cannula 11/06 1823 Nasal 4.0L Cannula 11/06 1623 96.5 77 28 136/81 97 Nasal Cannula Intake & Output 11/07 1600 11/07 0800 11/07 0000 Intake Total 400 Output Total Balance 400 Intake, Oral 400 Number 1 Bowel Movements Patient 173 lb Weight Physical Exam General Appearance: Alert, Oriented X3, Cooperative, No Acute Distress Skin: No Rashes HEENT: PERRLA, EOMI Cardiovascular: Normal S1, Normal S2, No Murmurs, Gallops Lungs: Normal Air Movement Abdomen: Soft, No Tenderness, No Hepatospenomegaly Neurological: Normal Speech, Normal Tone, Sensation Intact Extremities: No Cyanosis, No Edema, Normal Pulses Current Medications: Current Medications Sig/Marah Start time Last Medication Dose Route Stop Time Status Admin Acetaminophen 650 MG Q6P PRN 11/07 0130 AC PO Acetaminophen 975 MG Q6P PRN 11/06 0530 AC 11/07 PO 1120 Albuterol Sulfate 3 ML Q6 PRN 11/06 0530 AC 11/06 INH 1032 Apixaban 5 MG BID 11/06 1000 AC 11/07 PO 0950 Aspirin 81 MG DAILY 11/06 1000 AC 11/07 PO 0950 Benzonatate 100 MG TID 11/06 1000 AC 11/07 PO 0950 Docusate Sodium 100 MG DAILY 11/07 1000 AC 11/07 PO 0950 Enoxaparin Sodium 40 MG DAILY 11/07 1000 CAN SC Escitalopram Oxalate 10 MG DAILY 11/06 1000 AC 11/07 PO 0951 Fluticasone 2 PUF BID 11/06 1000 AC 11/07 Propionate INH 0951 Folic Acid 1 MG DAILY 11/06 1000 AC 11/07 PO 0951 Gabapentin 100 MG Q8 11/06 0600 AC 11/07 PO 0520 Ipratropium [place] 2.5 ML Q6 11/06 0600 AC 11/06 INH 1820 Isoniazid 300 MG DAILY 11/07 1000 AC PO Isoniazid 100 MG TID 11/06 1000 DC 11/06 PO 1121 Levothyroxine Sodium 0.05 MG DAILY AC 11/06 0700 AC 11/07 PO 0520 Lidocaine 1 PAT DAILY 11/07 1000 AC EXT Omeprazole 20 MG DAILY 11/06 1000 AC 11/07 PO 0952 Polyethylene Glycol 17 GM DAILY 11/07 1000 AC 11/07 PO 0951 Prednisone 30 MG DAILY 11/06 1000 AC 11/07 PO 0950 Propranolol HCl 80 MG DAILY 11/06 1000 AC 11/07 PO 0950 Pyridoxine HCl 50 MG DAILY 11/07 1000 AC 11/07 PO 0950 Tiotropium [place] 1 PUF DAILY 11/06 1000 AC 11/07 INH 0952 Tramadol HCl 0 .STK-MED ONE 11/06 2241 DC PO Tramadol HCl 0 .STK-MED ONE 11/06 2047 DC PO Tramadol HCl 50 MG Q8P PRN 11/06 2044 AC 11/07 PO 0542 Tramadol HCl 0 .STK-MED ONE 11/06 1132 DC PO Tramadol HCl 50 MG ONCE ONE 11/06 1130 DC 11/06 PO 11/06 1131 1133 Tramadol HCl 100 MG Q8 11/06 0600 DC 11/06 PO 2248 Trimethoprim/ 1 TAB BID 11/07 1000 AC 11/07 Sulfamethoxazole PO 0950 Last 24 Hrs of Labs/Mics: Laboratory Tests 11/07/17 0757: Anion Gap 7, Estimated GFR > 60, BUN/Creatinine Ratio 60.0 H, CBC w Diff MAN DIFF ORDERED, RBC 4.32 L, MCV 93.0, MCH 30.2, MCHC 32.5 L, RDW 16.1 H, MPV 8.1, Gran % 83.4 H, Lymphocytes % 5.3 L, Monocytes % 2.2, Eosinophils % 8.8 H , Basophils % 0.3, Absolute Granulocytes 20.5 H, Segmented Neutrophils 69, Band Neutrophils 7 H, Absolute Lymphocytes 1.3, Lymphocytes 12 L, Monocytes 2, Absolute Monocytes 0.5, Eosinophils 10 H, Absolute Eosinophils 2.2, Absolute Basophils 0.1, Platelet Estimate ADEQUATE, Normocytic RBCs VERIFIED, Normochromic RBCs VERIFIED Hector MD,[facility] 11/07/17 1215: Observation Note Observation Note _ I have personally examined KELY POWELL. him disposition is uncertain at this time. Before a determination can be made, he requires continued observation for the following reasons []. Patient seen and examined, offers no complaints. Feeling overall better. Requiring 4 L of oxygen. Vital signs are stable. On lung exam patient continues to have coarse crackles. Laboratory Tests 11/07 0757 Chemistry Sodium (137 - 145 mmol/L) 138 Potassium (3.5 - 5.1 mmol/L) 4.8 Chloride (98 - 107 mmol/L) 95 L Carbon Dioxide (22 - 30 mmol/L) 36 H Anion Gap (5 - 16) 7 BUN (9 - 20 mg/dL) 48 H Creatinine (0.7 - 1.2 mg/dL) 0.8 Estimated GFR (>60 ml/min) > 60 BUN/Creatinine Ratio (7 - 25 %) 60.0 H Hematology CBC w Diff MAN DIFF ORDERED WBC (4.8 - 10.8 /CUMM) 24.5 H RBC (4.70 - 6.10 /CUMM) 4.32 L Hgb (14.0 - 18.0 G/DL) 13.0 L Hct (42 - 52 %) 40.1 L MCV (80.0 - 94.0 FL) 93.0 MCH (27.0 - 31.0 PG) 30.2 MCHC (33.0 - 37.0 G/DL) 32.5 L RDW (11.5 - 14.5 %) 16.1 H Plt Count (130 - 400 /CUMM) 219 MPV (7.4 - 10.4 FL) 8.1 Gran % (42.2 - 75.2 %) 83.4 H Lymphocytes % (20.5 - 51.1 %) 5.3 L Monocytes % (1.7 - 9.3 %) 2.2 Eosinophils % (0 - 5 %) 8.8 H Basophils % (0.0 - 2.0 %) 0.3 Absolute Granulocytes (1.4 - 6.5 /CUMM) 20.5 H Segmented Neutrophils (42.2 - 75.2 %) 69 Band Neutrophils (0.0 - 5.0 %) 7 H Absolute Lymphocytes (1.2 - 3.4 /CUMM) 1.3 Lymphocytes (20.5 - 51.1 %) 12 L Monocytes (1.7 - 9.3 %) 2 Absolute Monocytes (0.10 - 0.60 /CUMM) 0.5 Eosinophils (0 - 5.0 %) 10 H Absolute Eosinophils (0.0 - 0.7 /CUMM) 2.2 Absolute Basophils (0.0 - 0.2 /CUMM) 0.1 Platelet Estimate (ADEQUATE) ADEQUATE Normocytic RBCs VERIFIED Normochromic RBCs VERIFIED A/P; 82 yo Prydeinig speaking M, with h/o interstitial pulmonary fibrosis, mixed restrictive obstructive lung disease with very severe emphysematous lung disease on 4L O2 and prednisone, ch resp failure, lung nodules, HTN, hypothyroidism, DVT , latent TB on INH, AAA, bladder cancer in remission, was admitted to [place] ( 10/25 11/05) for new onset afib, COPD exacerbation and pneumonia, and discharged to [facility] for further care. However a few hours later, he was brought to the ER for c/o increased RR and right sided lower chest/rib pain. Patient states that he did not get his pain medication (tramadol) on time patient is placed on general medicine observation with generalized weakness, pain, shortness of breath . Continue current medications. Patient on prolonged prednisone taper as recommended by Dr. Jain. Patient on Eliquis. Will need placement.
[2017-11-07 08:41] LABS: ABSOLUTE BASOPHIL COUNT 0.1 /CUMM (0.0-0.2); ABSOLUTE EOSINOPHIL COUNT 2.2 /CUMM (0.0-0.7); ABSOLUTE GRANULOCYTE CT 20.5 /CUMM (1.4-6.5); ABSOLUTE LYMPH COUNT 1.3 /CUMM (1.2-3.4); ABSOLUTE MONOCYTE COUNT 0.5 /CUMM (0.10-0.60); BASOPHIL % 0.3 % (0.0-2.0); EOSINOPHIL % 8.8 % (0-5); GRANULOCYTE % 83.4 % (42.2-75.2); HEMATOCRIT 40.1 % (42-52); MEAN CORPUSCULAR HGB 30.2 PG (27.0-31.0); MEAN CORPUSCULAR HGB CONC 32.5 G/DL (33.0-37.0); MEAN PLATELET VOLUME 8.1 FL (7.4-10.4); PLATELET COUNT 219 /CUMM (130-400); RBC DISTRIBUTION WIDTH 16.1 % (11.5-14.5); RED BLOOD CELL CT 4.32 /CUMM (4.70-6.10); WHITE BLOOD CELL COUNT 24.5 /CUMM (4.8-10.8)
[2017-11-07 14:43] VITALS: BP 110/60
[2017-11-07 23:10] VITALS: BP 96/60
[2017-11-08 06:20] VITALS: BP 110/64
--- NOTE | 2017-11-08 07:54 | PN-Observation ---
Kanika Chi 11/08/17 0754: Observation Note Observation Note _ have personally examined KELY POWELL. him disposition is uncertain at this time. Before a determination can be made, he requires continued observation for the following reasons [STR placement for Acute hypoxemic and hypercarbic respiratory failure 2/2 to COPD Exacerbation in setting of severe interstitial lung disease and emphysema ]. Assessment/Plan Assessment: Assessment and plan Acute hypoxemic and hypercarbic respiratory failure 2/2 to COPD Exacerbation in setting of severe interstitial lung disease and emphysema-placement issues : * Few hours after discharge to the rehabilitation he was brought to the ER for c /o increased RR and right sided lower chest/rib pain. Patient states that he did not get his pain medication (tramadol) on time patient, was placed on general medicine observation with generalized weakness, pain, shortness of breath. * Low lung volume. No new emphysematous changes of lung. Extensive bilateral basilar and pleural density greater on right than left similar to prior CT study.No new changes of lungs. * cont spiriva, flovent, ipratropium, prednisone, tessalon paerls. * Patient and the family refused to be discharged to [facility], now being discharged to [facility]. - #leukocytosis * wbc 24.5 with 7 bands neutrophils. -most likely due to steroids, pt afebrile. Patient is on prolonged tapering dose of steroid as per Dr. Jain. #hyponatermia * Resolved New-onset atrial fibrillation -cont aspirin, eliquis, prpanolol #latent tb -cont isoniazid #gerd -cont omeprazole, #chornic pain -cont gabapentin #hypothyrodism -cont levothyroxine, #mental health -cont escitalopram #FULL CODE #dvt prophylaxis - cont eliquis Problem List: 1. COPD (chronic obstructive pulmonary disease) 2. Interstitial pulmonary fibrosis 3. New onset a-fib 4. Respiratory failure Subjective Follow-up For: Acute hypoxemic and hypercarbic respiratory failure 2/2 to COPD Exacerbation in setting of severe interstitial lung disease and emphysema Subjective: Patient is seen and examined this morning, lying comfortably in the bed denies any shortness of breath and chest discomfort palpitations at his baseline 4 L oxygen through nasal cannula. The patient remains stable he will be discharged to another rehabilitation as per patient and family wishes Review of Systems Constitutional: Denies: chills, diaphoresis, malaise. EENTM: Denies: blurred vision, double vision, visual changes. Cardiovascular: Denies: chest pain, edema, orthopena. Respiratory: Denies: cough, hemoptysis, orthopnea. Gastrointestinal: Denies: abdominal pain, constipation, diarrhea. Genitourinary: Denies: discharge, dysuria, frequency. Musculoskeletal: Denies: back pain, gout. Skin: Denies: change in skin color, change in hair/nails. Objective Last 24 Hrs of Vital Signs/I&O Vital Signs Date Time Temp Pulse Resp B/P B/P Pulse O2 O2 Flow FiO2 Mean Ox Delivery Rate 11/08 1445 98.5 75 20 100/60 11/08 1349 98.5 75 20 100/60 96 Nasal 5.0L Cannula 11/08 0846 96 Nasal 5.0L Cannula 11/08 0829 110/64 11/08 0800 Nasal 5.0L Cannula 11/08 0620 98.3 63 20 110/64 99 Nasal Cannula 11/08 0000 98 Nasal 5.0L Cannula 11/07 2310 98.8 66 24 96/60 98 Nasal Cannula 11/07 1740 90 Nasal 4.0L Cannula 11/07 1600 92 Nasal 4.0L Cannula Intake & Output 11/08 1600 11/08 0800 11/08 0000 Intake Total 200 250 400 Output Total 350 Balance -150 250 400 Intake, IV 10 Intake, Oral 200 240 400 Output, Urine 350 Physical Exam General Appearance: Alert, Oriented X3 Skin: No Rashes Cardiovascular: Regular Rate, Normal S1, Normal S2 Lungs: Clear to Auscultation, Normal Air Movement Abdomen: Normal Bowel Sounds, Soft Current Medications: Current Medications Sig/Marah Start time Last Medication Dose Route Stop Time Status Admin Acetaminophen 650 MG Q6P PRN 11/07 0130 AC 11/08 PO 1407 Acetaminophen 975 MG Q6P PRN 11/06 0530 DC 11/07 PO 1120 Albuterol Sulfate 3 ML TID 11/07 1600 AC 11/08 INH 1323 Apixaban 5 MG BID 11/06 1000 AC 11/08 PO 0829 Aspirin 81 MG DAILY 11/06 1000 AC 11/08 PO 0829 Benzonatate 100 MG TID 11/06 1000 AC 11/08 PO 0829 Docusate Sodium 100 MG DAILY 11/07 1000 AC 11/08 PO 0829 Escitalopram Oxalate 10 MG DAILY 11/06 1000 AC 11/08 PO 0829 Fluticasone 2 PUF BID 11/06 1000 AC 11/08 Propionate INH 0830 Folic Acid 1 MG DAILY 11/06 1000 AC 11/08 PO 0829 Gabapentin 100 MG Q8 11/06 0600 AC 11/08 PO 1338 Isoniazid 300 MG DAILY 11/08 1000 AC 11/08 PO 1021 Isoniazid 300 MG DAILY 11/07 1000 DC 11/07 PO 1355 Levothyroxine Sodium 0.05 MG DAILY AC 11/06 0700 AC 11/08 PO 0558 Lidocaine 1 PAT DAILY 11/07 1000 AC 11/08 EXT 0829 Omeprazole 20 MG DAILY 11/06 1000 AC 11/08 PO 0836 Polyethylene Glycol 17 GM DAILY 11/07 1000 AC 11/08 PO 0828 Prednisone 30 MG DAILY 11/06 1000 AC 11/08 PO 0836 Propranolol HCl 80 MG DAILY 11/06 1000 AC 11/08 PO 0829 Pyridoxine HCl 50 MG DAILY 11/07 1000 AC 11/08 PO 0829 Tiotropium [place] 1 PUF DAILY 11/06 1000 AC 11/08 INH 0830 Tramadol HCl 50 MG Q8P PRN 11/06 2045 AC 11/08 PO 0908 Trimethoprim/ 1 TAB BID 11/07 1000 AC 11/08 Sulfamethoxazole PO 0829 Hector FAGAN,Kae 11/08/17 1126: Observation Note Observation Note _ I have personally examined KELY POWELL. him disposition is uncertain at this time. Before a determination can be made, he requires continued observation for the following reasons []. Patient seen and examined, looks somewhat anxious and continues to complain of feeling short of breath. He is requiring 5 L of oxygen which is almost his baseline. Vital Signs Date Time Temp Pulse Resp B/P B/P Pulse O2 O2 Flow FiO2 Mean Ox Delivery Rate 11/08 0846 96 Nasal 5.0L Cannula 11/08 0829 110/64 11/08 0800 Nasal 5.0L Cannula 11/08 0620 98.3 63 20 110/64 99 Nasal Cannula 11/08 0000 98 Nasal 5.0L Cannula 11/07 2310 98.8 66 24 96/60 98 Nasal Cannula 11/07 1740 90 Nasal 4.0L Cannula 11/07 1600 92 Nasal 4.0L Cannula 11/07 1443 98.4 65 24 110/60 94 11/07 1141 95 Nasal 5.0L Cannula 11/07 1140 Nasal 4.0L Cannula On exam; aox3, mild distress 2/2 to sob. cv; s1,s2, rrr resp; decresaed bs on right side. abd; soft, nt, bs+ ext; no edema. Laboratory Tests 11/08 1044 Chemistry Sodium Pending Potassium Pending Chloride Pending Carbon Dioxide Pending Anion Gap Pending BUN Pending Creatinine Pending BUN/Creatinine Ratio Pending Hematology CBC w Diff Pending WBC Pending RBC Pending Hgb Pending Hct Pending MCV Pending MCH Pending MCHC Pending RDW Pending Plt Count Pending MPV Pending A/P; 82 yo Tanzanian speaking M, with h/o interstitial pulmonary fibrosis, mixed restrictive obstructive lung disease with very severe emphysematous lung disease on 4L O2 and prednisone, ch resp failure, lung nodules, HTN, hypothyroidism, DVT , latent TB on INH, AAA, bladder cancer in remission, was admitted to [place] ( 10/25 11/05) for new onset afib, COPD exacerbation and pneumonia, and discharged to [facility] for further care. However a few hours later, he was brought to the ER for c/o increased RR and right sided lower chest/rib pain. Patient states that he did not get his pain medication (tramadol) on time patient is placed on general medicine observation with generalized weakness, pain, shortness of breath . Will repeat check CXR. Continue current medications. Patient on prolonged prednisone taper as recommended by Dr. Jain. Continue Bactrim. TRc nebs. DVt px; Eliquis. Needs STR bed. D/W patient's daughter.
[2017-11-08 11:22] LABS: ABSOLUTE BASOPHIL COUNT 0.1 /CUMM (0.0-0.2); ABSOLUTE EOSINOPHIL COUNT 2.1 /CUMM (0.0-0.7); ABSOLUTE GRANULOCYTE CT 20.7 /CUMM (1.4-6.5); ABSOLUTE LYMPH COUNT 0.9 /CUMM (1.2-3.4); ABSOLUTE MONOCYTE COUNT 0.6 /CUMM (0.10-0.60); BASOPHIL % 0.3 % (0.0-2.0); EOSINOPHIL % 8.5 % (0-5); GRANULOCYTE % 85.1 % (42.2-75.2); HEMATOCRIT 40.7 % (42-52); MEAN CORPUSCULAR HGB 29.5 PG (27.0-31.0); MEAN CORPUSCULAR HGB CONC 31.6 G/DL (33.0-37.0); MEAN CORPUSCULAR VOLUME 93.3 FL (80.0-94.0); PLATELET COUNT 223 /CUMM (130-400); RBC DISTRIBUTION WIDTH 16.3 % (11.5-14.5); RED BLOOD CELL CT 4.36 /CUMM (4.70-6.10); WHITE BLOOD CELL COUNT 24.3 /CUMM (4.8-10.8)
--- NOTE | 2017-11-08 12:49 | Patient Discharge Instructions ---
Discharge Instructions General Discharge Information You were seen/treated for: Acute hypoxemic and hypercarbic respiratory failure 2/2 to COPD Exacerbation in setting of severe interstitial lung disease and emphysema Special Instructions: Please follow-up with your primary care physician within 1-2 weeks after discharge. Follow-up with the division traffic superintendent within 1 week after discharge Please follow-up with Dr. Jain as an outpatient within 1 week after discharge Diet Recommended Diet: Heart Healthy Activity Activity Self Limited: Yes Acute Coronary Syndrome Inclusion Criteria At DC or during hospital stay patient has or had the following: ACS DIAGNOSIS No Discharge Core Measures Meds if any: Prescribed or Continued at Discharge Meds if any: NOT Prescribed or Continued at Discharge Congestive Heart Failure Inclusion Criteria At DC or during hospital stay patient has or had the following: CHF DIAGNOSIS No Discharge Core Measures Meds if any: Prescribed or Continued at Discharge Meds if any: NOT Prescribed or Continued at Discharge Cerebrovascular accident Inclusion Criteria At DC or during hospital stay patient has or had the following: CVA/TIA Diagnosis No Discharge Core Measures Meds if any: Prescribed or Continued at Discharge Meds if any: NOT Prescribed or Continued at Discharge Venous thromboembolism Inclusion Criteria VTE Diagnosis No VTE Type NONE VTE Confirmed by (Test) NONE Discharge Core Measures - Per Current guidelines, there needs to be overlap - treatment for the first 5 days of Warfarin therapy. - If discharged on Warfarin prior to 5 days of - overlap therapy, the patient will need to be - assessed for post discharge needs including - *Post discharge parental anticoagulation - *Warfarin and/or parental anticoagulation education - *Follow up date to check INR post discharge At least 5 days overlap therapy as Inpatient No Meds if any: Prescribed or Continued at Discharge Note: Overlap Therapy is Warfarin and Anticoagulant Meds if any: NOT Prescribed or Continued at Discharge
--- NOTE | 2017-11-08 12:59 | Discharge Summary ---
Visit Information Visit Dates Admission Date: 11/06/17 Discharge Date: 11/08/17 Hospital Course Course Attending Physician: Kae Young MD Primary Care Physician: Candido FAGAN,Tino Beck Hospital Course: Patient is 81-year-old male with past medical history of restrictive severe interstitial pulmonary fibrosis and severe emphysema with end-stage lung disease and multiple lung nodules, history of latent TB currently on isoniazid and vitamin B6, recently discharged from [facility] after being treated for Acute hypoxemic and hypercarbic respiratory failure 2/2 to COPD Exacerbation in setting of severe interstitial lung disease and emphysema and new onset atrial fibrillation(11/05/17), was sent in from the rehabilitation on (11/06/17) with concerns of increased respiratory rate and right sided lower chest/rib pain. As mentioned above patient was recently admitted to [facility] for Acute hypoxemic and hypercarbic respiratory failure 2/2 to COPD Exacerbation in setting of severe interstitial lung disease and emphysema On his previous admission: Patient was initially admitted to the ICU for acute hypoxemic and hypercarbic respiratory failure requiring BiPAP. Patient was initially weaned off BiPAP and tranistioned to high flow oxygen at 35% saturating at 95-96%.Patient's initial chest x-ray was suspicious for findings of a pneumonia and he was initially started on vancomycin, ceftazidime, azithromycin. Vancomycin and Ceftazidine were discontinued, and azithromycin was continued. Patient remained on high flow oxygen , later on oxygen was tapered down to baseline(2-3 L of oxygen). Patient was evaluated by Dr. Jain , recommended no aggressive treatment/ escalation of care-as it's not going to change the management in the setting of severe interstitial lung disease with an questionable lung carcinoma. Due to his acute on chronic worsening respiratory and physical therapy recommendations , pt was discharged to rehabilitation with slow taper prednisone with Bactrim for PCP prophylaxis.Advised to follow-up with Dr. Jain as an outpatient. Few hours after discharge to the rehabilitation he was brought to the ER for c/o increased RR and right sided lower chest/rib pain. Patient states that he did not get his pain medication (tramadol) on time patient, was placed on general medicine observation with generalized weakness, pain, shortness of breath. Patient and the family refused to be discharged to [facility], now being discharged to [facility]. 2. New onset atrial fibrillation with controlled ventricular rate: During the previous admission, patient was diagnosed with new onset atrial fibrillation with AV heavenly disease. ACS was ruled out.thyroid function was normal .Patient was started on Eliquis for anticoagulation. Patient was evaluated by cardiology and did not require any beta maryann or calcium channel blockers at that time. 3. Chronic medical conditions: Home medications omeprazole, aspirin, gabapentin, levothyroxine, Lexapro werec continued on discharge Code: DNR/DNI Diet: Heart healthy DVT prophylaxis: On Eliquis Allergies: Coded Allergies: NO KNOWN ALLERGIES (12/07/11) Disposition Summary Disposition Principal Diagnosis: Acute hypoxemic and hypercarbic respiratory failure 2/2 to COPD Exacerbation in setting of severe interstitial lung disease and emphysema Additional Diagnosis: New onset atrial fibrillation with controlled ventricular rate Discharge Disposition: SNF Discharge Instructions General Discharge Information Code Status: Do Not Resucitate/Intubat Patient's Diet: Heart healthy diet Patient's Activity: As tolerated Follow-Up Instructions/Appts: Please follow-up with your primary care physician within 1-2 weeks after discharge. Follow-up with the accountant certified public within 1 week after discharge Please follow-up with Dr. Jain as an outpatient within 1 week after discharge Medications at Discharge Discharge Medications: Continue taking these medications: Fluticasone/Vilanterol (Breo Ellipta 200-25 Mcg INH) 200 MCG-25 MCG/DOSE BLST.W.DEV 1 PUFF Inhale through mouth DAILY Qty = 60 Comments: NOT GIVEN IN HOSPITAL Propranolol HCl (Propranolol HCl ER) 80 MG CAP.SA.24H 1 Capsule ORAL DAILY Qty = 90 Comments: Last Taken: 11/08/17 Time: 8:30 am Gabapentin (Gabapentin) 100 MG CAPSULE 1 Capsule ORAL THREE TIMES DAILY Qty = 270 Comments: Last Taken: 11/08/17 Time: 2:00 pm Omeprazole (Omeprazole) 20 MG CAPSULE.DR 1 Capsule ORAL DAILY Qty = 90 Comments: Last Taken: 11/08/17 Time: 8:30 am Isoniazid (Isoniazid) 100 MG TABLET 1 Tablet ORAL THREE TIMES DAILY Qty = 90 Comments: Last Taken: 11/05/17 Time: 0945 AM 300 MG GIVEN DAILY IN HOSPITAL (HOME DOSE 100MG 3 TIMES DAILY) Tiotropium [place] (Spiriva) 18 MCG CAP.W.DEV 1 Capsule Inhale through mouth DAILY Qty = 30 Comments: Last Taken: 11/08/17 Time: 8:30 am Aspirin (Ecotrin*) 81 MG TABLET.DR 1 Tablet ORAL DAILY Comments: Last Taken: 11/08/17 Time: 8:30 am Folic Acid (Folic Acid) 0.8 MG CAPSULE 1 Tablet ORAL DAILY Comments: Last Taken: 11/08/17 Time: 8:30 am Calcium Carbonate (Calcium) 500 MG CALCIUM (1,250 MG) TABLET 750 Milligram ORAL DAILY Comments: NOT GIVEN IN HOSPITAL Cholecalciferol (Vitamin D3) (Vitamin D) 2,000 UNIT CAPSULE 1 Tablet ORAL DAILY Comments: Last Taken: 11/08/17 Time: 8:30 am Pyridoxine HCl (Vitamin B-6) 50 MG TABLET 1 Tablet ORAL DAILY Comments: Last Taken: 11/08/17 Time: 8:30 am Benzonatate (Tessalon [place]) 100 MG CAPSULE 1 Capsule ORAL THREE TIMES DAILY Comments: Last Taken: 11/08/17 Time: 8:30 am Tramadol HCl (Ultram) 50 MG TABLET 1 Tablet ORAL THREE TIMES A DAY NEEDED Comments: Last Taken: 11/08/17 Time: 9:00 am Escitalopram Oxalate (Escitalopram Oxalate) 10 MG TABLET 1 Tablet ORAL DAILY Qty = 30 Comments: Last Taken: 11/08/17 Time: 8:30 am Lubiprostone (Amitiza) 24 MCG CAPSULE 1 Capsule ORAL TWICE DAILY Comments: NOT GIVEN IN HOSPITAL Lidocaine (Lidoderm) 5 % ADH..PATCH 1 Patch On the skin DAILY Qty = 14 Instructions: may wear up to 12 hours Comments: Last Taken: 11/08/17 Time: 10:00 am Levothyroxine Sodium (Synthroid) 50 MCG TABLET 1 Tablet ORAL DAILY BEFORE BREAKFAST Qty = 60 Comments: Last Taken:11/05/17 Time:0500 AM 50 MCG-NEW DOSE Prednisone (Prednisone) 10 MG TABLET 1 Tablet ORAL SEE INSTRUCTIONS Qty = 60 Instructions: please take 3 tabs (30 mg ) of prednisone for 2 weeks then 2 tabs( 20 mg) for 2 weeks then continue to take 1 tab(10 mg )..... Comments: Last Taken:11/05/17 Time:0945 AM 30 MG GIVEN (3-10 MG TABS) Sulfamethoxazole/Trimethoprim (Bactrim Ds Tablet) 800 MG-160 MG TABLET 1 Tablet ORAL TWICE DAILY Qty = 60 Instructions: take the medication on MONSAY/WED/FRIDAYS Comments: Last Taken: 11/08/17 Time: 8:30 am Apixaban (Eliquis) 5 MG TABLET 1 Tablet ORAL TWICE DAILY Qty = 60 Comments: Last Taken: 11/08/17 Time: 8:30 am Polyethylene Glycol 3350 (Miralax) 17 GRAM POWD.PACK 1 Packet ORAL DAILY Qty = 30 Instructions: dissolve in water Comments: Last Taken: 11/08/17 Time: 8:30 am Sennosides/Docusate Sodium (Senokot-S Tablet) 8.6 MG-50 MG TABLET 1 Tablet ORAL TWICE DAILY as needed for CONSTIPATION Qty = 30 Comments: Last Taken:11/04/17 Time:9:00 PM Copies To: Candido FAGAN,Tino Beck
--- NOTE | 2017-11-08 13:25 | RADIOLOGY REPORT ---
EXAMINATION: XR PORTABLE CHEST CLINICAL INFORMATION: Interstitial lung disease. Shortness of breath, hypoxia. COMPARISON: 11/06/17 TECHNIQUE: Portable frontal view of the chest was obtained. FINDINGS: There is rotation toward the left. There is calcification of aortic arch. The mediastinal contours, cardiac size, corie and vasculature are mostly obscured. There are very low lung volumes. There is pleural and parenchymal disease in the left chest with relative sparing of the apex. There is extensive pleural and parenchymal disease in the right chest with at least some pleural fluid. There is no pneumothorax. Bone detail limited IMPRESSION: Low lung volumes. Bilateral pleural and/or parenchymal opacities right greater than left. In comparison with 11/06/17 no significant interval change
[2017-11-08 13:49] VITALS: BP 100/60
[2017-11-08 14:45] VITALS: BP 100/60
--- NOTE | 2017-11-08 20:11 | PN- Pulmonary ---
Subjective HPI/Critical Care Issues: Doing ok stable Objective Current Medications: Current Medications Sig/Marah Start time Last Medication Dose Route Stop Time Status Admin Acetaminophen 650 MG Q6P PRN 11/07 0130 DCD 11/08 PO 1407 Acetaminophen 975 MG Q6P PRN 11/06 0530 DC 11/07 PO 1120 Albuterol Sulfate 3 ML TID 11/07 1600 DCD 11/08 INH 1323 Apixaban 5 MG BID 11/06 1000 DCD 11/08 PO 0829 Aspirin 81 MG DAILY 11/06 1000 DCD 11/08 PO 0829 Benzonatate 100 MG TID 11/06 1000 DCD 11/08 PO 0829 Docusate Sodium 100 MG DAILY 11/07 1000 DCD 11/08 PO 0829 Escitalopram Oxalate 10 MG DAILY 11/06 1000 DCD 11/08 PO 0829 Fluticasone 2 PUF BID 11/06 1000 DCD 11/08 Propionate INH 0830 Folic Acid 1 MG DAILY 11/06 1000 DCD 11/08 PO 0829 Gabapentin 100 MG Q8 11/06 0600 DCD 11/08 PO 1338 Isoniazid 300 MG DAILY 11/08 1000 DCD 11/08 PO 1021 Isoniazid 300 MG DAILY 11/07 1000 DC 11/07 PO 1355 Levothyroxine Sodium 0.05 MG DAILY AC 11/06 0700 DCD 11/08 PO 0558 Lidocaine 1 PAT DAILY 11/07 1000 DCD 11/08 EXT 0829 Omeprazole 20 MG DAILY 11/06 1000 DCD 11/08 PO 0836 Polyethylene Glycol 17 GM DAILY 11/07 1000 DCD 11/08 PO 0828 Prednisone 30 MG DAILY 11/06 1000 DCD 11/08 PO 0836 Propranolol HCl 80 MG DAILY 11/06 1000 DCD 11/08 PO 0829 Pyridoxine HCl 50 MG DAILY 11/07 1000 DCD 11/08 PO 0829 Tiotropium [place] 1 PUF DAILY 11/06 1000 DCD 11/08 INH 0830 Tramadol HCl 50 MG Q8P PRN 11/06 2045 DCD 11/08 PO 0908 Trimethoprim/ 1 TAB BID 11/07 1000 DCD 11/08 Sulfamethoxazole PO 0829 Vital Signs & I&O Last 24 Hrs of Vitals and I&O: Vital Signs Date Time Temp Pulse Resp B/P B/P Pulse O2 O2 Flow FiO2 Mean Ox Delivery Rate 11/08 1600 96 Nasal 5.0L Cannula 11/08 1445 98.5 75 20 100/60 12 1349 98.5 75 20 100/60 96 Nasal 5.0L Cannula 11/08 0846 96 Nasal 5.0L Cannula 11/08 0829 110/64 11/08 0800 Nasal 5.0L Cannula 11/08 0620 98.3 63 20 110/64 99 Nasal Cannula 11/08 0000 98 Nasal 5.0L Cannula 11/07 2310 98.8 66 24 96/60 98 Nasal Cannula Intake & Output 11/08 1600 11/08 0800 11/08 0000 Intake Total 200 250 400 Output Total 350 Balance -150 250 400 Intake, IV 10 Intake, Oral 200 240 400 Output, Urine 350 Impression/Plan Impression/Plan Impression/Plan: General Appearance Alert, Oriented X3, Cooperative, Mild Distress, on BiPAP, arousable to verbal stimuli and answers to questions appropriately, but hard to understand since he is on BiPAP Skin No Rashes, No Breakdown, No Significant Lesion Skin Temp/Moisture Exam: Warm/Dry Sepsis Skin Exam (color): Normal for Ethnicity HEENT Atraumatic, PERRLA, EOMI, Mucous Membr. moist/pink Neck Supple, No JVD, No thryomegaly, +2 Carotid Pulse wo Bruit Lymphatic Cervical nl Cardiovascular Regular Rate, Normal S1, Normal S2, No Murmurs Lungs crackles and wheezes bilaterally. Abdomen Normal Bowel Sounds, Soft, No Tenderness, No Hepatospenomegaly Neurological Normal Speech, Strength at 5/5 X4 Ext, Normal Tone, Cranial Nerves 3-12 NL, Reflexes 2+, sensation couldnt be tested Extremities No Clubbing, No Cyanosis, No Edema, Normal Pulses, No Tenderness/ Swelling Vascular Pulses Symmetrical CXR no change IMPRESSION This is a gentleman with mixed restrictive obstructive lung disease with very severe emphysematous lung disease with severe interstitial pulmonary fibrosis with traction bronchiectasis with worsening progressive respiratory failure. He has had bullous COPD for many years from previous history of [id number] smoking quit in 1989. His overall lung function has been progressively getting worse. In the recent past he was also noted to have bilateral lung masses concerning for malignancy by PET scan and he is not a great candidate for invasive workup due to end-stage lung disease and we will be doing a CAT scan in July for evaluation of this. 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 Patient has been on INH since April 28. He also does have ascending aortic aneurysm, abdominal aortic aneurysm before, and very severe end-stage lung disease with reduced DLCO. issues * Slowly improving Acute on chronic hypoxic and hypercarbic resp failure due to worsening ild, codp and prob malignancy in the rt lower lobe area compounded by mild fluid overload. * Bilateral pleural based masses with pleuritic pain * Prob acute AIP aswell with prob superimposed pneumonia with bandemia * Slowly progressive rt lower lobe lesion since 2013 pt not a candidate for biopsy and he had wished conservative care (prob malignancy including lung vs mesothelioma vs boop * Severe copd with ild with mixed obstructive and restrictive lung disease with poor mcc prognosis * 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 * Pafib with rapid ventricular response with normal LVEF * Previous bladder ca with no recurrence so far Recent dc and return to the hospital with dyspnea now stable PLAN Ambulate and increase activity Ok to go to snf CONt prednisone 30 mg for total of two weeks and reduce to 20 mg for two weeks and then 10 mg Bactrim ds one tab wed/wed/wednesday for pcp prophylaxis VIt d 1000 and calcium one pill daily cont out pt inh and b6, Levoxyl 50 mcg Lexapro 20 mg Cont tramadol for pain Stool softners daily with amadeo and colace DNR and DNI Discussed with the daughter today ok with str
== END 2017-11-08 16:30 ==
LOC: ERH 02:31 → 2NA 19:47 → ERHI 19:47 → ENTRNSPT 23:10 → 2NA 23:36 → CMPTRNSPT 11-07 07:09 → 2NA 11-08 07:53
PROVIDERS: Pediatrics; Student in an Organized Health Care Education/Training Program
DX: J96.21 Acute and chronic respiratory failure with hypoxia (principal); J96.22 Acute and chronic respiratory failure with hypercapnia; J84.10 Pulmonary fibrosis, unspecified; R91.8 Other nonspecific abnormal finding of lung field; Z86.11 Personal history of tuberculosis; Z79.82 Long term (current) use of aspirin; G43.909 Migraine, unspecified, not intractable, without status migrainosus; I71.4 Abdominal aortic aneurysm, without rupture; J44.1 Chronic obstructive pulmonary disease with (acute) exacerbation; Z87.442 Personal history of urinary calculi; E03.9 Hypothyroidism, unspecified; Z86.718 Personal history of other venous thrombosis and embolism; Z79.01 Long term (current) use of anticoagulants; Z85.51 Personal history of malignant neoplasm of bladder; I48.91 Unspecified atrial fibrillation; K21.9 Gastro-esophageal reflux disease without esophagitis; G89.29 Other chronic pain; Z87.891 Personal history of nicotine dependence; J43.9 Emphysema, unspecified
CPT/HCPCS: 1263; 1328; 1530; 1748; 36415; 71045; 82436; 93005; 93010; 97110-GO; 97161-GP; 97530-GO; 97530-GP; G0378; G8978-GP; G8979-GP; G8980-GP; J1650; J3490; J7512

== ENCOUNTER 2017-11-12 21:53 | Inpatient (IN) | payer OTHER, MEDICARE ==
[~2017-11-12] VITALS: Ht 177.8 cm; Wt 79.4 kg
--- NOTE | 2017-11-12 22:18 | ED CRITICAL CARE ---
History of Present Illness General Chief Complaint: Dyspnea (COPD, CHF, Other) Stated Complaint: RESPIRATORY FAILURE Source: family, EMS, W10 Exam Limitations: clinical condition Vital Signs & Intake/Output Vital Signs & Intake/Output Vital Signs Date Time Temp Pulse Resp B/P B/P Pulse O2 O2 Flow FiO2 Mean Ox Delivery Rate 11/17 1126 90 11/17 0827 97.5 90 18 104/70 11/17 0821 90 11/17 0543 90 11/17 0400 90 Ventilator 90% 11/17 0341 90 11/17 0203 90 11/17 0040 90 94/60 11/17 0000 98.6 90 15 104/62 95 Ventilator 90% 11/17 0000 95 Ventilator 90% 11/16 2230 90 11/16 2000 92 Ventilator 90% 11/16 1940 90 11/16 1745 98.2 80 15 91/65 11/16 1655 90 11/16 1600 94 Ventilator 90% 11/16 1600 98.2 76 16 92/64 94 Ventilator 90% 11/16 1415 90 ED Intake and Output 11/17 0000 11/16 1200 Intake Total 2591 195 Output Total 247 135 Balance 2344 60 Intake, IV 2100 Intake, Other 50 Intake, Tube 291 135 Feeding Intake, Tube 150 60 Irrigant Output, Urine 247 135 Allergies Coded Allergies: NO KNOWN ALLERGIES (12/07/11) Reconcile Medications Apixaban (Eliquis) 5 MG TABLET 1 TAB PO BID BLOOD THINNER Aspirin (Ecotrin*) 81 MG TABLET.DR 1 TAB PO DAILY HEART/BLOOD (Reported) Benzonatate (Tessalon Perle) 100 MG CAPSULE 1 CAP PO TID COUGH (Reported) Calcium Carbonate (Calcium) 500 MG CALCIUM (1,250 MG) TABLET 750 MG PO DAILY SUPPLEMENT (Reported) Cholecalciferol (Vitamin D3) (Vitamin D) 2,000 UNIT CAPSULE 1 TAB PO DAILY SUPPLEMENT (Reported) Escitalopram Oxalate 10 MG TABLET 1 TAB PO DAILY MENTAL HEALTH (Reported) Fluticasone/Vilanterol (Breo Ellipta 200-25 Mcg INH) 200 MCG-25 MCG/DOSE BLST.W.DEV 1 PUFF INH DAILY LUNG FIBROSIS (Reported) Folic Acid 0.8 MG CAPSULE 1 TAB PO DAILY SUPPLEMENT (Reported) Gabapentin 100 MG CAPSULE 1 CAP PO TID LUNG FIBROSIS (Reported) Isoniazid 100 MG TABLET 1 TAB PO TID LUNG FIBROSIS (Reported) Levothyroxine Sodium (Synthroid) 50 MCG TABLET 1 TAB PO DAILY AC HYPOTHYROIDISM Lidocaine (Lidoderm) 5 % ADH..PATCH 1 PAT TOP DAILY pain may wear up to 12 hours Lubiprostone (Amitiza) 24 MCG CAPSULE 1 CAP PO BID CONSTIPATION (Reported) Omeprazole 20 MG CAPSULE.DR 1 CAP PO DAILY GI (Reported) Polyethylene Glycol 3350 (Miralax) 17 GRAM POWD.PACK 1 PAC PO DAILY CONSTIPATION dissolve in water Prednisone 10 MG TABLET 1 TAB PO SEE ADMIN CRITERIA COPD please take 3 tabs (30 mg ) of prednisone for 2 weeks then 2 tabs( 20 mg) for 2 weeks then continue to take 1 tab(10 mg )..... Propranolol HCl (Propranolol HCl ER) 80 MG CAP.SA.24H 1 CAP PO DAILY MIGRAINES (Reported) Pyridoxine HCl (Vitamin B-6) 50 MG TABLET 1 TAB PO DAILY SUPPLEMENT (Reported ) Sennosides/Docusate Sodium (Senokot-S Tablet) 8.6 MG-50 MG TABLET 1 TAB PO BID PRN CONSTIPATION Sulfamethoxazole/Trimethoprim (Bactrim Ds Tablet) 800 MG-160 MG TABLET 1 TAB PO BID PCP prophylaxis take the medication on /WED/FRIDAYS Tiotropium [place] (Spiriva) 18 MCG CAP.W.DEV 1 CAP INH DAILY LUNG FIBROSIS ( Reported) Tramadol HCl (Ultram) 50 MG TABLET 1 TAB PO TIDPRN PAIN (Reported) Triage Nurses Notes Reviewed? yes Onset: Abrupt Duration: day(s): (1) HPI: 82 year old male with history of COPD and A. fib just discharged from [facility] to senior living on Wednesday who presents with ams and respiratory distress from [facility]. According to family they started a new medication Klonopin 0.5 mg BID and was 'out of it' all day long. Per the son-in-law he was fine yesterday walking around the senior living. When he got there this morning he was sitting in a wheelchair, his oxygen had been pulled off and he was drooling and unresponsive. Per EMS the senior living people said he was just not acting normal and patient was transported here. On route they started a DuoNeb because he appeared to be in respiratory distress. Past History Travel History Traveled to [place] past 21 day No Medical History Any Pertinent Medical History? see below for history Neurological: migraine EENT: NONE Cardiovascular: NONE Respiratory: COPD, LUNG FIBROSIS Gastrointestinal: STOMACH ULCERS Hepatic: NONE Renal: nephrolithiasis Musculoskeletal: NONE Psychiatric: NONE Endocrine: hypothyroidism Blood Disorders: BLOOD CLOT IN LLE Cancer(s): bladder cancer NETWORK SUPPORT ENGINEER/Reproductive: NONE History of MRSA: No History of VRE: No History of CDIFF: No Influenza Vaccine: 07/05/17 Surgical History Surgical History: RAZ KNEE REPL BLADDER CANCER - TUMOR TAKEN OUT INGUINAL HERNIA REPAIR DEVIATED SEPTUM KIDNEY STONES BLASTED Psychosocial History Who do you live with Spouse Services at Home None What is your primary language Albanian Family History Family History, If Any: Relation not specified for: *No pertinent family history Hx Contributory? No Review of Systems Review of Systems Constitutional: Reports: see HPI (PER HPI). Physical Exam Physical Exam General Appearance: severe distress, OBTUNDED Head: atraumatic Eyes: Bilateral: other (PUPILS 4 MM, REACTIVE). Neck: normal inspection Respiratory: decreased breath sounds, crackles (B/L) Cardiovascular: regular rate/rhythm Peripheral Pulses: 2+ carotid (R), 2+ carotid (L), 1+ radial (R), 1+ radial (L) Gastrointestinal: soft, non-tender Extremities: NORMAL APPEARANCE Neurologic/Psych: OBTUNDED Core Measures ACS in differential dx? Yes CVA/TIA Diagnosis No Sepsis Present: No Sepsis Focused Exam Completed? No Progress Differential Diagnoses I considered the following diagnoses in my evaluation of the patient: [ Respiratory distress, respiratory arrest, CO2 narcosis, CVA, intracranial hemorrhage, medication side effect, COPD exacerbation, pneumonia, pleural effusion, CHF exacerbation] Plan of Care: Orders Procedure Date/time Status Restraint- Medical 11/17 0953 Active Benson, Insertion/Removal/Asses 11/17 0953 Active Change service to 11/17 0828 Active ICU LAB BUNDLE 11/17 0500 Complete CBC WITHOUT DIFFERENTIAL 11/17 0500 Complete RT: Reevaluation 11/16 1354 Active VENTILATOR PARAMETERS 11/16 1310 Complete BLOOD CULTURE 11/16 1238 Active VENTILATOR PARAMETERS 11/16 1215 Complete AEROSOL CHG 11/16 UNK Complete OXYGEN 11/16 UNK Complete OXYGEN DAILY CHARGE 11/16 UNK Complete CONTINUOUS VENTILATOR 11/16 UNK Complete RT RE-EVALUATION 11/16 UNK Complete Current Medications Sig/Marah Start time Last Medication Dose Stop Time Status Admin Lorazepam 1 MG Q2 PRN 11/17 1115 AC (Ativan) Scopolamine HBr 1 PAT Q72H 11/17 1115 AC (Trans Derm Scop) Dextrose/Sodium 1,000 ML Q16H 11/16 2345 AC 11/16 Chloride 2354 (D5-Normal Saline) Fentanyl Citrate 1,000 MCG Q6H 11/16 1400 AC 11/17 (Fentanyl Drip) 0854 Sodium Chloride 250 ML (Normal Saline 0.9%) Polyethylene Glycol 17 GM DAILY 11/16 1207 AC (Miralax) Norepinephrine 4 MG Q7H 11/16 1100 AC 11/17 (Levophed Drip) 0827 Sodium Chloride 250 ML (Normal Saline 0.9%) Levothyroxine Sodium 25 MCG DAILY 11/16 1000 AC 11/17 (Synthroid) 1109 Pyridoxine HCl 50 MG DAILY 11/15 1444 AC 11/17 (Vitamin B6) 0826 Albuterol Sulfate 3 ML BID 11/13 2200 AC 11/17 (Proventil) 0804 Ipratropium [place] 2.5 ML BID 11/13 2200 AC 11/17 (Atrovent) 0804 Senna 187 MG AT BEDTIME 11/13 2200 AC 11/17 (Senokot) 0825 Docusate Sodium 100 MG DAILY 11/13 1547 AC 11/17 (Colace) 0825 Methylprednisolone 40 MG DAILY 11/13 1540 AC 11/17 (Solumedrol) 0824 Apixaban 5 MG BID 11/13 1000 AC 11/17 (Eliquis) 0826 Aspirin 81 MG DAILY 11/13 1000 AC 11/17 (Aspirin) 0825 Isoniazid 300 MG DAILY 11/13 1000 AC 11/17 (Isoniazid) 0825 Pantoprazole Sodium 40 MG BID 11/13 1000 AC 11/17 (Protonix) 0823 Tiotropium [place] 1 PUF DAILY 11/13 1000 AC (Spiriva) Vancomycin HCl 1,000 MG DAILY 11/13 1000 AC 11/17 Dextrose/Water 250 ML 0832 (D5W) Ceftazidime 1,000 MG IQ8 11/13 0800 AC 11/17 (Fortaz) 0823 Laboratory Tests 11/17/17 0440: Anion Gap 8, Estimated GFR 41 L, Glucose 119 H, Calcium 7.9 L, Phosphorus 5.6 H, Magnesium 2.1, Total Bilirubin 0.5, AST 14 L, ALT 28, Albumin 2.1 L, CBC w Diff MAN DIFF ORDERED, RBC 3.64 L, MCV 93.9, MCH 30.0, MCHC 31.9 L, RDW 16.5 H, MPV 8.2, Gran % 95.8 H, Lymphocytes % 2.0 L, Monocytes % 0.5 L, Eosinophils % 1.6, Basophils % 0.1, Absolute Granulocytes 17.5 H, Segmented Neutrophils 72, Band Neutrophils 19 H, Absolute Lymphocytes 0.4 L, Lymphocytes 5 L, Monocytes 3, Absolute Monocytes 0.1, Eosinophils 1, Absolute Eosinophils 0.3, Absolute Basophils 0, Platelet Estimate ADEQUATE, Basophilic Stippling 1+, Anisocytosis 1+ Microbiology 11/16 1250 BLOOD: Blood Culture - RES 11/16 1238 BLOOD: Blood Culture - CAN Cancelled: NO RESPONSE TO NARCAN OR FLUMAZENIL ON ARRIVAL. AFTER QUICK DISCUSSION WITH DAUGHTER SHE WOULD LIKE HIM TO BE FULL CODE AT THIS TIME. PATIENT INTUBATED. LABS, CULTURES, CT IMAGING ORDERED. RESULTS D/W FAMILY. PATIENT REMAINS HYPOTENSIVE, ACTIVE CHF ON XRAY. PERIPHERAL LEVOPHED WAS STARTED, RIGHT IJ PLACED. Diagnostic Imaging: Viewed by Me: Radiology Read, CT Scan. Discussed w/RAD: Radiology Read, CT Scan. Radiology Impression: PATIENT: KELY POWELL PRESENT AGE: 82 PATIENT ACCOUNT NO: [id number] : 33 LOCATION: [facility] ORDERING PHYSICIAN: Maddie Frederick MD SERVICE DATE: 11/12/17 EXAM TYPE: CAT - CT HEAD WO IV CONTRAST EXAMINATION: CT HEAD WITHOUT CONTRAST CLINICAL INFORMATION: Unresponsive/intubated COMPARISON: None TECHNIQUE: Contiguous axial imaging was performed from the skull base to vertex without intravenous administration of contrast. DLP: 631.72 mGy-cm FINDINGS: There is no evidence of acute intracranial hemorrhage or territorial infarction. No abnormal mass effect or midline shift is seen. Denny to white matter differentiation is well preserved. No extra-axial fluid collections are identified. The ventricles are normal in size. Mild volume loss is noted. The osseous structures and soft tissues are normal. The mastoid air cells and visualized portions of the paranasal sinuses are well aerated. IMPRESSION: No acute intracranial pathology. DICTATED BY: Eusebio Chau MD DATE/TIME DICTATED:11/12/172351 BASS GUITAR TEACHER:CARI DATE/TIME TRANSCRIBED:11/12/172351 CONFIDENTIAL, DO NOT COPY WITHOUT APPROPRIATE AUTHORIZATION. <Electronically signed in Other Vendor System> SIGNED BY: Eusebio Chau MD 11/12/172358 CXR Impression: PATIENT: KELY POWELL PRESENT AGE: 82 PATIENT ACCOUNT NO: [id number] : 33 LOCATION: [facility] ORDERING PHYSICIAN: Maddie Frederick MD SERVICE DATE: 11/12/17 EXAM TYPE: RAD - XRY -PORTABLE CHEST XRAY EXAMINATION: XR PORTABLE CHEST CLINICAL INFORMATION: Status post intubation. Respiratory distress. COMPARISON: Chest x-ray 11/08/2017 TECHNIQUE: Portable frontal view of the chest was obtained. 10:31 PM FINDINGS: Endotracheal tube is in the right mainstem bronchus. Catheter can be pulled back 5 cm. Nasogastric tube in stomach. Persistent large right pleural effusion. Persistent mild central pulmonary vascular congestion. IMPRESSION: 1. Endotracheal tube in right mainstem bronchus. Catheter can be pulled back about 5 cm. 2. Nasogastric tube in stomach. 3. Persistent large right pleural effusion. This critical result was discussed with Dr. Frederick on 11/12/2017, 11:30 PM and it was ascertained that the content and urgency of the report was understood at the time of direct communication. DICTATED BY: Sudarshan Harley MD DATE/TIME DICTATED:11/12/172319 BASS GUITAR TEACHER:CARI DATE/TIME TRANSCRIBED:11/12/172319 CONFIDENTIAL, DO NOT COPY WITHOUT APPROPRIATE AUTHORIZATION. <Electronically signed in Other Vendor System> SIGNED BY: Sudarshan Harley MD 11/12/172328 Initial ED EKG: AFIB Rhythm Strip: atrial fibrillation, atrial flutter (TACHY, THEN VALE EPISODE) Departure Departure Time of Disposition: 52 Disposition: STILL A PATIENT Condition: Critical Clinical Impression Primary Impression: Respiratory failure Secondary Impressions: CHF (congestive heart failure), Hypotension (arterial) Referrals: Tino Rey MD (PCP/Family) Departure Forms: Customer Survey General Discharge Information Admission Note Spoke With: Carlos Sterling MD Documentation of Exam: Documentation of any treatments & extenuating circumstances including Concerns Regarding Discharge (functional status, medication knowledge or non-compliance, living conditions, etc.) that warrant an admission rather than observation: [ICU MONITOR, MECHANICAL VENTILATION, IV ABX, IV PRESSORS, F/U CULTURES, CARDIOLOGY CONSULTATION, PULMONARY/CRITICAL CARE CONSULTATION] Procedures Central Line Central Line Lumen: triple Central Line Procedure: Yes: bentadine prep?, sterile drapes applied, sterile dressing applied. Central Line Position: internal jugular (R) Anesthesia: lidocaine 1% CC's of Anesthesia: 5 Complications: none Central Line Post Position: sutured, good blood return, position confirmed w/ CXR Intubation Time of Intubation: 2216 Intubation Method: orotracheal Tube Size (cm): 7.5 Medications: succinylcholine, ETOMIDATE Breath Sounds After Intubation: equal Intubation Complications: no complications Post Intubation Xray? Yes Critical Care Note Critical Care Note Critical Care Time: 75-104 min
[2017-11-12 22:37] LABS: ABSOLUTE BASOPHIL COUNT 0.3 /CUMM (0.0-0.2); ABSOLUTE EOSINOPHIL COUNT 0.7 /CUMM (0.0-0.7); ABSOLUTE GRANULOCYTE CT 24.5 /CUMM (1.4-6.5); ABSOLUTE LYMPH COUNT 1.1 /CUMM (1.2-3.4); ABSOLUTE MONOCYTE COUNT 2.7 /CUMM (0.10-0.60); EOSINOPHIL % 2.5 % (0-5); GRANULOCYTE % 83.7 % (42.2-75.2); HEMATOCRIT 45.6 % (42-52); MEAN CORPUSCULAR HGB CONC 31.8 G/DL (33.0-37.0); MEAN CORPUSCULAR VOLUME 94.2 FL (80.0-94.0); MEAN PLATELET VOLUME 8.1 FL (7.4-10.4); PLATELET COUNT 217 /CUMM (130-400); RBC DISTRIBUTION WIDTH 16.4 % (11.5-14.5); RED BLOOD CELL CT 4.84 /CUMM (4.70-6.10); WHITE BLOOD CELL COUNT 29.3 /CUMM (4.8-10.8)
--- NOTE | 2017-11-12 23:29 | RADIOLOGY REPORT ---
EXAMINATION: XR PORTABLE CHEST CLINICAL INFORMATION: Status post intubation. Respiratory distress. COMPARISON: Chest x-ray 11/08/2017 TECHNIQUE: Portable frontal view of the chest was obtained. 10:31 PM FINDINGS: Endotracheal tube is in the right mainstem bronchus. Catheter can be pulled back 5 cm. Nasogastric tube in stomach. Persistent large right pleural effusion. Persistent mild central pulmonary vascular congestion. IMPRESSION: 1. Endotracheal tube in right mainstem bronchus. Catheter can be pulled back about 5 cm. 2. Nasogastric tube in stomach. 3. Persistent large right pleural effusion. This critical result was discussed with Dr. Frederick on 11/12/2017, 11:30 PM and it was ascertained that the content and urgency of the report was understood at the time of direct communication.
--- NOTE | 2017-11-12 23:59 | CT SCAN REPORT ---
EXAMINATION: CT HEAD WITHOUT CONTRAST CLINICAL INFORMATION: Unresponsive/intubated COMPARISON: None TECHNIQUE: Contiguous axial imaging was performed from the skull base to vertex without intravenous administration of contrast. DLP: 631.72 mGy-cm FINDINGS: There is no evidence of acute intracranial hemorrhage or territorial infarction. No abnormal mass effect or midline shift is seen. Denny to white matter differentiation is well preserved. No extra-axial fluid collections are identified. The ventricles are normal in size. Mild volume loss is noted. The osseous structures and soft tissues are normal. The mastoid air cells and visualized portions of the paranasal sinuses are well aerated. IMPRESSION: No acute intracranial pathology.
--- NOTE | 2017-11-13 00:32 | CT SCAN REPORT ---
EXAM: NONCONTRAST CT OF THE CHEST; NONCONTRAST CT OF THE ABDOMEN AND PELVIS INDICATION: Unresponsive, intubated COMPARISON: Multiple priors, most recent chest CT to 02/13/2018 TECHNIQUE: No IV contrast was utilized. Multidetector helical imaging was performed through the chest, abdomen, and pelvis. Coronal and sagittal reformatted images were created at the technologist workstation. DLP: 1015.89 mGy-cm FINDINGS: Chest: Endotracheal tube terminates in the right mainstem bronchus, approximately 2 cm below the oriana. There is emphysema in the upper lobes with a prominent bulla in the anterior left hemithorax redemonstrated. Superimposed fibrosis is also suspected. In comparison to 11/01/2017 there has been interval development of groundglass opacification throughout much of the left lower lobe, as well as some groundglass opacification of the right middle lobe. There are also new regions of dense consolidation in the right upper and lower lobes. There is increased size of a moderate right pleural effusion which appears at least partially loculated extending along the periphery of the right hemithorax. Trace left pleural effusion is noted. No pneumothorax. The visualized thyroid gland is unremarkable. There are enlarged right paratracheal and subcarinal lymph nodes measuring up to approximately 2 cm in short axis dimension, similar to prior. There is a masslike density adjacent to the left lateral margin of the esophagus and descending thoracic aorta near the level of the hiatus measuring approximately 4.1 x 3.3 cm; this appears similar to prior and could reflect additional adenopathy. There is mild cardiomegaly with trace pericardial effusion. There is atherosclerotic calcification along the aorta. The ascending aorta is dilated to approximately 4.5 cm. No axillary lymphadenopathy is present. Abdomen/Pelvis: The liver is homogeneous in attenuation without intrahepatic biliary ductal dilatation. Calcified granuloma is noted in the right hepatic lobe. The gallbladder is unremarkable. The unenhanced spleen, pancreas, and adrenal glands are within normal limits. The unenhanced kidneys show no hydronephrosis. There are low-density lesions in bilateral kidneys, favoring cysts. No renal or ureteral calculi are present. The urinary bladder is mildly distended, with a Benson catheter in place. The prostate and seminal vesicles are unremarkable. There is a fat-containing right inguinal hernia. Enteric tube tip lies in the region of the pylorus. The small and large bowel are unremarkable without evidence of obstruction or pericolonic inflammatory change. The appendix appears collapsed. No free fluid or free air is present. There is atherosclerotic calcification along the aorta and iliac arteries. There is aneurysmal dilation of the distal abdominal aorta to the bifurcation measuring up to approximately 3.9 cm. There is also aneurysmal dilation of the common iliac arteries measuring approximately 2.7 cm on the left and 2.1 cm on the right. The proximal right internal iliac artery is dilated to approximately 1.9 cm. No retroperitoneal or pelvic lymphadenopathy is seen. There are scattered multilevel degenerative changes throughout the thoracolumbar spine. IMPRESSION: 1. Endotracheal tube tip in the right mainstem bronchus, approximately 2 cm below the oriana. Retraction recommended. 2. New regions of consolidation bilaterally since 11/01/2017. Appearance could reflect multifocal pneumonia, pulmonary edema, or sequelae of aspiration in the proper clinical setting. 3. Increased moderate right pleural effusion extending throughout the periphery of the right hemithorax. This could be inflammatory/infectious or potentially malignant in etiology. 4. Upper lobe predominant emphysema, with superimposed fibrosis. 5. Mediastinal adenopathy which may be reactive or malignant in nature. 6. 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 This critical result was discussed with Maddie Frederick on 11/13/2017 12:27 AM, and it was ascertained that the content and urgency of the report was understood at the time of direct communication.
--- NOTE | 2017-11-13 01:24 | History & Physical ---
Jace FAGAN,Michael 11/13/17 0110: General Information and HPI MD Statement: I have seen and personally examined KELY POWELL and documented this H&P. The patient is a 82 year old M who presented with a patient stated chief complaint of [[id number]]. Source of Information: patient, family Exam Limitations: confusion History of Present Illness: Patient is an 82-year-old male BIBA from the [facility] care facility with history of AMS and difficulty in the breathing. Most of the history is taken from the son-in-law and [facility] facility. According to them patient was relatively all right.At baseline he was having shortness of breath, and uses oxygen. Yesterday he was okay.Today when son-in- law went to see him, he found that he is acting weard, as he drunk.He was not speaking clearly.He was not using oxygen, and become very short of breath and drowsy, so he was transferred to [facility] for further management. At the [facility] patient was having agonal respiration he was given Ambu bag and kept on monitor followed by 0.2 mg of flumazenil was given.Patient did not responded to it and later 0.4 mg of Narcan was given without any improvement.Then it was decided that patient should be intubated. His oxygen saturation at the time of arrival was 60% and after intubation went up to 99% .Blood pressure become unmeasurable and, heart rate was 54-61. Patient was started on IV Levophed later on heart rate dropped to 38 and 1 mg of atropine was given.Central line was placed on the right side of the chest.Blood cultures were drawn.CT scan of the chest and the x-ray was done. He was started on propofol drip. Past medical history- Interstitial pulmonary fibrosis Severe emphysema End-stage lung disease Multiple lung nodules History of latent tuberculosis on isoniazid therapy and vitamin B6 Paroxysmal atrial fibrillation with rapid ventricular response with normal ejection fraction History of bladder cancer Allergies/Medications Allergies: Coded Allergies: NO KNOWN ALLERGIES (12/07/11) Home Med list Apixaban (Eliquis) 5 MG TABLET 1 TAB PO BID BLOOD THINNER Aspirin (Ecotrin*) 81 MG TABLET.DR 1 TAB PO DAILY HEART/BLOOD (Reported) Benzonatate (Tessalon Perle) 100 MG CAPSULE 1 CAP PO TID COUGH (Reported) Calcium Carbonate (Calcium) 500 MG CALCIUM (1,250 MG) TABLET 750 MG PO DAILY SUPPLEMENT (Reported) Cholecalciferol (Vitamin D3) (Vitamin D) 2,000 UNIT CAPSULE 1 TAB PO DAILY SUPPLEMENT (Reported) Escitalopram Oxalate 10 MG TABLET 1 TAB PO DAILY MENTAL HEALTH (Reported) Fluticasone/Vilanterol (Breo Ellipta 200-25 Mcg INH) 200 MCG-25 MCG/DOSE BLST.W.DEV 1 PUFF INH DAILY LUNG FIBROSIS (Reported) Folic Acid 0.8 MG CAPSULE 1 TAB PO DAILY SUPPLEMENT (Reported) Gabapentin 100 MG CAPSULE 1 CAP PO TID LUNG FIBROSIS (Reported) Isoniazid 100 MG TABLET 1 TAB PO TID LUNG FIBROSIS (Reported) Levothyroxine Sodium (Synthroid) 50 MCG TABLET 1 TAB PO DAILY AC HYPOTHYROIDISM Lidocaine (Lidoderm) 5 % ADH..PATCH 1 PAT TOP DAILY pain may wear up to 12 hours Lubiprostone (Amitiza) 24 MCG CAPSULE 1 CAP PO BID CONSTIPATION (Reported) Omeprazole 20 MG CAPSULE.DR 1 CAP PO DAILY GI (Reported) Polyethylene Glycol 3350 (Miralax) 17 GRAM POWD.PACK 1 PAC PO DAILY CONSTIPATION dissolve in water Prednisone 10 MG TABLET 1 TAB PO SEE ADMIN CRITERIA COPD please take 3 tabs (30 mg ) of prednisone for 2 weeks then 2 tabs( 20 mg) for 2 weeks then continue to take 1 tab(10 mg )..... Propranolol HCl (Propranolol HCl ER) 80 MG CAP.SA.24H 1 CAP PO DAILY MIGRAINES (Reported) Pyridoxine HCl (Vitamin B-6) 50 MG TABLET 1 TAB PO DAILY SUPPLEMENT (Reported ) Sennosides/Docusate Sodium (Senokot-S Tablet) 8.6 MG-50 MG TABLET 1 TAB PO BID PRN CONSTIPATION Sulfamethoxazole/Trimethoprim (Bactrim Ds Tablet) 800 MG-160 MG TABLET 1 TAB PO BID PCP prophylaxis take the medication on /WED/FRIDAYS Tiotropium Sledge (Spiriva) 18 MCG CAP.W.DEV 1 CAP INH DAILY LUNG FIBROSIS ( Reported) Tramadol HCl (Ultram) 50 MG TABLET 1 TAB PO TIDPRN PAIN (Reported) Past History Travel History Traveled to [place] past 21 day No Medical History Neurological: migraine EENT: NONE Cardiovascular: NONE Respiratory: COPD, LUNG FIBROSIS Gastrointestinal: STOMACH ULCERS Hepatic: NONE Renal: nephrolithiasis Musculoskeletal: NONE Psychiatric: NONE Endocrine: hypothyroidism Blood Disorders: BLOOD CLOT IN LLE Cancer(s): bladder cancer COMPOUND WORKER/Reproductive: NONE History of MRSA: No History of VRE: No History of CDIFF: No Influenza Vaccine: 07/05/17 Surgical History Surgical History: RAZ KNEE REPL BLADDER CANCER - TUMOR TAKEN OUT INGUINAL HERNIA REPAIR DEVIATED SEPTUM KIDNEY STONES BLASTED Past Family/Social History Family History Relations & Conditions if any Relation not specified for: *No pertinent family history Psychosocial History Services at Home: None Functional Ability ADLs Independent: eating, toileting. Unknown: dressing, bathing. Ambulation: walker IADLs Unknown: shopping, housework, finances, food prep, telephone, transportation, medication admin. Review of Systems Review of Systems Constitutional: Denies: no symptoms. Exam & Diagnostic Data Last 24 Hrs of Vital Signs/I&O Vital Signs Date Time Temp Pulse Resp B/P B/P Pulse O2 O2 Flow FiO2 Mean Ox Delivery Rate 11/13 0112 97.0 71 18 109/79 100 Ventilator 100% 11/13 0032 40 11/13 0026 50 11/13 0016 99 Ventilator 11/12 2350 91 161/104 99 Ventilator 11/12 2236 40/0 11/12 2235 40/0 11/12 2232 100 11/12 2224 97 18 128/96 98 Ventilator 100% 11/12 2217 96 12 120/84 60 Nasal 6.0L Cannula 11/12 2200 96 128/96 Intake & Output 11/13 0800 11/13 0000 11/12 1600 Intake Total 1000 Output Total 200 Balance 800 Intake, IV 1000 Output, Urine 200 Patient 81.647 kg Weight Weight Estimated Measurement Method Physical Exam General Appearance No Acute Distress Skin No Rashes, No Breakdown, No Significant Lesion Skin Temp/Moisture Exam: Cool/Dry HEENT Atraumatic, PERRLA, EOMI Neck Supple, No JVD Cardiovascular Normal S1, Normal S2 Lungs Clear to Auscultation, Normal Air Movement Abdomen Normal Bowel Sounds, Soft, No Tenderness Extremities No Clubbing, No Cyanosis, No Edema, cold , peripheral pulses were weak Vascular weak Last 24 Hrs of Labs/Aakash: Laboratory Tests 11/12/17 2315: Urine Opiates Screen 109.00, Methadone Screen 67, Barbiturate Screen < 60, Ur Phencyclidine Scrn 6.30, Amphetamines Screen < 100, U Benzodiazepines Scrn < 85, Urine Cocaine Screen < 50, Urine Cannabis Screen < 5.00, Urine Color STRAW, Urine Clarity CLEAR, Urine pH 6.0, Ur Specific [place] >= 1.030, Urine Protein TRACE H, Urine Ketones NEG, Urine Nitrite NEG, Urine Bilirubin NEG@ICTO, Urine Urobilinogen 1.0, Ur Leukocyte Esterase NEG, Ur Microscopic SEDIMENT EXAMINED, Urine RBC 25-50 H, Urine WBC RARE, Ur Epithelial Cells RARE, Urine Bacteria RARE H, Urine Hemoglobin LARGE H, Urine Glucose NEG 11/12/17 2300: pH 7.41, pCO2 49 H, pO2 425 H, HCO3 30 H, ABG O2 Sat (Measured) 98.0, Carboxyhemoglobin 0.8 L, O2 Concentration % 100, Respiration Rate 18, O2 Delivery Method VENT, Vent Mode AC, Expiratory Pressure 5, Tidal Volume 550, Pressure Support Pending, Phlebotomy Draw Site RIGHT RADIAL 11/12/17 2220: Anion Gap 10, Estimated GFR 48 L, BUN/Creatinine Ratio 42.9 H, Glucose 169 H, Lactic Acid 1.4, Calcium 9.8, Total Bilirubin 0.6, AST 24, ALT 25, Alkaline Phosphatase 68, Troponin I 0.05, Xpz-M-Nzoemmgtqgj Pept 5590 H, Total Protein 6.6, Albumin 3.5, Globulin 3.1, Albumin/Globulin Ratio 1.1, CBC w Diff MAN DIFF ORDERED, RBC 4.84, MCV 94.2 H, MCH 30.0, MCHC 31.8 L, RDW 16.4 H, MPV 8.1, Gran % 83.7 H, Lymphocytes % 3.7 L, Monocytes % 9.1, Eosinophils % 2.5, Basophils % 1.0, Absolute Granulocytes 24.5 H, Segmented Neutrophils 57, Band Neutrophils 26 H, Absolute Lymphocytes 1.1 L, Lymphocytes 3 L, Monocytes 8, Absolute Monocytes 2.7 H, Eosinophils 4, Absolute Eosinophils 0.7, Absolute Basophils 0.3, Metamyelocytes 2 H, Platelet Estimate ADEQUATE, Normocytic RBCs VERIFIED, Normochromic RBCs VERIFIED, Anisocytosis 1+, Fld Total RBCs Counted 100 Microbiology 11/13 0007 BLOOD: Blood Culture - RECD 11/12 2315 URINE ROUT: Urine Culture - RECD 11/12 225 BLOOD: Blood Culture - RECD 11/12 2215 NASOPHARYN: Influenza Virus A & B Rapid Smear - ORD Assessment/Plan Assessment: Patient is an 82-year-old male BIBA from the extended care facility with history of AMS and difficulty in the breathing. ED course -blood workup showed WBC 29.3, hemoglobin 14.5, hematocrit 45.6, MCV 94.2, platelet count 217, granulocyte 83.7, lymphocytes 3.7, Bentyl 26, sodium 139, potassium 5.8, Ranexa 39, anion gap 10, BUN 60, creatinine 1.4, glucose 169 , HbA1c 5.8, lactic acid 1.4, calcium 9.8, total bilirubin 0.6, AST 24, ALT 25, alkaline phosphatase 68, troponin I 0.05, proBNP 5590, total protein 6.6, albumin 2.5, urine RBC 25-50, WBC rare, U tox negative. CT head - Normal CT chest/ Abd /pelvis - 1. Endotracheal tube tip in the right mainstem bronchus, approximately 2 cm below the oriana. Retraction recommended. 2. New regions of consolidation bilaterally since 11/01/2017. Appearance could reflect multifocal pneumonia, pulmonary edema, or sequelae of aspiration in the proper clinical setting. 3. Increased moderate right pleural effusion extending throughout the periphery of the right hemithorax. This could be inflammatory/infectious or potentially malignant in etiology. 4. Upper lobe predominant emphysema, with superimposed fibrosis. 5. Mediastinal adenopathy which may be reactive or malignant in nature. 6. 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 Assessment and plan - Patient is 82 with multiple medical problems recently discharged from the [facility] treated for acute hypoxemic and hypercarbic respiratory failure 2/2 to COPD Exacerbation in setting of severe interstitial lung disease and emphysema. He became lethargic and a day and only change in his medication was clonazepam 0.5 mg. At the time of admission he was completely unconscious and needed IV pressors and intubation.CT chest showed new multifocal pneumonia. Blood counts are elevated with bandemia.He has underlying End stage lung disease. It seems that COPD got worse secondary to infection, multifocal pneumonia leading to shock and encephalopathy. Metabolic encephalopathy secondary to sepsis/acute hypoxic respiratory failure - due to CAP * Patient was already intubated and on pressors in ED * We will admit the patient to the ICU * We will monitor the pressure to keep map more than 65 * We will continue injection ceftazidime and vancomycin * Strict intake output charting * IV Protonix 40 mg daily * We will repeat ABG/chest x-ray in the morning; we will do serial troponins and EKG * We will follow blood cultures and the urine culture * We will keep pattern of the pad elevated * TRC/nebulization * NG tube * we will place criticare and cardiology consult * Propofol for sedation as needed. Code status - FC DVT prophylaxis - ALPS/Heparin Diet - NPO As Ranked By This Provider Problem List: 1. Metabolic encephalopathy Core Measures/Misc (06/13) Acute Coronary Syndrome ACS Diagnosis: No Congestive Heart Failure Congestive Heart Failure Diagnosis No Cerebrovascular Accident CVA/TIA Diagnosis: No VTE (View Protocol) VTE Risk Factors Age>40 No Mechanical VTE Prophylaxis d/t N/A MechProphylax Ordered No VTE Pharm Prophylaxis d/t NA PharmProphylax ordered Sepsis (View protocol) Sepsis Present: Yes Carlos Sterling 11/13/17 0614: Attending MD Review Statement Attending Statement Attending MD Statement: examined this patient, discuss w/resident/PA/INDUSTRIAL CUSTODIAN, agreed w/resident/PA/INDUSTRIAL CUSTODIAN, discussed with family, reviewed EMR data (avail), reviewed images, amended to note Attending Assessment/Plan: CC: Altered mental status PMH: Restrictive lung disease secondary to interstitial pulmonary fibrosis, along with obstructive disease with extensive emphysema currently on 4 L nasal cannula, suspected lung cancer, HTN, hypothyroidism, DVT, latent TB, abdominal aortic aneurysm, history of bladder cancer S/P treatment Patient was discharged to [facility] on November 08 after brief hospitalization for acute on chronic respiratory failure because of COPD exacerbation with underlying severe interstitial lung disease and emphysema and new onset A. fib. Prior to that admission patient was admitted for suspected pneumonia and was treated with broad-spectrum antibiotic and was discharged to [facility]. After second hospitalization patient was discharged to [facility] on November 08. A shunt was apparently all right for a few days but yesterday when son-in-law was visiting him patient did not appear well. He was more altered, having some jerky movements of his hand, was not wearing his oxygen. When he inquired at facility he was told that a new medication was given to him, eventually in few hours he was not getting better and was appearing more altered so EMS was called. Patient did not have a gag reflex in ER, significantly altered and immediately intubated after discussion with family. Vitals: T max 98.1, pulse 90s after arrival, RR 12, blood pressure 128/96 at arrival but dropped to 40 over Doppler after intubation, pulse ox 60% on arrival , improved to 98% on intubation On exam: Patient intubated, sedated, responds to deep pain, pupils equal bilateral reactive, I could only note his right upper extremity movement he is not spontaneously moving all his limbs. neck supple, JVD normal, no lymphadenopathy, mucosa moist, no focal neurological deficit, no dependent edema , no obvious skin rashes or inflammation CVS: S1-S2, irregular. RS: Decreased air entry right base, crackles on left base. Abdomen: Soft, NT, ND, bowel sounds present. Peripheral perfusion and pulses intact CT head: No acute intracranial pathology CT abdomen and pelvis chest without IV contrast: 1. Endotracheal tube tip in the right mainstem bronchus, approximately 2 cm below the oriana. Retraction recommended. 2. New regions of consolidation bilaterally since 11/01/2017. Appearance could reflect multifocal pneumonia, pulmonary edema, or sequelae of aspiration in the proper clinical setting. 3. Increased moderate right pleural effusion extending throughout the periphery of the right hemithorax. This could be inflammatory/infectious or potentially malignant in etiology. 4. Upper lobe predominant emphysema, with superimposed fibrosis. 5. Mediastinal adenopathy which may be reactive or malignant in nature. 6. 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 Assessment and plan 82 year old male with extensive past medical history as mentioned up presented in ER for acute onset altered mental status. Patient was apparently all right yesterday and was ambulating with his oxygen but today the family noticed him being more lethargic and then became progressively altered over few hours of duration. Only change the can think of is giving clonazepam at the facility. It' s unclear why patient has encephalopathy but he did not have a gag reflex and was immediately intubated after arrival in ER. The ABGs repeated after 45 minutes did not show significant CO2 retention, oxygenation was appropriate. U tox was negative for benzodiazepines. Patient has new infiltrates on x-ray suggestive of pneumonia versus heart failure. His proBNP significantly elevated as compared to past. He has basilar crackles on left side and decreased air entry on left side secondary to effusion. He has significant leukocytosis which appears chronic to him but has significant left shift with bandemia which appears new. The encephalopathy could be secondary to sepsis and pneumonia or due to persistent hypoxia with heart failure. ACS should be ruled out as well. Stroke could not be ruled out but CT scan was unremarkable. Neurological exam is limited at this point. In any of the situation patient's prognosis is guarded given his extensive pulmonary disease with pulmonary fibrosis and emphysema and would be difficult to extubate. I explained the situation to family and also discussed about CODE STATUS. They want everything to be done at this point and will decide about resuscitation as the time comes. Currently patient's blood pressure improving with Levophed, sedated with propofol and oxygen saturation maintained on 40% FiO2. + Metabolic encephalopathy : Multi-factorial + Acute on chronic respiratory failure, hypoxic: unable to maintain airway secondary to encephalopathy, pneumonia and heart failure + Healthcare associated pneumonia + Suspected congestive heart failure + Suspected Septic shock : Rule out cardiogenic shock + Acute kidney injury + Mild hyperkalemia + History of Restrictive lung disease secondary to interstitial pulmonary fibrosis, along with obstructive disease with extensive emphysema currently on 4 L nasal cannula, suspected lung cancer, HTN, hypothyroidism, DVT, latent TB, abdominal aortic aneurysm, history of bladder cancer S/P treatment - Admit to ICU - Titrate Levophed according to blood pressure - Start [place]-Synephrine as second pressor if persistently low blood pressure - If patient is persistently hypotensive change propofol fall to either Ativan or fentanyl - No IV fluids at this point for congestive heart failure - Titrate FiO2 on vent according to saturation - Repeat ABG in a.m. - Trend lactate - Headed elevation of the bed - IV Protonix 40 mg daily - NG tube - TRC nebs - Oral care - Continue IV ceftaz and vancomycin - Obtain 2-D echocardiogram in a.m. - Serial troponins and ECGs - Repeat chest x-ray in a.m. - Full code - Critical care consult - Cardiology consult TTS 46 min
[2017-11-13 04:00] VITALS: BP 110/60
[2017-11-13 06:00] VITALS: BP 99/59
--- NOTE | 2017-11-13 06:15 | Admission Certification ---
Admission Certification Certification Statement - As attending physician, I certify that at the time of - admission, based on clinical presentation, severity of - symptoms, need for further diagnostic testing and - therapeutic interventions, and risk of adverse outcomes - without in-hospital treatment, in my clinical assessment, - this patient requires an acute hospital stay for a minimum - of two nights or longer. I have also considered psychsocial - factors such as support system, advanced age, financial - issues, cognitive issues, and failed out-patient treatments, - past re-admission history, safety of patient, and lack of - compliance as applicable. Specific rationale supporting this admission is: Acute respiratory failure, encephalopathy, heart failure, pneumonia
[2017-11-13 06:37] LABS: ABSOLUTE BASOPHIL COUNT 0.1 /CUMM (0.0-0.2); ABSOLUTE EOSINOPHIL COUNT 1.8 /CUMM (0.0-0.7); ABSOLUTE GRANULOCYTE CT 18.5 /CUMM (1.4-6.5); ABSOLUTE LYMPH COUNT 1.5 /CUMM (1.2-3.4); ABSOLUTE MONOCYTE COUNT 0.3 /CUMM (0.10-0.60); BASOPHIL % 0.2 % (0.0-2.0); EOSINOPHIL % 8.2 % (0-5); MEAN CORPUSCULAR HGB 30.1 PG (27.0-31.0); MEAN CORPUSCULAR HGB CONC 32.6 G/DL (33.0-37.0); MEAN CORPUSCULAR VOLUME 92.4 FL (80.0-94.0); PLATELET COUNT 189 /CUMM (130-400); RED BLOOD CELL CT 3.85 /CUMM (4.70-6.10); WHITE BLOOD CELL COUNT 22.1 /CUMM (4.8-10.8)
[2017-11-13 06:52] LABS: HEMATOCRIT 35.6 % (42-52)
[2017-11-13 06:53] LABS: GRANULOCYTE % 83.5 % (42.2-75.2)
[2017-11-13 08:00] VITALS: BP 86/50
--- NOTE | 2017-11-13 08:36 | Cons- CRCU ---
Patrick FAGAN,[facility] 11/13/17 0835: General Information and HPI Consulting Request Date of Consult: 11/13/17 Requested By: Dr. martin Exam Limitations: unable to give history History of Present Illness: The pt is 82 year old male with past medical history of Interstitial pulmonary fibrosis Severe emphysema, End-stage lung disease, Multiple lung nodules, History of latent tuberculosis on isoniazid therapy and vitamin B6,Paroxysmal atrial fibrillation with rapid ventricular response with normal ejection fraction, History of bladder cancer. He presented in ER for acute onset altered mental status. Patient was apparently all right yesterday and was ambulating with his oxygen but today the family noticed him being more lethargic and then became progressively altered over few hours of duration. Only change the can think of is giving clonazepam at the facility. It's unclear why patient has encephalopathy but he did not have a gag reflex and was immediately intubated after arrival in ER. The ABGs repeated after 45 minutes did not show significant CO2 retention, oxygenation was appropriate. U tox was negative for benzodiazepines. Patient has new infiltrates on x-ray suggestive of pneumonia versus heart failure. His proBNP significantly elevated as compared to past. He has basilar crackles on left side and decreased air entry on left side secondary to effusion. He has significant leukocytosis which appears chronic to him but has significant left shift with bandemia which appears new. The encephalopathy could be secondary to sepsis and pneumonia or due to persistent hypoxia with heart failure. ACS should be ruled out as well. Stroke could not be ruled out but CT scan was unremarkable. Neurological exam is limited at this point. In any of the situation patient's prognosis is guarded given his extensive pulmonary disease with pulmonary fibrosis and emphysema and would be difficult to extubate. I explained the situation to family and also discussed about CODE STATUS. They want everything to be done at this point and will decide about resuscitation as the time comes. Tmax 96 HR 70s to 60 Atrial fibrillation Borderline blood pressure ranging 100 to 90s/50s to 60s, Levophed currently at 12mcg Intubated and RR 14 VT 550 and FiO2 40 PEEP 5 with propofol at [address] Benson's catheter in place concentrated urine with Inadequate Output WBC count trending down to 22.1 with left shift no bandemia from 29 and 26 bands , H/H 11/35 from 14/45, platelets stable Sodium 135, potassium 4.2, bicarbonate 34, creatinine 1.3, phosphorus 2. Troponin trending up 0.05 to 0.12 3rd one pending BC X2 pending UC no growth so far, sputum culture pending, AFB smear pending CT chest IMPRESSION: 1. Endotracheal tube tip in the right mainstem bronchus, approximately 2 cm below the oriana. Retraction recommended. 2. New regions of consolidation bilaterally since 11/01/2017. Appearance could reflect multifocal pneumonia, pulmonary edema, or sequelae of aspiration in the proper clinical setting. 3. Increased moderate right pleural effusion extending throughout the periphery of the right hemithorax. This could be inflammatory/infectious or potentially malignant in etiology. 4. Upper lobe predominant emphysema, with superimposed fibrosis. 5. Mediastinal adenopathy which may be reactive or malignant in nature. 6. 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 Allergies/Medications Allergies: Coded Allergies: NO KNOWN ALLERGIES (12/07/11) Home Med List: Apixaban (Eliquis) 5 MG TABLET 1 TAB PO BID BLOOD THINNER Aspirin (Ecotrin*) 81 MG TABLET.DR 1 TAB PO DAILY HEART/BLOOD (Reported) Benzonatate (Tessalon Perle) 100 MG CAPSULE 1 CAP PO TID COUGH (Reported) Calcium Carbonate (Calcium) 500 MG CALCIUM (1,250 MG) TABLET 750 MG PO DAILY SUPPLEMENT (Reported) Cholecalciferol (Vitamin D3) (Vitamin D) 2,000 UNIT CAPSULE 1 TAB PO DAILY SUPPLEMENT (Reported) Escitalopram Oxalate 10 MG TABLET 1 TAB PO DAILY MENTAL HEALTH (Reported) Fluticasone/Vilanterol (Breo Ellipta 200-25 Mcg INH) 200 MCG-25 MCG/DOSE BLST.W.DEV 1 PUFF INH DAILY LUNG FIBROSIS (Reported) Folic Acid 0.8 MG CAPSULE 1 TAB PO DAILY SUPPLEMENT (Reported) Gabapentin 100 MG CAPSULE 1 CAP PO TID LUNG FIBROSIS (Reported) Isoniazid 100 MG TABLET 1 TAB PO TID LUNG FIBROSIS (Reported) Levothyroxine Sodium (Synthroid) 50 MCG TABLET 1 TAB PO DAILY AC HYPOTHYROIDISM Lidocaine (Lidoderm) 5 % ADH..PATCH 1 PAT TOP DAILY pain may wear up to 12 hours Lubiprostone (Amitiza) 24 MCG CAPSULE 1 CAP PO BID CONSTIPATION (Reported) Omeprazole 20 MG CAPSULE.DR 1 CAP PO DAILY GI (Reported) Polyethylene Glycol 3350 (Miralax) 17 GRAM POWD.PACK 1 PAC PO DAILY CONSTIPATION dissolve in water Prednisone 10 MG TABLET 1 TAB PO SEE ADMIN CRITERIA COPD please take 3 tabs (30 mg ) of prednisone for 2 weeks then 2 tabs( 20 mg) for 2 weeks then continue to take 1 tab(10 mg )..... Propranolol HCl (Propranolol HCl ER) 80 MG CAP.SA.24H 1 CAP PO DAILY MIGRAINES (Reported) Pyridoxine HCl (Vitamin B-6) 50 MG TABLET 1 TAB PO DAILY SUPPLEMENT (Reported ) Sennosides/Docusate Sodium (Senokot-S Tablet) 8.6 MG-50 MG TABLET 1 TAB PO BID PRN CONSTIPATION Sulfamethoxazole/Trimethoprim (Bactrim Ds Tablet) 800 MG-160 MG TABLET 1 TAB PO BID PCP prophylaxis take the medication on /WED/FRIDAYS Tiotropium [place] (Spiriva) 18 MCG CAP.W.DEV 1 CAP INH DAILY LUNG FIBROSIS ( Reported) Tramadol HCl (Ultram) 50 MG TABLET 1 TAB PO TIDPRN PAIN (Reported) Review of Systems Review of Systems Constitutional: Reports: see HPI. 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 Extended Care Facility Services at Home: None Smoking Status: Former Smoker Functional Ability ADLs Independent: eating, toileting. Unknown: dressing, bathing. Ambulation: walker IADLs Unknown: shopping, housework, finances, food prep, telephone, transportation, medication admin. Exam & Diagnostic Data Last 24 Hrs of Vital Signs/I&O Vital Signs Date Time Temp Pulse Resp B/P B/P Pulse O2 O2 Flow FiO2 Mean Ox Delivery Rate 11/13 1501 Ventilator 40% 11/13 1420 40 11/13 1200 94 Ventilator 40% 11/13 1200 99.3 69 17 96/58 96 Ventilator 40% 11/13 1157 40 11/13 0845 40 11/13 0800 98.9 65 18 86/50 96 Ventilator 40% 11/13 0800 96 Ventilator 40% 11/13 0600 40 11/13 0600 61 18 99/59 11/13 0545 100 Ventilator 40% 11/13 0400 96.6 59 18 110/60 11/13 0400 100 Ventilator 40% 11/13 0400 96.6 59 18 110/60 100 Ventilator 40% 11/13 0303 97.2 58 22 108/52 98 Ventilator 11/13 0301 40 11/13 0141 98.1 61 18 114/63 100 Ventilator 40% 11/13 0112 97.0 71 18 109/79 100 Ventilator 100% 11/13 0032 40 11/13 0026 50 11/13 0016 99 Ventilator 11/12 2350 91 161/104 99 Ventilator 11/12 2236 40/0 11/12 2235 40/0 11/12 2232 100 11/12 2224 97 18 128/96 98 Ventilator 100% 11/12 2217 96 12 120/84 60 Nasal 6.0L Cannula 11/12 2200 96 128/96 Intake & Output 11/13 1600 11/13 0800 11/13 0000 Intake Total 785 1147 Output Total 350 540 Balance 435 607 Intake, IV 675 1147 Intake, Other 110 Output, Urine 350 540 Patient 180 lb 180 lb Weight Weight Bed scale Estimated Measurement Method Physical Exam General Appearance: sedated, intubated Head: atraumatic Neck: normal inspection Respiratory: chest non-tender Cardiovascular: S1 S2 Gastrointestinal: normal bowel sounds, soft Extremities: no edema Other Physical Findings: TLC cath RIJ Last 48 Hrs of Labs/Aakash: Laboratory Tests 11/13/17 1220: Troponin I 0.09 11/13/17 0615: Anion Gap 6, Estimated GFR 53 L, Glucose 77, Calcium 8.6, Phosphorus 2.1 L, Magnesium 2.0, Total Bilirubin 0.7, AST 18, ALT 33, Troponin I 0.12 *H, Albumin 2.4 L, CBC w Diff NO MAN DIFF REQ, RBC 3.85 L, MCV 92.4, MCH 30.1, MCHC 32.6 L, RDW 16.0 H, MPV 8.0, Gran % 83.5 H, Lymphocytes % 6.6 L, Monocytes % 1.5 L, Eosinophils % 8.2 H, Basophils % 0.2, Absolute Granulocytes 18.5 H, Absolute Lymphocytes 1.5, Absolute Monocytes 0.3, Absolute Eosinophils 1.8, Absolute Basophils 0.1 11/13/17 0500: pH 7.59 H, pCO2 30 L, pO2 51 L, HCO3 29 H, ABG O2 Sat (Measured) 92.0 L, P- 50 (Temp Corrected) Y, Carboxyhemoglobin 0.6 L, O2 Concentration % 40%, Temperature 96.6 L, Respiration Rate 18, O2 Delivery Method ESPRIT, Vent Mode AC, Expiratory Pressure 5, Tidal Volume 550, Phlebotomy Draw Site RIGHT RADIAL 11/13/17 0155: Lactic Acid 2.2 H 11/12/17 2315: Urine Opiates Screen 109.00, Methadone Screen 67, Barbiturate Screen < 60, Ur Phencyclidine Scrn 6.30, Amphetamines Screen < 100, U Benzodiazepines Scrn < 85, Urine Cocaine Screen < 50, Urine Cannabis Screen < 5.00, Urine Color STRAW, Urine Clarity CLEAR, Urine pH 6.0, Ur Specific [place] >= 1.030, Urine Protein TRACE H, Urine Ketones NEG, Urine Nitrite NEG, Urine Bilirubin NEG@ICTO, Urine Urobilinogen 1.0, Ur Leukocyte Esterase NEG, Ur Microscopic SEDIMENT EXAMINED, Urine RBC 25-50 H, Urine WBC RARE, Ur Epithelial Cells RARE, Urine Bacteria RARE H, Urine Hemoglobin LARGE H, Urine Glucose NEG 11/12/17 2300: pH 7.41, pCO2 49 H, pO2 425 H, HCO3 30 H, ABG O2 Sat (Measured) 98.0, Carboxyhemoglobin 0.8 L, O2 Concentration % 100, Respiration Rate 18, O2 Delivery Method VENT, Vent Mode AC, Expiratory Pressure 5, Tidal Volume 550, Pressure Support Pending, Phlebotomy Draw Site RIGHT RADIAL 11/12/17 2220: Anion Gap 10, Estimated GFR 48 L, BUN/Creatinine Ratio 42.9 H, Glucose 169 H, Lactic Acid 1.4, Calcium 9.8, Total Bilirubin 0.6, AST 24, ALT 25, Alkaline Phosphatase 68, Troponin I 0.05, Fua-V-Vqkphxsvtrh Pept 5590 H, Total Protein 6.6, Albumin 3.5, Globulin 3.1, Albumin/Globulin Ratio 1.1, CBC w Diff MAN DIFF ORDERED, RBC 4.84, MCV 94.2 H, MCH 30.0, MCHC 31.8 L, RDW 16.4 H, MPV 8.1, Gran % 83.7 H, Lymphocytes % 3.7 L, Monocytes % 9.1, Eosinophils % 2.5, Basophils % 1.0, Absolute Granulocytes 24.5 H, Segmented Neutrophils 57, Band Neutrophils 26 H, Absolute Lymphocytes 1.1 L, Lymphocytes 3 L, Monocytes 8, Absolute Monocytes 2.7 H, Eosinophils 4, Absolute Eosinophils 0.7, Absolute Basophils 0.3, Metamyelocytes 2 H, Platelet Estimate ADEQUATE, Normocytic RBCs VERIFIED, Normochromic RBCs VERIFIED, Anisocytosis 1+, Fld Total RBCs Counted 100 Assessment/Plan CRCU Impression/Plan: Patient is 82 with multiple medical problems recently discharged from the [facility] treated for acute hypoxemic and hypercarbic respiratory failure 2/2 to COPD Exacerbation in setting of severe interstitial lung disease and emphysema. He became lethargic and a day and only change in his medication was clonazepam 0.5 mg. He has underlying End stage lung disease. Patient was being treated and evaluated for following conditions #Septic shock secondary to aspiration with HCAP pneumonia At the time of admission he was completely unconscious and needed IV pressors and intubation.CT chest showed new multifocal pneumonia. Blood counts are elevated with bandemia. -Monitor fever and WBC curve -Follow-up pancultures -Continue Levophed and titrate as per blood pressure -Continue mechanical ventilation -IVF D5 half normal saline 75 mL per -Continue on IV vancomycin and ceftazidime -Cvp is 5, if cvp more than 14 consider lasix #Acute respiratory failure multifactorial 2/2 mixed obstructive and restrictive end-stage lung disease (COPD & ILD) with probable lung malignancy, pneumonia aspiration/HCAP -Continue mechanical ventilatory -Continue IV steroids 40 mg daily -Continue IV Protonix -Patient is currently at propofol. We will slowly wean him off propofol and start him on low dose fentanyl drip -Repeat chest x-ray -Patient has end-stage lung disease and wished to be intubated for short period of time #Right lower lobe lesion along with chronic effusion with pleural based masses -Patient has probably underlying malignancy. -He is not a candidate for biopsy and has opted for conservative care. #Latent TB Patient was previously positive quantiferon gold, he is on interferon and B6 -Follow-up sputum culture and AFB smear #PAOLO in attending of sepsis Patient presented with creatinine of 1.4 slowly improving to 1.3 -Continue to monitor Cr #Hyperphosphatemia -Monitor and replete with Neutra-Phos #Lactic acidosis in setting of sepsis -Repeat LA added to am labs #History of atrial fibrillation with RVR with normal LVEF -Continue Eliquis #FC/NPO on fluids/DVT prophylaxis with Eliquis Consult Acknowledgment - Thank you for your consult request. Susy FAGAN,[facility] 11/13/17 1121: Assessment/Plan CRCU Other Findings/Comments: Pt well know to me with progressive resp failure now here with Acute hypoxic and hypercarbic resp failure FUll details as above General Appearance Intubated and sedated TLC cath noted in the rt ij Skin No Rashes, No Breakdown, No Significant Lesion Skin Temp/Moisture Exam: Warm/Dry Sepsis Skin Exam (color): Normal for Ethnicity HEENT Atraumatic, PERRLA, EOMI, Mucous Membr. moist/pink Neck Supple, No JVD, No thryomegaly, +2 Carotid Pulse wo Bruit Lymphatic Cervical nl Cardiovascular Regular Rate, Normal S1, Normal S2, No Murmurs Lungs crackles and wheezes bilaterally. Abdomen Normal Bowel Sounds, Soft, No Tenderness, No Hepatospenomegaly Neurological Normal Speech, Strength at 5/5 X4 Ext, Normal Tone, Cranial Nerves 3-12 NL, Reflexes 2+, sensation couldnt be tested Extremities No Clubbing, No Cyanosis, No Edema, Normal Pulses, No Tenderness/ Swelling Vascular Pulses Symmetrical CT IMPRESSION: 1. Endotracheal tube tip in the right mainstem bronchus, approximately 2 cm below the oriana. Retraction recommended. 2. New regions of consolidation bilaterally since 11/01/2017. Appearance could reflect multifocal pneumonia, pulmonary edema, or sequelae of aspiration in the proper clinical setting. 3. Increased moderate right pleural effusion extending throughout the periphery of the right hemithorax. This could be inflammatory/infectious or potentially malignant in etiology. 4. Upper lobe predominant emphysema, with superimposed fibrosis. 5. Mediastinal adenopathy which may be reactive or malignant in nature. 6. 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 He has had bullous COPD for many years from previous history of [id number] smoking quit in 1989. His overall lung function has been progressively getting worse. In the recent past he was also noted to have bilateral lung masses concerning for malignancy by PET scan and he is not a great candidate for invasive workup due to end-stage lung disease and we will be doing a CAT scan in July for evaluation of this. 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 Patient has been on INH since April 28. He also does have ascending aortic aneurysm, abdominal aortic aneurysm before, and very severe end-stage lung disease with reduced DLCO. Now here with severe resp failure now requiring intubation, with a complicated history and course issues * Acute resp failure due to progressive lung failure due to copd and ILD with prob lung malignancy, multifactorial in a pt with prog lung failure * Pna prob aspiration, with prob HCAP * Sig shock requiring pressors a combination of Intubation and sepsis prob * Chronic effusion with pleural based masses now with increased effusion * PRevious positive quantiferon gold on inh preventitive rx * Bilateral pleural based masses with pleuritic pain * Prob acute AIP aswell with prob superimposed pneumonia with bandemia * Slowly progressive rt lower lobe lesion since 2013 pt not a candidate for biopsy and he had wished conservative care (prob malignancy including lung vs mesothelioma vs boop * Severe copd with ild with mixed obstructive and restrictive lung disease with poor care home prognosis * 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 * Pafib with rapid ventricular response with normal LVEF * Previous bladder ca with no recurrence so far * Paolo with electrolyte abnormality * PRevious ihd and afib PLAN Discussed with daughter in detail PT recently wished to be intubated for a short period if he did get worse Cont abx IV steroids at 40 mg daily CONt inh Propofol and start low dose fentayl drip and slowly wean propofol Pt is not a candidate for thora as the risk of ptx and is high for now Levoxyl 50 mcg IV ppi Stool softners daily with amadeo and colace Rpt cxr and reposition ETT if needed Check cvp and lasix if cvp more than 14 OG tube and use ivf d5 ns at 75 cc per hour COnt levofed PT is critically ill discussed with daughter in detail TTS 90 mins Consult Acknowledgment - Thank you for your consult request.
[2017-11-13 12:00] VITALS: BP 96/58
--- NOTE | 2017-11-13 13:21 | Cons- Cardiology ---
General Information and HPI Consulting Request Date of Consult: 11/13/17 Requested By: Carlos Sterling MD Reason for Consult: Atrial fibrillation, hypotension Source of Information: family, old records Exam Limitations: intubated History of Present Illness: The history is obtained from the family and records as the patient is currently intubated. This is an 82-year-old male with a past medical history of severe COPD with interstitial lung disease and possible lung malignancy, recently diagnosed atrial fibrillation started on Eliquis, history of latent TB, and history of aortic dilatation presents to [facility] with reported a worsening mental status along with worsening respiratory status. Per report the patient had been ambulating at his facility and did not complain of any worsening chest pain or lower extremity edema. Due to the patient's significant respiratory insufficiency he was intubated and also required initiation of pressors due to hypotension. Allergies/Medications Allergies: Coded Allergies: NO KNOWN ALLERGIES (12/07/11) Home Med List: Apixaban (Eliquis) 5 MG TABLET 1 TAB PO BID BLOOD THINNER Aspirin (Ecotrin*) 81 MG TABLET.DR 1 TAB PO DAILY HEART/BLOOD (Reported) Benzonatate (Tessalon Perle) 100 MG CAPSULE 1 CAP PO TID COUGH (Reported) Calcium Carbonate (Calcium) 500 MG CALCIUM (1,250 MG) TABLET 750 MG PO DAILY SUPPLEMENT (Reported) Cholecalciferol (Vitamin D3) (Vitamin D) 2,000 UNIT CAPSULE 1 TAB PO DAILY SUPPLEMENT (Reported) Escitalopram Oxalate 10 MG TABLET 1 TAB PO DAILY MENTAL HEALTH (Reported) Fluticasone/Vilanterol (Breo Ellipta 200-25 Mcg INH) 200 MCG-25 MCG/DOSE BLST.W.DEV 1 PUFF INH DAILY LUNG FIBROSIS (Reported) Folic Acid 0.8 MG CAPSULE 1 TAB PO DAILY SUPPLEMENT (Reported) Gabapentin 100 MG CAPSULE 1 CAP PO TID LUNG FIBROSIS (Reported) Isoniazid 100 MG TABLET 1 TAB PO TID LUNG FIBROSIS (Reported) Levothyroxine Sodium (Synthroid) 50 MCG TABLET 1 TAB PO DAILY AC HYPOTHYROIDISM Lidocaine (Lidoderm) 5 % ADH..PATCH 1 PAT TOP DAILY pain may wear up to 12 hours Lubiprostone (Amitiza) 24 MCG CAPSULE 1 CAP PO BID CONSTIPATION (Reported) Omeprazole 20 MG CAPSULE.DR 1 CAP PO DAILY GI (Reported) Polyethylene Glycol 3350 (Miralax) 17 GRAM POWD.PACK 1 PAC PO DAILY CONSTIPATION dissolve in water Prednisone 10 MG TABLET 1 TAB PO SEE ADMIN CRITERIA COPD please take 3 tabs (30 mg ) of prednisone for 2 weeks then 2 tabs( 20 mg) for 2 weeks then continue to take 1 tab(10 mg )..... Propranolol HCl (Propranolol HCl ER) 80 MG CAP.SA.24H 1 CAP PO DAILY MIGRAINES (Reported) Pyridoxine HCl (Vitamin B-6) 50 MG TABLET 1 TAB PO DAILY SUPPLEMENT (Reported ) Sennosides/Docusate Sodium (Senokot-S Tablet) 8.6 MG-50 MG TABLET 1 TAB PO BID PRN CONSTIPATION Sulfamethoxazole/Trimethoprim (Bactrim Ds Tablet) 800 MG-160 MG TABLET 1 TAB PO BID PCP prophylaxis take the medication on /WED/FRIDAYS Tiotropium [place] (Spiriva) 18 MCG CAP.W.DEV 1 CAP INH DAILY LUNG FIBROSIS ( Reported) Tramadol HCl (Ultram) 50 MG TABLET 1 TAB PO TIDPRN PAIN (Reported) Current Medications: Current Medications Sig/Marah Start time Last Medication Dose Route Stop Time Status Admin Albuterol Sulfate 3 ML BID 11/13 2200 AC 11/13 INH 1217 Apixaban 5 MG BID 11/13 1000 AC 11/13 PO 1044 Aspirin 81 MG DAILY 11/13 1000 AC 11/13 PO 1213 Aspirin Buffered 81 MG DAILY 11/13 1000 CAN PO Ceftazidime 1,000 MG IQ8 11/13 0800 AC 11/13 IV 0841 Ceftazidime 0 .STK-MED ONE 11/13 0147 DC .ROUTE Ceftazidime 1,000 MG ONCE ONE 11/12 2330 DC 11/13 IV 11/12 2331 0147 Etomidate 0 .STK-MED ONE 11/12 2207 DC IV Flumazenil 0.2 MG ONCE ONE 11/13 0215 DC 11/12 IV 11/13 0216 2158 Flumazenil 0 .STK-MED ONE 11/12 2211 DC IV Ipratropium [place] 2.5 ML BID 11/13 2200 AC 11/13 INH 1217 Isoniazid 100 MG TID 11/13 1000 CAN PO Isoniazid 300 MG DAILY 11/13 1000 AC 11/13 PO 1044 Levothyroxine Sodium 0.05 MG DAILY AC 11/13 0700 AC 11/13 PO 1044 Naloxone HCl 0.4 MG ONCE ONE 11/13 0215 DC 11/12 IV 11/13 0216 2158 Naloxone HCl 0 .STK-MED ONE 11/12 2211 DC .ROUTE Non-Formulary 0 SEE ADMIN CRITERIA 11/12 2315 CAN Medication ANY Norepinephrine 4 MG Q6H 11/13 0800 AC 11/13 Sodium Chloride 250 ML IV 0842 Norepinephrine 0 .STK-MED ONE 11/13 0202 DC IV Norepinephrine 0 .STK-MED ONE 11/12 2305 DC IV Norepinephrine 0 .STK-MED ONE 11/12 223 DC IV Norepinephrine 4 MG ONCE ONE 11/12 2230 DC 11/12 Sodium Chloride 250 ML IV 11/12 223 2236 Omeprazole 20 MG DAILY 11/13 1000 CAN PO Pantoprazole Sodium 40 MG BID 11/13 1000 AC 11/13 IV 1001 Phosphate 250 MG PC AND AT BEDTIME 11/13 1300 AC PO 11/14 0901 Phosphate 250 MG PC AND AT BEDTIME .. 11/13 1130 DC 11/13 PO 1213 Propofol 1,000 MG CONTINOUS INFUSION 11/12 2300 AC 11/13 N/A 1 UNIT IV 0127 Sodium Chloride 1,000 ML BOLUS ONE 11/12 2230 DC 11/13 IV 11/12 232 0127 Sodium Chloride 1,000 ML BOLUS ONE 11/12 2230 DC 11/12 IV 11/12 2328 2220 Tiotropium [place] 1 PUF DAILY 11/13 1000 AC INH Vancomycin HCl 1,000 MG DAILY 11/13 1000 AC 11/13 Dextrose/Water 250 ML IV 1001 Vancomycin HCl 1,000 MG ONCE ONE 11/12 2330 DC 11/13 Dextrose/Water 250 ML IV 11/13 0029 0159 Review of Systems Review of Systems: Unable to obtain as the patient is currently intubated Past History Travel History Traveled to [place] past 21 day No Medical History Neurological: migraine EENT: NONE Cardiovascular: NONE Respiratory: COPD, LUNG FIBROSIS Gastrointestinal: STOMACH ULCERS Hepatic: NONE Renal: nephrolithiasis Musculoskeletal: NONE Psychiatric: NONE Endocrine: hypothyroidism Blood Disorders: BLOOD CLOT IN LLE Cancer(s): bladder cancer EELER/Reproductive: NONE Surgical History Surgical History: RAZ KNEE REPL BLADDER CANCER - TUMOR TAKEN OUT INGUINAL HERNIA REPAIR DEVIATED SEPTUM KIDNEY STONES BLASTED Family History Relations & Conditions If Any: Relation not specified for: *No pertinent family history Psychosocial History Where Do You Live? Extended Care Facility Services at Home: None Smoking Status: Former Smoker Functional Ability ADLs Independent: eating, toileting. Unknown: dressing, bathing. Ambulation: walker IADLs Unknown: shopping, housework, finances, food prep, telephone, transportation, medication admin. Exam & Diagnostic Data Vital Signs and I&O Vital Signs Date Time Temp Pulse Resp B/P B/P Pulse O2 O2 Flow FiO2 Mean Ox Delivery Rate 11/13 1200 99.3 69 17 96/58 96 Ventilator 40% 11/13 1157 40 11/13 0845 40 11/13 0800 98.9 65 18 86/50 96 Ventilator 40% 11/13 0600 40 11/13 0600 61 18 99/59 11/13 0545 100 Ventilator 40% 11/13 0400 96.6 59 18 110/60 11/13 0400 100 Ventilator 40% 11/13 0400 96.6 59 18 110/60 100 Ventilator 40% 11/13 0303 97.2 58 22 108/52 98 Ventilator 11/13 0301 40 11/13 0141 98.1 61 18 114/63 100 Ventilator 40% 11/13 0112 97.0 71 18 109/79 100 Ventilator 100% 11/13 0032 40 11/13 0026 50 11/13 0016 99 Ventilator 11/12 2350 91 161/104 99 Ventilator 11/12 2236 40/0 11/12 2235 40/0 11/12 2232 100 11/12 2224 97 18 128/96 98 Ventilator 100% 11/12 2217 96 12 120/84 60 Nasal 6.0L Cannula 11/12 2200 96 128/96 Intake & Output 11/13 1600 11/13 0800 11/13 0000 11/12 1600 11/12 0800 11/12 0000 Intake Total 1147 Output Total 540 Balance 607 Intake, IV 1147 Output, Urine 540 Patient 180 lb 180 lb Weight Weight Bed scale Estimated Measurement Method Physical Exam: General: Intubated Eyes: No obvious scleral icterus. HEENT: No jugular venous distention or abnormal jugular venous pulsations. Cardiovascular: Normal intensity S1/S2. Irregular Respiratory: Decreased air entry bilaterally Abdomen: Soft, nontender with no guarding or rebound tenderness. Musculoskeletal: No clubbing or cyanosis noted; no edema Skin: Warm Neurologic: Sedated Labs/Aakash Results: Laboratory Tests 11/13 11/13 11/13 1220 0615 0500 Blood Gas pH (7.35 - 7.45 PH) 7.59 H pCO2 (35 - 45 TORR) 30 L pO2 (80 - 100 TORR) 51 L HCO3 (21 - 28 MEQ/L) 29 H ABG O2 Sat (Measured) (>96.0 %) 92.0 L P-50 (Temp Corrected) Y Carboxyhemoglobin (1.5 - 5.0 %) 0.6 L O2 Concentration % 40% Temperature (97.0 - 100.0 FARH) 96.6 L Respiration Rate (BPM) 18 O2 Delivery Method ESPRIT Vent Mode AC Expiratory Pressure (CMH2O/P) 5 Tidal Volume (CC) 550 Chemistry Sodium (137 - 145 mmol/L) 135 L Potassium (3.5 - 5.1 mmol/L) 4.2 Chloride (98 - 107 mmol/L) 95 L Carbon Dioxide (22 - 30 mmol/L) 34 H Anion Gap (5 - 16) 6 BUN (9 - 20 mg/dL) 53 H Creatinine (0.7 - 1.2 mg/dL) 1.3 H Estimated GFR (>60 ml/min) 53 L Glucose (65 - 99 mg/dL) 77 Calcium (8.4 - 10.2 mg/dL) 8.6 Phosphorus (2.5 - 4.5 mg/dL) 2.1 L Magnesium (1.6 - 2.3 mg/dL) 2.0 Total Bilirubin (0.2 - 1.3 mg/dL) 0.7 AST (17 - 59 U/L) 18 ALT (21 - 72 U/L) 33 Troponin I (<0.11 ng/ml) 0.09 0.12 *H Albumin (3.5 - 5.0 g/dL) 2.4 L Hematology CBC w Diff NO MAN DIFF REQ WBC (4.8 - 10.8 /CUMM) 22.1 H RBC (4.70 - 6.10 /CUMM) 3.85 L Hgb (14.0 - 18.0 G/DL) 11.6 L Hct (42 - 52 %) 35.6 L MCV (80.0 - 94.0 FL) 92.4 MCH (27.0 - 31.0 PG) 30.1 MCHC (33.0 - 37.0 G/DL) 32.6 L RDW (11.5 - 14.5 %) 16.0 H Plt Count (130 - 400 /CUMM) 189 MPV (7.4 - 10.4 FL) 8.0 Gran % (42.2 - 75.2 %) 83.5 H Lymphocytes % (20.5 - 51.1 %) 6.6 L Monocytes % (1.7 - 9.3 %) 1.5 L Eosinophils % (0 - 5 %) 8.2 H Basophils % (0.0 - 2.0 %) 0.2 Absolute Granulocytes (1.4 - 6.5 /CUMM) 18.5 H Absolute Lymphocytes (1.2 - 3.4 /CUMM) 1.5 Absolute Monocytes (0.10 - 0.60 /CUMM) 0.3 Absolute Eosinophils (0.0 - 0.7 /CUMM) 1.8 Absolute Basophils (0.0 - 0.2 /CUMM) 0.1 Miscellaneous Phlebotomy Draw Site RIGHT RADIAL 11/13 11/12 2243 8128 Chemistry Lactic Acid (0.7 - 2.1 mmol/L) 2.2 H Toxicology Urine Opiates Screen (>2000 NG/ML) 109.00 Methadone Screen (>300 NG/ML) 67 Barbiturate Screen (>200 NG/ML) < 60 Ur Phencyclidine Scrn (>25 NG/ML) 6.30 Amphetamines Screen (>1000 NG/ML) < 100 U Benzodiazepines Scrn (>200 NG/ML) < 85 Urine Cocaine Screen (>300 NG/ML) < 50 Urine Cannabis Screen (>50 NG/ML) < 5.00 Urines Urine Color (YEL,AMB,STR) STRAW Urine Clarity (CLEAR) CLEAR Urine pH (5.0 - 8.0) 6.0 Ur Specific [place] (1.001 - 1.035) >= 1.030 Urine Protein (NEG,<30 MG/DL) TRACE H Urine Ketones (NEG) NEG Urine Nitrite (NEG) NEG Urine Bilirubin (NEG) NEG@ICTO Urine Urobilinogen (0.1 - 1.0 EU/dl) 1.0 Ur Leukocyte Esterase (NEG) NEG Ur Microscopic SEDIMENT EXAMINED Urine RBC (0 - 5 /HPF) 25-50 H Urine WBC (0 - 2 /HPF) RARE Ur Epithelial Cells (NONE,FEW) RARE Urine Bacteria (NEG/NONE) RARE H Urine Hemoglobin (NEG) LARGE H Urine Glucose (N MG/DL) NEG 11/12 11/12 2300 2220 Blood Gas pH (7.35 - 7.45 PH) 7.41 pCO2 (35 - 45 TORR) 49 H pO2 (80 - 100 TORR) 425 H HCO3 (21 - 28 MEQ/L) 30 H ABG O2 Sat (Measured) (>96.0 %) 98.0 Carboxyhemoglobin (1.5 - 5.0 %) 0.8 L O2 Concentration % 100 Respiration Rate (BPM) 18 O2 Delivery Method VENT Vent Mode AC Expiratory Pressure (CMH2O/P) 5 Tidal Volume (CC) 550 Pressure Support (CMH2O/P) Pending Chemistry Sodium (137 - 145 mmol/L) 139 Potassium (3.5 - 5.1 mmol/L) 5.8 H Chloride (98 - 107 mmol/L) 90 L Carbon Dioxide (22 - 30 mmol/L) 39 H Anion Gap (5 - 16) 10 BUN (9 - 20 mg/dL) 60 H Creatinine (0.7 - 1.2 mg/dL) 1.4 H Estimated GFR (>60 ml/min) 48 L BUN/Creatinine Ratio (7 - 25 %) 42.9 H Glucose (65 - 99 mg/dL) 169 H Lactic Acid (0.7 - 2.1 mmol/L) 1.4 Calcium (8.4 - 10.2 mg/dL) 9.8 Total Bilirubin (0.2 - 1.3 mg/dL) 0.6 AST (17 - 59 U/L) 24 ALT (21 - 72 U/L) 25 Alkaline Phosphatase (< 127 U/L) 68 Troponin I (<0.11 ng/ml) 0.05 Mor-[id number]-Xiqjwlaidbo Pept (<125 pg/mL) 5590 H Total Protein (6.3 - 8.2 g/dL) 6.6 Albumin (3.5 - 5.0 g/dL) 3.5 Globulin (1.9 - 4.2 gm/dL) 3.1 Albumin/Globulin Ratio (1.1 - 2.2 %) 1.1 Hematology CBC w Diff MAN DIFF ORDERED WBC (4.8 - 10.8 /CUMM) 29.3 H RBC (4.70 - 6.10 /CUMM) 4.84 Hgb (14.0 - 18.0 G/DL) 14.5 Hct (42 - 52 %) 45.6 MCV (80.0 - 94.0 FL) 94.2 H MCH (27.0 - 31.0 PG) 30.0 MCHC (33.0 - 37.0 G/DL) 31.8 L RDW (11.5 - 14.5 %) 16.4 H Plt Count (130 - 400 /CUMM) 217 MPV (7.4 - 10.4 FL) 8.1 Gran % (42.2 - 75.2 %) 83.7 H Lymphocytes % (20.5 - 51.1 %) 3.7 L Monocytes % (1.7 - 9.3 %) 9.1 Eosinophils % (0 - 5 %) 2.5 Basophils % (0.0 - 2.0 %) 1.0 Absolute Granulocytes (1.4 - 6.5 /CUMM) 24.5 H Segmented Neutrophils (42.2 - 75.2 %) 57 Band Neutrophils (0.0 - 5.0 %) 26 H Absolute Lymphocytes (1.2 - 3.4 /CUMM) 1.1 L Lymphocytes (20.5 - 51.1 %) 3 L Monocytes (1.7 - 9.3 %) 8 Absolute Monocytes (0.10 - 0.60 /CUMM) 2.7 H Eosinophils (0 - 5.0 %) 4 Absolute Eosinophils (0.0 - 0.7 /CUMM) 0.7 Absolute Basophils (0.0 - 0.2 /CUMM) 0.3 Metamyelocytes (0.0 - 1.0 %) 2 H Platelet Estimate (ADEQUATE) ADEQUATE Normocytic RBCs VERIFIED Normochromic RBCs VERIFIED Anisocytosis 1+ Miscellaneous Phlebotomy Draw Site RIGHT RADIAL Other Body Source Fld Total RBCs Counted (%) 100 Diagnostic Data EKG Results Tracing was personally reviewed and shows atrial fibrillation with poor R-wave progression and baseline artifact CXR Results 1. Endotracheal tube in right mainstem bronchus. Catheter can be pulled back about 5 cm. 2. Nasogastric tube in stomach. 3. Persistent large right pleural effusion. Other Results Telemetry tracings were personally reviewed and show atrial fibrillation with controlled ventricular response rate Assessment/Plan Assessment/Plan 1. Minimal troponin elevation unlikely due to acute coronary syndrome 2. Atrial fibrillation on Eliquis 3. Altered mental status and Respiratory failure requiring intubation 4. Hypotension requiring pressors 5. Severe COPD with interstitial lung disease and possible malignancy noted. 6. History of latent TB 7. History of ascending and descending aortic aneurysms 8. Likely some AV heavenly disease The patient's hypotension may be due to to sepsis; unlikely due to cardiogenic source as the patient did have a recent echocardiogram with preserved ejection fraction. I suspect the minimal troponin elevation is likely due to his acute illness and not do too acute coronary syndrome. The patient remains in atrial fibrillation on anticoagulation with no obvious bleeding sources. He is not tachycardic. He remains on intravenous pressors. A repeat echocardiogram is pending. He remains on intravenous antibiotics. His condition is guarded. Ben Fuller MD [facility] Consult Acknowledgment - Thank you for your consult request.
--- NOTE | 2017-11-13 14:24 | RADIOLOGY REPORT ---
EXAMINATION: XR PORTABLE CHEST CLINICAL INFORMATION: Pneumonia, CHF COMPARISON: 11/12/2017 chest x-ray and chest CT scan TECHNIQUE: Portable AP view of the chest was obtained. FINDINGS: An endotracheal tube is in place with its tip located about 3.5 cm from the oriana. An enteric tube is in place coursing toward the abdomen. Right IJ central venous catheter is in place with its tip projecting over the caval atrial junction. Bilateral pulmonary opacities with obscuration of the diaphragmatic and cardiac borders are unchanged as compared to the comparison x-ray and CT scan could represent a combination of atelectasis, pneumonia infiltrate and pleural effusion. No pneumothorax. IMPRESSION: Tubes and catheters as above. Bilateral pulmonary opacities, unchanged.
[2017-11-13 16:00] VITALS: BP 94/62
[2017-11-14] VITALS: BP 104/60
[2017-11-14 05:17] LABS: ABSOLUTE BASOPHIL COUNT 0.1 /CUMM (0.0-0.2); ABSOLUTE EOSINOPHIL COUNT 0.2 /CUMM (0.0-0.7); ABSOLUTE GRANULOCYTE CT 17.6 /CUMM (1.4-6.5); ABSOLUTE LYMPH COUNT 0.7 /CUMM (1.2-3.4); ABSOLUTE MONOCYTE COUNT 0.5 /CUMM (0.10-0.60); BASOPHIL % 0.3 % (0.0-2.0); GRANULOCYTE % 92.3 % (42.2-75.2); HEMATOCRIT 33.7 % (42-52); MEAN CORPUSCULAR HGB CONC 32.5 G/DL (33.0-37.0); MEAN CORPUSCULAR VOLUME 92.1 FL (80.0-94.0); PLATELET COUNT 155 /CUMM (130-400); RBC DISTRIBUTION WIDTH 16.2 % (11.5-14.5); RED BLOOD CELL CT 3.66 /CUMM (4.70-6.10)
--- NOTE | 2017-11-14 07:07 | RADIOLOGY REPORT ---
EXAMINATION: XR PORTABLE CHEST CLINICAL INFORMATION: Confirm support apparatus. COMPARISON: November 13, [address] scan of November 12, 2017 TECHNIQUE: Portable AP portable view of the chest was obtained. FINDINGS: Endotracheal tube is seen with its tip approximately 4 cm above oriana. Right internal jugular central venous catheters in which tip at the cavoatrial junction. Nasogastric tube seen traversing to the stomach. Bilateral disease again noted without significant change. No pneumothorax is seen. IMPRESSION: No change in appearance of the chest with bilateral disease.
[2017-11-14 08:00] VITALS: BP 92/60
--- NOTE | 2017-11-14 08:42 | PN- Resident CRCU ---
Subjective HPI/CRCU Issues: Patient seen and examined. He is seen lying flat in bed resting comfortably. He remains intubated on a ventilator with multiple lines in place. He appears to be in no acute distress. Subjective information and review of systems are unobtainable. Objective Vital Signs & I&O Last 8 Hrs of Vitals and I&O: Intake & Output 11/14 1600 Intake Total Output Total Balance Patient 56.019 kg Weight Weight Bed scale Measurement Method Exam General Appearance: no apparent distress, sedated, intubated Other Physical Findings: GEN: ill appearing, elderly man in no acute distress HEENT: NCAT, PERRL, anicteric sclera, MMM, endotraceal tube / OG tube in place NECK: Supple, no JVD, trachea midline, RIJ central line in place CARD: Normal S1/S2 w/o m/g/r; irregularly irregular PULM: Decreased bibasilar airflow ABD: Soft, NT, ND, BS+ : Benson catheter draining clear yellow urine NEURO: Sedated, no spontaneous movement, unresponsive to verbal/tactile stimuli EXT: bilateral upper extremity soft restraints, normal pulses, trace edema Current Medications: Current Medications Sig/Marah Start time Last Medication Dose Route Stop Time Status Admin Albuterol Sulfate 3 ML BID 11/13 2200 AC 11/14 INH 0806 Apixaban 5 MG BID 11/13 1000 AC 11/14 PO 0904 Aspirin 81 MG DAILY 11/13 1000 AC 11/14 PO 0904 Ceftazidime 1,000 MG IQ8 11/13 0800 AC 11/14 IV 0822 Dextrose/Sodium 1,000 ML Q16H 11/14 1030 AC 11/14 Chloride IV 1041 Dextrose/Sodium 1,000 ML Q13H 11/13 1545 DC 11/13 Chloride IV 1613 Docusate Sodium 100 MG DAILY 11/13 1547 AC 11/14 PO 0904 Docusate Sodium 100 MG DAILY 11/13 1543 DC PO Fentanyl Citrate 1,000 MCG Q7H 11/14 0230 AC 11/14 Sodium Chloride 250 ML IV 0221 Fentanyl Citrate 1,000 MCG Q24H 11/13 1545 DC 11/13 Sodium Chloride 250 ML IV 1723 Ipratropium Lorenzo 2.5 ML BID 11/13 2200 AC 11/14 INH 0806 Isoniazid 300 MG DAILY 11/13 1000 AC 11/14 PO 0904 Levothyroxine Sodium 0.05 MG DAILY AC 11/13 0700 AC 11/14 PO 0617 Lorazepam 2 MG ONE ONE 11/14 0800 DC 11/14 IV 11/14 0801 0755 Methylprednisolone 40 MG DAILY 11/13 1540 AC 11/14 IV 0904 Norepinephrine 4 MG Q6H 11/13 0800 AC 11/14 Sodium Chloride 250 ML IV 0904 Pantoprazole Sodium 40 MG BID 11/13 1000 AC 11/14 IV 0904 Phosphate 250 MG PC AND AT BEDTIME 11/14 1300 AC PO Phosphate 250 MG PC AND AT BEDTIME .. 11/13 1645 AC 11/14 PO 11/14 1259 0904 Phosphate 250 MG PC AND AT BEDTIME 11/13 1300 DC PO 11/14 0901 Phosphate 250 MG PC AND AT BEDTIME .. 11/13 1130 DC 11/13 PO 1213 Potassium Phosphate 15 mMol ONE ONE 11/13 1645 CAN Dextrose/Water 250 ML IV 11/13 2049 Propofol 1,000 MG CONTINOUS INFUSION 11/12 2300 DC 11/13 N/A 1 UNIT IV 1615 Senna 187 MG AT BEDTIME 11/13 2200 AC 11/13 PO 2145 Tiotropium [place] 1 PUF DAILY 11/13 1000 AC INH Vancomycin HCl 1,000 MG DAILY 11/13 1000 AC 11/14 Dextrose/Water 250 ML IV 0904 Impression/Plan Impression/Problem List Impression: 82 year old man with multiple medical problems significant for end-stage COPD/ ILD, lung masses concerning for malignancy brought in by ambulance from an [facility] for evaluation of shortness of breath found to have pneumonia with septic shock. Patient was admitted to the ICU and started on broadspectrum antiotics and fluids for blood pressure support. A centralline was placed for persistent hypotension for which levophed was started. For worsening hypoxic he was intubated for respiratory support. Patient remains intubated on a ventilator with levophed and fentanyl for blood pressure support and sedation. His CVP is 4 with MAP ~65-70 for which D5NS was started. Patient empirically stable on jevity, formal nutrition consult to be followed in morning. He has improving leukocytosis/bandemia while on Vancomycin/ Ceftazidime. Vent settings were increased to 7 PEEP and 55% FiO2 today, CXR and ABG to be checked tomorrow. Echocardiogram still pending. Patient remains stable currently, but overall has a poor prognosis. Problem List -Altered Mental status, now sedated -Septic shock, on levophed -Positive blood culture, GPC 1/2 bottles, possible contaminant -Healthcare acquired / aspiration pneumonia, on Vancomycin / Ceftazidime -Acute hypoxic respiratory failure, intubtaed on ventilator -Elevated troponin, likely demand ischemia -End stage COPD with exacerbation, on Solumedrol -Interstitial Lung Disease -Right lower lobe lung lesion, Probable Lung Cancer -Latent TB -Acute Kidney injury likely prerenal, now stable -History of Atrial Fibrillation, on Eliquis Plan -ICU -Intubated on Ventilator: PEEP 7, FiO2 55%, TV 500 -OG tube -RIJ Triple lumen -Benson catheter -Bilateral upper extremity soft restraints -D5NS @ 75 mL/hr -Levophed, titrate to MAP > 65 -Fentanyl for sedation -Solumedrol 40 mg IV Daily -Ceftazidime 1 g IV Q8H -Vancomycin 1 g IV Daily -Protonix 40 mg IV BID -Continue home meds: Eliquis, Aspirin, INH, Synthroid, -Consults with cardiology -Follow up cultures & sensitivies -Follow up echocardiogram -NPO, Tube feeds start, follow up formal nutrition consult in AM -Bowel regimen with Colace, Senna -DVT PPx with ALPS and Eliquis -FULL CODE -Overall poor prognosis Problem List: 1. Pneumonia 2. Respiratory failure 3. Interstitial pulmonary fibrosis 4. COPD (chronic obstructive pulmonary disease) Pain Ratin Tomorrow's Labs & Rationales: CBC, CMP, Phos, Mg, CXR, ABG Plan DVT/Prophylaxis: mechanical, pharmacological
--- NOTE | 2017-11-14 08:45 | PN- CRCU ---
Subjective HPI/Critical Care Issues: DOing poorly COntinues to be hypoxic and has sig hig peak and plateau pressures Intubated and sedated with fentanyl Now on low dose levo Urine out put low IV fluids have been stopped CVP 8 Objective Current Medications: Current Medications Sig/Marah Start time Last Medication Dose Route Stop Time Status Admin Albuterol Sulfate 3 ML BID 11/13 2200 AC 11/14 INH 0806 Apixaban 5 MG BID 11/13 1000 AC 11/13 PO 2145 Aspirin 81 MG DAILY 11/13 1000 AC 11/13 PO 1213 Aspirin Buffered 81 MG DAILY 11/13 1000 CAN PO Ceftazidime 1,000 MG IQ8 11/13 0800 AC 11/14 IV 0822 Dextrose/Sodium 1,000 ML Q13H 11/13 1545 DC 11/13 Chloride IV 1613 Docusate Sodium 100 MG DAILY 11/13 1547 AC 11/13 PO 1723 Docusate Sodium 100 MG DAILY 11/13 1543 DC PO Fentanyl Citrate 1,000 MCG Q7H 11/14 0230 AC 11/14 Sodium Chloride 250 ML IV 0221 Fentanyl Citrate 1,000 MCG Q24H 11/13 1545 DC 11/13 Sodium Chloride 250 ML IV 1723 Ipratropium Olden 2.5 ML BID 11/13 2200 AC 11/14 INH 0806 Isoniazid 300 MG DAILY 11/13 1000 AC 11/13 PO 1044 Levothyroxine Sodium 0.05 MG DAILY AC 11/13 0700 AC 11/14 PO 0617 Lorazepam 2 MG ONE ONE 11/14 0800 DC 11/14 IV 11/14 0801 0755 Methylprednisolone 40 MG DAILY 11/13 1540 AC 11/13 IV 1723 Norepinephrine 4 MG Q6H 11/13 0800 11/13 Sodium Chloride 250 ML IV 2145 Pantoprazole Sodium 40 MG BID 11/13 1000 AC 11/13 IV 2145 Phosphate 250 MG PC AND AT BEDTIME .. 11/13 1645 AC 11/13 PO 1723 Phosphate 250 MG PC AND AT BEDTIME 11/13 1300 DC PO 11/14 0901 Phosphate 250 MG PC AND AT BEDTIME .. 11/13 1130 DC 11/13 PO 1213 Potassium Phosphate 15 mMol ONE ONE 11/13 1645 CAN Dextrose/Water 250 ML IV 11/13 2049 Propofol 1,000 MG CONTINOUS INFUSION 11/12 2300 DC 11/13 N/A 1 UNIT IV 1615 Senna 187 MG AT BEDTIME 11/13 2200 AC 11/13 PO 2145 Tiotropium Olden 1 PUF DAILY 11/13 1000 AC INH Vancomycin HCl 1,000 MG DAILY 11/13 1000 AC 11/13 Dextrose/Water 250 ML IV 1001 Laboratory Tests 11/14 11/14 11/13 0520 0430 1220 Blood Gas pH (7.35 - 7.45 PH) 7.45 pCO2 (35 - 45 TORR) 43 pO2 (80 - 100 TORR) 58 L HCO3 (21 - 28 MEQ/L) 30 H ABG O2 Sat (Measured) (>96.0 %) 89.0 L P-50 (Temp Corrected) Y Carboxyhemoglobin (1.5 - 5.0 %) 1.6 O2 Concentration % 55% Temperature (97.0 - 100.0 FARH) 97.9 Respiration Rate (BPM) 12 O2 Delivery Method ESPRIT Vent Mode AC Expiratory Pressure (CMH2O/P) 5 Tidal Volume (CC) 550 Chemistry Sodium (137 - 145 mmol/L) 132 L Potassium (3.5 - 5.1 mmol/L) 4.3 Chloride (98 - 107 mmol/L) 96 L Carbon Dioxide (22 - 30 mmol/L) 33 H Anion Gap (5 - 16) 2 L BUN (9 - 20 mg/dL) 38 H Creatinine (0.7 - 1.2 mg/dL) 1.1 Estimated GFR (>60 ml/min) > 60 Glucose (65 - 99 mg/dL) 115 H Calcium (8.4 - 10.2 mg/dL) 8.0 L Phosphorus (2.5 - 4.5 mg/dL) 3.6 Magnesium (1.6 - 2.3 mg/dL) 2.0 Total Bilirubin (0.2 - 1.3 mg/dL) 0.6 AST (17 - 59 U/L) 19 ALT (21 - 72 U/L) 32 Troponin I (<0.11 ng/ml) 0.09 Albumin (3.5 - 5.0 g/dL) 2.2 L Hematology CBC w Diff MAN DIFF ORDERED WBC (4.8 - 10.8 /CUMM) 19.0 H RBC (4.70 - 6.10 /CUMM) 3.66 L Hgb (14.0 - 18.0 G/DL) 11.0 L Hct (42 - 52 %) 33.7 L MCV (80.0 - 94.0 FL) 92.1 MCH (27.0 - 31.0 PG) 30.0 MCHC (33.0 - 37.0 G/DL) 32.5 L RDW (11.5 - 14.5 %) 16.2 H Plt Count (130 - 400 /CUMM) 155 MPV (7.4 - 10.4 FL) 8.0 Gran % (42.2 - 75.2 %) 92.3 H Lymphocytes % (20.5 - 51.1 %) 3.8 L Monocytes % (1.7 - 9.3 %) 2.6 Eosinophils % (0 - 5 %) 1.0 Basophils % (0.0 - 2.0 %) 0.3 Absolute Granulocytes (1.4 - 6.5 /CUMM) 17.6 H Segmented Neutrophils (42.2 - 75.2 %) 79 H Band Neutrophils (0.0 - 5.0 %) 15 H Absolute Lymphocytes (1.2 - 3.4 /CUMM) 0.7 L Lymphocytes (20.5 - 51.1 %) 2 L Monocytes (1.7 - 9.3 %) 1 L Absolute Monocytes (0.10 - 0.60 /CUMM) 0.5 Eosinophils (0 - 5.0 %) 3 Absolute Eosinophils (0.0 - 0.7 /CUMM) 0.2 Absolute Basophils (0.0 - 0.2 /CUMM) 0.1 Platelet Estimate (ADEQUATE) ADEQUATE Normochromic RBCs VERIFIED Anisocytosis 1+ Miscellaneous Phlebotomy Draw Site LEFT RADIAL 11/13 11/13 11/13 0615 0500 4924 Blood Gas pH (7.35 - 7.45 PH) 7.59 H pCO2 (35 - 45 TORR) 30 L pO2 (80 - 100 TORR) 51 L HCO3 (21 - 28 MEQ/L) 29 H ABG O2 Sat (Measured) (>96.0 %) 92.0 L P-50 (Temp Corrected) Y Carboxyhemoglobin (1.5 - 5.0 %) 0.6 L O2 Concentration % 40% Temperature (97.0 - 100.0 FARH) 96.6 L Respiration Rate (BPM) 18 O2 Delivery Method ESPRIT Vent Mode AC Expiratory Pressure (CMH2O/P) 5 Tidal Volume (CC) 550 Chemistry Sodium (137 - 145 mmol/L) 135 L Potassium (3.5 - 5.1 mmol/L) 4.2 Chloride (98 - 107 mmol/L) 95 L Carbon Dioxide (22 - 30 mmol/L) 34 H Anion Gap (5 - 16) 6 BUN (9 - 20 mg/dL) 53 H Creatinine (0.7 - 1.2 mg/dL) 1.3 H Estimated GFR (>60 ml/min) 53 L Glucose (65 - 99 mg/dL) 77 Lactic Acid (0.7 - 2.1 mmol/L) 2.2 H Calcium (8.4 - 10.2 mg/dL) 8.6 Phosphorus (2.5 - 4.5 mg/dL) 2.1 L Magnesium (1.6 - 2.3 mg/dL) 2.0 Total Bilirubin (0.2 - 1.3 mg/dL) 0.7 AST (17 - 59 U/L) 18 ALT (21 - 72 U/L) 33 Troponin I (<0.11 ng/ml) 0.12 *H Albumin (3.5 - 5.0 g/dL) 2.4 L Hematology CBC w Diff NO MAN DIFF REQ WBC (4.8 - 10.8 /CUMM) 22.1 H RBC (4.70 - 6.10 /CUMM) 3.85 L Hgb (14.0 - 18.0 G/DL) 11.6 L Hct (42 - 52 %) 35.6 L MCV (80.0 - 94.0 FL) 92.4 MCH (27.0 - 31.0 PG) 30.1 MCHC (33.0 - 37.0 G/DL) 32.6 L RDW (11.5 - 14.5 %) 16.0 H Plt Count (130 - 400 /CUMM) 189 MPV (7.4 - 10.4 FL) 8.0 Gran % (42.2 - 75.2 %) 83.5 H Lymphocytes % (20.5 - 51.1 %) 6.6 L Monocytes % (1.7 - 9.3 %) 1.5 L Eosinophils % (0 - 5 %) 8.2 H Basophils % (0.0 - 2.0 %) 0.2 Absolute Granulocytes (1.4 - 6.5 /CUMM) 18.5 H Absolute Lymphocytes (1.2 - 3.4 /CUMM) 1.5 Absolute Monocytes (0.10 - 0.60 /CUMM) 0.3 Absolute Eosinophils (0.0 - 0.7 /CUMM) 1.8 Absolute Basophils (0.0 - 0.2 /CUMM) 0.1 Miscellaneous Phlebotomy Draw Site RIGHT RADIAL 11/12 11/12 2315 2300 Blood Gas pH (7.35 - 7.45 PH) 7.41 pCO2 (35 - 45 TORR) 49 H pO2 (80 - 100 TORR) 425 H HCO3 (21 - 28 MEQ/L) 30 H ABG O2 Sat (Measured) (>96.0 %) 98.0 Carboxyhemoglobin (1.5 - 5.0 %) 0.8 L O2 Concentration % 100 Respiration Rate (BPM) 18 O2 Delivery Method VENT Vent Mode AC Expiratory Pressure (CMH2O/P) 5 Tidal Volume (CC) 550 Pressure Support (CMH2O/P) Pending Miscellaneous Phlebotomy Draw Site RIGHT RADIAL Toxicology Urine Opiates Screen (>2000 NG/ML) 109.00 Methadone Screen (>300 NG/ML) 67 Barbiturate Screen (>200 NG/ML) < 60 Ur Phencyclidine Scrn (>25 NG/ML) 6.30 Amphetamines Screen (>1000 NG/ML) < 100 U Benzodiazepines Scrn (>200 NG/ML) < 85 Urine Cocaine Screen (>300 NG/ML) < 50 Urine Cannabis Screen (>50 NG/ML) < 5.00 Urines Urine Color (YEL,AMB,STR) STRAW Urine Clarity (CLEAR) CLEAR Urine pH (5.0 - 8.0) 6.0 Ur Specific Rachel (1.001 - 1.035) >= 1.030 Urine Protein (NEG,<30 MG/DL) TRACE H Urine Ketones (NEG) NEG Urine Nitrite (NEG) NEG Urine Bilirubin (NEG) NEG@ICTO Urine Urobilinogen (0.1 - 1.0 EU/dl) 1.0 Ur Leukocyte Esterase (NEG) NEG Ur Microscopic SEDIMENT EXAMINED Urine RBC (0 - 5 /HPF) 25-50 H Urine WBC (0 - 2 /HPF) RARE Ur Epithelial Cells (NONE,FEW) RARE Urine Bacteria (NEG/NONE) RARE H Urine Hemoglobin (NEG) LARGE H Urine Glucose (N MG/DL) NEG 11/12 2220 Chemistry Sodium (137 - 145 mmol/L) 139 Potassium (3.5 - 5.1 mmol/L) 5.8 H Chloride (98 - 107 mmol/L) 90 L Carbon Dioxide (22 - 30 mmol/L) 39 H Anion Gap (5 - 16) 10 BUN (9 - 20 mg/dL) 60 H Creatinine (0.7 - 1.2 mg/dL) 1.4 H Estimated GFR (>60 ml/min) 48 L BUN/Creatinine Ratio (7 - 25 %) 42.9 H Glucose (65 - 99 mg/dL) 169 H Lactic Acid (0.7 - 2.1 mmol/L) 1.4 Calcium (8.4 - 10.2 mg/dL) 9.8 Total Bilirubin (0.2 - 1.3 mg/dL) 0.6 AST (17 - 59 U/L) 24 ALT (21 - 72 U/L) 25 Alkaline Phosphatase (< 127 U/L) 68 Troponin I (<0.11 ng/ml) 0.05 Mvo-M-Mdqhewnwstx Pept (<125 pg/mL) 5590 H Total Protein (6.3 - 8.2 g/dL) 6.6 Albumin (3.5 - 5.0 g/dL) 3.5 Globulin (1.9 - 4.2 gm/dL) 3.1 Albumin/Globulin Ratio (1.1 - 2.2 %) 1.1 Hematology CBC w Diff MAN DIFF ORDERED WBC (4.8 - 10.8 /CUMM) 29.3 H RBC (4.70 - 6.10 /CUMM) 4.84 Hgb (14.0 - 18.0 G/DL) 14.5 Hct (42 - 52 %) 45.6 MCV (80.0 - 94.0 FL) 94.2 H MCH (27.0 - 31.0 PG) 30.0 MCHC (33.0 - 37.0 G/DL) 31.8 L RDW (11.5 - 14.5 %) 16.4 H Plt Count (130 - 400 /CUMM) 217 MPV (7.4 - 10.4 FL) 8.1 Gran % (42.2 - 75.2 %) 83.7 H Lymphocytes % (20.5 - 51.1 %) 3.7 L Monocytes % (1.7 - 9.3 %) 9.1 Eosinophils % (0 - 5 %) 2.5 Basophils % (0.0 - 2.0 %) 1.0 Absolute Granulocytes (1.4 - 6.5 /CUMM) 24.5 H Segmented Neutrophils (42.2 - 75.2 %) 57 Band Neutrophils (0.0 - 5.0 %) 26 H Absolute Lymphocytes (1.2 - 3.4 /CUMM) 1.1 L Lymphocytes (20.5 - 51.1 %) 3 L Monocytes (1.7 - 9.3 %) 8 Absolute Monocytes (0.10 - 0.60 /CUMM) 2.7 H Eosinophils (0 - 5.0 %) 4 Absolute Eosinophils (0.0 - 0.7 /CUMM) 0.7 Absolute Basophils (0.0 - 0.2 /CUMM) 0.3 Metamyelocytes (0.0 - 1.0 %) 2 H Platelet Estimate (ADEQUATE) ADEQUATE Normocytic RBCs VERIFIED Normochromic RBCs VERIFIED Anisocytosis 1+ Other Body Source Fld Total RBCs Counted (%) 100 Microbiology Date/Time Procedure - Status Source Growth 11/13 1900 Influenza Virus A & B Rapid Smear - COMP NASOPHARYN 11/13 1000 AFB Culture with PCR Identification - RECD LOWER RESP 11/13 1000 AFB Smear Concentration - RECD LOWER RESP 11/13 1000 Respiratory Culture - RES LOWER RESP 11/13 1000 Gram Stain - RES LOWER RESP 11/13 0957 Respiratory Culture - CAN LOWER RESP Cancelled: DUPLICATE 11/13 0957 Gram Stain - CAN LOWER RESP Cancelled: DUPLICATE 11/13 0600 Influenza Virus A & B Rapid Smear - CAN NASOPHARYN Cancelled: NOT REC'D IN LAB - DUPLICATE TESTING SENT LATER IN DAY 11/13 0400 Surveillance Culture - COMP UPPER RESP 11/13 0400 Surveillance Culture - COMP GI 11/13 0007 Blood Culture - RECD BLOOD 11/12 2315 Urine Culture - RES URINE ROUT 11/12 2259 Blood Culture - RES BLOOD GRAM POSITIVE COCCI Vital Signs & I&O Last 24 Hrs of Vitals and I&O: Vital Signs Date Time Temp Pulse Resp B/P B/P Pulse O2 O2 Flow FiO2 Mean Ox Delivery Rate 11/14 0800 96.8 61 14 92/60 91 Ventilator 70% 11/14 0557 70 11/14 0538 60 11/14 0534 55 11/14 0400 93 Ventilator 55% 11/14 0347 55 11/14 0224 55 11/14 0117 45 11/14 0000 98.9 62 12 104/60 92 Ventilator 45% 11/14 0000 92 Ventilator 45% 11/13 2210 45 11/13 2145 71 91/63 11/13 2045 40 11/13 2000 91 Ventilator 40% 11/13 1611 40 11/13 1600 100.1 86 18 94/62 100 Ventilator 40% 11/13 1600 100 Ventilator 40% 11/13 1501 Ventilator 40% 11/13 1420 40 11/13 1200 94 Ventilator 40% 11/13 1200 99.3 69 17 96/58 96 Ventilator 40% 11/13 1157 40 11/13 0845 40 Intake & Output 11/14 1600 11/14 0800 11/14 0000 Intake Total 882 1035 Output Total 240 350 Balance 642 685 Intake, IV 842 935 Intake, Tube 40 100 Irrigant Number 0 0 Bowel Movements Output, Urine 240 350 Impression/Plan Impression/Plan Impression/Plan: Culture on of them growing gpc cxr no change General Appearance Intubated and sedated TLC cath noted in the rt ij Skin No Rashes, No Breakdown, No Significant Lesion Skin Temp/Moisture Exam: Warm/Dry Sepsis Skin Exam (color): Normal for Ethnicity HEENT Atraumatic, PERRLA, EOMI, Mucous Membr. moist/pink Neck Supple, No JVD, No thryomegaly, +2 Carotid Pulse wo Bruit Lymphatic Cervical nl Cardiovascular Regular Rate, Normal S1, Normal S2, No Murmurs Lungs crackles and wheezes bilaterally. Abdomen Normal Bowel Sounds, Soft, No Tenderness, No Hepatospenomegaly Neurological Normal Speech, Strength at 5/5 X4 Ext, Normal Tone, Cranial Nerves 3-12 NL, Reflexes 2+, sensation couldnt be tested Extremities No Clubbing, No Cyanosis, No Edema, Normal Pulses, No Tenderness/ Swelling Vascular Pulses Symmetrical CT IMPRESSION: 1. Endotracheal tube tip in the right mainstem bronchus, approximately 2 cm below the oriana. Retraction recommended. 2. New regions of consolidation bilaterally since 11/01/2017. Appearance could reflect multifocal pneumonia, pulmonary edema, or sequelae of aspiration in the proper clinical setting. 3. Increased moderate right pleural effusion extending throughout the periphery of the right hemithorax. This could be inflammatory/infectious or potentially malignant in etiology. 4. Upper lobe predominant emphysema, with superimposed fibrosis. 5. Mediastinal adenopathy which may be reactive or malignant in nature. 6. 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 He has had bullous COPD for many years from previous history of [id number] smoking quit in 1989. His overall lung function has been progressively getting worse. In the recent past he was also noted to have bilateral lung masses concerning for malignancy by PET scan and he is not a great candidate for invasive workup due to end-stage lung disease and we will be doing a CAT scan in July for evaluation of this. 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 Patient has been on INH since April 28. He also does have ascending aortic aneurysm, abdominal aortic aneurysm before, and very severe end-stage lung disease with reduced DLCO. Now here with severe resp failure now requiring intubation, with a complicated history and course issues * Acute resp failure due to progressive lung failure due to copd and ILD with prob lung malignancy, multifactorial in a pt with prog lung failure * Acute exacerbation of ILD with AIP * Pna, prob aspiration, with prob HCAP * GPC in blood await cultures * Sig shock requiring pressors a combination of Sepsis and low venous return due to intubation * Chronic effusion with pleural based masses now with increased effusion * PRevious positive quantiferon gold on inh preventitive rx, with previous sputum neg * Bilateral pleural based masses with pleuritic pain * Prob acute AIP aswell with prob superimposed pneumonia with bandemia * Slowly progressive rt lower lobe lesion since 2013 pt not a candidate for biopsy and he had wished conservative care (prob malignancy including lung vs mesothelioma vs boop * Severe copd with ild with mixed obstructive and restrictive lung disease 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 * 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 * Pafib with initial rapid ventricular response with normal LVEF, now misty * Previous bladder ca with no recurrence so far * Ulysses with electrolyte abnormality with slow improvement * PRevious ihd and afib PLAN COnt vent Reduce vt to 500 increase peep to 7 keep Plateau pressures less than 30 Cont abx IV steroids at 40 mg daily CONt inh and b6 Start low dose tube feeding at 20 cc of jevity COnt low dose fentanyl Pt is not a candidate for thora as the risk of ptx and is high for now Levoxyl 50 mcg IV ppi Stool softners daily with amadeo and colace Rpt cxr in am Check cvp q8 if less than 10 start d5 normal saline at 60 cc COnt levofed MAP goal of 65 PT is critically ill Discussed with daughter in detail PT recently wished to be intubated for a short period if he did get worse TTS 36 mins
[2017-11-14 16:00] VITALS: BP 84/60
--- NOTE | 2017-11-14 18:19 | ECHOCARDIOGRAM REPORT ---
KELY POWELL Age: 82 : 1935 Gender: M Exam Date: 11/14/2017 09:53 Exam Location: [facility] Ht (in): 68 Wt (lb): 180 BSA: 2.00 BP: 92 / 60 Ordering Physician: Danyell Mccormick MD Referring Physician: Jung Flowers MD Technologist: Kurt Topete [facility] Room Number: 107-01 Indications: HYPOTENSION Rhythm: Technical Quality: Technically difficult study FINDINGS Left Ventricle Normal global left ventricular size, wall thickness, systolic function with no obvious regional wall motion abnormalities. Left ventricular ejection fraction is estimated at > 60 %. Right Ventricle Right ventricle not well visualized, grossly normal. Right Atrium Normal right atrial size. Left Atrium Mild left atrial dilatation. Mitral Valve No mitral stenosis. Mild mitral annular calcification. Trace mitral regurgitation. Aortic Valve No aortic stenosis. Mild aortic regurgitation. Trileaflet aortic valve. Tricuspid Valve Structurally normal tricuspid valve. Mild tricuspid regurgitation. Unable to estimate the right ventricular systolic pressure. Pulmonic Valve Pulmonic valve not well visualized, grossly normal. Pericardium Minimal pericardial effusion. Great Vessels Aortic dilatation. CONCLUSIONS Technically difficult study. Normal global left ventricular size, wall thickness, systolic function with no obvious regional wall motion abnormalities. Left ventricular ejection fraction is estimated at > 60 %. Right ventricle not well visualized, grossly normal. Mild left atrial dilatation. Minimal pericardial effusion. Aortic dilatation. Aleksandr Fuller M.D. (Electronically Signed) Final Date: 14 November 2017 18:18 MEASUREMENTS (Male / Female) Normal Values 2D ECHO LV Diastolic Diameter PLAX 4.8 cm 4.2 - 5.9 / 3.9 - 5.3 cm LV Systolic Diameter PLAX 2.5 cm 2.1 - 4.0 cm LV Fractional Shortening PLAX 47.9 % 25 - 46 % LV Ejection Fraction 2D Teich 79.2 % IVS Diastolic Thickness 1.1 cm LVPW Diastolic Thickness 1.0 cm LV Relative Wall Thickness 0.4 RV Internal Dim ED PLAX 3.6 cm 1.9 - 3.8 cm LVOT Diameter 2.5 cm Aortic Root Diameter 5.3 cm LA Systolic Diameter LX 4.8 cm 3.0 - 4.0 / 2.7 - 3.8 cm LA Volume 105.0 cm 18 - 58 / 22 - 52 cm Ascending Aorta Diameter 4.3 cm DOPPLER AV Peak Velocity 116.0 cm/s AV Peak Gradient 5.4 mmHg AV Mean Velocity 79.1 cm/s AV Mean Gradient 3.0 mmHg AV Velocity Time Integral 17.3 cm LVOT Peak Velocity 88.4 cm/s LVOT Peak Gradient 3.1 mmHg LVOT Mean Velocity 55.8 cm/s LVOT Mean Gradient 2.0 mmHg LVOT Velocity Time Integral 14.5 cm LVOT Stroke Volume 71.2 cm AV Area Cont Eq vti 4.1 cm AV Area Cont Eq pk 3.7 cm MV Peak Velocity 101.0 cm/s MV Peak Gradient 4.1 mmHg MV Mean Velocity 53.9 cm/s MV Mean Gradient 1.0 mmHg Mitral E Point Velocity 87.8 cm/s MV PHT Velocity 104.0 cm/s MV Deceleration [place] 397.0 cm/s MV Pressure Half Time 78.6 ms MV Area PHT 2.8 cm TV Peak Velocity 308.5 cm/s TV Peak E Velocity 66.2 cm/s Right Atrial Pressure 3.0 mmHg PV Peak Velocity 78.0 cm/s PV Peak Gradient 2.4 mmHg PV Mean Velocity 52.8 cm/s PV Mean Gradient 1.5 mmHg PV Velocity Time Integral 11.1 cm
[2017-11-15] VITALS: BP 110/64
[2017-11-15 04:44] LABS: ABSOLUTE BASOPHIL COUNT 0.1 /CUMM (0.0-0.2); ABSOLUTE EOSINOPHIL COUNT 1.1 /CUMM (0.0-0.7); ABSOLUTE GRANULOCYTE CT 18.1 /CUMM (1.4-6.5); ABSOLUTE LYMPH COUNT 0.8 /CUMM (1.2-3.4); ABSOLUTE MONOCYTE COUNT 0.2 /CUMM (0.10-0.60); BASOPHIL % 0.3 % (0.0-2.0); EOSINOPHIL % 5.3 % (0-5); GRANULOCYTE % 89.7 % (42.2-75.2); HEMATOCRIT 34.1 % (42-52); MEAN CORPUSCULAR HGB CONC 32.7 G/DL (33.0-37.0); MEAN CORPUSCULAR VOLUME 91.9 FL (80.0-94.0); MEAN PLATELET VOLUME 7.5 FL (7.4-10.4); PLATELET COUNT 142 /CUMM (130-400); RED BLOOD CELL CT 3.71 /CUMM (4.70-6.10); WHITE BLOOD CELL COUNT 20.2 /CUMM (4.8-10.8)
--- NOTE | 2017-11-15 07:27 | PN- Resident CRCU ---
Impression/Plan Plan DVT/Prophylaxis: mechanical, pharmacological
--- NOTE | 2017-11-15 07:30 | PN- Resident CRCU ---
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 remains intubated. Minimally arousable. Prognosis guarded. Overnight patient desaturated to 80s on movement, briefly FiO2 was increased to 70%. PEEP 7. Fentanyl drip was increased as patient was pulling out lines and was agitated. Tmax 97.2 Heart rate ranging from 70s to 60s Atrial fibrillation Blood pressure borderline running 110 to 70s/70s to 60s Input 2798 output 607 Low urine output Foleys catheter in place Intubated with ventilator setting AC FiO2 70. Tidal Vol 500, PEEP 7 OG tube RIJ Triple lumen Bilateral upper extremity soft restraints Levophid@2.5 MCG Fentanyl @100 mcg H/H stable platelet count stable WBC count 20.2 on Sodium 136, BUN 32 creatinine 0.9, magnesium 1.9 phosphorus 3.4, albumin 2.2 ABG from this morning pH 7.4 PO2 55 PCO2 44 bicarbonate 29, Continues to be hypoxic and has significantly high peak and plateau pressures CXR : Endotracheal tube is seen with its tip approximately 4 cm above oriana. Right internal jugular central venous catheters in which tip at the cavoatrial junction. Nasogastric tube seen traversing to the stomach. Bilateral disease again noted without significant change. No pneumothorax is seen. Objective Vital Signs & I&O Last 8 Hrs of Vitals and I&O: Intake & Output 11/15 1600 Intake Total Output Total Balance Patient 175 lb Weight Exam General Appearance: intubated Head: atraumatic Respiratory: chest non-tender Cardiovascular: s1 s2 Gastrointestinal: normal bowel sounds, soft Current Medications: Current Medications Sig/Marah Start time Last Medication Dose Route Stop Time Status Admin Albuterol Sulfate 3 ML BID 11/13 2200 AC 11/15 INH 0750 Apixaban 5 MG BID 11/13 1000 AC 11/15 PO 1046 Aspirin 81 MG DAILY 11/13 1000 AC 11/15 PO 1046 Ceftazidime 1,000 MG IQ8 11/13 0800 AC 11/15 IV 0800 Dextrose/Sodium 1,000 ML Q20H 11/15 1500 CAN Chloride IV Dextrose/Sodium 1,000 ML Q16H 11/14 1030 AC 11/15 Chloride IV 0216 Docusate Sodium 100 MG DAILY 11/13 1547 AC 11/15 PO 1046 Fentanyl Citrate 1,000 MCG Q10H 11/14 1300 AC 11/15 Sodium Chloride 250 ML IV 0021 Ipratropium [place] 2.5 ML BID 11/13 2200 AC 11/15 INH 0750 Isoniazid 300 MG DAILY 11/13 1000 AC 11/15 PO 1046 Levothyroxine Sodium 0.05 MG DAILY AC 11/13 0700 AC 11/15 PO 0658 Magnesium Sulfate 1 GM ONCE ONE 11/15 0630 DC 11/15 Dextrose/Water 100 ML IV 11/15 1029 0700 Methylprednisolone 40 MG DAILY 11/13 1540 AC 11/15 IV 1044 Norepinephrine 4 MG Q22H 11/14 1800 AC 11/14 Sodium Chloride 250 ML IV 1755 Norepinephrine 4 MG Q6H 11/13 0800 DC 11/14 Sodium Chloride 250 ML IV 11/14 1759 1338 Pantoprazole Sodium 40 MG BID 11/13 1000 AC 11/15 IV 1047 Phosphate 250 MG PC AND AT BEDTIME 11/14 1300 AC 11/15 PO 1045 Pyridoxine HCl 50 MG DAILY 11/15 1444 AC PO Senna 187 MG AT BEDTIME 11/13 2200 AC 11/14 PO 2231 Tiotropium [place] 1 PUF DAILY 11/13 1000 AC INH Vancomycin HCl 1,000 MG DAILY 11/13 1000 AC 11/15 Dextrose/Water 250 ML IV 1044 Impression/Plan Impression/Problem List Impression: Patient is 82 with multiple medical problems recently discharged from the [facility] treated for acute hypoxemic and hypercarbic respiratory failure 2/2 to COPD Exacerbation in setting of severe interstitial lung disease and emphysema. He became lethargic and only change in his medication was clonazepam 0.5 mg. He has underlying End stage lung disease. Patient is being treated and evaluated for following conditions with poor prognosis. 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 -He is not a candidate for biopsy and has opted for conservative care. 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 Blood counts were elevated with bandemia. -Monitor fever and WBC curve -Follow-up pancultures (Positive blood culture, and 1 bottle staph coagulase- negative, possible contaminant; LRS mixed jonathon) -Continue mechanical ventilation -Continue on IV vancomycin and ceftazidime -Levophed, titrate to MAP > 65 -CVP q8 if less than 10 start d5 normal saline at 60 cc #History of atrial fibrillation with RVR with normal LVEF -Continue Eliquis #Type II RI in setting supply demand mismatch -Troponin peaked at 0.12 trended down -Continue aspirin Metabolic #Hyperphosphatemia-resolved Likely secondary to PAOLO in setting of sepsis; likely prerenal -Monitor and replete with Neutra-Phos #Lactic acidosis in setting of sepsis -Repeat LA added to am labs #History of hypothyroidism -Continue Synthroid Alimentary -Tube feeds jevity 1.2 20cc/h -Nutrition consult -Bowel regimen with Colace, Senna Nephrology #PAOLO in attending of sepsis- resolved Patient presented with creatinine of 1.4, back to baseline -Continue to monitor Cr DVT prophylaxis with Eliquis CODE STATUS full code, prognosis remains poor Problem List: 1. COPD (chronic obstructive pulmonary disease) Pain Ratin Tomorrow's Labs & Rationales: CBC ICU BUNDLE Plan DVT/Prophylaxis: mechanical, pharmacological
--- NOTE | 2017-11-15 08:40 | RADIOLOGY REPORT ---
EXAMINATION: CR PORTABLE CHEST CLINICAL INFORMATION: Hypoxia, hypotension. Septic shock with HCAP/aspiration pneumonia. COMPARISON: Multiple prior chest x-rays, most recent of which is dated 11/14/2017. TECHNIQUE: Portable AP semierect view of the chest was obtained. FINDINGS: Endotracheal tube tip is approximately 4.4 cm above the oriana. Enteric tube courses into the abdomen with tip beyond the field of view. Right jugular central venous line tip is in the deep SVC. The cardiovascular silhouette is enlarged. Low lung volumes are seen with dense opacities in both lower lobes and along the right lateral chest wall, consistent with previously demonstrated moderate right-sided pleural effusion and associated bilateral airspace disease. Findings are unchanged compared to the prior exam. Prominent left apical bullous emphysematous changes are again seen, also unchanged. The bony structures are grossly unremarkable. IMPRESSION: 1. Endotracheal tube tip 4.4 cm above the oriana. 2. Enteric tube tip beyond the [id number] of this exam. 3. Right jugular central venous line tip in the deep SVC. 4. No significant change in moderate-sized right-sided pleural effusion and associated bilateral diffuse airspace opacities and prominent left apical bullous emphysematous changes.
[2017-11-15 08:45] VITALS: BP 108/62
--- NOTE | 2017-11-15 09:55 | PN- CRCU ---
Subjective HPI/Critical Care Issues: Doing poorly afebrile Intubated and sedated Objective Current Medications: Current Medications Sig/Marah Start time Last Medication Dose Route Stop Time Status Admin Albuterol Sulfate 3 ML BID 11/13 2200 AC 11/15 INH 0750 Apixaban 5 MG BID 11/13 1000 AC 11/14 PO 2231 Aspirin 81 MG DAILY 11/13 1000 AC 11/14 PO 0904 Ceftazidime 1,000 MG IQ8 11/13 0800 AC 11/15 IV 0020 Dextrose/Sodium 1,000 ML Q16H 11/14 1030 AC 11/15 Chloride IV 0216 Docusate Sodium 100 MG DAILY 11/13 1547 AC 11/14 PO 0904 Fentanyl Citrate 1,000 MCG Q10H 11/14 1300 AC 11/15 Sodium Chloride 250 ML IV 0021 Fentanyl Citrate 1,000 MCG Q7H 11/14 0230 DC 11/14 Sodium Chloride 250 ML IV 11/14 1259 0221 Ipratropium [place] 2.5 ML BID 11/13 2200 AC 11/15 INH 0750 Isoniazid 300 MG DAILY 11/13 1000 AC 11/14 PO 0904 Levothyroxine Sodium 0.05 MG DAILY AC 11/13 0700 AC 11/15 PO 0658 Magnesium Sulfate 1 GM ONCE ONE 11/15 0630 AC 11/15 Dextrose/Water 100 ML IV 11/15 1029 0700 Methylprednisolone 40 MG DAILY 11/13 1540 AC 11/14 IV 0904 Norepinephrine 4 MG Q22H 11/14 1800 AC 11/14 Sodium Chloride 250 ML IV 1755 Norepinephrine 4 MG Q6H 11/13 0800 DC 11/14 Sodium Chloride 250 ML IV 11/14 1759 1338 Pantoprazole Sodium 40 MG BID 11/13 1000 AC 11/14 IV 2232 Phosphate 250 MG PC AND AT BEDTIME 11/14 1300 AC 11/14 PO 2230 Phosphate 250 MG PC AND AT BEDTIME .. 11/13 1645 DC 11/14 PO 11/14 1259 0904 Senna 187 MG AT BEDTIME 11/13 2200 AC 11/14 PO 2231 Tiotropium [place] 1 PUF DAILY 11/13 1000 AC INH Vancomycin HCl 1,000 MG DAILY 11/13 1000 AC 11/14 Dextrose/Water 250 ML IV 0904 Vital Signs & I&O Last 24 Hrs of Vitals and I&O: Vital Signs Date Time Temp Pulse Resp B/P B/P Pulse O2 O2 Flow FiO2 Mean Ox Delivery Rate 11/15 0845 92 Ventilator 70% 11/15 0845 97.8 62 20 108/62 92 Ventilator 70% 11/15 0811 70 11/15 0600 70 11/15 0555 60 11/15 0400 95 Ventilator 60% 11/15 0337 60 11/15 0043 60 11/15 0000 94 Ventilator 60% 11/15 0000 97.2 62 20 110/64 94 Ventilator 60% 11/14 2215 60 11/14 2020 92 Ventilator 60% 11/14 1921 60 11/14 1755 85/61 11/14 1625 60 11/14 1600 93 Ventilator 60% 11/14 1600 96.8 68 15 84/60 95 Ventilator 60% 11/14 1343 60 11/14 1338 73 93/64 11/14 1200 93 Ventilator 60% 11/14 1154 60 Intake & Output 11/15 1600 11/15 0800 11/15 0000 Intake Total 808 1034 Output Total 220 187 Balance 588 847 Intake, IV 611 724 Intake, Tube 137 130 Feeding Intake, Tube 60 180 Irrigant Number 0 Bowel Movements Output, Urine 220 187 Patient 175 lb Weight Weight Bed scale Measurement Method Impression/Plan Impression/Plan Impression/Plan: This is a gentleman with mixed restrictive obstructive lung disease with very severe emphysematous lung disease with severe interstitial pulmonary fibrosis with traction bronchiectasis with worsening progressive respiratory failure. He has had bullous COPD for many years from previous history of [id number] smoking quit in 1989. His overall lung function has been progressively getting worse. In the recent past he was also noted to have bilateral lung masses concerning for malignancy by PET scan and he is not a great candidate for invasive workup due to end-stage lung disease and we will be doing a CAT scan in July for evaluation of this. 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 Patient has been on INH since April 28. He also does have ascending aortic aneurysm, abdominal aortic aneurysm before, and very severe end-stage lung disease with reduced DLCO. Now here with severe resp failure now requiring intubation, with a complicated history and course issues * Acute resp failure due to progressive lung failure due to copd and ILD with prob lung malignancy, multifactorial in a pt with prog lung failure * Acute exacerbation of ILD with AIP * Pna, prob aspiration, with prob HCAP * GPC in blood await cultures with coag neg staph prob a contaminent * Enterococci in the sputum await final cultures and sensitivity * Sig shock requiring pressors a combination of Sepsis and low venous return due to intubation * Chronic effusion with pleural based masses now with increased effusion * PRevious positive quantiferon gold on inh preventitive rx, with previous sputum neg * Bilateral pleural based masses with pleuritic pain * Prob acute AIP aswell with prob superimposed pneumonia with bandemia * Slowly progressive rt lower lobe lesion since 2013 pt not a candidate for biopsy and he had wished conservative care (prob malignancy including lung vs mesothelioma vs boop * Severe copd with ild with mixed obstructive and restrictive lung disease 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 * 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 * Pafib with initial rapid ventricular response with normal LVEF, now misty * Previous bladder ca with no recurrence so far * Ulysses with electrolyte abnormality with slow improvement * PRevious ihd and afib PLAN COnt vent Reduce vt to 450 COnt increase peep if needed keep Plateau pressures less than 30 Cont abx and deescalate soon IV steroids CONt inh and b6 Start low dose tube feeding at 20 cc of jevity COnt low dose fentanyl Pt is not a candidate for thora as the risk of ptx and is high for now Levoxyl 50 mcg IV ppi Stool softners daily with amadeo and colace and if no bm amadeo Rpt cxr in am Check cvp q8 if less than 10 start d5 normal saline at 60 cc Tube feeding COnt levofed MAP goal of 65 PT is critically ill Discussed with daughter in detail PT recently wished to be intubated for a short period if he did get worse TTS 38 mins
--- NOTE | 2017-11-15 11:45 | PN- Cardiology ---
Subjective Subjective: Remains intubated on low-dose pressors. Objective Vital Signs and I&Os Vital Signs Date Time Temp Pulse Resp B/P B/P Pulse O2 O2 Flow FiO2 Mean Ox Delivery Rate 11/15 1130 70 11/15 0845 92 Ventilator 70% 11/15 0845 97.8 62 20 108/62 92 Ventilator 70% 11/15 0811 70 11/15 0600 70 11/15 0555 60 11/15 0400 95 Ventilator 60% 11/15 0337 60 11/15 0043 60 11/15 0000 94 Ventilator 60% 11/15 0000 97.2 62 20 110/64 94 Ventilator 60% 11/14 2215 60 11/14 2020 92 Ventilator 60% 11/14 1921 60 11/14 1755 85/61 11/14 1625 60 11/14 1600 93 Ventilator 60% 11/14 1600 96.8 68 15 84/60 95 Ventilator 60% 11/14 1343 60 11/14 1338 73 93/64 11/14 1200 93 Ventilator 60% 11/14 1154 60 Intake & Output 11/15 1600 11/15 0800 11/15 0000 11/14 1600 11/14 0800 11/14 0000 Intake Total 808 1034 956.3 882 1035 Output Total 220 187 200 240 350 Balance 588 847 756.3 642 685 Intake, IV 611 724 766.3 842 935 Intake, Other 160 Intake, Tube 137 130 30 Feeding Intake, Tube 60 180 40 100 Irrigant Number 0 0 0 0 Bowel Movements Output, Urine 220 187 200 240 350 Patient 175 lb 124 lb Weight Weight Bed scale Bed scale Measurement Method Physical Exam: General: Intubated Eyes: No obvious scleral icterus. HEENT: No jugular venous distention or abnormal jugular venous pulsations. Cardiovascular: Normal intensity S1/S2. Irregular Respiratory: Decreased air entry bilaterally Abdomen: Soft, nontender with no guarding or rebound tenderness. Musculoskeletal: No clubbing or cyanosis noted; no edema Skin: Warm Neurologic: Sedated Current Medications: Current Medications Sig/Marah Start time Last Medication Dose Route Stop Time Status Admin Albuterol Sulfate 3 ML BID 11/13 2200 AC 11/15 INH 0750 Apixaban 5 MG BID 11/13 1000 AC 11/15 PO 1046 Aspirin 81 MG DAILY 11/13 1000 AC 11/15 PO 1046 Ceftazidime 1,000 MG IQ8 11/13 0800 AC 11/15 IV 0800 Dextrose/Sodium 1,000 ML Q16H 11/14 1030 11/15 Chloride IV 0216 Docusate Sodium 100 MG DAILY 11/13 1547 AC 11/15 PO 1046 Fentanyl Citrate 1,000 MCG Q10H 11/14 1300 AC 11/15 Sodium Chloride 250 ML IV 0021 Fentanyl Citrate 1,000 MCG Q7H 11/14 0230 DC 11/14 Sodium Chloride 250 ML IV 11/14 1259 0221 Ipratropium [place] 2.5 ML BID 11/13 2200 AC 11/15 INH 0750 Isoniazid 300 MG DAILY 11/13 1000 AC 11/15 PO 1046 Levothyroxine Sodium 0.05 MG DAILY AC 11/13 0700 AC 11/15 PO 0658 Magnesium Sulfate 1 GM ONCE ONE 11/15 0630 ID 11/15 Dextrose/Water 100 ML IV 11/15 1029 0700 Methylprednisolone 40 MG DAILY 11/13 1540 11/15 IV 1044 Norepinephrine 4 MG Q22H 11/14 1800 AC 11/14 Sodium Chloride 250 ML IV 1755 Norepinephrine 4 MG Q6H 11/13 0800 ID 11/14 Sodium Chloride 250 ML IV 11/14 1759 1338 Pantoprazole Sodium 40 MG BID 11/13 1000 AC 11/15 IV 1047 Phosphate 250 MG PC AND AT BEDTIME 11/14 1300 11/15 PO 1045 Phosphate 250 MG PC AND AT BEDTIME .. 11/13 1645 ID 11/14 PO 11/14 1259 0904 Senna 187 MG AT BEDTIME 11/13 2200 AC 11/14 PO 2231 Tiotropium [place] 1 PUF DAILY 11/13 1000 AC INH Vancomycin HCl 1,000 MG DAILY 11/13 1000 AC 11/15 Dextrose/Water 250 ML IV 1044 Results Last 48 Hrs of Labs/Mics: Laboratory Tests 11/15/17 0505: pH 7.43, pCO2 44, pO2 55 L, HCO3 29 H, ABG O2 Sat (Measured) 89.0 L, P-50 ( Temp Corrected) Y, Carboxyhemoglobin 0.5 L, O2 Concentration % 60%, Temperature 96.8 L, Respiration Rate 12, O2 Delivery Method ESPRIT, Vent Mode AC, Expiratory Pressure 7, Tidal Volume 500, Phlebotomy Draw Site LEFT RADIAL 11/15/17 0430: Anion Gap 4 L, Estimated GFR > 60, BUN/Creatinine Ratio 35.6 H, Phosphorus 3.4 , Magnesium 1.9, Albumin 2.2 L, CBC w Diff MAN DIFF ORDERED, RBC 3.71 L, MCV 91.9, MCH 30.0, MCHC 32.7 L, RDW 16.0 H, MPV 7.5, Gran % 89.7 H, Lymphocytes % 3.7 L, Monocytes % 1.0 L, Eosinophils % 5.3 H, Basophils % 0.3, Absolute Granulocytes 18.1 H, Segmented Neutrophils 77 H, Band Neutrophils 12 H, Absolute Lymphocytes 0.8 L, Lymphocytes 2 L, Monocytes 2, Absolute Monocytes 0.2, Eosinophils 7 H, Absolute Eosinophils 1.1, Absolute Basophils 0.1, Platelet Estimate ADEQUATE, Normocytic RBCs VERIFIED, Normochromic RBCs VERIFIED , Anisocytosis 1+, Fld Total RBCs Counted 100 11/14/17 0520: pH 7.45, pCO2 43, pO2 58 L, HCO3 30 H, ABG O2 Sat (Measured) 89.0 L, P-50 ( Temp Corrected) Y, Carboxyhemoglobin 1.6, O2 Concentration % 55%, Temperature 97.9, Respiration Rate 12, O2 Delivery Method ESPRIT, Vent Mode AC, Expiratory Pressure 5, Tidal Volume 550, Phlebotomy Draw Site LEFT RADIAL 11/14/17 043: Anion Gap 2 L, Estimated GFR > 60, Glucose 115 H, Calcium 8.0 L, Phosphorus 3.6, Magnesium 2.0, Total Bilirubin 0.6, AST 19, ALT 32, Albumin 2.2 L, CBC w Diff MAN DIFF ORDERED, RBC 3.66 L, MCV 92.1, MCH 30.0, MCHC 32.5 L, RDW 16.2 H, MPV 8.0, Gran % 92.3 H, Lymphocytes % 3.8 L, Monocytes % 2.6, Eosinophils % 1.0, Basophils % 0.3, Absolute Granulocytes 17.6 H, Segmented Neutrophils 79 H , Band Neutrophils 15 H, Absolute Lymphocytes 0.7 L, Lymphocytes 2 L, Monocytes 1 L, Absolute Monocytes 0.5, Eosinophils 3, Absolute Eosinophils 0.2, Absolute Basophils 0.1, Platelet Estimate ADEQUATE, Normochromic RBCs VERIFIED, Anisocytosis 1+ 11/13/17 1220: Troponin I 0.09 Microbiology 02/17 1900 NASOPHARYN: Influenza Virus A & B Rapid Smear - COMP Recent Imaging Studies: Telemetry tracings were personally reviewed and show atrial fibrillation CXR: 1. Endotracheal tube tip 4.4 cm above the oriana. 2. Enteric tube tip beyond the [id number] of this exam. 3. Right jugular central venous line tip in the deep SVC. 4. No significant change in moderate-sized right-sided pleural effusion and associated bilateral diffuse airspace opacities and prominent left apical bullous emphysematous changes. Echo Technically difficult study. Normal global left ventricular size, wall thickness, systolic function with no obvious regional wall motion abnormalities. Left ventricular ejection fraction is estimated at > 60 %. Right ventricle not well visualized, grossly normal. Mild left atrial dilatation. Minimal pericardial effusion. Aortic dilatation. Aleksandr Fuller M.D. (Electronically Signed) Final Date: 14 November 2017 18:18 Assessment/Plan Assessment/Plan 1. Minimal troponin elevation unlikely due to acute coronary syndrome 2. Atrial fibrillation on Eliquis 3. Altered mental status and Respiratory failure requiring intubation 4. Hypotension requiring pressors 5. Severe COPD with interstitial lung disease and possible malignancy noted. 6. History of latent TB 7. History of ascending and descending aortic aneurysms 8. Likely some AV heavenly disease Remains intubated and currently on low-dose pressors. Echocardiogram as above showed normal ejection fraction with no regional wall motion abnormalities. Hemoglobin remains stable on anticoagulation. His condition remains guarded. Ben Fuller MD [facility] Continue telemetry? Yes
[2017-11-15 16:00] VITALS: BP 98/54
[2017-11-16] VITALS: BP 100/50
[2017-11-16 05:14] LABS: ABSOLUTE BASOPHIL COUNT 0.1 /CUMM (0.0-0.2); ABSOLUTE EOSINOPHIL COUNT 3.3 /CUMM (0.0-0.7); ABSOLUTE GRANULOCYTE CT 14.6 /CUMM (1.4-6.5); ABSOLUTE LYMPH COUNT 0.7 /CUMM (1.2-3.4); ABSOLUTE MONOCYTE COUNT 0.2 /CUMM (0.10-0.60); BASOPHIL % 0.3 % (0.0-2.0); EOSINOPHIL % 17.4 % (0-5); GRANULOCYTE % 77.5 % (42.2-75.2); HEMATOCRIT 34.3 % (42-52); MEAN CORPUSCULAR HGB 30.1 PG (27.0-31.0); MEAN CORPUSCULAR HGB CONC 32.1 G/DL (33.0-37.0); MEAN CORPUSCULAR VOLUME 93.9 FL (80.0-94.0); MEAN PLATELET VOLUME 8.3 FL (7.4-10.4); PLATELET COUNT 129 /CUMM (130-400); RBC DISTRIBUTION WIDTH 16.7 % (11.5-14.5); RED BLOOD CELL CT 3.65 /CUMM (4.70-6.10); WHITE BLOOD CELL COUNT 18.8 /CUMM (4.8-10.8)
--- NOTE | 2017-11-16 07:50 | PN- Resident CRCU ---
Subjective HPI/CRCU Issues: Patient seen and examined. remains intubated. Minimally arousable. Prognosis guarded. Tmax 97.2 Heart rate ranging from 90s to 60s Atrial fibrillation Blood pressure borderline running 100 to 80s/60s to 50s Input 3147 output 410 Low urine output Foleys catheter in place Intubated with ventilator setting AC FiO2 90. Tidal Vol 450, PEEP 12 OG tube RIJ Triple lumen Bilateral upper extremity soft restraints Levophid@ 10 MCG Fentanyl @160 mcg H/H stable platelet count stable WBC count 18.8 Sodium 135, BUN 35 creatinine 1.1, magnesium 2.1, phosphorus 4.7, Ca 7.9, albumin 2.2 CXR : 1. Endotracheal tube tip 5 cm above the oriana. 2. Enteric tube courses into the abdomen with tip beyond the [id number] of the exam. 3. Right jugular central venous line tip remains in the deep SVC. 4. No change in moderate size right-sided pleural effusion and associated diffuse airspace opacities. 5. No significant change in left mid and lower lung parenchymal opacities and left apical bullous emphysematous change. Objective Vital Signs & I&O Last 8 Hrs of Vitals and I&O: Vital Signs Date Time Temp Pulse Resp B/P B/P Pulse O2 O2 Flow FiO2 Mean Ox Delivery Rate 11/16 1146 90 11/16 0820 90 11/16 0800 94 Ventilator 90% 11/16 0800 97.2 82 15 82/50 94 Ventilator 90% 11/16 0645 90 11/16 0400 94 Ventilator 90% 11/16 0341 90 11/16 0049 90 11/16 0000 90 Ventilator 90% 11/16 0000 96.9 98 15 100/50 90 Ventilator 90% 11/15 2217 80 11/15 2035 94 Ventilator 80% 11/15 2017 80 11/15 1600 75 11/15 1600 91 Ventilator 75% 11/15 1600 98.0 88 22 98/54 91 Ventilator 75% 11/15 1200 92 Ventilator 75% Intake & Output 11/16 1600 11/16 0800 11/16 0000 Intake Total 195 1284 Output Total 135 135 Balance 60 1149 Intake, IV 944 Intake, Tube 135 160 Feeding Intake, Tube 60 180 Irrigant Output, Urine 135 135 Exam General Appearance: intubated Head: atraumatic Neck: normal inspection Respiratory: normal breath sounds, chest non-tender Cardiovascular: irregularly irregular Gastrointestinal: normal bowel sounds, soft, non-tender Extremities: pedal edema Current Medications: Current Medications Sig/Marah Start time Last Medication Dose Route Stop Time Status Admin Albuterol Sulfate 3 ML BID 11/13 2200 AC 11/16 INH 0823 Apixaban 5 MG BID 11/13 1000 AC 11/16 PO 0940 Aspirin 81 MG DAILY 11/13 1000 AC 11/16 PO 0940 Ceftazidime 1,000 MG IQ8 11/13 0800 AC 11/16 IV 0830 Dextrose/Sodium 1,000 ML Q20H 11/15 1500 CAN Chloride IV Dextrose/Sodium 1,000 ML Q16H 11/14 1030 DC 11/15 Chloride IV 0216 Docusate Sodium 100 MG DAILY 11/13 1547 AC 11/16 PO 0940 Fentanyl Citrate 1,000 MCG Q6H 11/16 1400 AC Sodium Chloride 250 ML IV Fentanyl Citrate 1,000 MCG Q10H 11/14 1300 AC 11/16 Sodium Chloride 250 ML IV 11/16 1359 0805 Ipratropium [place] 2.5 ML BID 11/13 2200 AC 11/16 INH 0822 Isoniazid 300 MG DAILY 11/13 1000 AC 11/16 PO 0940 Levothyroxine Sodium 25 MCG DAILY 11/16 1000 AC 11/16 IV 0940 Levothyroxine Sodium 0.05 MG DAILY AC 11/13 0700 DC 11/15 PO 0658 Methylprednisolone 40 MG DAILY 11/13 1540 AC 11/16 IV 0939 Norepinephrine 4 MG Q7H 11/16 1100 CAN Sodium Chloride 250 ML IV Norepinephrine 4 MG Q7H 11/16 1100 AC 11/16 Sodium Chloride 250 ML IV 1100 Norepinephrine 4 MG Q22H 11/14 1800 DC 11/14 Sodium Chloride 250 ML IV 11/16 1059 1755 Pantoprazole Sodium 40 MG BID 11/13 1000 AC 11/16 IV 0939 Phosphate 250 MG PC AND AT BEDTIME 11/14 1300 AC 11/16 PO 0940 Pyridoxine HCl 50 MG DAILY 11/15 1444 AC 11/16 PO 0940 Senna 187 MG AT BEDTIME 11/13 2200 AC 11/15 PO 2153 Tiotropium [place] 1 PUF DAILY 11/13 1000 AC INH Vancomycin HCl 1,000 MG DAILY 11/13 1000 AC 11/16 Dextrose/Water 250 ML IV 0940 Impression/Plan Impression/Problem List Impression: Patient is 82 with multiple medical problems recently discharged from the [facility] treated for acute hypoxemic and hypercarbic respiratory failure 2/2 to COPD Exacerbation in setting of severe interstitial lung disease and emphysema. He became lethargic and only change in his medication was clonazepam 0.5 mg. He has underlying End stage lung disease. Patient is being treated and evaluated for following conditions with poor prognosis. 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 -He is not a candidate for biopsy and has opted for conservative care. 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 Blood counts were elevated with bandemia. -Monitor fever and WBC curve -Follow-up pancultures (Positive blood culture, and 1 bottle staph coagulase- negative, possible contaminant; LRS mixed jonathon) -Continue mechanical ventilation -Continue on IV vancomycin and ceftazidime -Levophed, titrate to MAP > 65 -CVP q8 if less than 10 start d5 normal saline at 60 cc #History of atrial fibrillation with RVR with normal LVEF -Continue Eliquis #Type II MO in setting supply demand mismatch -Troponin peaked at 0.12 trended down -Continue aspirin Metabolic #Hyperphosphatemia-resolved Likely secondary to PAOLO in setting of sepsis; likely prerenal -Monitor and replete with Neutra-Phos #Lactic acidosis in setting of sepsis -Repeat LA added to am labs #History of hypothyroidism -Continue Synthroid Alimentary -Tube feeds jevity 1.2 40cc/h -Nutrition following -Bowel regimen with Colace, Senna Nephrology #PAOLO in attending of sepsis- resolved Patient presented with creatinine of 1.4, back to baseline -Continue to monitor Cr DVT prophylaxis with Eliquis CODE STATUS full code, prognosis remains poor Problem List: 1. COPD (chronic obstructive pulmonary disease) Pain Ratin Tomorrow's Labs & Rationales: cbc icu bundle Plan DVT/Prophylaxis: mechanical, pharmacological
[2017-11-16 08:00] VITALS: BP 82/50
--- NOTE | 2017-11-16 08:04 | PN- CRCU ---
Subjective HPI/Critical Care Issues: Doing poorly On 0.9 fio2 intubated and sedated on vasopressors Objective Current Medications: Current Medications Sig/Marah Start time Last Medication Dose Route Stop Time Status Admin Albuterol Sulfate 3 ML BID 11/13 2200 AC 11/15 INH 1948 Apixaban 5 MG BID 11/13 1000 AC 11/15 PO 2153 Aspirin 81 MG DAILY 11/13 1000 AC 11/15 PO 1046 Ceftazidime 1,000 MG IQ8 11/13 0800 AC 11/15 IV 2337 Dextrose/Sodium 1,000 ML Q20H 11/15 1500 CAN Chloride IV Dextrose/Sodium 1,000 ML Q16H 11/14 1030 DC 11/15 Chloride IV 0216 Docusate Sodium 100 MG DAILY 11/13 1547 AC 11/15 PO 1046 Fentanyl Citrate 1,000 MCG Q10H 11/14 1300 AC 11/15 Sodium Chloride 250 ML IV 1916 Ipratropium [place] 2.5 ML BID 11/13 2200 AC 11/15 INH 1948 Isoniazid 300 MG DAILY 11/13 1000 AC 11/15 PO 1046 Levothyroxine Sodium 25 MCG DAILY 11/16 1000 AC IV Levothyroxine Sodium 0.05 MG DAILY AC 11/13 0700 DC 11/15 PO 0658 Magnesium Sulfate 1 GM ONCE ONE 11/15 0630 DC 11/15 Dextrose/Water 100 ML IV 11/15 1029 0700 Methylprednisolone 40 MG DAILY 11/13 1540 AC 11/15 IV 1044 Norepinephrine 4 MG Q22H 11/14 1800 AC 11/14 Sodium Chloride 250 ML IV 1755 Pantoprazole Sodium 40 MG BID 11/13 1000 AC 11/15 IV 2153 Phosphate 250 MG PC AND AT BEDTIME 11/14 1300 AC 11/15 PO 2153 Pyridoxine HCl 50 MG DAILY 11/15 1444 AC 11/15 PO 1754 Senna 187 MG AT BEDTIME 11/13 2200 AC 11/15 PO 2153 Tiotropium [place] 1 PUF DAILY 11/13 1000 AC INH Vancomycin HCl 1,000 MG DAILY 11/13 1000 AC 11/15 Dextrose/Water 250 ML IV 1044 Vital Signs & I&O Last 24 Hrs of Vitals and I&O: Vital Signs Date Time Temp Pulse Resp B/P B/P Pulse O2 O2 Flow FiO2 Mean Ox Delivery Rate 11/16 0645 90 11/16 0400 94 Ventilator 90% 11/16 0341 90 11/16 0049 90 11/16 0000 90 Ventilator 90% 11/16 0000 96.9 98 15 100/50 90 Ventilator 90% 11/15 2217 80 11/15 2034 94 Ventilator 80% 11/15 2017 80 11/15 1600 75 11/15 1600 91 Ventilator 75% 11/15 1600 98.0 88 22 98/54 91 Ventilator 75% 11/15 1200 92 Ventilator 75% 11/15 1130 70 11/15 0845 92 Ventilator 70% 11/15 0845 97.8 62 20 108/62 92 Ventilator 70% 11/15 0811 70 Intake & Output 11/16 0800 11/16 0000 11/15 1600 Intake Total 195 1284 Output Total 135 135 Balance 60 1149 Intake, IV 944 Intake, Tube 135 160 Feeding Intake, Tube 60 180 Irrigant Output, Urine 135 135 Patient 175 lb Weight Impression/Plan Impression/Plan Impression/Plan: General Appearance: no apparent distress, sedated, intubated Other Physical Findings: GEN: ill appearing, elderly man in no acute distress HEENT: NCAT, PERRL, anicteric sclera, MMM, endotraceal tube / OG tube in place NECK: Supple, no JVD, trachea midline, RIJ central line in place CARD: Normal S1/S2 w/o m/g/r; irregularly irregular PULM: Decreased bibasilar airflow ABD: Soft, NT, ND, BS+ : Benson catheter draining clear yellow urine NEURO: Sedated, no spontaneous movement, unresponsive to verbal/tactile stimuli EXT: bilateral upper extremity soft restraints, normal pulses, trace edema Cxr reviewed This is a gentleman with mixed restrictive obstructive lung disease with very severe emphysematous lung disease with severe interstitial pulmonary fibrosis with traction bronchiectasis with worsening progressive respiratory failure. He has had bullous COPD for many years from previous history of [id number] smoking quit in 1989. His overall lung function has been progressively getting worse. In the recent past he was also noted to have bilateral lung masses concerning for malignancy by PET scan and he is not a great candidate for invasive workup due to end-stage lung disease and we will be doing a CAT scan in July for evaluation of this. 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 Patient has been on INH since April 28. He also does have ascending aortic aneurysm, abdominal aortic aneurysm before, and very severe end-stage lung disease with reduced DLCO. Now here with severe resp failure now requiring intubation, with a complicated history and course issues * Acute resp failure due to progressive lung failure due to copd and ILD with prob lung malignancy, multifactorial in a pt with prog lung failure * Acute exacerbation of ILD with AIP * Pna, prob aspiration, with prob HCAP * GPC in blood await cultures with coag neg staph prob a contaminent * Enterococci in the sputum await final cultures and sensitivity * Sig shock requiring pressors a combination of Sepsis and low venous return due to intubation * Chronic effusion with pleural based masses now with increased effusion * PRevious positive quantiferon gold on inh preventitive rx, with previous sputum neg * Bilateral pleural based masses with pleuritic pain * Prob acute AIP aswell with prob superimposed pneumonia with bandemia * Slowly progressive rt lower lobe lesion since 2013 pt not a candidate for biopsy and he had wished conservative care (prob malignancy including lung vs mesothelioma vs boop * Severe copd with ild with mixed obstructive and restrictive lung disease with poor detention prognosis * 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 * Pafib with initial rapid ventricular response with normal LVEF, now misty * Previous bladder ca with no recurrence so far * Ulysses with electrolyte abnormality with slow improvement * PRevious ihd and afib PLAN COnt vent Rpt blood cultures Reduce vt to 400 and attempt to increase peep to 10 if plataeu pressures are less than 30 Cont abx and deescalate soon IV steroids CONt inh and b6 Start low dose tube feeding at 20 cc of jevity and increase to 40 COnt low dose fentanyl Pt is not a candidate for thora as the risk of ptx and is high for now Levoxyl 50 mcg IV ppi Stool softners daily with amadeo and colace and if no bm miralax Rpt cxr in am Check cvp q8 if less than 10 start d5 normal saline at 60 cc COnt levofed MAP goal of 65 PT is critically ill Discussed with daughter in detail yesterday PT recently wished to be intubated for a short period if he did get worse TTS 37 mins
--- NOTE | 2017-11-16 09:05 | PN- Cardiology ---
Subjective Subjective: Patient remains intubated and sedated on pressors Review of Systems: Unable to obtain Objective Vital Signs and I&Os Vital Signs Date Time Temp Pulse Resp B/P B/P Pulse O2 O2 Flow FiO2 Mean Ox Delivery Rate 11/16 0820 90 11/16 0645 90 11/16 0400 94 Ventilator 90% 11/16 0341 90 11/16 0049 90 11/16 0000 90 Ventilator 90% 11/16 0000 96.9 98 15 100/50 90 Ventilator 90% 11/15 2217 80 11/15 2035 94 Ventilator 80% 11/15 2017 80 11/15 1600 75 11/15 1600 91 Ventilator 75% 11/15 1600 98.0 88 22 98/54 91 Ventilator 75% 11/15 1200 92 Ventilator 75% 11/15 1130 70 Intake & Output 11/16 1600 11/16 0800 11/16 0000 11/15 1600 11/15 0800 11/15 0000 Intake Total 195 4999 850 0673 Output Total 135 135 220 187 Balance 60 1149 588 847 Intake, IV 944 611 724 Intake, Tube 135 160 137 130 Feeding Intake, Tube 60 180 60 180 Irrigant Number 0 Bowel Movements Output, Urine 135 135 220 187 Patient 175 lb 175 lb Weight Weight Bed scale Measurement Method Physical Exam: Patient is a well-developed well-nourished male intubated HEENT is unremarkable Neck is supple there is no JVD Lungs are clear Heart irregular rhythm S1 and S2 are normal no murmurs gallops or rubs Abdomen bowel sounds positive Extremities without edema Current Medications: Current Medications Sig/Marah Start time Last Medication Dose Route Stop Time Status Admin Albuterol Sulfate 3 ML BID 11/13 2200 AC 11/16 INH 0823 Apixaban 5 MG BID 11/13 1000 AC 11/15 PO 2153 Aspirin 81 MG DAILY 11/13 1000 AC 11/15 PO 1046 Ceftazidime 1,000 MG IQ8 11/13 0800 AC 11/16 IV 0830 Dextrose/Sodium 1,000 ML Q20H 11/15 1500 CAN Chloride IV Dextrose/Sodium 1,000 ML Q16H 11/14 1030 DC 11/15 Chloride IV 0216 Docusate Sodium 100 MG DAILY 11/13 1547 AC 11/15 PO 1046 Fentanyl Citrate 1,000 MCG Q10H 11/14 1300 AC 11/16 Sodium Chloride 250 ML IV 0805 Ipratropium [place] 2.5 ML BID 11/13 2200 AC 11/16 INH 0822 Isoniazid 300 MG DAILY 11/13 1000 AC 11/15 PO 1046 Levothyroxine Sodium 25 MCG DAILY 11/16 1000 AC IV Levothyroxine Sodium 0.05 MG DAILY AC 11/13 0700 DC 11/15 PO 0658 Magnesium Sulfate 1 GM ONCE ONE 11/15 0630 DC 11/15 Dextrose/Water 100 ML IV 11/15 1029 0700 Methylprednisolone 40 MG DAILY 11/13 1540 AC 11/15 IV 1044 Norepinephrine 4 MG Q22H 11/14 1800 AC 11/14 Sodium Chloride 250 ML IV 1755 Pantoprazole Sodium 40 MG BID 11/13 1000 AC 11/15 IV 2153 Phosphate 250 MG PC AND AT BEDTIME 11/14 1300 AC 11/15 PO 2153 Pyridoxine HCl 50 MG DAILY 11/15 1444 AC 11/15 PO 1754 Senna 187 MG AT BEDTIME 11/13 2200 AC 11/15 PO 2153 Tiotropium [place] 1 PUF DAILY 11/13 1000 AC INH Vancomycin HCl 1,000 MG DAILY 11/13 1000 AC 11/15 Dextrose/Water 250 ML IV 1044 Results Last 48 Hrs of Labs/Mics: Laboratory Tests 11/16/17 0430: Anion Gap 5, Estimated GFR > 60, Glucose 98, Calcium 7.9 L, Phosphorus 4.7 H, Magnesium 2.1, Total Bilirubin 0.9, AST 17, ALT 32, Albumin 2.1 L, CBC w Diff MAN DIFF ORDERED, RBC 3.65 L, MCV 93.9, MCH 30.1, MCHC 32.1 L, RDW 16.7 H, MPV 8.3, Gran % 77.5 H, Lymphocytes % 3.7 L, Monocytes % 1.1 L, Eosinophils % 17.4 H, Basophils % 0.3, Absolute Granulocytes 14.6 H, Segmented Neutrophils 51, Band Neutrophils 26 H, Absolute Lymphocytes 0.7 L, Lymphocytes 2 L, Monocytes 1 L, Absolute Monocytes 0.2, Eosinophils 20 H, Absolute Eosinophils 3.3, Absolute Basophils 0.1, Platelet Estimate DECREASED, Hypochromic-Microcytic 1+, Poikilocytosis 1+, Basophilic Stippling 1+ 11/15/17 0505: pH 7.43, pCO2 44, pO2 55 L, HCO3 29 H, ABG O2 Sat (Measured) 89.0 L, P-50 ( Temp Corrected) Y, Carboxyhemoglobin 0.5 L, O2 Concentration % 60%, Temperature 96.8 L, Respiration Rate 12, O2 Delivery Method ESPRIT, Vent Mode AC, Expiratory Pressure 7, Tidal Volume 500, Phlebotomy Draw Site LEFT RADIAL 11/15/17 0430: Anion Gap 4 L, Estimated GFR > 60, BUN/Creatinine Ratio 35.6 H, Phosphorus 3.4 , Magnesium 1.9, Albumin 2.2 L, CBC w Diff MAN DIFF ORDERED, RBC 3.71 L, MCV 91.9, MCH 30.0, MCHC 32.7 L, RDW 16.0 H, MPV 7.5, Gran % 89.7 H, Lymphocytes % 3.7 L, Monocytes % 1.0 L, Eosinophils % 5.3 H, Basophils % 0.3, Absolute Granulocytes 18.1 H, Segmented Neutrophils 77 H, Band Neutrophils 12 H, Absolute Lymphocytes 0.8 L, Lymphocytes 2 L, Monocytes 2, Absolute Monocytes 0.2, Eosinophils 7 H, Absolute Eosinophils 1.1, Absolute Basophils 0.1, Platelet Estimate ADEQUATE, Normocytic RBCs VERIFIED, Normochromic RBCs VERIFIED , Anisocytosis 1+, Fld Total RBCs Counted 100 Telemetry personally reviewed atrial fibrillation Assessment/Plan Assessment/Plan 1. Minimal troponin elevation unlikely due to acute coronary syndrome normal ejection fraction on echocardiogram 2. Atrial fibrillation on Eliquis 3. Altered mental status and Respiratory failure requiring intubation 4. Hypotension requiring pressors 5. Severe COPD with interstitial lung disease and possible malignancy noted. 6. History of latent TB 7. History of ascending and descending aortic aneurysms 8. 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 Continue pressors as needed to maintain blood pressure 2. Aggressive pulmonary management per Dr. Jain 3. His overall prognosis is poor Continue telemetry? Yes
--- NOTE | 2017-11-16 10:30 | RADIOLOGY REPORT ---
EXAMINATION: XR PORTABLE CHEST CLINICAL INFORMATION: Confirmed lines and tubes. Compare from previous. COMPARISON: Multiple prior chest x-rays, most recent of which is dated 11/15/2017. TECHNIQUE: Portable AP semi-erect view of the chest was obtained. FINDINGS: Endotracheal tube tip is approximately 5 cm above the oriana. Enteric tube courses into the abdomen and is beyond the [id number] of this exam. Right jugular central venous line remains in the deep SVC. Multiple EKG leads overlie the chest. The cardiomediastinal silhouette remains enlarged. Calcification of the aortic arch is seen. There is a moderate size right-sided pleural effusion, tracking along the right lateral chest wall with associated diffuse opacities in the right lung, unchanged compared to the prior exam. There is also no significant change in the left mid and lower lung parenchymal opacities and in focal emphysematous change in the left lung apex. No pneumothorax is seen. Bony structures are unremarkable. Mild gaseous distention of bowel loops in the upper abdomen noted. IMPRESSION: 1. Endotracheal tube tip 5 cm above the oriana. 2. Enteric tube courses into the abdomen with tip beyond the [id number] of the exam. 3. Right jugular central venous line tip remains in the deep SVC. 4. No change in moderate size right-sided pleural effusion and associated diffuse airspace opacities. 5. No significant change in left mid and lower lung parenchymal opacities and left apical bullous emphysematous change.
[2017-11-16 16:00] VITALS: BP 92/64
[2017-11-17] VITALS: BP 104/62
[2017-11-17 05:05] LABS: ABSOLUTE BASOPHIL COUNT 0 /CUMM (0.0-0.2); ABSOLUTE EOSINOPHIL COUNT 0.3 /CUMM (0.0-0.7); ABSOLUTE GRANULOCYTE CT 17.5 /CUMM (1.4-6.5); ABSOLUTE LYMPH COUNT 0.4 /CUMM (1.2-3.4); ABSOLUTE MONOCYTE COUNT 0.1 /CUMM (0.10-0.60); BASOPHIL % 0.1 % (0.0-2.0); EOSINOPHIL % 1.6 % (0-5); GRANULOCYTE % 95.8 % (42.2-75.2); HEMATOCRIT 34.2 % (42-52); MEAN CORPUSCULAR HGB CONC 31.9 G/DL (33.0-37.0); MEAN CORPUSCULAR VOLUME 93.9 FL (80.0-94.0); MEAN PLATELET VOLUME 8.2 FL (7.4-10.4); PLATELET COUNT 150 /CUMM (130-400); RBC DISTRIBUTION WIDTH 16.5 % (11.5-14.5); RED BLOOD CELL CT 3.64 /CUMM (4.70-6.10); WHITE BLOOD CELL COUNT 18.2 /CUMM (4.8-10.8)
--- NOTE | 2017-11-17 07:41 | RADIOLOGY REPORT ---
EXAMINATION: XR PORTABLE CHEST CLINICAL INFORMATION: Compare lines and tubes, comparison with prior. COMPARISON: Portable chest x-ray dated 11/16/2017 at 5:59 AM. TECHNIQUE: Portable frontal view of the chest was obtained. FINDINGS: Findings tubes: The right-sided central line is unchanged in position, the tip is in the proximal SVC. An endotracheal tube is present, the tip is located 5 cm proximal to the level of the oriana in satisfactory position. An NG tube is present which extends well below the diaphragm including the side port. No new lines or tubes present. Prominent bilateral pleural effusions are present, the pleural effusion on the right is layering laterally. The aeration of the right hemithorax is very poor with small portions of the right upper and right middle lobe remaining aerated, however significantly decreased compared to the prior study. The aeration of the upper portion of the left hemithorax is overall unchanged compared to the prior study. Prominence of the pulmonary interstitial markings is consistent with pulmonary edema. In addition to the pleural effusions, focal infiltrates or consolidations are not excluded. IMPRESSION: Interval progression of the pulmonary edema, predominantly decreasing the aeration in the right hemithorax but also significantly affecting the areas which remain aerated in the left hemithorax. Findings of pulmonary edema include prominent bilateral pleural effusions, layering laterally on the right.
[2017-11-17 08:00] VITALS: BP 104/70
--- NOTE | 2017-11-17 08:17 | PN- Resident CRCU ---
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 remains intubated. Minimally arousable. Prognosis guarded. family at bedside Tmax 99 Heart rate ranging from 90s to 70s Atrial fibrillation Blood pressure borderline running 90s to 80s/60s to 50s Input 3927 output 372 Low urine output Foleys catheter in place Intubated with ventilator setting ACRR 15 FiO2 90. Tidal Vol 425, PEEP 12 OG tube RIJ Triple lumen Bilateral upper extremity soft restraints Levophid@ 8 MCG Fentanyl @170 mcg Jevity 1.2 @20 H/H stable platelet count 150 WBC count 18.2 Sodium 138, K 5.1, BUN 41 creatinine 1.6, magnesium 2.1, phosphorus 5.6, Ca 7.9, albumin 2.1 CXR : Interval progression of the pulmonary edema, predominantly decreasing the aeration in the right hemithorax but also significantly affecting the areas which remain aerated in the left hemithorax. Findings of pulmonary edema include prominent bilateral pleural effusions, layering laterally on the right. Objective Vital Signs & I&O Last 8 Hrs of Vitals and I&O: Vital Signs Date Time Temp Pulse Resp B/P B/P Pulse O2 O2 Flow FiO2 Mean Ox Delivery Rate 11/17 0827 97.5 90 18 104/70 11/17 0821 90 11/17 0543 90 11/17 0400 90 Ventilator 90% 11/17 0341 90 11/17 0203 90 11/17 0040 90 94/60 11/17 0000 98.6 90 15 104/62 95 Ventilator 90% 11/17 0000 95 Ventilator 90% 11/16 2230 90 11/16 2000 92 Ventilator 90% 11/16 1940 90 11/16 1745 98.2 80 15 91/65 11/16 1655 90 11/16 1600 94 Ventilator 90% 11/16 1600 98.2 76 16 92/64 94 Ventilator 90% 11/16 1415 90 11/16 1200 95 Ventilator 90% 11/16 1146 90 Intake & Output 11/17 1600 11/17 0800 11/17 0000 Intake Total 1336 1325 Output Total 125 145 Balance 1211 1180 Intake, IV 1114 1107 Intake, Tube 162 128 Feeding Intake, Tube 60 90 Irrigant Output, Urine 125 145 Exam General Appearance: intubated Head: atraumatic Neck: supple Respiratory: chest non-tender Cardiovascular: s1 s2 Gastrointestinal: normal bowel sounds, distention Current Medications: Current Medications Sig/Marah Start time Last Medication Dose Route Stop Time Status Admin Albuterol Sulfate 3 ML BID 11/13 2200 AC 11/17 INH 0804 Apixaban 5 MG BID 11/13 1000 AC 11/17 PO 0826 Aspirin 81 MG DAILY 11/13 1000 AC 11/17 PO 0825 Ceftazidime 1,000 MG IQ8 11/13 0800 AC 11/17 IV 0823 Dextrose/Sodium 1,000 ML Q16H 11/16 2345 AC 11/16 Chloride IV 2354 Docusate Sodium 100 MG DAILY 11/13 1547 AC 11/17 PO 0825 Fentanyl Citrate 1,000 MCG Q6H 11/16 1400 AC 11/17 Sodium Chloride 250 ML IV 0854 Fentanyl Citrate 1,000 MCG Q10H 11/14 1300 DC 11/16 Sodium Chloride 250 ML IV 11/16 1359 0805 Ipratropium [place] 2.5 ML BID 11/13 2200 AC 11/17 INH 0804 Isoniazid 300 MG DAILY 11/13 1000 AC 11/17 PO 0825 Levothyroxine Sodium 25 MCG DAILY 11/16 1000 AC 11/16 IV 0940 Lorazepam 1 MG ONCE ONE 11/16 1315 DC 11/16 IV 11/16 1316 1315 Methylprednisolone 40 MG DAILY 11/13 1540 AC 11/17 IV 0824 Norepinephrine 4 MG Q7H 11/16 1100 CAN Sodium Chloride 250 ML IV Norepinephrine 4 MG Q7H 11/16 1100 AC 11/17 Sodium Chloride 250 ML IV 0827 Norepinephrine 4 MG Q22H 11/14 1800 DC 11/14 Sodium Chloride 250 ML IV 11/16 1059 1755 Pantoprazole Sodium 40 MG BID 11/13 1000 AC 11/17 IV 0823 Phosphate 250 MG PC AND AT BEDTIME 11/14 1300 DC 11/16 PO 0940 Polyethylene Glycol 17 GM DAILY 11/16 1207 AC PO Pyridoxine HCl 50 MG DAILY 11/15 1444 AC 11/17 PO 0826 Senna 187 MG AT BEDTIME 11/13 2200 AC 11/17 PO 0825 Tiotropium [place] 1 PUF DAILY 11/13 1000 AC INH Vancomycin HCl 1,000 MG DAILY 02/17 1000 AC 11/17 Dextrose/Water 250 ML IV 0832 Impression/Plan Impression/Problem List Impression: Patient is 82 with multiple medical problems recently discharged from the [facility] treated for acute hypoxemic and hypercarbic respiratory failure 2/2 to COPD Exacerbation in setting of severe interstitial lung disease and emphysema. He became lethargic and only change in his medication was clonazepam 0.5 mg. He has underlying End stage lung disease. Patient is being treated and evaluated for following conditions with poor prognosis. Family meeting planned for today. Goals of care discussion. 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 -He is not a candidate for biopsy and has opted for conservative care. 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 Blood counts were elevated with bandemia. -Monitor fever and WBC curve (afebrile but WBC count remains persistently elevated) -Follow-up pancultures (Positive blood culture, and 1 bottle staph coagulase- negative, possible contaminant; LRS mixed jonathon) -Repeat blood cultures pending -Continue mechanical ventilation -Continue on IV vancomycin and ceftazidime -Levophed, titrate to MAP > 65 -CVP q8 if less than 10 start d5 normal saline at 60 cc #History of atrial fibrillation with RVR with normal LVEF -Continue Eliquis #Type II [place] in setting supply demand mismatch -Troponin peaked at 0.12 trended down -Continue aspirin Metabolic #Hyperphosphatemia Likely secondary to PAOLO in setting of sepsis; likely prerenal -Continue to monitor #Lactic acidosis in setting of sepsis #History of hypothyroidism -Continue Synthroid Alimentary -Tube feeds jevity 1.2 20cc/h -Nutrition following -Bowel regimen with Colace, Senna Nephrology #PAOLO in attending of sepsis Patient presented with creatinine of 1.4, back to baseline -Continue to monitor Cr 1.6 today -Continue IVF DVT prophylaxis with Eliquis CODE STATUS full code, prognosis remains poor Problem List: 1. Acute exacerbation of emphysema 2. COPD (chronic obstructive pulmonary disease) Pain Ratin Tomorrow's Labs & Rationales: cbc icu bundle Plan DVT/Prophylaxis: mechanical, pharmacological
[2017-11-17 08:27] VITALS: BP 104/70
--- NOTE | 2017-11-17 10:08 | PN- Pulmonary ---
Subjective HPI/Critical Care Issues: Doing poorly Less responsive Objective Current Medications: Current Medications Sig/Marah Start time Last Medication Dose Route Stop Time Status Admin Albuterol Sulfate 3 ML BID 11/13 2200 AC 11/17 INH 0804 Apixaban 5 MG BID 11/13 1000 AC 11/17 PO 0826 Aspirin 81 MG DAILY 11/13 1000 AC 11/17 PO 0825 Ceftazidime 1,000 MG IQ8 11/13 0800 AC 11/17 IV 0823 Dextrose/Sodium 1,000 ML Q16H 11/16 2345 AC 11/16 Chloride IV 2354 Docusate Sodium 100 MG DAILY 11/13 1547 AC 11/17 PO 0825 Fentanyl Citrate 1,000 MCG Q6H 11/16 1400 AC 11/17 Sodium Chloride 250 ML IV 0854 Fentanyl Citrate 1,000 MCG Q10H 11/14 1300 DC 11/16 Sodium Chloride 250 ML IV 11/16 1359 0805 Ipratropium [place] 2.5 ML BID 11/13 2200 AC 11/17 INH 0804 Isoniazid 300 MG DAILY 11/13 1000 AC 11/17 PO 0825 Levothyroxine Sodium 25 MCG DAILY 11/16 1000 AC 11/16 IV 0940 Lorazepam 1 MG ONCE ONE 11/16 1315 DC 11/16 IV 11/16 1316 1315 Methylprednisolone 40 MG DAILY 11/13 1540 AC 11/17 IV 0824 Norepinephrine 4 MG Q7H 11/16 1100 CAN Sodium Chloride 250 ML IV Norepinephrine 4 MG Q7H 11/16 1100 AC 11/17 Sodium Chloride 250 ML IV 0827 Norepinephrine 4 MG Q22H 11/14 1800 DC 11/14 Sodium Chloride 250 ML IV 11/16 1059 1755 Pantoprazole Sodium 40 MG BID 11/13 1000 AC 11/17 IV 0823 Phosphate 250 MG PC AND AT BEDTIME 11/14 1300 DC 11/16 PO 0940 Polyethylene Glycol 17 GM DAILY 11/16 1207 AC PO Pyridoxine HCl 50 MG DAILY 11/15 1444 AC 11/17 PO 0826 Senna 187 MG AT BEDTIME 11/13 2200 AC 11/17 PO 0825 Tiotropium [place] 1 PUF DAILY 11/13 1000 AC INH Vancomycin HCl 1,000 MG DAILY 11/13 1000 AC 11/17 Dextrose/Water 250 ML IV 0832 Vital Signs & I&O Last 24 Hrs of Vitals and I&O: Vital Signs Date Time Temp Pulse Resp B/P B/P Pulse O2 O2 Flow FiO2 Mean Ox Delivery Rate 11/17 0827 97.5 90 18 104/70 11/17 0821 90 11/17 0543 90 11/17 0400 90 Ventilator 90% 11/17 0341 90 11/17 0203 90 11/17 0040 90 94/60 11/17 0000 98.6 90 15 104/62 95 Ventilator 90% 11/17 0000 95 Ventilator 90% 11/16 2230 90 11/16 2000 92 Ventilator 90% 11/16 1940 90 11/16 1745 98.2 80 15 91/65 11/16 1655 90 11/16 1600 94 Ventilator 90% 11/16 1600 98.2 76 16 92/64 94 Ventilator 90% 11/16 1415 90 11/16 1200 95 Ventilator 90% 11/16 1146 90 11/16 1100 97.2 75 15 74/57 Intake & Output 11/17 1600 11/17 0800 11/17 0000 Intake Total 1336 1325 Output Total 125 145 Balance 1211 1180 Intake, IV 1114 1107 Intake, Tube 162 128 Feeding Intake, Tube 60 90 Irrigant Output, Urine 125 145 Laboratory Tests 11/17 11/16 0440 0430 Chemistry Sodium (137 - 145 mmol/L) 138 135 L Potassium (3.5 - 5.1 mmol/L) 5.1 4.7 Chloride (98 - 107 mmol/L) 101 100 Carbon Dioxide (22 - 30 mmol/L) 29 30 Anion Gap (5 - 16) 8 5 BUN (9 - 20 mg/dL) 41 H 35 H Creatinine (0.7 - 1.2 mg/dL) 1.6 H 1.1 Estimated GFR (>60 ml/min) 41 L > 60 Glucose (65 - 99 mg/dL) 119 H 98 Calcium (8.4 - 10.2 mg/dL) 7.9 L 7.9 L Phosphorus (2.5 - 4.5 mg/dL) 5.6 H 4.7 H Magnesium (1.6 - 2.3 mg/dL) 2.1 2.1 Total Bilirubin (0.2 - 1.3 mg/dL) 0.5 0.9 AST (17 - 59 U/L) 14 L 17 ALT (21 - 72 U/L) 28 32 Albumin (3.5 - 5.0 g/dL) 2.1 L 2.1 L Hematology CBC w Diff MAN DIFF ORDERED MAN DIFF ORDERED WBC (4.8 - 10.8 /CUMM) 18.2 H 18.8 H RBC (4.70 - 6.10 /CUMM) 3.64 L 3.65 L Hgb (14.0 - 18.0 G/DL) 10.9 L 11.0 L Hct (42 - 52 %) 34.2 L 34.3 L MCV (80.0 - 94.0 FL) 93.9 93.9 MCH (27.0 - 31.0 PG) 30.0 30.1 MCHC (33.0 - 37.0 G/DL) 31.9 L 32.1 L RDW (11.5 - 14.5 %) 16.5 H 16.7 H Plt Count (130 - 400 /CUMM) 150 129 L MPV (7.4 - 10.4 FL) 8.2 8.3 Gran % (42.2 - 75.2 %) 95.8 H 77.5 H Lymphocytes % (20.5 - 51.1 %) 2.0 L 3.7 L Monocytes % (1.7 - 9.3 %) 0.5 L 1.1 L Eosinophils % (0 - 5 %) 1.6 17.4 H Basophils % (0.0 - 2.0 %) 0.1 0.3 Absolute Granulocytes (1.4 - 6.5 /CUMM) 17.5 H 14.6 H Segmented Neutrophils (42.2 - 75.2 %) 72 51 Band Neutrophils (0.0 - 5.0 %) 19 H 26 H Absolute Lymphocytes (1.2 - 3.4 /CUMM) 0.4 L 0.7 L Lymphocytes (20.5 - 51.1 %) 5 L 2 L Monocytes (1.7 - 9.3 %) 3 1 L Absolute Monocytes (0.10 - 0.60 /CUMM) 0.1 0.2 Eosinophils (0 - 5.0 %) 1 20 H Absolute Eosinophils (0.0 - 0.7 /CUMM) 0.3 3.3 Absolute Basophils (0.0 - 0.2 /CUMM) 0 0.1 Platelet Estimate (ADEQUATE) ADEQUATE DECREASED Hypochromic-Microcytic 1+ Poikilocytosis 1+ Basophilic Stippling 1+ 1+ Anisocytosis 1+ Microbiology Date/Time Procedure - Status Source Growth 11/16 1250 Blood Culture - RECD BLOOD 11/16 1238 Blood Culture - CAN BLOOD Cancelled: Impression/Plan Impression/Plan Impression/Plan: General Appearance: no apparent distress, sedated, intubated GEN: ill appearing, elderly man in no acute distress HEENT: NCAT, PERRL, anicteric sclera, MMM, endotraceal tube / OG tube in place NECK: Supple, no JVD, trachea midline, RIJ central line in place CARD: Normal S1/S2 w/o m/g/r; irregularly irregular PULM: Decreased bibasilar airflow ABD: Soft, NT, ND, BS+ : Benson catheter draining clear yellow urine NEURO: Sedated, no spontaneous movement, unresponsive to verbal/tactile stimuli EXT: bilateral upper extremity soft restraints, normal pulses, trace edema Cxr reviewed This is a gentleman with mixed restrictive obstructive lung disease with very severe emphysematous lung disease with severe interstitial pulmonary fibrosis with traction bronchiectasis with worsening progressive respiratory failure. He has had bullous COPD for many years from previous history of [id number] smoking quit in 1989. His overall lung function has been progressively getting worse. In the recent past he was also noted to have bilateral lung masses concerning for malignancy by PET scan and he is not a great candidate for invasive workup due to end-stage lung disease and we will be doing a CAT scan in July for evaluation of this. 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 Patient has been on INH since April 28. He also does have ascending aortic aneurysm, abdominal aortic aneurysm before, and very severe end-stage lung disease with reduced DLCO. Now here with severe resp failure now requiring intubation, with a complicated history and course issues * Acute resp failure due to progressive lung failure due to copd and ILD with prob lung malignancy, multifactorial in a pt with prog lung failure * Acute exacerbation of ILD with AIP * Pna, prob aspiration, with prob HCAP * GPC in blood await cultures with coag neg staph prob a contaminent * Enterococci in the sputum await final cultures and sensitivity * Sig shock requiring pressors a combination of Sepsis and low venous return due to intubation * Chronic effusion with pleural based masses now with increased effusion * PRevious positive quantiferon gold on inh preventitive rx, with previous sputum neg * Bilateral pleural based masses with pleuritic pain * Prob acute AIP aswell with prob superimposed pneumonia with bandemia * Slowly progressive rt lower lobe lesion since 2013 pt not a candidate for biopsy and he had wished conservative care (prob malignancy including lung vs mesothelioma vs boop * Severe copd with ild with mixed obstructive and restrictive lung disease 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 * 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 * Pafib with initial rapid ventricular response with normal LVEF, now misty * Previous bladder ca with no recurrence so far * Ulysses with electrolyte abnormality with slow improvement * PRevious ihd and afib PLAN Doing poorly Discussed with family Family wishes the patient to be made comfort care with terminal extubation Will honor the family's wishes and pt's prior wishes Will make comfort care when family is ready this afternoon Extubate for comfort when the family is ready IV morphine drip higher dose or cont fentanly drip at this rate or higher IF pt does ok after extubation will consult hospice later this camila or in am Extubate to nasal cannula 4 litres Apply scopalamine patch now If needed Ativan aswell Cont current care till then Pt continues to be critically ill TTS 37 mins
--- NOTE | 2017-11-17 11:15 | Discharge Summary ---
Visit Information Visit Dates Admission Date: 11/13/17 Discharge Date: 11/17/17 Hospital Course Course Attending Physician: Susy FAGAN,Hector Herman Primary Care Physician: Candido FAGAN,Tino Beck Hospital Course: Patient is 82 with multiple medical problems recently discharged from the [facility] treated for acute hypoxemic and hypercarbic respiratory failure 2/2 to COPD Exacerbation in setting of severe interstitial lung disease and emphysema. He became lethargic and only change in his medication was clonazepam 0.5 mg. He has underlying End stage lung disease. The patient was evaluated and treated for acute hypoxic respiratory failure multiple which was multifactorial. Initially patient was intubated as Full code , later after family discussion and as per patient's wishes in the past he was converted to DNR, later to comfort measures. Patient was terminally extubated on 11/17, he at 1355 on 11/17 2017 secondary to cardiopulmonary arrest. 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 -Not a candidate for biopsy and has opted for conservative care. 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 Blood counts were elevated with bandemia. -fever and WBC curve (afebrile but WBC count remains persistently elevated) -pancultures (Positive blood culture, and 1 bottle staph coagulase-negative, possible contaminant; LRS mixed jonathon) -Repeat blood cultures pending -mechanical ventilation -IV vancomycin and ceftazidime -Levophed, titrate to MAP > 65 -CVP q8 if less than 10 start d5 normal saline at 60 cc #History of atrial fibrillation with RVR with normal LVEF -Eliquis #Type II [place] in setting supply demand mismatch -Troponin peaked at 0.12 trended down -aspirin Metabolic #Hyperphosphatemia Likely secondary to PAOLO in setting of sepsis; likely prerenal #Lactic acidosis in setting of sepsis #History of hypothyroidism -Synthroid Alimentary -Tube feeds jevity 1.2 20cc/h -Nutrition following -Bowel regimen with Colace, Senna Nephrology #PAOLO in attending of sepsis Patient presented with creatinine of 1.4, back to baseline -monitor Cr 1.6 -IVF DVT prophylaxis with Eliquis Allergies: Coded Allergies: NO KNOWN ALLERGIES (12/07/11) Disposition Summary Disposition Principal Diagnosis: Acute respiratory failure multifactorial 2/2 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
--- NOTE | 2017-11-17 14:29 | Event Note ---
Event Note Event Note: Patient was pronounced on 11/17/2017 13:55 after terminal extubation No respiration no heart beat . pupillary reflexes absent Secondary to cardiopulmonary arrest due to respiratory failure because of end- stage lung disease
== END 2017-11-17 13:55 | disposition expired | DRG 870 ==
LOC: ERH 21:53 → CRI 11-13 00:30 → ERHI 11-13 00:30 → CRI 11-13 03:26
PROVIDERS: Dermatology; Emergency Medicine; Internal Medicine; Internal Medicine Interventional Cardiology
PROC: 5A1955Z Respiratory Ventilation, Greater than 96 Consecutive Hours (ICD-10-PCS; principal; 2017-11-12)
PROC: 0BH17EZ Insertion of Endotracheal Airway into Trachea, Via Natural or Artificial Opening (ICD-10-PCS; principal; 2017-11-12)
DX: A41.9 Sepsis, unspecified organism (principal); J69.0 Pneumonitis due to inhalation of food and vomit; J96.21 Acute and chronic respiratory failure with hypoxia; R65.21 Severe sepsis with septic shock; J18.9 Pneumonia, unspecified organism; G93.41 Metabolic encephalopathy; N17.9 Acute kidney failure, unspecified; J44.0 Chronic obstructive pulmonary disease with (acute) lower respiratory infection; J96.22 Acute and chronic respiratory failure with hypercapnia; J44.1 Chronic obstructive pulmonary disease with (acute) exacerbation; E87.2 Acidosis; J98.2 Interstitial emphysema; I48.0 Paroxysmal atrial fibrillation; G43.909 Migraine, unspecified, not intractable, without status migrainosus; E83.39 Other disorders of phosphorus metabolism; Z51.5 Encounter for palliative care; Z99.81 Dependence on supplemental oxygen; R76.11 Nonspecific reaction to tuberculin skin test without active tuberculosis; R91.8 Other nonspecific abnormal finding of lung field; Z79.01 Long term (current) use of anticoagulants; Z85.51 Personal history of malignant neoplasm of bladder; Z79.82 Long term (current) use of aspirin; Z79.52 Long term (current) use of systemic steroids; E03.9 Hypothyroidism, unspecified; Z86.718 Personal history of other venous thrombosis and embolism; Z96.653 Presence of artificial knee joint, bilateral; E87.5 Hyperkalemia; D72.829 Elevated white blood cell count, unspecified; Z87.891 Personal history of nicotine dependence
CPT/HCPCS: 87184; CCU; 36415; 71045; 74176; 80307; 81001; 82436; 87040; 87070; 87071; 87086; 87147; 87804; 87804-59; 93005; 93010; 93306; 94799; 96360; 96365; 96366; 96374; 96375; 99291; J0713; J2060; J2310; J2920; J3010; J3370; J3490; J7040; J7042; J7060